=== PATIENT | female | born 1970 | race Caucasian/White ===

== ENCOUNTER 2023-07-18 09:26 | Inpatient (IN) ==
--- OUTSIDE RECORDS SUMMARY | 2023-07-18 09:31 | External Medical Summary | Summary of Care ---
Author Name Unknown Organization [facility] Address [address] [place] [address] Phone [phone] Care Team Providers Care Shape Brick Molder Name Role Phone Gregory Dyer MD Primary Care Provider [phone] Reason for Visit * Reason Onset Date Comments Medication Refill 06/24/2023 Encounter Details Date Type Department Care Team (Late st Contact Info) Description 06/24/2023 Refill [facility], [facility] [address] [facility] [place] [address] Bceka Jones DO [address] [place] [id number] Memory changes; Fibromyalgia Allergies Active Allergy Reactions Criticality Noted Date Comments Acetaminophen-Codeine High 10/19/2013 Itching Other reaction(s): severe itching Cat Dander Allergy test positive 04/23/2017 Nasal congestion, watery eyes Dog Dander Allergy test positive 04/23/2017 itchy watery eyes, nasal congestion Dust Allergy test positive 12/31/2017 Itchy, watery eyes nasal congestion Molds & Smuts Allergy test positive 04/23/2017 Oxycodone Itching High 02/24/2017 Other reaction(s): severe itching documented as of this encounter (statuses as of 06/25/2023) Medications Medication Sig Dispensed Refills Start Date End Date Status Probiotic Product (PROBIOTIC DAILY) Capsule Take by mouth 1 Capsule daily . 0 10/07/2016 Active Cholecalciferol (VITAMIN D) 1000 units Tablet Take 1 Tablet by mouth in the morning. 0 03/24/2017 Active Mometasone Furoate (NASONEX) 50 MCG/ACT nasal sprayIndications:Re flux esophagitis Administer 2 Sprays into each nostril daily. 1 Inhaler 5 06/24/2017 Active Black Cohosh 200 MG Oral Capsule Take by mouth 2 times a day. 0 Active Clobetasol Propionate 0.05 % External Ointment (Temovate)Indicatio ns:Dermatitis Apply to affected area twice daily for up to two weeks at a time 30 g 1 09/09/2021 Active Multi-Day Oral Tablet Take by mouth 1 Tablet in the morning. 0 Active Melatonin 10 MG Oral Tablet Take 1 Tablet by mouth at bedtime. Midnight OTC supplement with melatonin 0 Active SUMAtriptan Succinate 50 MG Oral Tablet (Imitrex)Indication s:Chronic migraine without aura without status migrainosus, not intractable take 1 tablet every 2 hours as needed for migraine. Max 4 tablets per 24 hours. 9 Tablet 5 03/12/2022 Active Metoprolol Succinate ER 25 MG Oral Tablet Extended Release 24 Hour (Toprol XL) Take 1 Tablet by mouth in the morning. 30 Tablet 11 09/10/2022 Active Vitamin B-12 1000 MCG Oral Tablet Take 1 Tablet by mouth in the morning. 0 Active Magnesium 250 MG Oral Tablet Take 1 Tablet by mouth in the morning. 0 Active Entresto 24-26 MG Oral Tablet (sacubitril-valsart an 24-26 mg per tab)Indications:Chr onic combined systolic and diastolic heart failure (HCC) Take 1/2 tablet by mouth twice daily 90 Tablet 3 11/14/2022 Active Empagliflozin 10 MG Oral Tablet (Jardiance)Indicati ons:Chronic combined systolic and diastolic heart failure (HCC) Take 1 Tablet by mouth in the morning. 90 Tablet 3 11/14/2022 Active Pantoprazole Sodium 40 MG Oral Tablet Delayed Release (Protonix) Take 1 tablet by mouth twice daily 180 Tablet 2 12/11/2022 Active tiZANidine HCl 4 MG Oral Tablet (Zanaflex)Indicatio ns:Fibromyalgia Take 1.5 tablets at bedtime as needed for spasm and pain 135 Tablet 1 12/24/2022 Active buPROPion HCl ER (XL) 150 MG Oral Tablet Extended Release 24 Hour (Wellbutrin XL) Take 1 Tablet by mouth in the morning. 90 Tablet 3 01/19/2023 Active Aspirin Low Dose 81 MG Oral Tablet Delayed Release Take 1 Tablet by mouth every other day. 0 02/10/2023 Active Furosemide 20 MG Oral Tablet (Lasix)Indications: LBBB (left bundle branch block),Left ventricular systolic dysfunction,Dyslipi demia, goal LDL below 100,Family history of premature CAD TAKE 1 TABLET BY MOUTH EVERY MORNING 90 Tablet 3 03/25/2023 Active HYDROcodone-Acetami nophen 5-325 MG Oral TabletIndications:D DD (degenerative disc disease), lumbosacral Take 1 Tablet by mouth every 6 hours as needed for Pain, Severe or Pain, Breakthrough. 30 Tablet 0 04/22/2023 Active Trintellix 20 MG Oral Tablet (Vortioxetine HBr) Take 1 Tablet by mouth in the morning. 30 Tablet 5 05/12/2023 Active Spironolactone 25 MG Oral Tablet (Aldactone) TAKE 1/2 TABLET BY MOUTH IN THE MORNING 15 Tablet 5 06/02/2023 Active Pregabalin 100 MG Oral Capsule (Lyrica) TAKE ONE CAPSULE BY MOUTH IN THE MORNING AND before bedtime 60 Capsule 2 06/03/2023 Active Pregabalin 25 MG Oral Capsule (Lyrica)Indications :Chronic pain syndrome,Fibromyalg ia,Fibromyalgia syndrome,Chronic radicular cervical pain,Central sensitization to pain Take 1 Capsule by mouth in the morning and 1 Capsule before bedtime. To be taken at same time as 100mg capsule for total dose of 125mg of lyrica twice daily.. 60 Capsule 2 06/03/2023 Active Memantine HCl 10 MG Oral Tablet (Namenda)Indication s:Memory changes,Fibromyalgi a Take 1 Tablet by mouth 2 times a day with morning and evening meals. 60 Tablet 3 06/25/2023 Active Memantine HCl 10 MG Oral Tablet (Namenda)Indication s:Memory changes,Fibromyalgi a Take 1 Tablet by mouth 2 times a day with morning and evening meals. 60 Tablet 3 02/02/2023 Discontinue d(Refill) documented as of this encounter (statuses as of 06/25/2023) Active Problems Problem Noted Date Diagnosed Date Non-ischemic cardiomyopathy 04/19/2023 Obstructive sleep apnea 04/19/2023 Depression with anxiety 04/19/2023 Chronic combined systolic and diastolic heart fa ilure 09/30/2022 Migraine with aura and witho ut status migrainosus, not intractable 09/30/2022 HTN, goal below 130/80 11/29/2019 Left bundle branch block 01/12/2018 Fibromyalgia 03/24/2017 Persistent insomnia 11/25/2016 DDD (degenerative disc disease), lumbosacral Vitamin D deficiency 06/27/2009 Overview: Vitamin D 16.6 Dyslipidemia 06/07/2009 Overview: Per Lipid Taxonomy. Tobacco abuse Overview: Stopped smoking within one week of +HPT Gastroesophageal reflux disease with esophagitis Asthma, mild persistent documented as of this encounter (statuses as of 06/25/2023) Resolved Problems Problem Noted Date Diagnosed Date Resolved Date Prediabetes 08/29/2021 05/07/2023 Advanced directives, counseling/discussion 10/11/2020 12/04/2020 Urinary retention with incom plete bladder emptying 09/11/2020 09/30/2022 Cystocele, midline 09/11/2020 3 Rectocele 09/11/2020 09/30/2022 Chronic constipation 09/11/2020 023 Chronic allergic rhinitis 06/09/2017 Family history of hypercholesterolemia 11/25/2016 11/28/2019 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 Habitual aborter, antepartum condition or complication 12/02/2011 09/01/2012 ADVANCE DIRECTIVE INFORMATION 12/01/2011 01/05/2012 Overview: No, Advance Directive brochure offered , patient declined. Supervision of other high-risk 12/01/2011 06/02/2012 Overview: Pt desires BTL with repeat c/s ICD-10 update of inactive term AMA (advanced maternal age) multigravida 35+ 2 06/02/2012 History of recurrent miscarr iages, not currently 12/01/2011 11/29/2019 History of delivery 12/01/2011 06/02/2012 with other poor ob stetric history(V23.49) 10/29/2011 04/24/2012 Overview: +AMA-desires FTS MFM 11/30: -For patients who will be over the age of 40 at the time of delivery, we recommend echo with MFM at 22-24 weeks, ultrasound for growth with MFM at approximately 32 weeks, surveillance with twice weekly NST/weekly ASHVIN at 38 weeks, and delivery by 41 weeks. -Offered genetic screening/testing options including amniocentesis. Reviewed risk of loss with amniocentesis of 1:500. Patient desires First trimester screen. -Recommend MFM ultrasound for anatomy screen at 18-20 weeks gestation. MFM 01/05/12: Recommend follow up ultrasound with MFM in 6 weeks for growth, f/u anatomy, and echo secondary to AMA. MFM 02/16/12: Repeat TSH and Free T4 at this visit. Will recommend treatment with Levoxyl for TSH >2.5 in . Recommend re-initiating SSRI for symptomatic major depression to prevent more serious depression. Recommend stress dose steroids at time of delivery secondary to chronic exogenous steroid administration during -pt no longer needs as she stopped steroid injections Recommend follow up ultrasound with MFM in 6 weeks for growth secondary to AMA. MFM 04/01/12: Monitor TSH each trimester and 4-6 weeks after any dose changes. Would recommend checking once more this . We recommend surveillance with twice weekly NST/weekly ASHVIN starting at 38 weeks, and delivery by 41 weeks. Recommend follow up ultrasound with MFM in 3 weeks for growth secondary to lagging AC and marginal cord insertion, AMA. Palpitations 07/18/2010 11/06/2015 Previous delivery, antepartum condition or complication 06/03/2010 01/05/2012 Overview: Pt considering repeat C/s at [facility] or at [facility] where she works. Continue to discuss Asthma with severity to be determined 12/17/2009 06/08/2013 Overview: Per Asthma Taxonomy ICD-10 update of inactive term Dyslipidemia, goal LDL below 130 08/08/2009 08/08/2009 Other specified anemias 10/08/200708/20 Overview: H/H 11.5/34.2 Mixed dyslipidemia 11/10/200506/07/ 9 Overview: Per Lipid Taxonomy. Major depressive disorder, s debo episode, moderate 11/10/2005 11/28/2019 Overview: 10/28: Tapering Effexor; pt daily 37.5mg daily at NOB visit; pt desires to continue taper. Restart Celexa 02/18/12 EXTRINSIC ASTHMA, UNSPEC 11/10/2005 Other allergic rhinitis 11/10/200512/20 Overview: ICD-10 update of inactive term Other acne 02/01/2001 01/05/2012 Generalized anxiety disorder 04/19/2023 Umbilical hernia 11/28/2019 Acquired pyloric stenosis Overview: EGD [place] Psoriasis 11/28/2019 Asthma in remission 10/05/19 14 Migraine variant 09/30/2022 Overview: well-managed with Imitrex but only Vicodin/codeine since Iron deficiency anemia due t o chronic blood loss 11/28/2019 Melanocytic nevus of trunk 0 11/28/2019 Carpal tunnel syndrome 11/05 Overview: bilateral symptoms History of Jay fundoplication 11/29/2019 documented as of this encounter (statuses as of 06/25/2023) Immunizations Name Administration Dates Next Due COVID-19 mRNA, LNP-s, No Pre serve, 2-Dose Series (Third Chicken) 11/27/2020,11/06/2020 PPD 04/15/2016, 6,10/10/2014,08/23,09/09/2010,08/22/2009,08/08/2009 ,07/26/2007 Pneumococcal Polysaccharide PPV23 (Pneumovax) 04/17/2015,06/26/2009(Deferred: Patient Refused) Seasonal Influenza, PF, 6 M & above, IM , (FluLaval or Fluzone) 03/18/2023,02/21/2020,03/24/2017 Seasonal Influenza, Quadriva lent, No Preserve, IM 03/20/2016,03/21/2015 Seasonal Influenza, Split, I IV3, With Preserve, Inj 04/11/2014,04/27/2013,03/22/2012,03/31,04/20/2009 TDAP (age 10 and older)(Boostrix) 12/08/2017 TDAP (age 11 and older)(Adacel) 07/26/2007 documented as of this encounter Social History Tobacco Use Types Packs/Day Years Used Date Smoking Tobacco: Every Day Cigarettes 0.3 28 Last attempted to quit: 09/21/2011 Smokeless Tobacco: Never Comments:6-8 cigarettes a da y Alcohol Use Standard Drinks/Week Comments Yes 0 (1 standard drink = 0.6 oz pure alcohol) once every couple of months a drink PHQ-2 Answer Date Recorded PHQ Adult Total Score 20 10/22/2022 Hunger Vital Sign Answer Date Recorded Worried About Running Out of Food in the Last Ye ar Never true 11/29/2019 Ran Out of Food in the Last Year Never true 11/29/2019 Sex and Gender Information Value Date Recorded Sex Assigned at Not on file Gender Identity Not on file Sexual Orientation Not on file Job Start Date Occupation Industry Not on file Not on file Not on file documented as of this encounter Miscellaneous Notes * Telephone Encounter - Becka Jones DO - 06/25/2023 1:15 PM ESTSigned Prescriptions: Disp Refills Memantine HCl 10 MG Oral Tablet (Namenda) 60 Tab*3 Sig: Take 1 Tablet by mouth 2 times a day with morning and evening meals.Authorizing Provider: BECKA JONES--- documented in this encounter Plan of Treatment Upcoming Encounters Date Type Department Care Team (Late st Contact Info) Description 08/06/2023 3:00 PM EST Imaging Radiology [facility] [address] [place] [id number] 09/23/2023 1:30 PM EDT Office Visit Cardiology, [facility] [address] [place] [address] Sarita Jones CRNP [address] [place] [id number] 05/04/2024 3:30 PM EST Imaging Radiology [address] [place] [address] Scheduled Procedures Name Priority Associated Diagnoses Date/Ti me COLONOSCOPY FLEXIBLE PROXIMA L DIAGNOSTIC Recall Screening for colorectal cancer Gastroesophageal reflux disease, unspecified whether esophagitis present Health Maintenance Due Date Last Done Comments DISCUSS TOBACCO CESSATION (REFER TO SMARTSET #3231) 1971 Hepatitis B (1 of 3 - 3-dose series) 1971 Albumin/Creatinine Ratio 1989 Hepatitis C Screening 1989 HPV/Co-Test 2001 Cologuard 2016 Fecal Occult Blood Test 2016 Sigmoidoscopy 2016 Pneumococcal Vaccine: Pediatrics (0 to 5 Years) and At-Risk Patients (6 to 64 Years) (2 - PCV) 04/17/2016 04/17/2015 *SPIROMETRY ONCE FOR ASTHMA-ADULT 08/10/2016 Zoster Vaccines (1 of 2) 2021 Cervical Cancer Screening 08/23/2022 Pap Smear 08/23/2022 08/24/2019, 05/22, 12/29/2012, Additional history exists Depression, Most Recent Score >= 10 (will fire each visit until score < 10) 10/23/2022 10/22/2022 COVID-19 Vaccine ( season) 2023 11/27/2020, 11/06/2020 GFR 02/04/2024 02/03/2023, 12/20, 12/18/2022, Additional history exists Mammogram 04/24/2024 04/24/2023, 03/23, 04/12/2021, Additional history exists Diabetes Screening 02/03/2026 02/03/2023, 0 12/18/2022, 11/26/2022, Additional history exists Lipid Panel 09/13/2027 09/12/2022, 08/20, 11/29/2019, Additional history exists DTaP,Tdap,and Td Vaccines (3 - Td or Tdap) 12/09/2027 12/08/2017, 07/26/2007 Colonoscopy 10/25/2031 10/24/2021, 10/24/2021 Colorectal Cancer Screening 10/25/2031 Influenza Vaccine (FLU shot) Completed , 02/21/2020, 03/24/2017, Additional history exists GARDASIL-HPV IMMUNIZATION SERIES Aged Out No longer eligible based on patient's age to complete this topic MENINGOCOCCAL (MENACTRA/MENVEO) Aged Out No longer eligible based on patient's age to complete this topic documented as of this encounter Medical Devices Not on filedocumented as of this encounter Visit Diagnoses Diagnosis Memory changes Memory loss Fibromyalgia Mylagia and myositis, unspecified documented in this encounter Advance Directives Latest Code Status on File Code Status Date Activated Date Inactivated Comments Full Code 01/12/2014 8:04 AM 01/12/2014 1:19 PM This order reflects the patients wishes and were consensually agreed upon. Code Status History Code Status Date Activated Date Inactivated Comments Full Code 04/20/2012 2:08 AM 04/27/2012 8:33 PM This order reflects the patients wishes and were consensually agreed upon. Care Teams Shape Brick Molder Relationship Specialty Start Date End Date Gregory Dyer MD [address] [place] [id number] PCP - General Family Medicine 11/29/19 documented as of this encounter
--- OUTSIDE RECORDS SUMMARY | 2023-07-18 09:31 | External Medical Summary | Summary of Care ---
Author Name Unknown Organization [facility] Address [address] [place] [address] Phone [phone] Care Team Providers Care Core Oven Tender Name Role Phone Gregory Dyer MD Primary Care Provider [phone] Reason for Visit * Reason Comments Neck Pain Back Pain Encounter Details Date Type Department Care Team (Late st Contact Info) Description 06/10/2023 11:30 AM EST Office Visit Interventional Pain Center, [facility] [address] [place] [address] Kiera Manley PA-C [address] [facility] [place] [address] Chronic pain syndrome*; Fibromyalgia Allergies Active Allergy Reactions Criticality Noted [...] as of this encounter (statuses as of 06/10/2023) Medications Medication Sig Dispensed Refills Start Date End Date Status Probiotic Product (PROBIOTIC DAILY) Capsule Take by mouth 1 Capsule daily . 0 10/07/2016 Active Cholecalciferol (VITAMIN D) 1000 units Tablet Take 1 Tablet by mouth in the morning. 0 03/24/2017 Active Mometasone Furoate (NASONEX) 50 MCG/ACT nasal sprayIndications:Ref lux esophagitis Administer 2 Sprays into each nostril daily. 1 Inhaler 5 06/24/2017 Active Black Cohosh 200 MG Oral Capsule Take by mouth 2 times a day. 0 Active Clobetasol Propionate 0.05 % External Ointment (Temovate)Indication s:Dermatitis Apply to affected area twice daily for up to two weeks at a time 30 g 1 09/09/2021 Active Multi-Day Oral Tablet Take by mouth 1 Tablet in the morning. 0 Active Melatonin 10 MG Oral Tablet Take 1 Tablet by mouth at bedtime. Midnight OTC supplement with melatonin 0 Active SUMAtriptan Succinate 50 MG Oral Tablet (Imitrex)Indications :Chronic migraine without aura without status migrainosus, not [...] 0 Active Entresto 24-26 MG Oral Tablet (sacubitril-valsarta n 24-26 mg per tab)Indications:[employer] cortez combined systolic and diastolic heart failure (HCC) Take 1/2 tablet by mouth twice daily 90 Tablet 3 11/14/2022 Active Empagliflozin 10 MG Oral Tablet (Jardiance)Indicatio ns:Chronic combined systolic and diastolic heart failure (HCC) Take 1 Tablet by mouth in the morning. 90 Tablet 3 11/14/2022 Active Pantoprazole Sodium 40 MG Oral Tablet Delayed Release (Protonix) Take 1 tablet by mouth twice daily 180 Tablet 2 12/11/2022 Active tiZANidine HCl 4 MG Oral Tablet (Zanaflex)Indication s:Fibromyalgia Take 1.5 tablets at bedtime as needed for spasm and pain 135 Tablet 1 12/24/2022 Active buPROPion HCl ER (XL) 150 MG Oral Tablet Extended Release 24 Hour (Wellbutrin XL) Take 1 Tablet by mouth in the morning. 90 Tablet 3 01/19/2023 Active Memantine HCl 10 MG Oral Tablet (Namenda)Indications :Memory changes,Fibromyalgia Take 1 Tablet by mouth 2 times a day with morning and evening meals. 60 Tablet 3 02/02/2023 Active Aspirin Low Dose 81 MG Oral Tablet Delayed Release Take 1 Tablet by mouth every other day. 0 02/10/2023 Active Furosemide 20 MG Oral Tablet (Lasix)Indications:L BBB (left bundle branch block),Left ventricular systolic dysfunction,Dyslipid emia, goal LDL below 100,Family history of premature CAD TAKE 1 TABLET BY MOUTH EVERY MORNING 90 Tablet 3 03/25/2023 Active HYDROcodone-Acetamin ophen 5-325 MG Oral TabletIndications:DD D (degenerative disc disease), lumbosacral Take 1 Tablet by mouth every 6 hours as needed for Pain, Severe or Pain, Breakthrough. 30 Tablet 0 04/22/2023 Active Zolpidem Tartrate 10 MG Oral Tablet (Ambien)Indications: Persistent insomnia Take 1 Tablet by mouth at bedtime as needed for Sleep. 30 Tablet 0 05/08/2023 Active Trintellix 20 MG Oral Tablet (Vortioxetine [...] 06/03/2023 Active Pregabalin 25 MG Oral Capsule (Lyrica)Indications: Chronic pain syndrome,Fibromyalgi a,Fibromyalgia syndrome,Chronic radicular cervical pain,Central sensitization to pain Take 1 Capsule by mouth in the morning and 1 Capsule before bedtime. To be taken at same time as 100mg capsule for total dose of 125mg of lyrica twice daily.. 60 Capsule 2 06/03/2023 Active documented as of this encounter (statuses as of 06/10/2023) Active Problems Problem Noted Date Diagnosed Date [...] as of this encounter (statuses as of 06/10/2023) Resolved Problems Problem Noted Date Diagnosed Date [...] 01/05/2012 Overview: Pt considering repeat C/s at [facility] or at [facility] where she works. Continue to discuss Asthma [...] hernia 11/28/2019 Acquired pyloric stenosis Overview: EGD [place] Psoriasis 11/28/2019 Asthma in remission 10/05/19 14 Migraine variant 09/30/2022 Overview: well-managed with Imitrex but only Vicodin/codeine since Iron deficiency anemia due t o chronic blood loss 11/28/2019 Melanocytic nevus of trunk 0 11/28/2019 Carpal tunnel syndrome 11/05 Overview: bilateral symptoms History of Jay fundoplication 11/29/2019 documented as of this encounter (statuses as of 06/10/2023) Immunizations Name Administration Dates Next Due COVID-19 mRNA, LNP-s, No Pre serve, 2-Dose Series ([employer]) 11/27/2020,11/06/2020 PPD 04/15/2016, 6,10/10/2014,08/23,09/09/2010,08/22/2009,08/08/2009 ,07/26/2007 Pneumococcal Polysaccharide [...] on file documented as of this encounter Progress Notes * Kiera Manley PA-C - 06/10/2023 11:28 AM EST Name: Mily De La Cruz Date: 06/10/2023 HPI: Mily De La Cruz is a 53 year old female known to the Pain Management clinic presents for follow up due to severe, diffuse spine pain and fibromyalgia. Notes some relief with cymbalta, using 125 mgBID. Denies unwanted side effects. Although continues to feel neck, low back, upper extremity and lower extremities pain is significantly impacting ADL - stating "I'm a mess." Difficulty working due to pain, has backed down to two to three shifts per week. Briefly had a scribe which was helpful, although employer felt it was too expensive and stopped providing the help for her. Pain is impacting mood, denies suicidal or homicidal ideation/intent. Notes emotions can be high and low describing a wilberto méndez. Has 1-2 good days per month, although "good days" still involve diffuse pain. Describes pain as stiff, sore and aching. Tried medical marijuana, didn't like the way it made her feel, avoids using when working. No lasting relief with cervical trigger point injections. She is going to therapy. Discusses pain with her mother, good support system. Has completed MPP in the past. Very fatigued. History: Past Medical History: Diagnosis Date Abnormal finding on Pap smear 1989 cryo surgery done 1989, paps WNL since then Acquired pyloric stenosis 2007 post-op fundoplication, surgically corrected Asthma 2004 has not req'd treatment since 2010 Asthma in remission 2010 Asthma, mild persistent Chronic diastolic heart failure (HCC) 09/30/2022 COVID-19 Depression 1999 well-managed with Effexor but stopped with knowledge of Depression with anxiety 04/19/2023 Fibromyalgia GERD (gastroesophageal reflux disease) 2004 unsuccessfully managed with meds, fundoplication done 05/2007, GERD resolved since then History of Jay fundoplication History of recurrent miscarriages, not currently 12/01/2011 HTN, goal below 130/80 11/29/2019 Iron deficiency anemia due to chronic blood loss Melanocytic nevus of trunk Migraine 2003 well-managed with Imitrex but only Vicodin/codeine since Migraine with aura and without status migrainosus, not intractable 09/30/2022 Non-ischemic cardiomyopathy (HCC) 04/19/2023 Obstructive sleep apnea 04/19/2023 Prediabetes 08/29/2021 Type A blood, Rh positive Vitamin D deficiency 2010 manages with supplementation Past Surgical History: Procedure Laterality Date DELIVERY 1994 no comps. General anesthesia due to inadequate epidural. COLONOSCOPY, DIAGNOSTIC (RECTUM) 10/24/2021 normal, repeat 10 yrs / COLONOSCOPY FLEXIBLE PROXIMAL DIAGNOSTIC performed by Atif Holly MD at ENDOSCOPY [facility] DILATION AND CURETTAGE (D&C) 2009 no comps DILATION AND CURETTAGE (D&C) 04/24/2012 DILATION AND CURETTAGE performed by Mirlande Goldman MD at [facility] EGD, FLEXIBLE, DIAGNOSTIC 10/25/2013 esophagus normal, Jay fundoplication, stomach and duodenum normal EGD, FLEXIBLE, DIAGNOSTIC 01/12/2018 normal/ESOPHAGOGASTRODUODENOSCOPY (EGD), FLEXIBLE, TRANSORAL, DIAGNOSTIC performed by Maty Andrade MD at ENDOSCOPY [facility] EGD, FLEXIBLE, DIAGNOSTIC 2018 chronic gastritis/[facility] EGD, FLEXIBLE, DIAGNOSTIC 10/24/2021 normal / ESOPHAGOGASTRODUODENOSCOPY (EGD), FLEXIBLE, TRANSORAL, DIAGNOSTIC performed by Atif Holly MD at ENDOSCOPY [facility] EGD, FLEXIBLE, W/DILATE STRICTURES 2007 dilated for pyloric stenosis , no comps ESOPHAGOGASTRIC FUNDOPLASTY 2006 post op gastroparesis [place] [facility] HYSTEROSCOPY;ENDOMETRIAL ABLAT 01/12/2014 HYSTEROSCOPY ENDOMETRIAL ABLATION performed by Eze Greer MD at OR [facility] TOOTH ROOT REMOVAL 1990 no comps UMBIL HERNIA REPAIR (REDUCIBLE) AGE 5+YR 2006 no comps Current Outpatient Medications Medication Sig Dispense Refill Probiotic Product (PROBIOTIC DAILY) Capsule Take by mouth 1 Capsule daily . Cholecalciferol (VITAMIN D) 1000 units Tablet Take 1 Tablet by mouth in the morning. Mometasone Furoate (NASONEX) 50 MCG/ACT nasal spray Administer 2 Sprays into each nostril daily. 1 Inhaler 5 Black Cohosh 200 MG Oral Capsule Take by mouth 2 times a day. Clobetasol Propionate 0.05 % External Ointment (Temovate) Apply to affected area twice daily for upto two weeks at a time 30 g 1 Multi-Day Oral Tablet Take by mouth 1 Tablet in the morning. Melatonin 10 MG Oral Tablet Take 1 Tablet by mouth at bedtime. Midnight OTC supplement with melatonin Metoprolol Succinate ER 25 MG Oral Tablet Extended Release 24 Hour (Toprol XL) Take 1 Tablet by mouth in the morning. 30 Tablet 11 Vitamin B-12 1000 MCG Oral Tablet Take 1 Tablet by mouth in the morning. Magnesium 250 MG Oral Tablet Take 1 Tablet by mouth in the morning. Entresto 24-26 MG Oral Tablet (sacubitril-valsartan 24-26 mg per tab) Take 1/2 tablet by mouth twice daily 90 Tablet 3 Empagliflozin 10 MG Oral Tablet (Jardiance) Take 1 Tablet by mouth in the morning. 90 Tablet 3 Pantoprazole Sodium 40 MG Oral Tablet Delayed Release (Protonix) Take 1 tablet by mouth twice [id number] Tablet 2 buPROPion HCl ER (XL) 150 MG Oral Tablet Extended Release 24 Hour (Wellbutrin XL) Take 1 Tablet by mouth in the morning. 90 Tablet 3 Memantine HCl 10 MG Oral Tablet (Namenda) Take 1 Tablet by mouth 2 times a day with morning and evening meals. 60 Tablet 3 Aspirin Low Dose 81 MG Oral Tablet Delayed Release Take 1 Tablet by mouth every other day. Furosemide 20 MG Oral Tablet (Lasix) TAKE 1 TABLET BY MOUTH EVERY MORNING 90 Tablet 3 Trintellix 20 MG Oral Tablet (Vortioxetine HBr) Take 1 Tablet by mouth in the morning. 30 Tablet 5 Spironolactone 25 MG Oral Tablet (Aldactone) TAKE 1/2 TABLET BY MOUTH IN THE MORNING 15 Tablet 5 Pregabalin 100 MG Oral Capsule (Lyrica) TAKE ONE CAPSULE BY MOUTH IN THE MORNING AND before [id number] Capsule 2 Pregabalin 25 MG Oral Capsule (Lyrica) Take 1 Capsule by mouth in the morning and 1 Capsule before bedtime. To be taken at same time as 100mg capsule for total dose of 125mg of lyrica twice daily.. 60 Capsule 2 SUMAtriptan Succinate 50 MG Oral Tablet (Imitrex) take 1 tablet every 2 hours as needed for migraine. Max 4 tablets per 24 hours. 9 Tablet 5 tiZANidine HCl 4 MG Oral Tablet (Zanaflex) Take 1.5 tablets at bedtime as needed for spasm and [id number] Tablet 1 HYDROcodone-Acetaminophen 5-325 MG Oral Tablet Take 1 Tablet by mouth every 6 hours as needed for Pain, Severe or Pain, Breakthrough. 30 Tablet 0 Zolpidem Tartrate 10 MG Oral Tablet (Ambien) Take 1 Tablet by mouth at bedtime as needed for Sleep.30 Tablet 0 No current facility-administered medications for this visit. Facility-Administered Medications Ordered in Other Visits Medication Dose Route Frequency Provider Last Rate Last Admin Nitroglycerin (Nitrostat) sl tab 0.4 mg 0.4 mg Sublingual Q5 Min PRN Zari Chance CRNP Review of patient's allergies indicates: Allergen Reactions Acetaminophen-Codeine Itching Other reaction(s): severe itching Oxycodone Itching Other reaction(s): severe itching Cats [Cat Dander] Allergy test positive Nasal congestion, watery eyes Dogs [Dog Dander] Allergy test positive itchy watery eyes, nasal congestion Dust Allergy test positive Itchy, watery eyes nasal congestion Molds & Smuts Allergy test positive ROS: CONSTITUTIONAL: Denies anorexia, weight loss, fever, night sweats. RESPIRATORY: Denies shortness of breath, wheezing, productive cough. CARDIOVASCULAR: Denies chest pains, irregular heartbeat. HEME: Denies easy bruising and anticoagulation use. ROS EXAM: Remainder of ROS negative as discussed above in the HPI. PHYSICAL EXAM: There were no vitals taken for this visit. GENERAL: WD/WN female who is awake and alert. Does not appear to be in acute distress. Tearful. MENTAL STATUS: Oriented x 3. Pleasant and cooperative with normal affect. GAIT/COORDINATION: Gait is intact. Ambulates without assistance. ASSESSMENT: Chronic pain syndrome Fibromyalgia RECOMMENDATION: Some benefit with lyrica, will continue. Plan to discuss further titration with Dr. Jones. Do not feel interventional pain is an appropriate option due to diffuseness of pain. Will message PCP regarding possible MTDM referral. Actively participating in therapy, has completed MPP in the past. I spent a total of 20-29 minutes (exact time 27 mins) on the date of service in preparation, delivery, and documentation of the care provided to iMly De La Cruz excluding any time spent in the performance of separately billed services. Kiera Manley PA-C 06/10/2023 documented in this encounter Nursing Notes * Zari Yeung LPN - 06/10/2023 11:27 AM EST Patient here for increased body pain, wants to discuss increasing lyrica documented in this encounter Plan of Treatment Upcoming Encounters Date Type Department Care Team (Late st Contact Info) Description 08/06/2023 3:00 PM EST Imaging Radiology [address], [address] [place] [address] 09/23/2023 1:30 PM EDT Office Visit Cardiology, [facility] [address] [place] [address] Sarita Jones CRNP [address] [place] [address] 05/04/2024 3:30 PM EST Imaging Radiology [address] [place] [address] Scheduled Procedures Name Priority Associated Diagnoses Date/Ti me COLONOSCOPY FLEXIBLE PROXIMA L DIAGNOSTIC Recall Screening for colorectal cancer Gastroesophageal reflux disease, unspecified whether esophagitis present Health Maintenance Due Date Last Done Comments DISCUSS TOBACCO CESSATION (REFER TO SMARTSET #7111) 1971 Hepatitis B (1 of 3 - [...] score < 10) 10/23/2022 10/22/2022 COVID-19 Vaccine (2022- season) 2023 11/27/2020, 11/06/2020 GFR 02/04/2024 02/03/2023, [...] as of this encounter Visit Diagnoses Diagnosis Chronic pain syndrome- Primary Fibromyalgia Mylagia and myositis, unspecified documented in [...] and were consensually agreed upon. Care Teams Core Oven Tender Relationship Specialty Start Date End Date Gregory Dyer MD [address] [facility] [place] [address] PCP - General Family Medicine 11/29/19 documented as of this encounter
--- OUTSIDE RECORDS SUMMARY | 2023-07-18 09:31 | External Medical Summary | Summary of Care ---
Author Name Unknown Organization [facility] Address [address] [place] [address] Phone [phone] Care Team Providers Care Retort Forker Name Role Phone Gregory Dyer MD Primary Care Provider [phone] Reason for Visit * Reason Comments eRx-Medication Refill Encounter Details Date Type Department Care Team (Late st Contact Info) Description 05/30/2023 [place] [place] [address] [place] [id number] Randall Alas CRNP [address] [place] [address] Allergies Active Allergy Reactions Criticality Noted Date [...] as of this encounter (statuses as of 06/02/2023) Medications Medication Sig Dispensed Refills Start Date End Date Status Probiotic Product (PROBIOTIC DAILY) Capsule Take by mouth 1 Capsule daily . 0 10/07/2016 Active Cholecalciferol (VITAMIN D) 1000 units Tablet Take 1 Tablet by mouth in the morning. 0 03/24/2017 Active Mometasone Furoate (NASONEX) 50 MCG/ACT nasal sprayIndications:R eflux esophagitis Administer 2 Sprays into each nostril daily. 1 Inhaler 5 06/24/2017 Active Black Cohosh 200 MG Oral Capsule Take by mouth 2 times a day. 0 Active Clobetasol Propionate 0.05 % External Ointment (Temovate)Indicati ons:Dermatitis Apply to affected area twice daily for up to two weeks at a time 30 g 1 09/09/2021 Active Multi-Day Oral Tablet Take by mouth 1 Tablet in the morning. 0 Active Melatonin 10 MG Oral Tablet Take 1 Tablet by mouth at bedtime. Midnight OTC supplement with melatonin 0 Active SUMAtriptan Succinate 50 MG Oral Tablet (Imitrex)Indicatio ns:Chronic migraine without aura without status migrainosus, not [...] 0 Active Entresto 24-26 MG Oral Tablet (sacubitril-valsar genao 24-26 mg per tab)Indications:Ch ronic combined systolic and diastolic heart failure (HCC) Take 1/2 tablet by mouth twice daily 90 Tablet 3 11/14/2022 Active Empagliflozin 10 MG Oral Tablet (Jardiance)Indicat ions:Chronic combined systolic and diastolic heart failure (HCC) Take 1 Tablet by mouth in the morning. 90 Tablet 3 11/14/2022 Active Pantoprazole Sodium 40 MG Oral Tablet Delayed Release (Protonix) Take 1 tablet by mouth twice daily 180 Tablet 2 12/11/2022 Active tiZANidine HCl 4 MG Oral Tablet (Zanaflex)Indicati ons:Fibromyalgia Take 1.5 tablets at bedtime as needed for spasm and pain 135 Tablet 1 12/24/2022 Active buPROPion HCl ER (XL) 150 MG Oral Tablet Extended Release 24 Hour (Wellbutrin XL) Take 1 Tablet by mouth in the morning. 90 Tablet 3 01/19/2023 Active Memantine HCl 10 MG Oral Tablet (Namenda)Indicatio ns:Memory changes,Fibromyalg ia Take 1 Tablet by mouth 2 times a day with morning and evening meals. 60 Tablet 3 02/02/2023 Active Pregabalin 100 MG Oral Capsule (Lyrica) Take 1 Capsule by mouth in the morning and 1 Capsule before bedtime. 60 Capsule 2 2023 Active Aspirin Low Dose 81 MG Oral Tablet Delayed Release Take 1 Tablet by mouth every other day. 0 02/10/2023 Active Pregabalin 25 MG Oral Capsule (Lyrica)Indication s:Chronic pain syndrome,Fibromyal michaela,Fibromyalgia syndrome,Chronic radicular cervical pain,Central sensitization to pain Take 1 Capsule by mouth in the morning and 1 Capsule before bedtime. To be taken at same time as 100mg capsule for total dose of 125mg of lyrica twice daily.. 60 Capsule 2 03/23/2023 Active Furosemide 20 MG Oral Tablet (Lasix)Indications :LBBB (left bundle branch block),Left ventricular systolic dysfunction,Dyslip idemia, goal LDL below 100,Family history of premature CAD TAKE 1 TABLET BY MOUTH EVERY MORNING 90 Tablet 3 03/25/2023 Active HYDROcodone-Acetam inophen 5-325 MG Oral TabletIndications: DDD (degenerative disc disease), lumbosacral Take 1 Tablet by mouth every 6 hours as needed for Pain, Severe or Pain, Breakthrough. 30 Tablet 0 04/22/2023 Active Zolpidem Tartrate 10 MG Oral Tablet (Ambien)Indication s:Persistent insomnia Take 1 Tablet by mouth at bedtime as needed for Sleep. 30 Tablet 0 05/08/2023 Active Trintellix 20 MG Oral Tablet (Vortioxetine HBr) Take 1 Tablet by mouth in the morning. 30 Tablet 5 05/12/2023 Active Spironolactone 25 MG Oral Tablet (Aldactone) TAKE 1/2 TABLET BY MOUTH IN THE MORNING 15 Tablet 5 06/02/2023 Active Spironolactone 25 MG Oral Tablet (Aldactone) Take 0.5 Tablets by mouth in the morning. 15 Tablet 5 12/09/2022 06/02/20 23 Discontinued documented as of this encounter (statuses as of 06/02/2023) Active Problems Problem Noted Date Diagnosed Date [...] as of this encounter (statuses as of 06/02/2023) Resolved Problems Problem Noted Date Diagnosed Date Resolved Date Prediabetes 08/29/2021 05/07/2023 Advanced directives, counseling/discussion 10/11/2020 12/04/2020 Urinary retention with incom plete bladder emptying 09/11/2020 09/30/2022 Cystocele, midline 09/11/2020 Rectocele 09/11/2020 09/30/2022 Chronic constipation 09/11/2020 023 [...] C/s at [facility] or at [facility] where she works. Continue to discuss Asthma [...] hernia 11/28/2019 Acquired pyloric stenosis Overview: EGD [place] Psoriasis 11/28/2019 Asthma in remission 10/05/19 14 Migraine variant 09/30/2022 Overview: well-managed with Imitrex but only Vicodin/codeine since Iron deficiency anemia due t o chronic blood loss 11/28/2019 Melanocytic nevus of trunk 0 11/28/2019 Carpal tunnel syndrome 11/05 Overview: bilateral symptoms History of Jay fundoplication 11/29/2019 documented as of this encounter (statuses as of 06/02/2023) Immunizations Name Administration Dates Next Due COVID-19 mRNA, LNP-s, No Pre serve, 2-Dose Series (Pfizer) 11/27/2020,11/06/2020 PPD 04/15/2016, 6,10/10/2014,08/23,09/09/2010,08/22/2009,08/08/2009 ,07/26/2007 Pneumococcal Polysaccharide PPV23 (Pneumovax) 04/17/2015,06/26/2009(Deferred: Patient Refused) SEASONAL INFLUENZA, PF, 6 M & Above, IM , (FLULAVAL or FLUZONE) 03/18/2023,02/21/2020,03/24/2017 Seasonal Influenza, Quadriva lent, No Preserve, [...] encounter Miscellaneous Notes * Telephone Encounter - Randall Alas CRNP - 06/02/2023 7:03 AM EST Signed Prescriptions: Disp Refills Spironolactone 25 MG Oral Tablet (Aldacton*15 Tab*5 Sig: TAKE 1/2 TABLET BY MOUTH IN THE MORNING Authorizing Provider: RANDALL ALAS * Telephone Encounter - [employer], [facility] Inbound - 06/01/2023 11:47 AM EST Pending Prescriptions: Disp Refills Spironolactone 25 MG Oral Tablet (Aldacton*15 Tab*5 Sig: TAKE 1/2 TABLET BY MOUTH IN THE MORNING * Telephone Encounter - Anabel Amaro LPN - 06/01/2023 8:26 AM ESTPending Prescriptions: Disp Refills Spironolactone 25 MG Oral Tablet (Aldacton*15 Tab*5 Sig: TAKE 1/2 TABLET BY MOUTH IN THE MORNING * Telephone Encounter - Anabel Amaro LPN - 06/01/2023 8:26 AM EST Pending Prescriptions: Disp Refills Spironolactone 25 MG Oral Tablet (Aldacto*15 Tab*5 Sig: TAKE 1/2 TABLET BY MOUTH IN THE MORNING documented in this encounter Plan of Treatment Upcoming Encounters Date Type Department Care Team (Late st Contact Info) Description 06/03/2023 2:00 PM EST Office Visit Interventional Pain Center, [facility] [address] [place] [address] Kiera Manley PA-C [address] [place] [address] 08/06/2023 3:00 PM EST Imaging Radiology [facility] 1st Floor, [place] [address] [place] [address] 09/23/2023 1:30 PM EDT Office Visit Cardiology, [facility] [place] [address] Sarita Jones CRNP [address] [place] [address] 05/04/2024 3:30 PM EST Imaging Radiology [address] [place] [address] Scheduled Procedures Name Priority Associated Diagnoses Date/Ti me COLONOSCOPY FLEXIBLE PROXIMA L DIAGNOSTIC Recall Screening for colorectal cancer Gastroesophageal reflux disease, unspecified whether esophagitis present Health Maintenance Due Date Last Done Comments DISCUSS TOBACCO CESSATION (REFER TO SMARTSET #8913) 1970 Hepatitis B (1 of 3 - [...] score < 10) 10/23/2022 10/22/2022 COVID-19 Vaccine (3 - season) 2023 11/27/2020, 11/06/2020 GFR 02/04/2024 02/03/2023, [...] Not on filedocumented as of this encounter Advance Directives Latest Code Status [...] and were consensually agreed upon. Care Teams Retort Forker Relationship Specialty Start Date End Date Gregory Dyer MD [address] [place] [phone] PCP - General Family Medicine 6/9/20 documented as of this encounter
--- OUTSIDE RECORDS SUMMARY | 2023-07-18 09:31 | External Medical Summary | Summary of Care ---
Author Name Unknown Organization [facility] Address [address] [place] [address] Phone [phone] Care Team Providers Care Cnc Supervisor Name Role Phone Caroline Ba MD Primary Care Provider [phone] Reason for Visit * Reason Onset Date Comments Medication Refill 05/08/2023 Encounter Details Date Type Department Care Team (Late st Contact Info) Description 05/08/2023 Refill Family Practice [facility] [address] [facility] [place] [address] Caroline Ba MD [address] [facility] [place] [address] Persistent insomnia Allergies Active Allergy Reactions Criticality Noted Date [...] as of this encounter (statuses as of 05/08/2023) Medications Medication Sig Dispensed Refills Start Date [...] the morning. 30 Tablet 11 09/10/2022 Active Trintellix 20 MG Oral Tablet (Vortioxetine HBr) Take 1 Tablet by mouth in the morning. 30 Tablet 11/10/2022 Active Vitamin B-12 1000 MCG Oral Tablet [...] the morning. 90 Tablet 3 11/14/2022 Active Spironolactone 25 MG Oral Tablet (Aldactone) Take 0.5 Tablets by mouth in the morning. 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 To be taken at same time as 100mg capsule for total dose of 125mg of lyrica twice daily.. 60 Capsule 2 03/23/2023 Active Furosemide 20 MG Oral Tablet (Lasix)Indications: [...] Active Zolpidem Tartrate 10 MG Oral Tablet (Ambien)Indications :Persistent insomnia Take 1 Tablet by mouth at bedtime as needed for Sleep. 30 Tablet 0 05/08/2023 Active Zolpidem Tartrate 10 MG Oral Tablet (Ambien)Indications :Persistent insomnia Take 1 Tablet by mouth at bedtime as needed for Sleep. 30 Tablet 0 04/06/2023 3 Discontinue d(Refill) documented as of this encounter (statuses as of 05/08/2023) Active Problems Problem Noted Date Diagnosed Date [...] as of this encounter (statuses as of 05/08/2023) Resolved Problems Problem Noted Date Diagnosed Date [...] 01/05/2012 Overview: Pt considering repeat C/s at [facility] or at [facility] where she works. Continue to discuss Asthma with severity to be determined 12/17/2009 06/08/2013 Overview: Per Asthma Taxonomy ICD-10 update of inactive term Dyslipidemia, goal LDL below 130 08/08/2009 08/08/2009 Other specified anemias 10/08/200708/20 Overview: H/H 11.5/34.2 Mixed dyslipidemia 11/10/2005 9 Overview: Per Lipid Taxonomy. Major depressive disorder, s debo episode, moderate 11/10/2005 11/28/2019 Overview: 10/28: Tapering Effexor; pt daily 37.5mg daily at NOB visit; pt desires to continue taper. Restart Celexa 02/18/12 EXTRINSIC ASTHMA, UNSPEC 11/10/2005 Other allergic rhinitis 11/10/200512/20 Overview: ICD-10 update of inactive term Other acne 02/01/2001 01/05/2012 Generalized anxiety disorder 04/19/2023 Umbilical hernia 11/28/2019 Acquired pyloric stenosis Overview: EGD [place] Psoriasis 11/28/2019 Asthma in remission 10/05/19 14 Migraine variant 09/30/2022 Overview: well-managed with Imitrex but only Vicodin/codeine since Iron deficiency anemia due t o chronic blood loss 11/28/2019 Melanocytic nevus of trunk 0 11/28/2019 Carpal tunnel syndrome 11/05 Overview: bilateral symptoms History of Jay fundoplication 11/29/2019 documented as of this encounter (statuses as of 05/08/2023) Immunizations Name Administration Dates Next Due COVID-19 [...] encounter Miscellaneous Notes * Telephone Encounter - Caroline Ba MD - 05/08/2023 1:19 PM ESTSigned Prescriptions: Disp Refills Zolpidem Tartrate 10 MG Oral Tablet (Ambie*30 Tab*0 Sig: Take 1 Tablet by mouth at bedtime as needed for Sleep. Authorizing Provider: CAROLINE BA * Telephone Encounter - Monroe Malik [facility] - 05/08/2023 1:17 PM ESTPending Prescriptions: Disp Refills Zolpidem Tartrate 10 MG Oral Tablet (Ambie*30 Tab*0 Sig: Take 1 Tablet by mouth at bedtime as needed for Sleep. * Telephone Encounter - Monroe Malik [facility] - 05/08/2023 1:14 PM EST I have reviewed the patients controlled substance dispensing history in the Prescription Drug Monitoring Program in compliance with the [facility] regulations before prescribing a controlled substance. PDMP checked on 05/08/2023. Pending Prescriptions: Disp Refills Zolpidem Tartrate 10 MG Oral Tablet (Ambi*30 Tab*0 Sig: Take 1 Tablet by mouth at bedtime as needed for Sleep. Last Visit: 04/22/2023 (in office), Visit date not found (telemedicine) Next Visit: Visit date not found Date medication was last filled: 04/06/23 Date medication is due for refill: 05/05/23 Pharmacy: [id number] [address] [facility] Is this request for a controlled substance? Yes and Urine Drug Screen Not completed Toxicology results: No results found. However, due to the size of the patient record, not all encounters were searched.Please check Results Review for a complete set of results. Please approve if appropriate. Thanks, Monroe Malik Rph, Pharm D. Clinical Pharmacist [facility] (Formerly Telepharmacy)/[facility] [phone] 05/08/2023,1:15 PM documented in this encounter Plan of Treatment Upcoming Encounters Date Type Department Care Team (Late st Contact Info) Description 08/06/2023 3:00 PM EST Imaging Radiology [facility] [facility] [address] [facility] [place] [address] 09/23/2023 1:30 PM EDT [facility] [place] [address] Sarita Jones CRNP [address] [place] [address] 05/04/2024 3:30 PM EST Imaging Radiology [address] [place] [address] Scheduled Procedures Name Priority Associated Diagnoses Date/Ti me COLONOSCOPY FLEXIBLE PROXIMA L DIAGNOSTIC Recall Screening for colorectal cancer Gastroesophageal reflux disease, unspecified whether esophagitis present Health Maintenance Due Date Last Done Comments DISCUSS TOBACCO CESSATION (REFER TO SMARTSET #[id number]) 1970 Hepatitis B (1 of 3 - [...] as of this encounter Visit Diagnoses Diagnosis Persistent insomnia Persistent disorder of initiating or maintaining sleep documented in this encounter Advance Directives Latest [...] and were consensually agreed upon. Care Teams Cnc Supervisor Relationship Specialty Start Date End Date Caroline Ba MD [address] [place] [address] PCP - General Family Medicine 11/29/19 documented as of this encounter
--- OUTSIDE RECORDS SUMMARY | 2023-07-18 09:31 | External Medical Summary | Summary of Care ---
Author Name Unknown Organization [facility] Address [address] [place] [address] Phone [phone] Care Team Providers Care Departmental Buyer Name Role Phone Gregory Dyer MD Primary Care Provider [phone] Reason for Visit * Reason Comments eRx-Medication Refill Encounter Details Date Type Department Care Team (Late st Contact Info) Description 06/02/2023 Refill [facility] [address] [place] [address] Kiera Manley PA-C [address] [facility] [place] [address] Chronic migraine without aura without status migrainosus, not intractable; Chronic pain syndrome; Fibromyalgia; Fibromyalgia syndrome; Chronic radicular cervical pain; 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 0 7 Active Cholecalciferol (VITAMIN D) 1000 units Tablet Take 1 Tablet by mouth in the morning. 0 7 Active Mometasone Furoate (NASONEX) 50 MCG/ACT nasal sprayIndications: Reflux esophagitis Administer 2 Sprays into each nostril daily. 1 Inhaler 5 8 Active Black Cohosh 200 MG Oral Capsule Take by mouth 2 times a day. 0 Active Clobetasol Propionate 0.05 % External Ointment (Temovate)Indicat ions:Dermatitis Apply to affected area twice daily for up to two weeks at a time 30 g 1 2 Active Multi-Day Oral Tablet Take by mouth 1 Tablet in the morning. 0 Active Melatonin 10 MG Oral Tablet Take 1 Tablet by mouth at bedtime. Midnight OTC supplement with melatonin 0 Active SUMAtriptan Succinate 50 MG Oral Tablet (Imitrex)Indicati ons:Chronic migraine without aura without status migrainosus, not intractable take 1 tablet every 2 hours as needed for migraine. Max 4 tablets per 24 hours. 9 Tablet 5 2 Active Metoprolol Succinate ER 25 MG Oral Tablet Extended Release 24 Hour (Toprol XL) Take 1 Tablet by mouth in the morning. 30 Tablet 11 3 Active Vitamin B-12 1000 MCG Oral Tablet Take 1 Tablet by mouth in the morning. 0 Active Magnesium 250 MG Oral Tablet Take 1 Tablet by mouth in the morning. 0 Active Entresto 24-26 MG Oral Tablet (sacubitril-valsa rtan 24-26 mg per tab)Indications:C hronic combined systolic and diastolic heart failure (HCC) Take 1/2 tablet by mouth twice daily 90 Tablet 3 3 Active Empagliflozin 10 MG Oral Tablet (Jardiance)Indica tions:Chronic combined systolic and diastolic heart failure (HCC) Take 1 Tablet by mouth in the morning. 90 Tablet 3 3 Active Pantoprazole Sodium 40 MG Oral Tablet Delayed Release (Protonix) Take 1 tablet by mouth twice daily 180 Tablet 2 3 Active tiZANidine HCl 4 MG Oral Tablet (Zanaflex)Indicat ions:Fibromyalgia Take 1.5 tablets at bedtime as needed for spasm and pain 135 Tablet 1 3 Active buPROPion HCl ER (XL) 150 MG Oral Tablet Extended Release 24 Hour (Wellbutrin XL) Take 1 Tablet by mouth in the morning. 90 Tablet 3 3 Active Memantine HCl 10 MG Oral Tablet (Namenda)Indicati ons:Memory changes,Fibromyal michaela Take 1 Tablet by mouth 2 times a day with morning and evening meals. 60 Tablet 3 3 Active Aspirin Low Dose 81 MG Oral Tablet Delayed Release Take 1 Tablet by mouth every other day. 0 3 Active Furosemide 20 MG Oral Tablet (Lasix)Indication s:LBBB (left bundle branch block),Left ventricular systolic dysfunction,Dysli pidemia, goal LDL below 100,Family history of premature CAD TAKE 1 TABLET BY MOUTH EVERY MORNING 90 Tablet 3 3 Active HYDROcodone-Aceta minophen 5-325 MG Oral TabletIndications :DDD (degenerative disc disease), lumbosacral Take 1 Tablet by mouth every 6 hours as needed for Pain, Severe or Pain, Breakthrough. 30 Tablet 0 3 Active Zolpidem Tartrate 10 MG Oral Tablet (Ambien)Indicatio ns:Persistent insomnia Take 1 Tablet by mouth at bedtime as needed for Sleep. 30 Tablet 0 3 Active Trintellix 20 MG Oral Tablet (Vortioxetine HBr) Take 1 Tablet by mouth in the morning. 30 Tablet 5 3 Active Spironolactone 25 MG Oral Tablet (Aldactone) TAKE 1/2 TABLET BY MOUTH IN THE MORNING 15 Tablet 5 3 Active Pregabalin 100 MG Oral Capsule (Lyrica) TAKE ONE CAPSULE BY MOUTH IN THE MORNING AND before bedtime 60 Capsule 2 3 Active Pregabalin 25 MG Oral Capsule (Lyrica)Indicatio ns:Chronic pain syndrome,Fibromya lgia,Fibromyalgia syndrome,Chronic radicular cervical pain,Central sensitization to pain Take 1 Capsule by mouth in the morning and 1 Capsule before bedtime. To be taken at same time as 100mg capsule for total dose of 125mg of lyrica twice daily.. 60 Capsule 2 3 Active Pregabalin 100 MG Oral Capsule (Lyrica) Take 1 Capsule by mouth in the morning and 1 Capsule before bedtime. 60 Capsule 2 3 06/03/20 23 Discontinued Pregabalin 25 MG Oral Capsule (Lyrica)Indicatio ns:Chronic pain syndrome,Fibromya lgia,Fibromyalgia syndrome,Chronic radicular cervical pain,Central sensitization to pain Take 1 Capsule by mouth in the morning and 1 Capsule before bedtime. To be taken at same time as 100mg capsule for total dose of 125mg of lyrica twice daily.. 60 Capsule 2 3 06/03/20 23 Discontinued(Ref ill) documented as of this encounter (statuses as of 06/03/2023) Active Problems Problem Noted Date Diagnosed Date [...] as of this encounter (statuses as of 06/03/2023) Resolved Problems Problem Noted Date Diagnosed Date [...] 01/05/2012 Overview: Pt considering repeat C/s at [facility] or at [facility] where she works. Continue to discuss Asthma with severity to be determined 12/17/2009 06/08/2013 Overview: Per Asthma Taxonomy ICD-10 update of inactive term Dyslipidemia, goal LDL below 130 08/08/2009 08/08/2009 Other specified anemias 10/08/200708/20 Overview: H/H 11.5/34.2 Mixed dyslipidemia 11/10/200506/07/ 9 Overview: Per Lipid Taxonomy. Major depressive disorder, s debo episode, moderate 11/10/2005 11/28/2019 Overview: 5: Tapering Effexor; pt daily 37.5mg daily at NOB visit; pt desires to continue taper. Restart Celexa 02/18/12 EXTRINSIC ASTHMA, UNSPEC 11/10/2005 Other allergic rhinitis 11/10/200512/20 Overview: ICD-10 update of inactive term Other acne 02/01/2001 01/05/2012 Generalized anxiety disorder 04/19/2023 Umbilical hernia 11/28/2019 Acquired pyloric stenosis Overview: EGD [place] Psoriasis 11/28/2019 Asthma in remission 10/05/19 14 Migraine variant 09/30/2022 Overview: well-managed with Imitrex but only Vicodin/codeine since Iron deficiency anemia due t o chronic blood loss 11/28/2019 Melanocytic nevus of trunk 0 11/28/2019 Carpal tunnel syndrome 11/05 Overview: bilateral symptoms History of Jay fundoplication 11/29/2019 documented as of this encounter (statuses as of 06/03/2023) Immunizations Name Administration Dates Next Due COVID-19 mRNA, LNP-s, No Pre serve, 2-Dose Series ([employer]) 11/27/2020,11/06/2020 PPD 04/15/2016, 6,10/10/2014,08/23,09/09/2010,08/22/2009,08/08/2009 ,07/26/2007 Pneumococcal Polysaccharide [...] Telephone Encounter - Becka Jones DO - 06/03/2023 4:42 PM ESTSigned Prescriptions: Disp Refills Pregabalin 100 MG Oral Capsule (Lyrica) 60 Cap*2 Sig: TAKE ONE CAPSULE BY MOUTH IN THE MORNING AND before bedtimeAuthorizing Provider: BECKA JONES Pregabalin 25 MG Oral Capsule (Lyrica) 60 Cap*2 Sig: Take 1 Capsule by mouth in the morning and 1 Capsule beforebedtime. To be taken at same time as 100mg capsule for total dose of 125mg of lyrica twice daily..Authorizing Provider: BECKA JONES * Telephone Encounter - Kiera Manley PA-C - 06/02/2023 10:53 AM ESTPending Prescriptions: Disp Refills Pregabalin 100 MG Oral Capsule [Pharmacy M*60 Cap*0 Sig: TAKE ONE CAPSULE BY MOUTH IN THE MORNING AND before bedtime * Telephone Encounter - Zari Yeung LPN - 06/02/2023 10:19 AM ESTPending Prescriptions: Disp Refills Pregabalin 100 MG Oral Capsule [Pharmacy M*60 Cap*0 Sig: TAKE ONE CAPSULE BY MOUTH IN THE MORNING AND before bedtime documented in this encounter Plan of Treatment Upcoming Encounters Date Type Department Care Team (Late st Contact Info) Description 06/10/2023 11:30 AM EST Office Visit Interventional [facility], [facility] [address] [place] [address] Kiera Manley PA-C [address] [place] [address] 08/06/2023 3:00 PM EST Imaging Radiology [address] [place] [address] 09/23/2023 1:30 PM EDT Office Visit Cardiology, [facility] [address] [place] [address] Sarita Jones CRNP [address] [place] [address] 05/04/2024 3:30 PM EST Imaging Radiology [address] [place] [address] Scheduled Procedures Name Priority Associated Diagnoses Date/Ti me COLONOSCOPY FLEXIBLE PROXIMA L DIAGNOSTIC Recall Screening for colorectal cancer Gastroesophageal reflux disease, unspecified whether esophagitis present Health Maintenance Due Date Last Done Comments DISCUSS TOBACCO CESSATION (REFER TO SMARTSET #[id number]) 1970 Hepatitis B (1 of 3 - [...] of this encounter Visit Diagnoses Diagnosis Chronic migraine without aura without status migrainosus, not intractable Chronic migraine without aura, without mention of intractable migraine without mention of status migrainosus Chronic pain syndrome Fibromyalgia Mylagia and myositis, unspecified Fibromyalgia syndrome Mylagia and myositis, unspecified Chronic radicular cervical pain 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 Care Teams Departmental Buyer Relationship Specialty Start Date End Date Gregory Dyer MD [address] [facility] [place] [address] PCP - General Family Medicine 11/29/19 documented as of this encounter
--- OUTSIDE RECORDS SUMMARY | 2023-07-18 09:31 | External Medical Summary | Summary of Care ---
Author Name Unknown Organization [facility] Address [address] [place] [address] Phone [phone] Care Team Providers Care Tier Truck Driver Name Role Phone Caroline Ba MD Primary Care Provider [phone] Reason for Visit * Reason Onset Date Comments Medication Refill 04/04/2023 Encounter Details Date Type Department Care Team Description 04/04/2023 Refill Family Practice [facility] [address] [facility] [place] [address] Caroline Ba MD [address] [facility] [place] [id number] Persistent insomnia Allergies Active Allergy Reactions Severity Noted Date Comments Acetaminophen-Codeine High 10/19/2013 Itching [...] as of this encounter (statuses as of 04/06/2023) Medications Medication Sig Dispensed Refills Start Date [...] 1 Tablet in the morning. 0 Active Albuterol Sulfate 108 (90 Base) MCG/ACT Inhalation Aerosol Powder Breath Activated Inhale by mouth as needed . 0 Active Melatonin 10 MG Oral Tablet [...] EVERY MORNING 90 Tablet 3 03/25/2023 Active Zolpidem Tartrate 10 MG Oral Tablet (Ambien)Indications :Persistent insomnia Take 1 Tablet by mouth at bedtime as needed for Sleep. 30 Tablet 0 04/06/2023 Active Zolpidem Tartrate 10 MG Oral Tablet (Ambien)Indications :Persistent insomnia Take 1 Tablet by mouth at bedtime as needed for Sleep. 30 Tablet 0 03/03/2023 3 Discontinue d(Refill) documented as of this encounter (statuses as of 04/06/2023) Active Problems Problem Noted Date Chronic combined systolic and diastolic heart failure 09/30/2022 Migraine with aura and without status mi grainosus, not intractable 09/30/2022 HTN, goal below 130/80 11/29/2019 Left bundle branch block 01/12/2018 Fibromyalgia 03/24/2017 Persistent insomnia 11/25/2016 DDD (degenerative disc disease), lumbosa cral 09/11/2014 Vitamin D deficiency 06/27/2009 Overview: Vitamin D 16.6 Dyslipidemia 06/07/2009 Overview: Per Lipid Taxonomy. Tobacco abuse Overview: Stopped smoking within one week of +HPT Gastroesophageal reflux disease with eso phagitis Generalized anxiety disorder Asthma, mild persistent documented as of this encounter (statuses as of 04/06/2023) Resolved Problems Problem Noted Date Resolved Date Prediabetes 08/29/2021 10/02/2022 Advanced directives, counseling/discussion 10/1112/04/2020 Urinary retention with incomplete bladder emptyi ng 09/11/2020 09/30/2022 Cystocele, midline 09/11/2020 09/30/2022 Rectocele 09/11/2020 09/30/2022 Chronic constipation 09/11/2020 09/30/2022 Chronic allergic rhinitis 06/09/20172020 Family history of hypercholesterolemia 7 11/28/2019 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 Habitual aborter, antepartum condition or compli cation 12/02/2011 09/01/2012 ADVANCE DIRECTIVE INFORMATION 12/01/2011 Overview: No, Advance Directive brochure offered , patient declined. Supervision of other high-risk 012 06/02/2012 Overview: Pt desires BTL with repeat c/s ICD-10 update of inactive term AMA (advanced maternal age) multigravida 35+ 04/201206/02/2012 History of recurrent miscarriages, not currently 12/01/2011 11/29/2019 History of delivery 12/01/201105/2012 with other poor obstetric history(V23. 49) 10/29/2011 04/24/2012 Overview: +AMA-desires FTS MFM 11/30: [...] 01/05/2012 Overview: Pt considering repeat C/s at [facility] or at [facility] where she works. Continue to discuss Asthma with severity to be determined 12/17/2009 06/08/2013 Overview: Per Asthma Taxonomy ICD-10 update of inactive term Dyslipidemia, goal LDL below 130 08/08/2009 08/08/2009 Other specified anemias 10/08/2007 09/02/19 13 Overview: H/H 11.5/34.2 Mixed dyslipidemia 11/10/2005 06/07/2009 Overview: Per Lipid Taxonomy. Major depressive disorder, single episode, moder ate 11/10/2005 11/28/2019 Overview: 10/28: Tapering Effexor; pt daily 37.5mg daily at NOB visit; pt desires to continue taper. Restart Celexa 02/18/12 EXTRINSIC ASTHMA, UNSPEC 11/10/2005 010 Other allergic rhinitis 11/10/2005 01/05/20 12 Overview: ICD-10 update of inactive term Other acne 02/01/2001 01/05/2012 Umbilical hernia 11/28/2019 Acquired pyloric stenosis 2019 Overview: EGD [place] Psoriasis 11/28/2019 Asthma in remission 10/04/2013 Migraine variant 09/30/2022 Overview: well-managed with Imitrex but only Vicodin/codeine since Iron deficiency anemia due to chronic blood loss 11/28/2019 Melanocytic nevus of trunk 11/27 Carpal tunnel syndrome 6 Overview: bilateral symptoms History of Jay fundoplication 11/29/2019 documented as of this encounter (statuses as of 04/06/2023) Immunizations Name Administration Dates Next Due COVID-19 mRNA, LNP-s, No Pre serve, 2-Dose Series ([employer]) 11/27/2020,11/06/2020 PPD 04/15/2016, 6,10/10/2014,08/23,09/09/2010,08/22/2009,08/08/2009 ,07/26/2007 Pneumococcal Polysaccharide [...] once every couple of months a drink Food Insecurity Answer Date Recorded Within the past 12 months, y ou worried that your food would run out before you got money to buy more. Never true 11/29/2019 Within the past 12 months, t he food you bought just didn't last and you didn't have money to get more. Never true 11/29/2019 Sex Assigned at Date Recorded Not on file Job Start Date Occupation Industry Not on file Not on file Not on file documented as of this encounter Miscellaneous Notes * Telephone Encounter - Caroline Ba MD - 04/06/2023 12:06 PM EDTSigned Prescriptions: Disp Refills Zolpidem Tartrate 10 MG Oral Tablet (Ambie*30 Tab*0 Sig: Take 1 Tablet by mouth at bedtime as needed for Sleep. Authorizing Provider: CAROLINE BA * Telephone Encounter - Prem [facility] - 04/06/2023 8:26 AM EDTPending Prescriptions: Disp Refills Zolpidem Tartrate 10 MG Oral Tablet (Ambie*30 Tab*0 Sig: Take 1 Tablet by mouth at bedtime as needed for Sleep. * Telephone Encounter - Prem [facility] - 04/06/2023 8:25 AM EDT I have reviewed the patients controlled substance dispensing history in the Prescription Drug Monitoring Program in compliance with the [facility] regulations before prescribing a controlled substance. PDMP checked on 04/06/2023. Pending Prescriptions: Disp Refills Zolpidem Tartrate 10 MG Oral Tablet (Ambi*30 Tab*0 Sig: Take 1 Tablet by mouth at bedtime as needed for Sleep. Last Visit: 09/04/2021 (in office), Visit date not found (telemedicine) Next Visit: 04/22/2023 Date medication was last filled: 03/03/23 Date medication is due for refill: 04/01/23 Pharmacy: [id number] Is this request for a controlled substance? Yes and Urine Drug Screen Not completed Toxicology results: No results found. However, due to the size of the patient record, not all encounters were searched.Please check Results Review for a complete set of results. Please approve if appropriate. Thank You, Prem [facility] Clinical Pharmacist Centralized Clinical Pharmacy Services (CCPS) (formerly Telepharmacy) 04/06/2023, 8:26 AM documented in this encounter Plan of Treatment Upcoming Encounters Date Type Specialty Care Team Description 04/22/2023 Office Visit Family Medicine Caroline Ba MD [address] [place] [id number] 05/13/2023 Office Visit Pain Medicine Luiz Jones DO [address] [place] [phone] 08/06/2023 Imaging Radiology 09/23/2023 Office Visit Cardiology Sarita Jones CRNP [address] [place] [address] Scheduled Procedures Name Priority Associated Diagnoses Date/Ti me COLONOSCOPY FLEXIBLE PROXIMA L DIAGNOSTIC Recall Screening for colorectal cancer Gastroesophageal reflux disease, unspecified whether esophagitis present Health Maintenance Due Date Last Done Comments DISCUSS TOBACCO CESSATION (REFER TO SMARTSET #1881) 1970 Hepatitis B (1 of 3 - [...] 10) 10/23/2022 10/22/2022 COVID-19 Vaccine (3 - 2022- season) 2023 11/27/2020, 11/06/2020 Mammogram 04/18/2023 04/18/2022, 03/23, 02/07/2020, Additional history exists GFR 02/04/2024 02/03/2023, 12/20, 12/18/2022, Additional history exists Diabetes Screening 02/03/2026 02/03/2023, [...] and were consensually agreed upon. Care Teams Tier Truck Driver Relationship Specialty Start Date End Date Caroline Ba MD [address] [place] [id number] PCP - General Family Medicine 11/29/19 documented as of this encounter
--- OUTSIDE RECORDS SUMMARY | 2023-07-18 09:31 | External Medical Summary | Summary of Care ---
Author Name Unknown Organization [facility] Address [address] [place] [address] Phone [phone] Care Team Providers Care Restaurant Bartender Name Role Phone Caroline Ba MD Primary Care Provider [phone] Reason for Visit * Reason Onset Date Comments Medication Refill 05/11/2023 Encounter Details Date Type Department Care Team (Late st Contact Info) Description 05/11/2023 Refill Family Practice [facility] [address] [place] [facility] [place] [address] Caroline Ba MD [address] [facility] [place] [id number] Allergies Active Allergy Reactions Criticality Noted Date [...] as of this encounter (statuses as of 05/12/2023) Medications Medication Sig Dispensed Refills Start Date [...] the morning. 30 Tablet 5 05/12/2023 Active Trintellix 20 MG Oral Tablet (Vortioxetine HBr) Take 1 Tablet by mouth in the morning. 30 Tablet 5 11/10/2022 3 Discontinue d(Refill) documented as of this encounter (statuses as of 05/12/2023) Active Problems Problem Noted Date Diagnosed Date [...] as of this encounter (statuses as of 05/12/2023) Resolved Problems Problem Noted Date Diagnosed Date [...] 01/05/2012 Overview: Pt considering repeat C/s at [facility] or at [facility] where she works. Continue to discuss Asthma [...] hernia 11/28/2019 Acquired pyloric stenosis Overview: EGD [place] Psoriasis 11/28/2019 Asthma in remission 10/05/19 14 Migraine variant 09/30/2022 Overview: well-managed with Imitrex but only Vicodin/codeine since Iron deficiency anemia due t o chronic blood loss 11/28/2019 Melanocytic nevus of trunk 0 11/28/2019 Carpal tunnel syndrome 11/05 Overview: bilateral symptoms History of Jay fundoplication 11/29/2019 documented as of this encounter (statuses as of 05/12/2023) Immunizations Name Administration Dates Next Due COVID-19 [...] encounter Miscellaneous Notes * Telephone Encounter - Joanna Matta, [facility] - 05/12/2023 11:11 AM EST Signed Prescriptions: Disp Refills Trintellix 20 MG Oral Tablet (Vortioxetine*30 Tab*5 Sig: Take 1 Tablet by mouth in the morning.Authorizing Provider: CAROLINE BA User: JOANNA MATTA documented in this encounter Plan of Treatment Upcoming Encounters Date Type Department Care Team (Late st Contact Info) Description 08/06/2023 3:00 PM EST Imaging Radiology [facility] [address] [place] [address] 09/23/2023 1:30 PM EDT Office Visit Cardiology, [facility] [address] [place] [address] Sarita Jones CRNP [address] [place] [address] 05/04/2024 3:30 PM EST Imaging Radiology [address] [place] [address] Scheduled Procedures Name Priority Associated Diagnoses Date/Ti me COLONOSCOPY FLEXIBLE PROXIMA L DIAGNOSTIC Recall Screening for colorectal cancer Gastroesophageal reflux disease, unspecified whether esophagitis present Health Maintenance Due Date Last Done Comments DISCUSS TOBACCO CESSATION (REFER TO SMARTSET #3117) 1970 Hepatitis B (1 of 3 - [...] and were consensually agreed upon. Care Teams Restaurant Bartender Relationship Specialty Start Date End Date Caroline Ba MD [address] [facility] [place] [address] PCP - General Family Medicine 11/29/19 documented as of this encounter
--- OUTSIDE RECORDS SUMMARY | 2023-07-18 09:31 | External Medical Summary | Summary of Care ---
Author Name Unknown Organization [facility] Address [address] [place] [address] Phone [phone] Care Team Providers Care Attendance Secretary Name Role Phone Gregory Dyer MD Primary Care Provider [phone] Reason for Visit * Reason Onset Date Comments Medication Refill 03/25/2023 Encounter Details Date Type Department Care Team Description 03/20/2023 Refill [facility], [facility] [address] [place] [address] Becka Jones DO [address] [place] [phone] Chronic pain syndrome; Fibromyalgia; Fibromyalgia syndrome; Chronic radicular cervical pain; 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 30 Tablet 11 3 Active Trintellix 20 MG Oral Tablet (Vortioxetine HBr) Take 1 Tablet by mouth in the morning. 30 Tablet 5 3 Active Vitamin B-12 1000 MCG Oral [...] the morning. 90 Tablet 3 3 Active Spironolactone 25 MG Oral Tablet (Aldactone) Take 0.5 Tablets by mouth in the morning. 15 Tablet 5 3 Active Pantoprazole Sodium 40 MG Oral [...] evening meals. 60 Tablet 3 3 Active Zolpidem Tartrate 10 MG Oral Tablet (Ambien)Indicatio ns:Persistent insomnia Take 1 Tablet by mouth at bedtime as needed for Sleep. 30 Tablet 0 3 Active Pregabalin 100 MG Oral Capsule (Lyrica) Take 1 Capsule by mouth in the morning and 1 Capsule before bedtime. 60 Capsule 2 3 Active Aspirin Low Dose 81 MG Oral Tablet Delayed Release Take 1 Tablet by mouth every other day. 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 To be taken at same time as 100mg capsule for total dose of 125mg of lyrica twice daily.. 60 Capsule 2 3 Active Furosemide 20 MG Oral Tablet (Lasix)Indication s:LBBB (left bundle branch block),Left ventricular systolic dysfunction,Dysli pidemia, goal LDL below 100,Family history of premature CAD Take 1 Tablet by mouth in the morning. 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 To be taken at same time as 100mg capsule for total dose of 125mg of lyrica twice daily.. 60 Capsule 2 3 03/20/20 23 Discontinued(Ref ill) documented as of this encounter (statuses as of 03/25/2023) Active Problems Problem Noted Date Chronic combined [...] as of this encounter (statuses as of 03/25/2023) Resolved Problems Problem Noted Date Resolved Date [...] 1:500. Patient desires First trimester screen. -Recommend MF ultrasound for anatomy screen at 18-20 weeks gestation. [facility] 01/05/12: Recommend follow up ultrasound with MFM in 6 weeks for growth, f/u anatomy, and echo secondary to AMA. [facility] 02/16/12: Repeat TSH and Free T4 at [...] 6 weeks for growth secondary to AMA. [facility] 04/01/12: Monitor TSH each trimester and 4-6 [...] Pt considering repeat C/s at [facility] or at [facility] where she works. Continue to discuss Asthma with severity to be determined 12/17/2009 06/08/2013 Overview: Per Asthma Taxonomy ICD-10 update of inactive term Dyslipidemia, goal LDL below 130 08/08/2009 08/08/2009 Other specified anemias 10/08/2007 09/02/19 13 Overview: H/H 11.5/34.2 Mixed dyslipidemia 11/10/2005 06/07/2009 Overview: Per Lipid Taxonomy. Major depressive disorder, single episode, moder ate 11/10/2005 11/28/2019 Overview: 5/9: Tapering Effexor; pt daily 37.5mg daily at NOB visit; pt desires to continue taper. Restart Celexa 02/18/12 EXTRINSIC ASTHMA, UNSPEC 11/10/2005 010 Other allergic rhinitis 11/10/2005 01/05/20 12 Overview: ICD-10 update of inactive term Other acne 02/01/2001 01/05/2012 Umbilical hernia 11/28/2019 Acquired pyloric stenosis 2019 Overview: EGD [place] Psoriasis 11/28/2019 Asthma in remission 10/04/2013 Migraine variant 09/30/2022 Overview: well-managed with Imitrex but only Vicodin/codeine since Iron deficiency anemia due to chronic blood loss 11/28/2019 Melanocytic nevus of trunk 11/27 Carpal tunnel syndrome 6 Overview: bilateral symptoms History of Jay fundoplication 11/29/2019 documented as of this encounter (statuses as of 03/25/2023) Immunizations Name Administration Dates Next Due COVID-19 [...] Telephone Encounter - Becka Jones DO - 03/23/2023 1:33 PM EDTSigned Prescriptions: Disp Refills Pregabalin 25 MG Oral Capsule (Lyrica) 60 Cap*2 Sig: Take 1 Capsule by mouth in the morning and 1 Capsule before bedtime. To be taken at same time as 100mg capsule for total dose of 125mg of lyrica twice daily..Authorizing Provider: BECKA JONES documented in this encounter Plan of Treatment Upcoming Encounters Date Type Specialty Care Team Description 04/22/2023 Office Visit Family Medicine Gregory Dyer MD [address] [place] [address] 05/13/2023 Office Visit Pain Medicine Becka Jones DO [address] [place] [phone] 08/06/2023 Imaging Radiology 09/23/2023 Office Visit Cardiology Sarita Jones CRNP [address] [place] [address] Scheduled Procedures Name Priority Associated Diagnoses Date/Ti me COLONOSCOPY FLEXIBLE PROXIMA L DIAGNOSTIC Recall Screening for colorectal cancer Gastroesophageal reflux disease, unspecified whether esophagitis present Health Maintenance Due Date Last Done Comments DISCUSS TOBACCO CESSATION (REFER TO SMARTSET #6103) 1970 Hepatitis B (1 of 3 - [...] COVID-19 Vaccine ( season) 2023 11/27/2020, 11/06/2020 Mammogram 04/18/2023 04/18/2022, [...] this encounter Visit Diagnoses Diagnosis Chronic pain syndrome Fibromyalgia Mylagia and myositis, [...] and were consensually agreed upon. Care Teams Attendance Secretary Relationship Specialty Start Date End Date Gregory Dyer MD [address] [place] [address] PCP - General Family Medicine 11/29/19 documented as of this encounter
--- OUTSIDE RECORDS SUMMARY | 2023-07-18 09:31 | External Medical Summary | Summary of Care ---
Author Name Unknown Organization [facility] Address [address] [place] [address] Phone [phone] Care Team Providers Care Stock Wetter Name Role Phone Gregory Dyer MD Primary Care Provider [phone] Reason for Visit * Reason Onset Date Comments Referral 07/01/2023 Encounter Details Date Type Department Care Team (Late st Contact Info) Description 07/01/2023 Telephone Pharmacy Call Center [phone] [place] [address] [facility] [address] [facility] [place] [id number] Referral Allergies Active Allergy Reactions Criticality Noted Date [...] as of this encounter (statuses as of 07/01/2023) Medications Medication Sig Dispensed Refills Start Date [...] Oral Tablet (sacubitril-valsarta n 24-26 mg per tab)Indications:Senior Property Accountant cortez combined systolic and diastolic heart failure [...] before bedtime 60 Capsule 2 06/03/2023 Active Zolpidem Tartrate 10 MG Oral Tablet (Ambien)Indications: Persistent insomnia Take 1 Tablet by mouth at bedtime as needed for Sleep. 30 Tablet 0 06/25/2023 Active Memantine HCl 10 MG Oral Tablet (Namenda)Indications :Memory changes,Fibromyalgia Take 1 Tablet by mouth 2 times a day with morning and evening meals. 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 To be taken at same time as 100mg capsule for total dose of 150 mg of lyrica twice daily. 120 Capsule 2 06/29/2023 Active documented as of this encounter (statuses as of 07/01/2023) Active Problems Problem Noted Date Diagnosed Date [...] as of this encounter (statuses as of 07/01/2023) Resolved Problems Problem Noted Date Diagnosed Date [...] C/s at [facility] or at [facility] where she works. Continue to discuss [...] hernia 11/28/2019 Acquired pyloric stenosis Overview: EGD [place] Psoriasis 11/28/2019 Asthma in remission 10/05/19 14 Migraine variant 09/30/2022 Overview: well-managed with Imitrex but only Vicodin/codeine since Iron deficiency anemia due t o chronic blood loss 11/28/2019 Melanocytic nevus of trunk 0 11/28/2019 Carpal tunnel syndrome 11/05 Overview: bilateral symptoms History of Jay fundoplication 11/29/2019 documented as of this encounter (statuses as of 07/01/2023) Immunizations Name Administration Dates Next Due COVID-19 [...] encounter Miscellaneous Notes * Telephone Encounter - Edna Anderson, [facility] - 07/01/2023 3:56 PM EST Referral reviewed and is appropriate. Please schedule. Initial appt length: 60 minutes Patient referred to [facility] clinic for Pain Management Regimen optimization on behalf of Dr. Dyer. Referral reviewed and relevant pre-visit information listed below: Pain Follow-up as scheduled. Edna nAderson RPh 07/01/2023, 3:56 PM * Telephone Encounter - Julieta Cedillo PHARM Tech - 07/01/2023 3:47 PM EST Comments Pharmacist Medication Therapy Management: Minimum frequency patient should be seen in person for medication management: as appropriate per clinical condition and patient status By my signature, I understand that my patient Mily De La Cruz will have her medication therapy managed by the [facility] Medication Therapy Disease Management Clinic ([facility]) per established policies, procedures, and protocols. I also certify that this referral may serve as an initiation of service for the management of drug therapy in the above noted patient. [facility] providers will be responsible for scheduling patient visits, obtaining appropriate laboratory studies, and adjusting medication management therapy per patient's need, in addition to those roles spelled out in the clinic policy, procedures, and drug management protocols. I understand that the service provided by the [facility] is voluntary and have informed patient that they can refuse the service at their discretion. I am aware that the [facility] will provide me with a copy of the patient encounter via my [facility] [employer]. I authorize the [facility] Clinic to carry out these activities on my behalf. I consider this program to be a necessary part of the patient's medical care. Gregory Dyer MD Order Specific Questions Referral Priority Within 30 days (routine) Where should this appointment be scheduled? [facility] Referring Provider Role: Primary Care Reason for Referral: Pain Pain Diagnosis: Chronic Pain Syndrome Further Details of Diagnosis: fibromyalgia Pain Treatment Options: Non-opioids only Pain Treatment Goal: Med Optimization documented in this encounter Plan of Treatment Upcoming Encounters Date Type Department Care Team (Late st Contact Info) Description 08/06/2023 3:00 PM EST Imaging Radiology [address], [address] [place] [address] 09/23/2023 1:30 PM EDT Office Visit Cardiology, [facility] [address] [place] [address] Sarita Jones CRNP [address] [place] [address] 05/04/2024 3:30 PM EST Imaging Radiology [address] [place] [address] Scheduled Procedures Name Priority Associated Diagnoses Date/Ti me COLONOSCOPY FLEXIBLE PROXIMA L DIAGNOSTIC Recall Screening for colorectal cancer Gastroesophageal reflux disease, unspecified whether esophagitis present Health Maintenance Due Date Last Done Comments DISCUSS TOBACCO CESSATION (REFER TO SMARTSET #2383) 1970 Hepatitis B (1 of 3 - [...] and were consensually agreed upon. Care Teams Stock Wetter Relationship Specialty Start Date End Date Gregory Dyer MD [address] [place] [id number] PCP - General Family Medicine 11/29/19 documented as of this encounter
--- OUTSIDE RECORDS SUMMARY | 2023-07-18 09:31 | External Medical Summary | Summary of Care ---
Author Name Unknown Organization [facility] Address [address] [place] [address] Phone [phone] Care Team Providers Care Sander Operator Name Role Phone Caroline Ba MD Primary Care Provider [phone] Reason for Visit * Reason Onset Date Comments Medication Refill 06/23/2023 Encounter Details Date Type Department Care Team (Late st Contact Info) Description 06/23/2023 Refill Family Practice [facility] [address] [place] [address] Caroline Ba MD [address] [address] Persistent insomnia Allergies Active Allergy Reactions [...] twice daily.. 60 Capsule 2 06/03/2023 Active Zolpidem Tartrate 10 MG Oral Tablet (Ambien)Indications :Persistent insomnia Take 1 Tablet by mouth at bedtime as needed for Sleep. 30 Tablet 0 06/25/2023 Active Zolpidem Tartrate 10 MG Oral Tablet (Ambien)Indications :Persistent insomnia Take 1 Tablet by mouth at bedtime as needed for Sleep. 30 Tablet 0 05/08/2023 Discontinue d(Refill) documented as of this encounter [...] 01/05/2012 Overview: Pt considering repeat C/s at [facility] or at [facility] where she works. Continue to discuss [...] hernia 11/28/2019 Acquired pyloric stenosis Overview: EGD [place] Psoriasis 11/28/2019 Asthma in remission 10/05/19 14 [...] Telephone Encounter - Caroline Ba MD - 06/25/2023 9:50 AM ESTSigned Prescriptions: Disp Refills Zolpidem Tartrate 10 MG Oral Tablet (Ambie*30 Tab*0 Sig: Take 1 Tablet by mouth at bedtime as needed for Sleep. Authorizing Provider: CAROLINE BA * Telephone Encounter - Prem Stanford, [facility] - 06/25/2023 7:48 AM ESTPending Prescriptions: Disp Refills Zolpidem Tartrate 10 MG Oral Tablet (Ambie*30 Tab*0 Sig: Take 1 Tablet by mouth at bedtime as needed for Sleep. * Telephone Encounter - Prem Stanford, [facility] - 06/25/2023 7:47 AM EST I have reviewed the patients controlled substance dispensing history in the Prescription Drug Monitoring Program in compliance with the [facility] regulations before prescribing a controlled substance. PDMP checked on 06/25/2023. Pending Prescriptions: Disp Refills Zolpidem Tartrate 10 MG Oral Tablet (Ambi*30 Tab*0 Sig: Take 1 Tablet by mouth at bedtime as needed for Sleep. Last Visit: 04/22/2023 (in office), Visit date not found (telemedicine) Next Visit: Visit date not found Date medication was last filled: 05/08/23 Date medication is due for refill: 06/06/23 Pharmacy: [facility] [id number] Is this request for a controlled substance? Yes and Urine Drug Screen Not completed Toxicology results: No results found. However, due to the size of the patient record, not all encounters were searched.Please check Results Review for a complete set of results. Please approve if appropriate. Thank You, Prem Sprague [facility] Clinical Pharmacist [facility] ([facility]) (formerly Telepharmacy) 06/25/2023, 7:47 AM documented in this encounter Plan of Treatment Upcoming Encounters Date Type Department Care Team (Late st Contact Info) Description 08/06/2023 3:00 PM EST Imaging Radiology [facility] [address] [facility] [place] [address] 09/23/2023 1:30 PM EDT Office Visit Cardiology, [facility] [address] [place] [address] Sarita Jones CRNP [address] [place] [address] 05/04/2024 3:30 PM EST Imaging Radiology [address] [place] [address] Scheduled Procedures Name Priority Associated Diagnoses Date/Ti me COLONOSCOPY FLEXIBLE PROXIMA L DIAGNOSTIC Recall Screening for colorectal cancer Gastroesophageal reflux disease, unspecified whether esophagitis present Health Maintenance Due Date Last Done Comments DISCUSS TOBACCO CESSATION (REFER TO SMARTSET #1155) 1970 Hepatitis B (1 of 3 - [...] < 10) 10/23/2022 10/22/2022 COVID-19 Vaccine (3 season) 2023 11/27/2020, 11/06/2020 GFR 02/04/2024 02/03/2023, [...] and were consensually agreed upon. Care Teams Sander Operator Relationship Specialty Start Date End Date Caroline Ba MD [address] [facility] [place] [address] PCP - General Family Medicine 11/29/19 documented as of this encounter
--- OUTSIDE RECORDS SUMMARY | 2023-07-18 09:32 | External Medical Summary | Summary of Care ---
Author Name Unknown Organization [facility] Address [address] [place] [address] Phone [phone] Care Team Providers Care Laboratory Tech Name Role Phone Gregory Dyer MD Primary Care Provider [phone] Reason for Visit * Reason Onset Date Comments Follow Up 4 month follow u p. Echo completed 02/12/23. About a month ago feel forward into bath tub getting off toilet but did not pass out. Medications makes her feel "woozy". Edema in LE controlled and were TEDs during the week. Still fights through being tired. Denies chest pain, palpitations, dizziness and SOB. Medication Administration 03/18/2023 Flu an d/or Pneumo Inj Encounter Details Date Type Department Care Team Description 03/18/2023 Office Visit [facility] [address] [facility] [address] Sarita Jones CRNP [address] [facility] [place] [address] NICM (nonischemic cardiomyopathy) (HCC)*; HTN, goal below 130/80; Dyslipidemia, goal LDL below 100; Need for prophylactic vaccination and inoculation against influenza Allergies Active Allergy Reactions Severity Noted Date [...] as of this encounter (statuses as of 03/18/2023) Medications Medication Sig Dispensed Refills Start Date [...] the morning. 30 Tablet 11 09/10/2022 Active Furosemide 20 MG Oral Tablet (Lasix)Indications :LBBB (left bundle branch block),Left ventricular systolic dysfunction,Dyslip idemia, goal LDL below 100,Family history of premature CAD Take 1 Tablet by mouth in the morning. 30 Tablet 5 10/08/2022 Active Trintellix 20 MG Oral Tablet (Vortioxetine HBr) Take 1 Tablet by mouth in the morning. 30 Tablet 5 11/10/2022 Active Vitamin B-12 1000 MCG Oral [...] and pain 135 Tablet 1 12/24/2022 Active Pregabalin 25 MG Oral Capsule (Lyrica)Indication s:Chronic radicular cervical pain,Central sensitization to pain,Chronic pain syndrome,Fibromyal michaela syndrome,Fibromyal michaela Take 1 Capsule by mouth in the morning and 1 Capsule before bedtime. To be taken at same time as 100mg capsule for total dose of 125mg of lyrica twice daily.. 60 Capsule 2 12/24/2022 Active buPROPion HCl ER (XL) 150 MG Oral Tablet Extended Release 24 Hour (Wellbutrin XL) Take 1 Tablet by mouth in the morning. 90 Tablet 3 01/19/2023 Active Memantine HCl 10 MG Oral Tablet (Namenda)Indicatio ns:Memory changes,Fibromyalg ia Take 1 Tablet by mouth 2 times a day with morning and evening meals. 60 Tablet 3 02/02/2023 Active Zolpidem Tartrate 10 MG Oral Tablet (Ambien)Indication s:Persistent insomnia Take 1 Tablet by mouth at bedtime as needed for Sleep. 30 Tablet 0 03/03/2023 Active Pregabalin 100 MG Oral Capsule (Lyrica) Take 1 Capsule by mouth in the morning and 1 Capsule before bedtime. 60 Capsule 2 2023 Active Aspirin Low Dose 81 MG Oral Tablet Delayed Release Take 1 Tablet by mouth every other day. 0 02/10/2023 Active Metoprolol Tartrate 50 MG Oral Tablet (Lopressor) take 3 tablets in the evening prior to cardiac ct and 3 tablets [address] appointment 6 Tablet 0 12/07/2022 3 Discontinue d(End of Procedure) documented as of this encounter (statuses as of 03/18/2023) Active Problems Problem Noted Date Chronic combined [...] as of this encounter (statuses as of 03/18/2023) Resolved Problems Problem Noted Date Resolved Date [...] [facility] or at [facility] where she works. Continue to discuss [...] 11/28/2019 Acquired pyloric stenosis 2019 Overview: EGD [place] Psoriasis 11/28/2019 Asthma in remission 10/04/2013 Migraine variant 09/30/2022 Overview: well-managed with Imitrex but only Vicodin/codeine since Iron deficiency anemia due to chronic blood loss 11/28/2019 Melanocytic nevus of trunk 11/27 Carpal tunnel syndrome 6 Overview: bilateral symptoms History of Jay fundoplication 11/29/2019 documented as of this encounter (statuses as of 03/18/2023) Immunizations Name Administration Dates Next Due COVID-19 mRNA, LNP-s, No Pre serve, 2-Dose Series (Pfizer) 11/27/2020,11/06/2020 PPD 04/15/2016, 6,10/10/2014,08/23,09/09/2010,08/22/2009,08/08/2009 ,07/26/2007 Pneumococcal Polysaccharide PPV23 (Pneumovax) 04/17/2015,06/26/2009(Deferred: Patient Refused) Seasonal Influenza, PF, 6 mo ns & Above, IM , (Flulaval) 03/18/2023,02/21/2020,03/24/2017 Seasonal Influenza, Quadriva lent, No Preserve, IM 03/20/2016,03/21/2015 Seasonal Influenza, Split, I IV3, With Preserve, Inj 04/11/2014,04/27/2013,03/22/2012,03/31,04/20/2009 TDAP (age 10 and older)(Boostrix) 12/08/2017 TDAP (age 11 and older)(Adacel) 07/26/2007 documented as of this encounter Social History Tobacco Use Types Packs/Day Years Used Date Smoking Tobacco: Every Day Cigarettes 0.3 28 Last attempted to quit: 09/21/2011 Smokeless Tobacco: Never Tobacco Cessation:Ready to Q uit: Not Asked; Counseling Given: Not Answered Comments:6-8 cigarettes a day Alcohol Use Standard Drinks/Week Comments Yes 0 [...] on file documented as of this encounter Last Filed Vital Signs Vital Sign Reading Time Taken Comments Blood Pressure 118/74 03/18/2023 1:55 PM EDT Pulse 68 03/18/2023 1:55 PM EDT Temperature - - Respiratory Rate 15 03/18/2023 1:55 PM EDT Oxygen Saturation - - Inhaled Oxygen Concentration - - Weight 86 kg (189 lb 8 oz) 03/18/2023 1:55 PM ED T Height - - Body Mass Index 33.57 01/29/2022 3:05 PM EDT documented in this encounter Patient Instructions * Patient Instructions* Nilesh Joyner LPN - 03/18/2023 2:02 PM EDT ~~PATIENT INSTRUCTIONS FOR FLU SHOT~~ Possible side effects of influenza vaccine, (flu shot), are usually mild and include: 1. Soreness or redness at injection site 2. Low grade fever 3. Body aches You may use Tylenol/Acetaminophen as needed for these symptoms. LET YOUR DOCTOR KNOW IMMEDIATELY IF YOU HAVE DIFFICULTY BREATHING OR SWALLOWING, EXPERIENCE ITCHINGOF FEET OR HANDS, HAVE SWELLING OF EYES, FACE OR INSIDE OF NOSE. documented in this encounter Progress Notes * Nilesh Joyner LPN - 03/18/2023 2:02 PM EDT PRE - ADMINISTRATION DOCUMENTATION Are you experiencing any cold symptoms or fever? No Have you had Guillain-Hawkins Syndrome (an illness that causes paralysis) within the last 6 weeks? No Have you had the flu shot in the past? YES Have you ever had a reaction to the flu shot? No Nilesh Joyner LPN, 03/18/2023 2:02 PM Immunization Administration Documentation Time Out Procedure Performed: Yes Patient Identified (Ask Name/Date of ): Yes Does the patient have a fever greater than 101 degrees today? No Patient allergic to latex? No VFC Stock: No Immunization(s) verified: Yes, Immunization Name: Flu, VIS Sheet(s) given: Yes Verified Side and Site: Yes Verified Shot(s) with Parent(s)/Patient: Yes * Sarita ZAID Lao - 03/18/2023 2:00 PM EDT 03/18/2023 Cardiology Follow Up Primary Breast Splitter: Dr. Murillo Cardiac Problems: Left bundle branch block, diagnosed 2017 Nuclear stress test performed at [facility] revealed a fixed septal perfusion defect with partially reversible apical perfusion defect. Cardiac CT dated 12/30/2017 in [place] during admission showed a calcium score of 0 and normal coronary arteries LV systolic dysfunction- EF 45% per echo 08/2022, NYHA class 2 Mild RADHA, on CPAP History of varicose veins status post ablation Strong family history of CAD a described below HPI: Mily De La Cruz is a 53 year old female presents for routine cardiology follow up. She was last seen in the office on 11/21/22 for a follow up by ZAID Vincent for atypical intermittent chest pain. Progression of her testing was as follows: An echocardiogram was obtained showing abnormal septal motion consistent with left bundle branch block and mild left ventricular systolic dysfunction with an EF of 45% and possible grade 2 diastolic dysfunction. Zio monitor showed primarily sinus rhythm with a heart rate of 83 beats per minute. One run of SVT noted. Multiple triggered events correlated with sinus rhythm and PVCs/PACs, no significant burden. Metoprolol succinate was started on 09/10/2022. She ultimately underwent a coronary CT scan on 11/12 showing a Agatston calcium score of 0. She continues to follow with [facility] for medication management working towards goal directed medical therapy management. Entresto and jardiance were started. Patient presents today feeling ok. She continues with persistent "wooziness". She denies any feelings of pre-syncope or syncope. She is currently taking 1/2 tab of entresto 24/26mg as she was trying to determine if that was the culprit of her "woozy spells"; however, it made no difference in symptoms. BP are stable. She presents with her home record today. Systolic readings 90-130's. Denies any change or decrease in her functional capacity. Recent echo was obtained (see below) showing improvement in her LVEF to 55-59%. Reports compliance on all medication therapies. REVIEW OF SYSTEMS: See HPI for pertinent positives. All others negative other than those noted in the HPI. CONSTITUTIONAL: No change in weight, No weakness, No fatigue and No fevers, No sweats or chills. PULMONARY: No cough, sputum, or hemoptysis, No wheezing, No shortness or breath and No recent change in breathing. CARDIOVASCULAR: No chest pain, No dyspnea on exertion, No edema, No palpitations and No syncope. GASTROINTESTINAL: No abdominal pain, No change in bowel habits, No significant heartburn, No nausea, No vomiting, No diarrhea, No constipation, No blood in stools or black tarry stools. No dysphagia. HEMATOLOGIC: No abnormal bleeding and No bruising. NEUROLOGICAL: Normal balance, No headaches and No weakness. Review of patient's allergies indicates: Allergen Reactions Acetaminophen-Codeine Itching Other reaction(s): severe itching Oxycodone Itching Other reaction(s): severe itching Cats [Cat Dander] Allergy test positive Nasal congestion, watery eyes Dogs [Dog Dander] Allergy test positive itchy watery eyes, nasal congestion Dust Allergy test positive Itchy, watery eyes nasal congestion Molds & Smuts Allergy test positive Current Outpatient Medications Medication Sig Dispense Refill Probiotic Product (PROBIOTIC DAILY) Capsule Take by mouth 1 Capsule daily . Cholecalciferol (VITAMIN D) 1000 units Tablet Take 1 Tablet by mouth in the morning. Mometasone Furoate (NASONEX) 50 MCG/ACT nasal spray Administer 2 Sprays into each nostril daily. 1 Inhaler 5 Black Cohosh 200 MG Oral Capsule Take by mouth 2 times a day. Multi-Day Oral Tablet Take by mouth 1 Tablet in the morning. Melatonin 10 MG Oral Tablet Take 1 Tablet by mouth at bedtime. Midnight OTC supplement with melatonin SUMAtriptan Succinate 50 MG Oral Tablet (Imitrex) take 1 tablet every 2 hours as needed for migraine. Max 4 tablets per 24 hours. 9 Tablet 5 Metoprolol Succinate ER 25 MG Oral Tablet Extended Release 24 Hour (Toprol XL) Take 1 Tablet by mouth in the morning. 30 Tablet 11 Furosemide 20 MG Oral Tablet (Lasix) Take 1 Tablet by mouth in the morning. 30 Tablet 5 Trintellix 20 MG Oral Tablet (Vortioxetine HBr) Take 1 Tablet by mouth in the morning. 30 Tablet 5 Magnesium 250 MG Oral Tablet Take 1 Tablet by mouth in the morning. Entresto 24-26 MG Oral Tablet (sacubitril-valsartan 24-26 mg per tab) Take 1/2 tablet by mouth twice daily 90 Tablet 3 Empagliflozin 10 MG Oral Tablet (Jardiance) Take 1 Tablet by mouth in the morning. 90 Tablet 3 Spironolactone 25 MG Oral Tablet (Aldactone) Take 0.5 Tablets by mouth in the morning. 15 Tablet 5 Pantoprazole Sodium 40 MG Oral Tablet Delayed Release (Protonix) Take 1 tablet by mouth twice [id number] Tablet 2 tiZANidine HCl 4 MG Oral Tablet (Zanaflex) Take 1.5 tablets at bedtime as needed for spasm and [id number] Tablet 1 Pregabalin 25 MG Oral Capsule (Lyrica) Take 1 Capsule by mouth in the morning and 1 Capsule before bedtime. To be taken at same time as 100mg capsule for total dose of 125mg of lyrica twice daily.. 60 Capsule 2 buPROPion HCl ER (XL) 150 MG Oral Tablet Extended Release 24 Hour (Wellbutrin XL) Take 1 Tablet by mouth in the morning. 90 Tablet 3 Memantine HCl 10 MG Oral Tablet (Namenda) Take 1 Tablet by mouth 2 times a day with morning and evening meals. 60 Tablet 3 Zolpidem Tartrate 10 MG Oral Tablet (Ambien) Take 1 Tablet by mouth at bedtime as needed for Sleep.30 Tablet 0 Pregabalin 100 MG Oral Capsule (Lyrica) Take 1 Capsule by mouth in the morning and 1 Capsule beforebedtime. 60 Capsule 2 Aspirin Low Dose 81 MG Oral Tablet Delayed Release Take 1 Tablet by mouth every other day. Clobetasol Propionate 0.05 % External Ointment (Temovate) Apply to affected area twice daily for upto two weeks at a time 30 g 1 Albuterol Sulfate 108 (90 Base) MCG/ACT Inhalation Aerosol Powder Breath Activated Inhale by mouth as needed . Vitamin B-12 1000 MCG Oral Tablet Take 1 Tablet by mouth in the morning. No current facility-administered medications for this visit. Facility-Administered Medications Ordered in Other Visits Medication Dose Route Frequency Provider Last Rate Last Admin Nitroglycerin (Nitrostat) sl tab 0.4 mg 0.4 mg Sublingual Q5 Min PRN ZAID Jurado Past Medical History: Diagnosis Date Abnormal finding on Pap smear 1989 cryo surgery done 1989, paps WNL since then Acquired pyloric stenosis 2007 post-op fundoplication, surgically corrected Asthma 2004 has not req'd treatment since 2010 Asthma in remission 2011 Asthma, mild persistent Chronic diastolic heart failure (HCC) 09/30/2022 COVID-19 Depression 1999 well-managed with Effexor but stopped with knowledge of Fibromyalgia GERD (gastroesophageal reflux disease) 2003 unsuccessfully managed with meds, fundoplication done 05/2007, GERD resolved since then History of Jay fundoplication History of recurrent miscarriages, not currently 12/01/2011 HTN, goal below 130/80 11/29/2019 Iron deficiency anemia due to chronic blood loss Melanocytic nevus of trunk Migraine 2002 well-managed with Imitrex but only Vicodin/codeine since Migraine with aura and without status migrainosus, not intractable 09/30/2022 Prediabetes 08/29/2021 Type A blood, Rh positive Vitamin D deficiency 2009 manages with supplementation Family History Problem Relation Age of Onset Hypertension Mother Asthma Mother Heart Disorder Father Hypertension Father Diabetes Father No Known Problems Sister Diabetes Grandmother (Maternal) Hypertension Grandfather (Maternal) Heart Disorder Grandmother (Paternal) Heart Disorder Grandfather (Paternal) Thyroid Disorder Grandfather (Paternal) No Known Problems Son ADD / ADHD Son Leukemia Son Breast Cancer Cousin (Paternal) Breast Cancer Cousin (Paternal) No Known Problems Brother (Half) No Known Problems Sister (Half) Social History Socioeconomic History Marital status: Spouse name: Tello De La Cruz Number of children: 3 Years of education: 18 Occupational History 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[facility] [employer] Tobacco Use Smoking status: Every Day Packs/day: 0.25 Years: 28.00 Pack years: 7.00 Types: Cigarettes Last attempt to quit: 09/21/2011 Years since quittin.4 Smokeless tobacco: Never Tobacco comments: 6-8 cigarettes a day Vaping Use Vaping Use: Never used Substance and Sexual Activity Alcohol use: Yes Comment: once every couple of months a drink Drug use: No Comment: denies Sexual activity: Yes Partners: Male control/protection: Surgical Comment: vasectomy Other Topics Concern Exercise Yes Comment: occasional walking Self-Exams Yes Comment: breast Social History 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 A+Ox3. HEENT: Normocephalic. Atraumatic. PERRL. EOMI. Conjunctiva and sclera clear. NECK: No carotid bruits. No JVD. Carotid upstrokes are brisk. Heart: RRR. S1 and S2 noted. No murmur. No rubs or gallops. PMI non displaced. Lungs: Clear to auscultation. No wheezes.No rhonchi. No rales. Abdomen: Normal bowel sounds. Soft. Nontender. No masses or organomegaly. No abdominal bruits. Extremities: No edema. No clubbing or cyanosis. Pulses: radial=2/4, posterior tibial=2/4, dorsalis pedis = 2/4. NEURO: No focal deficits. PSYCH: Appropriate affect and insight. DATA Labs & Imaging Reviewed Below: Echocardiogram 02/12/23 There was sinus bradycardia during the examination. The left ventricular cavity size is normal. The LV wall thickness is normal. The septal motion is abnormal consistent with left bundle branch block. The regional left ventricular wall motion is otherwise normal. The qualitative LV ejection fraction is 55-59% (normal). The left ventricular diastolic function is normal. There is no significant valvular disease Echo 08/2022 The examination is adequate to evaluate the referral indication. The left ventricular cavity size is normal. The LV wall thickness is normal. The septal motion is abnormal consistent with left bundle branch block. The regional left ventricular wall motion is otherwise normal. The left ventricular systolic function is mildly reduced. Calculated LV ejection Fraction = 45% (bi-plane method of discs). The left ventricular diastolic function is moderately abnormal (grade II). The left atrium is normal sized. There is no significant valvular pathology Zio 08/2022 Patient had a min HR of 57 bpm, max HR of 135 bpm, and avg HR of 83 bpm. Predominant underlying rhythm was Sinus Rhythm. Bundle Branch Block/IVCD was present. QRS morphology changes were present throughout recording. 1 run of Supraventricular Tachycardia occurred lasting 5 beats with a max rate of 128 bpm (avg 104 bpm). Isolated SVEs were rare (<1.0%), SVE Couplets were rare (<1.0%), and SVE Triplets were rare (<1.0%). Isolated VEs were rare (<1.0%), and no VE Couplets or VE Triplets were present. Agree with above. No arrhythmias. Multiple triggered events correlated with sinus rhythm and sinus rhythm with ectopy ASSESSMENT/PLAN: 53 year old year old female 1. NICM (nonischemic cardiomyopathy) (HCC) -marked improvement in her repeat echo since starting GDMT including Entrensto and Jardiance. Continue Toprol xl 25mg QD, and spironolactone 25mg QD 2. HTN, goal below 130/80 -At target. Continue Toprol xl, Spironolactone, Entresto 3. Dyslipidemia, goal LDL below 100 -labs stable. Continue with heart healthy diet and increase cardiovascular activity 4. Need for prophylactic vaccination and inoculation against influenza - INFLUENZA VACC, QUAD, PF, 6 MONTHS & UP, 0.5 ML, IM DISPOSITION: Follow up 6 months or if symptoms worsen/fail to improve. All questions were answered to the patients satisfaction. Patient advised to report to ED with any and all emergencies. The patient agrees to the above plan and will call with additional questions or concerns. [facility], [address] [address] I spent a total of 34 minutes on the date of service in preparation, delivery, and documentation ofthe care provided to Mily De La Cruz excluding any time spent in the performance of separately billedservices. This chart was completed in part utilizing [employer] Speech Voice Recognition Software. Grammatical errors, random word insertions, pronoun errors, and incomplete sentences are an occasional consequence of this system due to software limitations, ambient noise, and hardware issues. Any formal questions or concerns about the content, text, or information contained within the body of this dictation should be directly addressed to the provider for clarification. documented in this encounter Nursing Notes * Nilesh Joyner LPN - 03/18/2023 2:00 PM EDT Patient identified by full name and date of Chief Complaint Patient presents with Follow Up 4 month follow up. Echo completed 02/12/23. About a month ago feel forward into bath tub getting offtoilet but did not pass out. Medications makes her feel "woozy". Edema in LE controlled and were TEDs during the week. Still fights through being tired. Denies chest pain, palpitations, dizziness andSOB. Examination Room: 4 Name: Mily De La Cruz Date of : (1970). Reason for Visit: 4 month follow up Interim Hospitalization(s): Denies Problems/Concerns: See chief complaint Chest Pain/SOB: Denies [facility] Discussed: Not applicable [facility] is a way you can talk to your provider online through e-mail. Would you like to sign up? I can activate it for you? ALREADY ACTIVE Patient was instructed to not get up on the exam table until directed and assisted by their provider; patient is to remain seated in the chair/ wheelchair/ exam table for fall prevention and safety reasons. Patient is aware to have assistance to step down off exam table with personnel. Patient voiced full comprehension of instructions. documented in this encounter Plan of Treatment Upcoming Encounters Date Type Specialty Care Team Description 05/13/2023 Office Visit Pain Medicine Luiz Jones DO [address] [place] [phone] 08/06/2023 Imaging Radiology 09/23/2023 Office Visit Cardiology Sarita Jones CRNP [address] [place] [id number] Scheduled Procedures Name Priority Associated Diagnoses Date/Ti me COLONOSCOPY FLEXIBLE PROXIMA L DIAGNOSTIC Recall Screening for colorectal cancer Gastroesophageal reflux disease, unspecified whether esophagitis present Health Maintenance Due Date Last Done Comments DISCUSS TOBACCO CESSATION (REFER TO SMARTSET #8341) 1970 Hepatitis B (1 of 3 - 3-dose series) 1971 Albumin/Creatinine Ratio 1989 Hepatitis C Screening 1989 HPV/Co-Test 2001 Cologuard 2016 Fecal Occult Blood Test 2016 Sigmoidoscopy 2016 Pneumococcal Vaccine: Pediatrics (0 to 5 Years) and At-Risk Patients (6 to 64 Years) (2 - PCV) 04/17/2016 04/17/2015 *SPIROMETRY ONCE FOR ASTHMA-ADULT 08/10/2016 COVID-19 Vaccine (3 - Pfizer series) 01/22/2021 11/27/2020, 11/06/2020 Zoster Vaccines (1 of 2) 2021 Cervical Cancer Screening 08/23/2022 Pap Smear 08/23/2022 08/24/2019, 05/22, 12/29/2012, Additional history exists Depression, Most Recent Score >= 10 (will fire each visit until score < 10) 10/23/2022 10/22/2022 Mammogram 04/18/2023 04/18/2022, 03/23, 02/07/2020, Additional history [...] as of this encounter Visit Diagnoses Diagnosis NICM (nonischemic cardiomyopathy) (HCC)- Primary Other primary cardiomyopathies HTN, goal below 130/80 Unspecified essential hypertension Dyslipidemia, goal LDL below 100 Other and unspecified hyperlipidemia Need for prophylactic vaccination and inoculation against influenza documented in this encounter Advance Directives Latest [...] and were consensually agreed upon. Care Teams Laboratory Tech Relationship Specialty Start Date End Date Gregory Dyer MD [address] [place] [address] PCP - General Family Medicine 11/29/19 documented as of this encounter
--- OUTSIDE RECORDS SUMMARY | 2023-07-18 09:32 | External Medical Summary ---
Author Name Unknown Address Unknown Organization [id number]:[facility] - [facility] [place] [address] Laboratory Report Ordering Provider Test Date Status FARHANA VENEGASER 02/03/2023 12:42:40 Final Observation Date Value Abnormality Reference (Units ) Status SSA Ab 02/03/2023 12:42:40 Negative Negative Final Sjogrens syndrome-A extractable nuclear Ab [Units/volume] in Serum by Immunoassay 02/03/2023 12:42:40 <0.4 <7 (U/mL) Final SSB Ab 02/03/2023 12:42:40 Negative Negative Final Sjogrens syndrome-B extractable nuclear Ab [Units/volume] in Serum by Immunoassay 02/03/2023 12:42:40 <0.4 <7 (U/mL) Final Performing Location [facility] - [facility] [place] [address]
--- OUTSIDE RECORDS SUMMARY | 2023-07-18 09:32 | External Medical Summary | Summary of Care ---
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 9 Tablet 03/12/2022 Active Metoprolol Succinate ER 25 MG Oral Tablet Extended Release 24 Hour (Toprol XL) Take 1 Tablet by mouth in the morning. 30 Tablet 09/10/2022 Active Furosemide 20 MG Oral Tablet (Lasix)Indications:L BBB (left bundle branch block),Left ventricular systolic dysfunction,Dyslipid emia, goal LDL below 100,Family history of premature CAD Take 1 Tablet by mouth in the morning. 30 Tablet 10/08/2022 Active Trintellix 20 MG Oral Tablet (Vortioxetine HBr) Take 1 Tablet by mouth in the morning. 30 Tablet 11/10/2022 Active Vitamin B-12 1000 MCG Oral Tablet Take 1 Tablet by mouth in the morning. 0 Active Magnesium 250 MG Oral Tablet Take 1 Tablet by mouth in the morning. 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 90 Tablet 11/14/2022 Active Pregabalin 100 MG Oral Capsule (Lyrica) Take 1 Capsule by mouth in the morning and 1 Capsule before bedtime. 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 30 Tablet 0 02/04/2023 Active documented as of this encounter (statuses as of 02/11/2023) Active Problems Problem Noted Date Chronic combined [...] as of this encounter (statuses as of 02/11/2023) Resolved Problems Problem Noted Date Resolved Date [...] 01/05/2012 Overview: Pt considering repeat C/s at [facility] or at [facility] where she works. Continue to discuss Asthma [...] as of this encounter (statuses as of 02/11/2023) Immunizations Name Administration Dates Next Due COVID-19 mRNA, LNP-s, No Pre serve, 2-Dose Series (TripChamp) 11/27/2020,11/06/2020 PPD 04/15/2016, 6,10/10/2014,08/23,09/09/2010,08/22/2009,08/08/2009 ,07/26/2007 Pneumococcal Polysaccharide PPV23 (Pneumovax) 04/17/2015,06/26/2009(Deferred: Patient Refused) Seasonal Influenza, PF, 6 mo ns & Above, IM , (Flulaval) 02/21/2020,03/24/2017 Seasonal Influenza, Quadriva lent, No Preserve, IM 03/20/2016,03/21/2015 Seasonal Influenza, Split, I IV3, With Preserve, Inj 04/11/2014,04/27/2013,03/22/2012,03/31,04/20/2009 TDAP (age 10 and older)(Boostrix) 12/08/2017 TDAP (age 11 and older)(Adacel) 07/26/2007 documented as of this encounter Social History Tobacco Use Types Packs/Day Years Used Date Smoking Tobacco: Light Smoker Cigarettes 0.1 28 Last attempted t o quit: 09/21/2011 Smokeless Tobacco: Never Alcohol Use Standard Drinks/Week Comments Yes 0 (1 standard drink = 0.6 oz pure alcohol) occasional use during - 1/2 a beer or small amount of wine Food Insecurity Answer Date Recorded Within the [...] as of this encounter Progress Notes * Luiz Jones, DO - 02/11/2023 3:40 PM EDT Interventional Pain Follow-up Appointment After connecting to the patient via telephone, the patient was identified by name and date of . Patient was then informed that this was a telephone call only visit. The patient agreed to participate. Visit Disposition: Routine follow-up Total call duration was 22 minutes. Subjective: History of Present Illness: Mily De La Cruz is a 52 year old year-old female with a past medical history significant for Reports seeing [facility] neurology and getting a second opinion with [facility] neurology. Provided ubrelvy on an as-needed basis for migraines. Will follow-up with a serial brain MRI in Jul 2023. Has recommended neuropsychiatric testing to her. Still having arms and hands numbness and tingling. Relates a lot of stress related to autistic son who underwent drug/alcohol rehabilitation. Has been working with a functional medicine physician whohas been improving some of the numbness and tingling by working on some of the muscles in her neck and shoulder region. Briefly discussed thoracic outlet syndrome. States the lyrica 150mg po BID has helped her and states that the tizanidine has been helpful as well. Pain is relatively improved but unchanged in nature. She continues to c/o all-over body pain, worst in her neck, arm, and shoulder pain. The pain is located in the neck and shoulders, and it does radiate to the hands. She also experiences an achy sensation in her legs as well which is a/w weakness. She describes it as a achy throbbing numb tingling sensation. Aggravating factors include: typing, doing work. Alleviating factors include: nothing, heat. The pain is present 100 % of time. Pain ranges from 4-7/10 in severity. Review of Systems: A focused 12-pt ROS were of reviewed with the patient including difficulty with sleep, snoring, aspiration history, dysphagia, stomach pain, nausea and vomiting, severe headaches, confusion, open skin lesions or wounds, chest pain, shortness of breath, excessive thirst, somnolence, dysuria, incomplete bladder emptying, easy bruising, recent clotting problems or bleeding, depression or rushed thoughts unless noted previously. Allergies, Medications, Past Medical History, Past Surgical History reviewed and documented in [facility]. See detailed report if needed. Pertinent Labs/Test Results: No components found for: PLTS, INR No results found for: CREATININE Hemoglobin A1C (%) Date Value 11/06/2022 6.1 (H) No results found for: AMPHETAMINE, BARBITURATES, BENZODIAZEPINES, BUPRENORPHINE, METHADONE, OPIATES, OXYCODONE, PHENCYCLIDINE, CANNABINOIDS, TOX SCREEN, TOX SCREEN-SERUM Imaging: MRI BRAIN W WO CONTRAST Narrative: EXAM MRI BRAIN W WO CONTRAST01/29/2023 1:43 pm HISTORY paresthesias all fours, cognitive issues. COMPARISON None TECHNIQUE Routine protocol MRI of the brain was performed with and without the administration of IV gadolinium. FINDINGS There are no foci of restricted diffusion. The ventricles and sulci are within normal limits in size for patient age. There is a enhancing extra-axial mass seen along the right frontal convexity thatmeasures 1.5 x 0.9 cm, most consistent with a meningioma. There are scattered nonspecific subcortical and periventricular white matter foci of T2/FLAIR hyperintensity. The basal cisterns are patent. There is no significant mass effect or midline shift. The normally expected, central arterial flow voids of the [place] are grossly maintained. The T1 weighted signal intensity within the calvarium is maintained. There is a rightward septal spur. There is minimal T2 hyperintense partial opacification of the right mastoid air cells. There is minimal mucosal thickening of the ethmoid air cells. The orbits are grossly unremarkable. Impression: IMPRESSION 1. No acute intracranial abnormality is identified. 2. Right frontal convexity meningioma that measures up to 1.5 cm. 3. Scattered nonspecific cerebral white matter foci of T2/FLAIR hyperintensity, most commonly associated with chronic small vessel disease. Similar nonspecific findings may be seen with prior inflammation, prior infection, prior trauma, chronic migraines, or demyelinating disease. Objective Physical Exam: Vital Signs: There were no vitals taken for this visit. There is no height or weight on file to calculate BMI. General: No apparent distress. 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 Will continue to follow neurology care. Agree with trial of prn CGRP-i No medication changes recommended today. Will continue lyrica 150mg po BID, memantine 10mg po BID and tizanidine from a pain medicine standpoint. Medical Decision Making I spent 25 minutes reviewing the patient's prior visit office notes, procedure notes, images, conducting the history and physical examination, formulating a care plan, considering interventional options, drafting orders and medication prescriptions as well as recording the medical documentation. Luiz Jones DO Interventional Pain Center, [facility] [address] [place] [address] documented in this encounter Plan of Treatment Upcoming Encounters Date Type Specialty Care Team Description 02/12/2023 Cardiac Studies Cardiac Studies 03/04/2023 Office Visit Cardiology Obed Murillo DO [address] [place] [address] 05/21/2023 Office Visit [facility] [address] [facility] [address] 08/06/2023 Imaging Radiology Scheduled Procedures Name Priority Associated Diagnoses Date/Ti me COLONOSCOPY FLEXIBLE PROXIMA L DIAGNOSTIC Recall Screening for colorectal cancer Gastroesophageal reflux disease, unspecified whether esophagitis present Health Maintenance Due Date Last Done Comments DISCUSS TOBACCO CESSATION (REFER TO SMARTSET #0908) 1970 Hepatitis B (1 of 3 - [...] visit until score < 10) 10/23/2022 10/22/2022 Influenza Vaccine (FLU shot) (#1) 2023 02/21/2020, 03/24/2017, 03/24/2017, Additional history exists Mammogram 04/18/2023 04/18/2022, 03/23, 02/07/2020, Additional history exists GFR 02/04/2024 02/03/2023, 12/20, 12/18/2022, Additional history exists Diabetes Screening 02/03/2026 02/03/2023, 0 12/18/2022, 11/26/2022, Additional history exists Lipid Panel 09/13/2027 09/12/2022, 08/20, 11/29/2019, Additional history exists DTaP,Tdap,and Td Vaccines (3 - Td or Tdap) 12/09/2027 12/08/2017, 07/26/2007 Colonoscopy 10/25/2031 10/24/2021, 10/24/2021 Colorectal Cancer Screening 10/25/2031 GARDASIL-HPV IMMUNIZATION SERIES Aged Out No longer eligible based on patient's age to complete this topic MENINGOCOCCAL (MENACTRA/MENVEO) Aged Out No longer eligible based on patient's age to complete this topic documented as of this encounter Medical Devices Not on filedocumented as of this encounter Visit Diagnoses Diagnosis Fibromyalgia- Primary Mylagia and myositis, unspecified 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 Care Teams Home Economist Relationship Specialty Start Date End Date Gregory Dyer MD [address] [place] [address] PCP - General Family Medicine 11/29/19 documented as of this encounter
--- OUTSIDE RECORDS SUMMARY | 2023-07-18 09:32 | External Medical Summary | Summary of Care ---
Author Name Unknown Organization [facility] Address [address] [place] [address] Phone [phone] Care Team Providers Care Etched Circuit Processor Name Role Phone Caroline Ba MD Primary Care Provider [phone] Reason for Visit * Reason Onset Date Comments Medication Refill 2023 Encounter Details Date Type Department Care Team Description 2023 Refill Family Practice [facility] [address] [facility] [place] [address] Caroline Ba MD [address] [facility] [place] [address] Dyslipidemia*; Persistent insomnia Allergies Active Allergy Reactions Severity [...] as of this encounter (statuses as of 03/03/2023) Medications Medication Sig Dispensed Refills Start Date [...] the morning. 90 Tablet 3 11/14/2022 Active Metoprolol Tartrate 50 MG Oral Tablet [...] before bedtime. 60 Capsule 2 2023 Active Zolpidem Tartrate 10 MG Oral Tablet (Ambien)Indication s:Persistent insomnia Take 1 Tablet by mouth at bedtime as needed for Sleep. 30 Tablet 0 02/04/2023 3 Discontinue d(Refill) documented as of this encounter (statuses as of 03/03/2023) Active Problems Problem Noted Date Chronic combined [...] as of this encounter (statuses as of 03/03/2023) Resolved Problems Problem Noted Date Resolved Date [...] 01/05/2012 Overview: Pt considering repeat C/s at [facility] or at [employer] where she works. Continue to discuss Asthma [...] 11/28/2019 Acquired pyloric stenosis 2019 Overview: EGD [place] Psoriasis 11/28/2019 Asthma in remission 10/04/2013 Migraine variant 09/30/2022 Overview: well-managed with Imitrex but only Vicodin/codeine since Iron deficiency anemia due to chronic blood loss 11/28/2019 Melanocytic nevus of trunk 11/27 Carpal tunnel syndrome 6 Overview: bilateral symptoms History of Jay fundoplication 11/29/2019 documented as of this encounter (statuses as of 03/03/2023) Immunizations Name Administration Dates Next Due COVID-19 mRNA, LNP-s, No Pre serve, 2-Dose Series ([place]) 11/27/2020,11/06/2020 PPD 04/15/2016, 6,10/10/2014,08/23,09/09/2010,08/22/2009,08/08/2009 ,07/26/2007 Pneumococcal Polysaccharide [...] Telephone Encounter - Caroline Ba MD - 03/03/2023 12:02 PM EDTSigned Prescriptions: Disp Refills Zolpidem Tartrate 10 MG Oral Tablet (Ambie*30 Tab*0 Sig: Take 1 Tablet by mouth at bedtime as needed for Sleep. Authorizing Provider: CAROLINE BA * Telephone Encounter - [facility] - 03/03/2023 10:10 AM EDTPending Prescriptions: Disp Refills Zolpidem Tartrate 10 MG Oral Tablet (Ambie*30 Tab*0 Sig: Take 1 Tablet by mouth at bedtime as needed for Sleep. * Telephone Encounter - [facility] - 03/03/2023 10:08 AM EDT I have reviewed the patients controlled substance dispensing history in the Prescription Drug Monitoring Program in compliance with the [facility] regulations before prescribing a controlled substance. PDMP checked on 03/03/2023. Pending Prescriptions: Disp Refills Zolpidem Tartrate 10 MG Oral Tablet (Ambi*30 Tab*0 Sig: Take 1 Tablet by mouth at bedtime as needed for Sleep. Last Visit: 09/04/2021 (in office), Visit date not found (telemedicine) Next Visit: Visit date not found Date medication was last filled: 02/04 Date medication is due for refill: 03/06 Pharmacy: [id number] Is this request for a controlled substance? Yes and Urine Drug Screen Not completed Toxicology results: No results found. However, due to the size of the patient record, not all encounters were searched.Please check Results Review for a complete set of results. Please approve if appropriate. Thanks, Mario Martin, PharmD Clinical Pharmacist [facility] ([facility] [phone] 03/03/2023 10:09 AM documented in this encounter Plan of Treatment Upcoming Encounters Date Type Specialty Care Team Description 03/18/2023 Office Visit Cardiology Sarita Jones CRNP [address] [place] [address] 08/06/2023 Imaging Radiology Scheduled Orders Name Type Priority Associated Diagnoses Orde r Schedule ALBUMIN / CREATININE RATIO, URINE Lab Routine Dyslipidemia Expected: 03/03/2023, Expires: 03/03/2024 Scheduled Procedures Name Priority Associated Diagnoses Date/Ti me COLONOSCOPY FLEXIBLE PROXIMA L DIAGNOSTIC Recall Screening for colorectal cancer Gastroesophageal reflux disease, unspecified whether esophagitis present Health Maintenance Due Date Last Done Comments DISCUSS TOBACCO CESSATION (REFER TO SMARTSET #0300) 1970 Hepatitis B (1 of 3 - [...] as of this encounter Visit Diagnoses Diagnosis Dyslipidemia- Primary Other and unspecified hyperlipidemia Persistent insomnia Persistent disorder of initiating or [...] and were consensually agreed upon. Care Teams Etched Circuit Processor Relationship Specialty Start Date End Date Caroline Ba MD [address] [place] [address] PCP - General Family Medicine 11/29/19 documented as of this encounter
--- OUTSIDE RECORDS SUMMARY | 2023-07-18 09:32 | External Medical Summary | Summary of Care ---
Author Name Unknown Organization [facility] Address [address] [place] [address] Phone [phone] Care Team Providers Care Leather Flesher Name Role Phone Gregory Dyer MD Primary Care Provider [phone] Reason for Visit * Reason Comments Outpatient Testing Encounter Details Date Type Department Care Team Description 02/03/2023 Laboratory Laboratory [facility] [address] [place] [address] [facility] Scen[facility] [address] [place] [address] HTN, goal below 130/80 Allergies Active Allergy Reactions Severity Noted Date [...] as of this encounter (statuses as of 02/03/2023) Medications Medication Sig Dispensed Refills Start Date [...] Oral Tablet (sacubitril-valsarta n 24-26 mg per tab)Indications:Clinical Research Scientist cortez combined systolic and diastolic heart failure (HCC) Take 1/2 tablet by mouth twice daily 90 Tablet 3 11/14/2022 Active Empagliflozin 10 MG Oral Tablet (Jardiance)Indicatio ns:Chronic combined systolic and diastolic heart failure (HCC) Take 1 Tablet by mouth in the morning. 90 Tablet 3 11/14/2022 Active Pregabalin 100 MG Oral Capsule [...] twice daily.. 60 Capsule 2 12/24/2022 Active Zolpidem Tartrate 10 MG Oral Tablet (Ambien)Indications: Persistent insomnia Take 1 Tablet by mouth at bedtime as needed for Sleep. 30 Tablet 0 01/05/2023 Active buPROPion HCl ER (XL) 150 MG Oral Tablet Extended Release 24 Hour (Wellbutrin XL) Take 1 Tablet by mouth in the morning. 90 Tablet 3 01/19/2023 Active Memantine HCl 10 MG Oral Tablet (Namenda)Indications :Memory changes,Fibromyalgia Take 1 Tablet by mouth 2 times a day with morning and evening meals. 60 Tablet 3 02/02/2023 Active documented as of this encounter (statuses as of 02/03/2023) Active Problems Problem Noted Date Chronic combined [...] as of this encounter (statuses as of 02/03/2023) Resolved Problems Problem Noted Date Resolved Date [...] at [facility] or at [facility] where she works. Continue to discuss [...] as of this encounter (statuses as of 02/03/2023) Immunizations Name Administration Dates Next Due COVID-19 mRNA, LNP-s, No Pre serve, 2-Dose Series ([place]) 11/27/2020,11/06/2020 PPD 04/15/2016, 6,10/10/2014,08/23,09/09/2010,08/22/2009,08/08/2009 ,07/26/2007 Pneumococcal Polysaccharide PPV23 (Pneumovax) 04/17/2015,06/26/2009(Deferred: Patient Refused) Seasonal Influenza, Quadriva lent, No Preserve, 6 Mons & Above, IM 02/21/2020,03/24/2017 Seasonal Influenza, Quadriva lent, No Preserve, [...] on file documented as of this encounter Plan of Treatment Upcoming Encounters Date Type Specialty Care Team Description 02/12/2023 Cardiac Studies Cardiac Studies 03/04/2023 Office Visit Cardiology Obed Murillo, [address] [place] [address] 03/11/2023 Office Visit Pain Medicine Luiz Jones DO [address] [place] [phone] 05/21/2023 Office Visit Neurology Sarahi Cordoba MD [address] [place], [place] [address] [address] 08/06/2023 Imaging Radiology Pending Results Name Type Priority Associated Diagnoses Date /Time BASIC METABOLIC PANEL Lab Routine HTN, goal below 130/80 02/03/2023 12:42 PM EDT Scheduled Procedures Name Priority Associated Diagnoses Date/Ti me COLONOSCOPY FLEXIBLE PROXIMA L DIAGNOSTIC Recall Screening for colorectal cancer Gastroesophageal reflux disease, unspecified whether esophagitis present Health Maintenance Due Date Last Done Comments DISCUSS TOBACCO CESSATION (REFER TO SMARTSET #0893) 1970 Hepatitis B (1 of 3 - [...] 04/18/2022, 03/23, 02/07/2020, Additional history exists GFR 01/02/2024 01/01/2023, 11/21, 11/26/2022, Additional history exists Diabetes Screening 12/18/2025 12/18/2022, 0 11/26/2022, 11/06/2022, Additional history exists Lipid Panel 09/13/2027 09/12/2022, [...] as of this encounter Visit Diagnoses Diagnosis HTN, goal below 130/80 Unspecified essential hypertension documented in this encounter Advance Directives Latest [...] and were consensually agreed upon. Care Teams Leather Flesher Relationship Specialty Start Date End Date Gregory Dyer MD [address] [place] [address] PCP - General Family Medicine 11/29/19 documented as of this encounter
--- OUTSIDE RECORDS SUMMARY | 2023-07-18 09:32 | External Medical Summary | Summary of Care ---
Author Name Unknown Organization [facility] Address [address] [place] [address] Phone [phone] Care Team Providers Care Gear Lapper Name Role Phone Gregory Dyer MD Primary Care Provider [phone] Reason for Visit * Reason Onset Date Comments Medication Refill 2023 Encounter Details Date Type Department Care Team Description 2023 Refill [facility], [facility] [address] [place] [address] Luiz Jones DO [address] [place] [address] Allergies Active Allergy Reactions Severity Noted Date [...] as of this encounter (statuses as of 2023) Medications Medication Sig Dispensed Refills Start Date [...] for Sleep. 30 Tablet 0 02/04/2023 Active Pregabalin 100 MG Oral Capsule (Lyrica) Take 1 Capsule by mouth in the morning and 1 Capsule before bedtime. 60 Capsule 2 2023 Active Pregabalin 100 MG Oral Capsule (Lyrica) Take 1 Capsule by mouth in the morning and 1 Capsule before bedtime. 60 Capsule 2 11/20/2022 3 Discontinue d(Refill) documented as of this encounter (statuses as of 2023) Active Problems Problem Noted Date Chronic combined [...] as of this encounter (statuses as of 2023) Resolved Problems Problem Noted Date Resolved Date [...] 01/05/2012 Overview: Pt considering repeat C/s at [facility] or at [facility] where she works. Continue to discuss Asthma with severity to be determined 12/17/2009 06/08/2013 Overview: Per Asthma Taxonomy ICD-10 update of inactive term Dyslipidemia, goal LDL below 130 08/08/2009 08/08/2009 Other specified anemias 10/08/2007 09/02/19 13 Overview: H/H 11.5/34.2 Mixed dyslipidemia 11/10/2005 06/07/2009 Overview: Per Lipid Taxonomy. Major depressive disorder, single episode, moder ate 11/10/2005 11/28/2019 Overview: 5: Tapering Effexor; pt daily 37.5mg daily at NOB visit; pt desires to continue taper. Restart Celexa 02/18/12 EXTRINSIC ASTHMA, UNSPEC 11/10/2005 010 Other allergic rhinitis 11/10/2005 01/05/20 12 Overview: ICD-10 update of inactive term Other acne 02/01/2001 01/05/2012 Umbilical hernia 11/28/2019 Acquired pyloric stenosis 2019 Overview: EGD [place] Psoriasis 11/28/2019 Asthma in remission 10/04/2013 Migraine variant 09/30/2022 Overview: well-managed with Imitrex but only Vicodin/codeine since Iron deficiency anemia due to chronic blood loss 11/28/2019 Melanocytic nevus of trunk 11/27 Carpal tunnel syndrome 6 Overview: bilateral symptoms History of Jay fundoplication 11/29/2019 documented as of this encounter (statuses as of 2023) Immunizations Name Administration Dates Next Due COVID-19 mRNA, LNP-s, No Pre serve, 2-Dose Series ([employer]) 11/27/2020,11/06/2020 PPD 04/15/2016, 6,10/10/2014,08/23,09/09/2010,08/22/2009,08/08/2009 ,07/26/2007 Pneumococcal Polysaccharide [...] encounter Miscellaneous Notes * Telephone Encounter - Kiera Hay PA-C - 2023 8:20 AM EDTSigned Prescriptions: Disp Refills Pregabalin 100 MG Oral Capsule (Lyrica) 60 Cap*2 Sig: Take 1 Capsule by mouth in the morning and 1 Capsule before bedtime. Authorizing Provider: KIERA HAY * Telephone Encounter - Zari Yeung LPN - 2023 8:05 AM EDTPending Prescriptions: Disp Refills Pregabalin 100 MG Oral Capsule (Lyrica) 60 Cap*2 Sig: Take 1 Capsule by mouth in the morning and 1 Capsule before bedtime. documented in this encounter Plan of Treatment Upcoming Encounters Date Type Specialty Care Team Description 03/18/2023 Office Visit Cardiology Sarita Jones CRNP [address] [place] [address] 08/06/2023 Imaging Radiology Scheduled Procedures Name Priority Associated Diagnoses Date/Ti me COLONOSCOPY FLEXIBLE PROXIMA L DIAGNOSTIC Recall Screening for colorectal cancer Gastroesophageal reflux disease, unspecified whether esophagitis present Health Maintenance Due Date Last Done Comments DISCUSS TOBACCO CESSATION (REFER TO SMARTSET #2921) 1970 Hepatitis B (1 of 3 - [...] and were consensually agreed upon. Care Teams Gear Lapper Relationship Specialty Start Date End Date Gregory Dyer MD [address] [facility] [place] [address] PCP - General Family Medicine 11/29/19 documented as of this encounter
--- OUTSIDE RECORDS SUMMARY | 2023-07-18 09:32 | External Medical Summary | Summary of Care ---
Author Name Unknown Organization [facility] Address [address] [place] [address] Phone [phone] Care Team Providers Care Technical Assoc Name Role Phone Gregory Dyer MD Primary Care Provider [phone] Reason for Visit * Reason Comments eRx-Medication Refill Encounter Details Date Type Department Care Team Description 03/25/2023 Refill Cardiology, [facility] [address] [place] [address] Zari Chance CRNP [address] [place] [facility] [place] [address] LBBB (left bundle branch block); Left ventricular systolic dysfunction; Dyslipidemia, goal LDL below 100; Family history of premature CAD Allergies Active Allergy Reactions Severity Noted Date [...] EVERY MORNING 90 Tablet 3 03/25/2023 Active Furosemide 20 MG Oral Tablet (Lasix)Indications :LBBB (left bundle branch block),Left ventricular systolic dysfunction,Dyslip idemia, goal LDL below 100,Family history of premature CAD Take 1 Tablet by mouth in the morning. 30 Tablet 5 10/08/2022 03/25/20 23 Discontinued documented as of this encounter [...] Overview: Pt considering repeat C/s at [facility] or at [facility] where she works. Continue to [...] 11/28/2019 Acquired pyloric stenosis 2019 Overview: EGD [place] Psoriasis 11/28/2019 Asthma in remission 10/04/2013 Migraine [...] mRNA, LNP-s, No Pre serve, 2-Dose Series ([employer]) 11/27/2020,11/06/2020 PPD 04/15/2016, 6,10/10/2014,08/23,09/09/2010,08/22/2009,08/08/2009 ,07/26/2007 Pneumococcal Polysaccharide [...] encounter Miscellaneous Notes * Telephone Encounter - Vinh Sandoval PA-C - 03/25/2023 1:31 PM EDT Signed Prescriptions: Disp Refills Furosemide 20 MG Oral Tablet (Lasix) 90 Tab*3 Sig: TAKE 1 TABLET BY MOUTH EVERY MORNING Authorizing Provider: VINH SANDOVAL * Telephone Encounter - Rola Tinsley CMA - 03/25/2023 1:31 PM EDTPending Prescriptions: Disp Refills Furosemide 20 MG Oral Tablet (Lasix) 90 Tab*3 Sig: TAKE 1 TABLET BY MOUTH EVERY MORNING * Telephone Encounter - Rola Tinsley CMA - 03/25/2023 1:31 PM EDT Did you pend patient's preferred pharmacy and medication before forwarding?yes Pharmacy: [id number] [address] [facility] Pending Prescriptions: Disp Refills Furosemide 20 MG Oral Tablet (Lasix) [Pha*90 Tab*3 Sig: TAKE 1 TABLET BY MOUTH EVERY MORNING Last Visit: 03/18/2023 (in office), 11/14/2022 (telemedicine) Next Visit: 09/23/2023 If no future appointments scheduled, and last appointment is greater than a year ago, please schedule patient for a follow-up appointment Last date the medication was ordered: Is this request for a controlled substance?No Urine Drug Screen:No results found. However, due to the size of the patient record, not all encounters were searched. Please check Results Review for a complete set of results. Patient Phone Numbers Labs: Lab Results Component Value Date/Time CREAT 1.0 02/03/2023 12:42 PM CREAT 0.9 11/29/2019 05:00 PM POTASSIUM 4.4 02/03/2023 12:42 PM POTASSIUM 4.5 11/29/2019 05:00 PM TSH 1.52 01/01/2023 02:48 PM TSH 3.51 03/24/2017 12:07 PM LDLCALC 153 (H) 09/12/2022 07:40 AM LDLCALC 140 (H) 11/29/2019 05:00 PM LDLDIRECT NOT APPLICABLE 11/29/2019 05:00 PM LDLDIRECT 122 11/25/2004 09:18 AM ALT 24 09/12/2022 07:40 AM ALT 22 11/29/2019 05:00 PM HGBA1C 6.1 (H) 11/06/2022 09:14 AM documented in this encounter Plan of Treatment Upcoming Encounters Date Type Specialty Care Team Description 04/22/2023 Office Visit Family Medicine Gregory Dyer MD [address] [place] [address] 05/13/2023 Office Visit Pain Medicine Luiz Jones DO [address] [place] [phone] 08/06/2023 Imaging Radiology 09/23/2023 Office Visit Cardiology Sarita Jones CRNP [address] [place] [address] Scheduled Procedures Name Priority Associated Diagnoses Date/Ti me COLONOSCOPY FLEXIBLE PROXIMA L DIAGNOSTIC Recall Screening for colorectal cancer Gastroesophageal reflux disease, unspecified whether esophagitis present Health Maintenance Due Date Last Done Comments DISCUSS TOBACCO CESSATION (REFER TO SMARTSET #0276) 1970 Hepatitis B (1 of 3 - [...] as of this encounter Visit Diagnoses Diagnosis LBBB (left bundle branch block) Other left bundle branch block Left ventricular systolic dysfunction Heart disease, unspecified Dyslipidemia, goal LDL below 100 Other and unspecified hyperlipidemia Family history of premature CAD Family history of ischemic heart disease documented in this encounter Advance Directives Latest [...] and were consensually agreed upon. Care Teams Technical Assoc Relationship Specialty Start Date End Date Gregory Dyer MD [address] [place] [address] PCP - General Family Medicine 11/29/19 documented as of this encounter
--- OUTSIDE RECORDS SUMMARY | 2023-07-18 09:32 | External Medical Summary | Summary of Care ---
Author Name Unknown Organization [facility] Address [address] [place] [address] Phone [phone] Care Team Providers Care Riprap Worker Name Role Phone Caroline Ba MD Primary Care Provider [phone] Reason for Visit * Reason Onset Date Comments Medication Refill 02/03/2023 Encounter Details Date Type Department Care Team Description 02/03/2023 Refill Family Practice [facility] [address] [facility] [place] [address] Caroline Ba MD [address] [facility] [place] [phone] Persistent insomnia Allergies Active Allergy Reactions Severity [...] as of this encounter (statuses as of 02/04/2023) Medications Medication Sig Dispensed Refills Start Date [...] for Sleep. 30 Tablet 0 02/04/2023 Active Zolpidem Tartrate 10 MG Oral Tablet (Ambien)Indication s:Persistent insomnia Take 1 Tablet by mouth at bedtime as needed for Sleep. 30 Tablet 0 01/05/2023 3 Discontinue d(Refill) documented as of this encounter (statuses as of 02/04/2023) Active Problems Problem Noted Date Chronic combined [...] as of this encounter (statuses as of 02/04/2023) Resolved Problems Problem Noted Date Resolved Date [...] Pt considering repeat C/s at [facility] or at [facility] where she works. Continue to discuss [...] 11/28/2019 Acquired pyloric stenosis 2019 Overview: EGD [place] Psoriasis 11/28/2019 Asthma in remission 10/04/2013 Migraine variant 09/30/2022 Overview: well-managed with Imitrex but only Vicodin/codeine since Iron deficiency anemia due to chronic blood loss 11/28/2019 Melanocytic nevus of trunk 11/27 Carpal tunnel syndrome 6 Overview: bilateral symptoms History of Jay fundoplication 11/29/2019 documented as of this encounter (statuses as of 02/04/2023) Immunizations Name Administration Dates Next Due COVID-19 mRNA, LNP-s, No Pre serve, 2-Dose Series ([employer]) 11/27/2020,11/06/2020 PPD 04/15/2016, 6,10/10/2014,08/23,09/09/2010,08/22/2009,08/08/2009 ,07/26/2007 Pneumococcal Polysaccharide [...] Telephone Encounter - Caroline Ba MD - 02/04/2023 3:50 PM EDTSigned Prescriptions: Disp Refills Zolpidem Tartrate 10 MG Oral Tablet (Ambie*30 Tab*0 Sig: Take 1 Tablet by mouth at bedtime as needed for Sleep. Authorizing Provider: CAROLINE BA * Telephone Encounter - Monroe Malik RPh - 02/04/2023 2:21 PM EDTPending Prescriptions: Disp Refills Zolpidem Tartrate 10 MG Oral Tablet (Ambie*30 Tab*0 Sig: Take 1 Tablet by mouth at bedtime as needed for Sleep. * Telephone Encounter - Monroe Malik RPh - 02/04/2023 2:20 PM EDT I have reviewed the patients controlled substance dispensing history in the Prescription Drug Monitoring Program in compliance with the [facility] regulations before prescribing a controlled substance. PDMP checked on 02/04/2023. Pending Prescriptions: Disp Refills Zolpidem Tartrate 10 MG Oral Tablet (Ambi*30 Tab*0 Sig: Take 1 Tablet by mouth at bedtime as needed for Sleep. Last Visit: 09/04/2021 (in office), Visit date not found (telemedicine) Next Visit: Visit date not found Date medication was last filled: 01/05/23 Date medication is due for refill: 02/03/23 Pharmacy: [id number] [address] [facility] Is this request for a controlled substance? Yes and Urine Drug Screen Not completed Toxicology results: No results found. However, due to the size of the patient record, not all encounters were searched.Please check Results Review for a complete set of results. Please approve if appropriate. Thanks, Monroe Malik Rph, Pharm D. Clinical Pharmacist [facility]Former[facility]pharm[facility])/[facility] [phone] 02/04/2023,2:20 PM documented in this encounter Plan of Treatment Upcoming Encounters Date Type Specialty Care Team Description 02/12/2023 Cardiac Studies Cardiac Studies 03/04/2023 Office Visit Cardiology Obed Murillo, DO [address] [place] [address] 03/11/2023 Office Visit Pain Medicine Luiz Jones, [address] [place] [phone] 05/21/2023 Office Visit Neurology Sarahi Cordoba MD [address] [place] [address], [place] [address] 08/06/2023 Imaging Radiology Scheduled Procedures Name Priority Associated Diagnoses Date/Ti me COLONOSCOPY FLEXIBLE PROXIMA L DIAGNOSTIC Recall Screening for colorectal cancer Gastroesophageal reflux disease, unspecified whether esophagitis present Health Maintenance Due Date Last Done Comments DISCUSS TOBACCO CESSATION (REFER TO SMARTSET #0986) 1970 Hepatitis B (1 of 3 - [...] and were consensually agreed upon. Care Teams Riprap Worker Relationship Specialty Start Date End Date Caroline Ba MD [address] [place] [address] PCP - General Family Medicine 11/29/19 documented as of this encounter
--- OUTSIDE RECORDS SUMMARY | 2023-07-18 09:32 | External Medical Summary | Summary of Care ---
Author Name Unknown Organization [facility] Address [address] [place] [address] Phone [phone] Care Team Providers Care Veterinary Surgeon Name Role Phone Gregory Dyer MD Primary Care Provider [phone] Reason for Referral * Evaluate & Treat - Unlimited Visits (Within 30 days (routine)) - Pending Review Specialty Diagnoses / Procedures Referred By Aram lemus Referred To Contact Psychiatry / Psychology Diagnoses Memory loss Sarahi Cordoba MD [address] [place] [address] Referral ID Status Reason Start Date Expiration Date Visits Requested Visits Authorized [id number] Pending Review Specialty Services Required 02/03/[phone] Question Answer Referral Priority Within 30 days (routine) Is this referral for medication management? No What condition is this patient being seen for? Mild Cognitive Impairment/Mild Neurocognitive Disorder Does the patient have SEVERE cognitive impairment on bedside screeners? (MoCA/MMSE <= 10) No Comments Neuropsychological evaluations are INTERACTIVE and use materials that require a patient to SEE, HEAR, and often WRITE. If a patient is unable to engage in this way, neurocognitive assessment may be abbreviated or deemed inappropriate. Please use caution in establishing expectations with your patient, and note any limitations in the comments section of the referral order. Subjective memory loss * Precert (Within 10 days (routine)) - Pending Review Specialty Diagnoses / Procedures Referred By Aram lemus Referred To Contact Radiology Diagnoses Cerebral meningioma (HCC) Procedures MRI BRAIN W WO CONTRAST Sarahi Cordoba MD [address] [place] [address] Referral ID Status Reason Start Date Expiration Date V isits Requested Visits Authorized [id number] Pending Review 08/06/2023 999 999 Reason for Visit * Reason Comments EMG Encounter Details Date Type Department Care Team Description 02/03/2023 NeuroDiagnostic Study Neurophysiology [facility] [address] [facility] [place] [address] Sarahi Cordoba MD [address] [facility] [place] [address] Allergies Active Allergy Reactions Severity Noted Date [...] Oral Tablet (sacubitril-valsarta n 24-26 mg per tab)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 Continue to discuss [...] as of this encounter Progress Notes * Sarahi Cordoba MD - 02/03/2023 1:35 PM EDT Images from the original note were not included. Neurophysiology Department [address] [place] [address]. [id number] Test Date: 02/03/2023 Patient: Mily De La Cruz : 1970 Physician: Sarahi Cordoba MD Sex: Female Height: ' " Ref Phys: Sarahi Cordoba MD ID#: [id number] Weight: lbs. Executive Coach: Patient Complaints: Numbness tingling bl ue with diffuse ue pain Patient History / Exam: Impression:This is a normal nerve conduction EMG of the bilateral upper extremities failing to reveal evidence of a sensory or motor polyneuropathy focal neuropathy, right or left cervical radiculopathy or myopathic process. Repetitive stimulation right ulnar nerve shows no evidence of disorder of effective neuromuscular transmission. NCV & EMG Findings: Medications: Sarahi Cordoba MD documented in this encounter Plan of Treatment Upcoming Encounters Date Type Specialty Care Team Description 02/12/2023 Cardiac Studies Cardiac Studies 03/04/2023 Office Visit Cardiology Obed Murillo, DO [address] [place] [address] 03/11/2023 Office Visit Pain Medicine Robert Luiz Lal, DO [address] [place] [phone] 05/21/2023 Office Visit Neurology Sarahi Cordoba MD [address] [place] [address], [place] [address] 08/06/2023 Imaging Radiology Pending Results Name Type Priority Associated Diagnoses Date /Time VITAMIN B12 Lab Routine Cerebral meningioma (HCC) [employer] demyelination (HCC) 02/03/2023 12:42 PM EDT LYME DISEASE ANTIBODY SCREEN WITH REFLEX TO CONFIRMATION Lab Routine Cerebral meningioma (HCC) [employer] demyelination (HCC) 02/03/2023 12:42 PM EDT CARDIOLIPIN ANTIBODY PROFILE (IGG, IGM) Lab Routine Cerebral meningioma (HCC) [employer] demyelination (HCC) 02/03/2023 12:42 PM EDT RPR Lab Routine Cerebral meningioma (HCC) [employer] demyelination (HCC) 02/03/2023 12:42 PM EDT ANGIOTENSIN CONVERTING ENZYME Lab Routine Cerebral meningioma (HCC) [employer] demyelination (HCC) 02/03/2023 12:42 PM EDT SSA/RO AND SSB/LA ANTIBODIES Lab Routine Cerebral meningioma (HCC) [employer] demyelination (HCC) 02/03/2023 12:42 PM EDT LYME DISEASE ANTIBODY SCREEN Lab Routine Cerebral meningioma (HCC) [employer] demyelination (HCC) 02/03/2023 12:42 PM EDT Scheduled Orders Name Type Priority Associated Diagnoses Orde r Schedule MRI BRAIN W WO CONTRAST Medical Imaging Routine Cerebral meningioma (HCC) Expected: 08/06/2023, Expires: 03/06/2024 Scheduled Procedures Name Priority Associated Diagnoses Date/Ti me COLONOSCOPY FLEXIBLE PROXIMA L DIAGNOSTIC Recall Screening for colorectal cancer Gastroesophageal reflux disease, unspecified whether esophagitis present Scheduled Referrals Name Type Priority Associated Diagnoses Order Schedule ADULT/PEDS NEUROPSYCHOLOGY REFERRAL OP Referral Within 30 days (routine) Memory loss Ordered: 02/03/2023 Health Maintenance Due Date Last Done Comments DISCUSS TOBACCO CESSATION (REFER TO SMARTSET #6871) 1970 Hepatitis B (1 of 3 - [...] as of this encounter Visit Diagnoses Diagnosis Cerebral meningioma (HCC)- Primary Benign neoplasm of cerebral meninges [employer] demyelination (HCC) Demyelinating disease of central nervous system, unspecified Memory loss Paresthesia Disturbance of skin sensation Pain in both upper extremities documented in this encounter Advance Directives Latest [...] and were consensually agreed upon. Care Teams Veterinary Surgeon Relationship Specialty Start Date End Date Gregory Dyer MD [address] [place] [address] PCP - General Family Medicine 11/29/19 documented as of this encounter
--- OUTSIDE RECORDS SUMMARY | 2023-07-18 09:32 | External Medical Summary | Summary of Care ---
Author Name Unknown Organization [facility] Address [address] [place] [address] Phone [phone] Care Team Providers Care Law Firm Partner Name Role Phone Gregory Dyer MD Primary Care Provider [phone] Reason for Visit * Reason Onset Date Comments Films 02/05/2023 Encounter Details Date Type Department Care Team Description 02/05/2023 Telephone Radiology Film File [address] [place], [place] [id number] Sarahi Cordoba MD [address] [place] [address] Films Allergies Active Allergy Reactions Severity Noted Date [...] as of this encounter (statuses as of 02/05/2023) Medications Medication Sig Dispensed Refills Start Date [...] Oral Tablet (sacubitril-valsarta n 24-26 mg per tab)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 Continue to discuss Asthma [...] as of this encounter (statuses as of 02/05/2023) Immunizations Name Administration Dates Next Due COVID-19 mRNA, LNP-s, No Pre serve, 2-Dose Series ([employer]) 11/27/2020,11/06/2020 PPD 04/15/2016, 6,10/10/2014,08/23,09/09/2010,08/22/2009,08/08/2009 ,07/26/2007 Pneumococcal Polysaccharide [...] encounter Miscellaneous Notes * Telephone Encounter - RADHA Sandy - 02/05/2023 10:39 AM EDT Patient requesting 12/25/22 Cspine MR and 01/29/23 Brain MR Imaging be sent to [facility]. [place] Authorization to Release on file. Images pushed to [facility] PACS. documented in this encounter Plan of Treatment Upcoming Encounters Date Type Specialty Care Team Description 02/12/2023 Cardiac Studies Cardiac Studies 03/04/2023 Office Visit Cardiology Obed Murillo, [address] [place] [address] 03/11/2023 Office Visit Pain Medicine Luiz Jones, [address] [place] [address] 05/21/2023 Office Visit Neurology [facility] Cord[facility] [address] [facility] [address] 08/06/2023 Imaging Radiology Scheduled Procedures Name Priority Associated Diagnoses Date/Ti me COLONOSCOPY FLEXIBLE PROXIMA L DIAGNOSTIC Recall Screening for colorectal cancer Gastroesophageal reflux disease, unspecified whether esophagitis present Health Maintenance Due Date Last Done Comments DISCUSS TOBACCO CESSATION (REFER TO SMARTSET #1384) 1970 Hepatitis B (1 of 3 - [...] and were consensually agreed upon. Care Teams Law Firm Partner Relationship Specialty Start Date End Date Gregory Dyer MD [address] [place] [address] PCP - General Family Medicine 11/29/19 documented as of this encounter
--- OUTSIDE RECORDS SUMMARY | 2023-07-18 09:32 | External Medical Summary ---
Author Name Unknown Address Unknown Organization K01:[facility] [place] [address] [facility] [address] Laboratory Report Ordering Provider Test Date Status ANKITA VENEGAS 02/03/2023 12:42:40 Final Observation Date Value Abnormality Reference (Units ) Status Reagin Ab [Presence] in Serum by RPR 02/03/2023 12:42:40 Nonreactive Nonreactive Final Performing Location [facility] [place] [facility] [address] [facility] [address]
--- OUTSIDE RECORDS SUMMARY | 2023-07-18 09:32 | External Medical Summary | Summary of Care ---
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 Continue to discuss Asthma [...] mRNA, LNP-s, No Pre serve, 2-Dose Series ([employer]) 11/27/2020,11/06/2020 PPD 04/15/2016, 6,10/10/2014,08/23,09/09/2010,08/22/2009,08/08/2009 ,07/26/2007 Pneumococcal Polysaccharide [...] past medical history significant for Reports seeing [facility] neurology and getting a second opinion with [facility] neurology. Provided ubrelvy on an as-needed basis [...] Past Surgical History reviewed and documented in [facility]. See detailed report if needed. Pertinent [...] expected, central arterial flow voids of the [place] are grossly maintained. The T1 [...] documentation. Luiz Jones DO Inter[facility], [facility] [address] [place] [address] documented in this encounter Plan of Treatment Upcoming Encounters Date Type Specialty Care Team Description 02/12/2023 Cardiac Studies Cardiac Studies 03/04/2023 Office Visit Cardiology Obed Murillo DO [address] [place] [address] 05/21/2023 Office Visit Neurology Sarahi Cordoba MD [address] [facility] [address] 08/06/2023 Imaging Radiology Scheduled Procedures Name Priority Associated Diagnoses Date/Ti me COLONOSCOPY FLEXIBLE PROXIMA L DIAGNOSTIC Recall Screening for colorectal cancer Gastroesophageal reflux disease, unspecified whether esophagitis present Health Maintenance Due Date Last Done Comments DISCUSS TOBACCO CESSATION (REFER TO SMARTSET #9101) 1970 Hepatitis B (1 of 3 - [...] and were consensually agreed upon. Care Teams Tobacco Educator Relationship Specialty Start Date End Date Gregory Dyer MD [address] [place] [address] PCP - General Family Medicine 11/29/19 documented as of this encounter
--- OUTSIDE RECORDS SUMMARY | 2023-07-18 09:32 | External Medical Summary | Summary of Care ---
Author Name Unknown Organization [facility] Address [address] [place] [address] Phone [phone] Care Team Providers Care Disability Benefits Specialist Name Role Phone Gregory Dyer MD Primary Care Provider [phone] Reason for Visit * Reason Onset Date Comments Test Results 02/13/2023 Encounter Details Date Type Department Care Team Description 02/13/2023 Telephone [facility], [facility] [address] 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 [...] as of this encounter (statuses as of 02/13/2023) Active Problems Problem Noted Date Chronic combined [...] as of this encounter (statuses as of 02/13/2023) Resolved Problems Problem Noted Date Resolved Date [...] C/s at [facility] or at [facility] [...] as of this encounter (statuses as of 02/13/2023) Immunizations Name Administration Dates Next Due COVID-19 mRNA, LNP-s, No Pre serve, 2-Dose Series ([employer]OLI) 11/27/2020,11/06/2020 PPD 04/15/2016, 6,10/10/2014,08/23,09/09/2010,08/22/2009,08/08/2009 ,07/26/2007 Pneumococcal Polysaccharide [...] encounter Miscellaneous Notes * Telephone Encounter - Rola Tinsley CMA - 02/13/2023 8:55 AM EDT Portal message sent to pt. * Telephone Encounter - Rola Tinsley CMA - 02/13/2023 8:54 AM EDT ----- Message from ZAID Jurado sent at 02/12/2023 4:13 PM EDT ----- Echo showing a preserved LVEF (improved). Wall motion consistent with LBBB. Normal relaxation pattern. No valvular heart disease. Good! Keep follow up as scheduled to discuss in detail documented in this encounter Plan of Treatment Upcoming Encounters Date Type Specialty Care Team Description 03/04/2023 Office Visit Cardiology Obed Murillo, DO [address] [place] [address] 05/21/2023 Office Visit Neurology [facility] [address] [facility] [address] 08/06/2023 Imaging Radiology Scheduled Procedures Name Priority Associated Diagnoses Date/Ti me COLONOSCOPY FLEXIBLE PROXIMA L DIAGNOSTIC Recall Screening for colorectal cancer Gastroesophageal reflux disease, unspecified whether esophagitis present Health Maintenance Due Date Last Done Comments DISCUSS TOBACCO CESSATION (REFER TO SMARTSET #3475) 1970 Hepatitis B (1 of 3 - [...] and were consensually agreed upon. Care Teams Disability Benefits Specialist Relationship Specialty Start Date End Date Gregory Dyer MD [address] [place] [address] PCP - General Family Medicine 11/29/19 documented as of this encounter
--- OUTSIDE RECORDS SUMMARY | 2023-07-18 09:32 | External Medical Summary ---
Author Name Unknown Address Unknown Organization K01:[facility] [place] [address] [facility] [address] Laboratory Report Ordering Provider Test Date Status RUBI,LUCIANO 02/03/2023 12:42:40 Final Anticardiolipin / beta-2 gly coprotein antibodies must be detected on 2 or more occasions at least 12 weeks apart to fulfill the laboratory diagnostic criteria for Antiphospholipid Syndrome. Observation Date Value Abnormality Reference (Units ) Status Cardiolipin IgG Ab [Presence] in Serum by Immunoassay 02/03/2023 12:42:40 Negative Negative Final Cardiolipin IgG Ab [Units/volume] in Serum by Immunoassay 02/03/2023 12:42:40 1.5 <10 (GPL U/mL) Final Cardiolipin IgM Ab [Presence] in Serum by Immunoassay 02/03/2023 12:42:40 Negative Negative Final Cardiolipin IgM Ab [Units/volume] in Serum by Immunoassay 02/03/2023 12:42:40 4.1 <10 (MPL U/mL) Final Performing Location [facility] - [facility] [place] [address]
--- OUTSIDE RECORDS SUMMARY | 2023-07-18 09:33 | External Medical Summary | Summary of Care ---
Author Name Unknown Organization [facility] Address [address] [place] [address] Phone [phone] Care Team Providers Care Surface Miner Name Role Phone Gregory Dyer MD Primary Care Provider [phone] Reason for Visit * Reason Onset Date Comments Medication Refill 01/30/2023 Encounter Details Date Type Department Care Team Description 01/30/2023 Refill [facility], [facility] [address] [place] [address] Becka Jones DO [address] [place] [phone] Memory changes; Fibromyalgia Allergies Active Allergy Reactions Severity Noted Date [...] as of this encounter (statuses as of 02/02/2023) Medications Medication Sig Dispensed Refills Start Date [...] evening meals. 60 Tablet 3 02/02/2023 Active Memantine HCl 10 MG Oral Tablet (Namenda)Indicatio ns:Memory changes,Fibromyalg ia Take 1 Tablet by mouth 2 times a day with morning and evening meals. 60 Tablet 3 10/15/2022 3 Discontinue d(Refill) documented as of this encounter (statuses as of 02/02/2023) Active Problems Problem Noted Date Chronic combined [...] as of this encounter (statuses as of 02/02/2023) Resolved Problems Problem Noted Date Resolved Date [...] 01/05/2012 Overview: Pt considering repeat C/s at [facility] or at [facility] where she works. Continue to discuss [...] 11/28/2019 Acquired pyloric stenosis 2019 Overview: EGD [place] Psoriasis 11/28/2019 Asthma in remission 10/04/2013 Migraine variant 09/30/2022 Overview: well-managed with Imitrex but only Vicodin/codeine since Iron deficiency anemia due to chronic blood loss 11/28/2019 Melanocytic nevus of trunk 11/27 Carpal tunnel syndrome 6 Overview: bilateral symptoms History of Jay fundoplication 11/29/2019 documented as of this encounter (statuses as of 02/02/2023) Immunizations Name Administration Dates Next Due COVID-19 mRNA, LNP-s, No Pre serve, 2-Dose Series ([employer]) 11/27/2020,11/06/2020 PPD 04/15/2016, 6,10/10/2014,08/23,09/09/2010,08/22/2009,08/08/2009 ,07/26/2007 Pneumococcal Polysaccharide [...] Telephone Encounter - Becka Jones DO - 02/02/2023 3:37 PM EDTSigned Prescriptions: Disp Refills Memantine HCl 10 MG Oral Tablet (Namenda) 60 Tab*3 Sig: Take 1 Tablet by mouth 2 times a day with morning and evening meals.Authorizing Provider: BECKA JONES--- documented in this encounter Plan of Treatment Upcoming Encounters Date Type Specialty Care Team Description 02/03/2023 NeuroDiagnostic Study Neurophysiology Sarahi Cordoba MD [address] [place] [address] 02/12/2023 Cardiac Studies Cardiac Studies 03/04/2023 Office Visit Cardiology Obed Murillo, [address] [place] [address] 03/11/2023 Office Visit Pain Medicine Becka Jones DO [address] [place] [phone] 05/21/2023 Office Visit Neurology Sarahi Cordoba MD [address] [place] [address] Scheduled Procedures Name Priority Associated Diagnoses Date/Ti me COLONOSCOPY FLEXIBLE PROXIMA L DIAGNOSTIC Recall Screening for colorectal cancer Gastroesophageal reflux disease, unspecified whether esophagitis present Health Maintenance Due Date Last Done Comments DISCUSS TOBACCO CESSATION (REFER TO SMARTSET #0962) 1970 Hepatitis B (1 of 3 - [...] and were consensually agreed upon. Care Teams Surface Miner Relationship Specialty Start Date End Date Gregory Dyer MD [address] [place] [address] PCP - General Family Medicine 11/29/19 documented as of this encounter
--- OUTSIDE RECORDS SUMMARY | 2023-07-18 09:33 | External Medical Summary ---
Author Name Unknown Address Unknown Organization K01:[facility] [address] [facility] [address] Laboratory Report Ordering Provider Test Date Status ANKITA VENEGAS 02/03/2023 12:42:40 Final Observation Date Value Abnormality Reference (Units ) Status Borrelia burgdorferi IgG and IgM [Interpretation] in Serum by Immunoassay 02/03/2023 12:42:40 Negative Negative Final Performing Location [facility] [address] [facility] [address]
--- OUTSIDE RECORDS SUMMARY | 2023-07-18 09:33 | External Medical Summary ---
Author Name Unknown Address Unknown Organization K01:LAB[facility]ATORY [facility] - [address] [place] [address] Laboratory Report Ordering Provider Test Date Status ANKITA VENEGAS 02/03/2023 12:42:40 Final Observation Date Value Abnormality Reference (Units ) Status Vitamin B12 02/03/2023 12:42:40 [phone] (pg/mL) Final Performing Location LABORATORY [facility] - [address] [place] [address]
--- OUTSIDE RECORDS SUMMARY | 2023-07-18 09:33 | External Medical Summary ---
Author Name Unknown Address Unknown Organization : Laboratory Report Ordering Provider Test Date Status ANKITA VENEGAS 02/03/2023 12:42:40 Final Observation Date Value Abnormality Reference (Units ) Status Enzyme 02/03/2023 12:42:40 16.6 9-67 (U/L) Final
Test Performed at:
[facility]
[address]
[place] [address]
Jasvir Nino M.D., Ph.D.,Director of Laboratories Performing Location
--- OUTSIDE RECORDS SUMMARY | 2023-07-18 09:33 | External Medical Summary ---
Author Name Unknown Address Unknown Organization K09:[facility] [place] [address] Laboratory Report Ordering Provider Test Date Status IWONA GANDHI 02/03/2023 12:42:40 Final Observation Date Value Abnormality Reference (Units ) Status BUN 02/03/2023 12:42:40 17 6-20 (mg/dL) Final Creatinine 02/03/2023 12:42:40 1.0 0.5-1.0 (mg/dL) Final Glomerular filtration rate/1.73 sq M.predicted [Volume Rate/Area] in Serum, Plasma or Blood by Creatinine-based formula (CKD-EPI) 02/03/2023 12:42:40 68 >=60 (mL/min) Final eGFR is calculated based on the CKD-EPI 2020 equation SODIUM 02/03/2023 12:42:40 142 135-146 (m mol/L) Final Potassium 02/03/2023 12:42:40 4.4 3.5-5.1 (m mol/L) Final Cl 02/03/2023 12:42:40 102 98-107 (mm ol/L) Final CO2 02/03/2023 12:42:40 26 22-32 (mmo l/L) Final Anion gap 02/03/2023 12:42:40 14 7-15 (mmol /L) Final Glucose 02/03/2023 12:42:40 97 70-120 (mg /dL) Final Calcium 02/03/2023 12:42:40 9.4 8.4-10.2 ( mg/dL) Final Performing Location [place] [address]
[2023-07-18] MEDS: HYDROmorphone INJ 0.5 MG/0.5 ML SYR IV STA ×3 (10:15→16:35)
[2023-07-18 10:17] LABS: Basophils # (auto) 0.02 K/uL (0.00-0.20); Basophils % (auto) 0.2 %; Eosinophils # (auto) 0.14 K/uL (0.00-0.50); Eosinophils % (auto) 1.7 %; Hematocrit (blood only) 39.5 % (37.0-47.0); Hemoglobin 13.5 g/dl (12.0-16.0); Immature Granulocytes # (auto) 0.02 K/uL (0.01-0.20); Immature Granulocytes % (auto) 0.2 %; Lymphocytes # (auto) 1.49 K/uL (1.20-3.40); Mean Corpuscular Hemoglobin 30.3 pg (25.0-34.0); Mean Corpuscular Hgb Conc 34.2 g/dL (32.0-36.0); Mean Corpuscular Volume 88.8 fL (80.0-100.0); Mean Platelet Volume 10.6 fL (9.4-12.4); Monocytes # (auto) 0.55 K/uL (0.11-0.59); Monocytes % (auto) 6.6 %; Neutrophils # (auto) 6.07 K/uL (1.40-6.50); Neutrophils % (auto) 73.3 %; Platelet Count 269 K/uL (130-400); RDW Coefficient of Variation 13.7 % (11.5-14.5); RDW Standard Deviation 44.7 fL (36.4-46.3); Red Blood Count 4.45 M/uL (4.20-5.40); White Blood Count 8.29 K/ul (4.8-10.8)
[2023-07-18] MEDS: ONDANSETRON INJ 2 MG/ML 2 ML VIAL IV PRN (10:18)
--- NOTE | 2023-07-18 10:20 | Emergency Department Note ---
History of Present Illness General Chief complaint: Illness Stated complaint: LEFT - ABDOMINAL AND GROIN PAIN,LEG SWELLING,PAIN Time Seen by Provider: 07/18/23 09:46 History of Present Illness Maximum Pain Intensity: 8 This is a 53-year-old female that presents to the emergency department via private vehicle accompanied by with complaints of " left-sided abdominal/groin pain, leg pain and swelling". The patient states that she has been experiencing low back pain for the past 1.5 weeks. She has been seeing the chiropractor and has had adjustments. She notes that her back is starting to feel better but now over the past 1 to 2 days has been experiencing left lower quadrant abdominal pain/left groin pain that now radiates into her left leg. Upon awakening today she notes left leg edema. The patient denies any history of similar. No known trauma or injury. The patient denies any trouble breathing. No dyspnea or chest pain. No fevers or chills. Home Medications Medication Instructions Recorded Confirmed Type cholecalciferol (vitamin D3) 25 1,000 unit PO DAILY 02/26/18 07/18/23 History mcg (1,000 unit) capsule (Vitamin D3) aspirin 81 mg tablet,delayed 81 mg PO .every other day #90 tabs 02/10/23 07/18/23 Rx release (Enteric Coated Aspirin) bupropion HCl 150 mg 24 hr tablet, 150 mg PO QAM 02/10/23 07/18/23 History extended release (Wellbutrin XL) furosemide 20 mg tablet (Lasix) 20 mg PO DAILY 02/10/23 07/18/23 History memantine 10 mg tablet 10 mg PO BID 02/10/23 07/18/23 History metoprolol succinate 25 mg 25 mg PO DAILY 02/10/23 07/18/23 History tablet,extended release 24 hr pantoprazole 20 mg tablet,delayed 40 mg PO BID 02/10/23 07/18/23 History release (Protonix) spironolactone 25 mg tablet 12.5 mg PO DAILY 02/10/23 07/18/23 History tizanidine 4 mg capsule (Zanaflex) 6 mg PO HS Pain 02/10/23 07/18/23 History vortioxetine 20 mg tablet 20 mg PO DAILY 02/10/23 07/18/23 History (Trintellix) black cohosh 200 mg capsule 200 mg PO BID 07/18/23 07/18/23 History empagliflozin 10 mg tablet 10 mg PO DAILY 07/18/23 07/18/23 History (Jardiance) hydrocodone 5 mg-acetaminophen 325 5 - 325 tab PO Q6H PRN Pain (Scale 07/18/23 07/18/23 History mg tablet Score 4-6) lactobacillus combination no.4 3 3,000 mmu cells PO DAILY 07/18/23 07/18/23 History billion cell capsule (Probiotic) multivitamin 1 tab PO DAILY 07/18/23 07/18/23 History pregabalin 100 mg capsule 100 mg PO AMHS 07/18/23 07/18/23 History pregabalin 25 mg capsule 50 mg PO AMHS 07/18/23 07/18/23 History sacubitril 24 mg-valsartan 26 mg 0.5 tab PO BID 07/18/23 07/18/23 History tablet (Entresto) sumatriptan succinate 50 mg tablet 50 mg PO DAILY PRN Headache 07/18/23 07/18/23 History zolpidem 10 mg tablet 10 mg PO HS 07/18/23 07/18/23 History Allergies Allergy/AdvReac Type Severity Reaction Status Date / Time dog dander Allergy Mild SHORTNESS Verified 03/02/18 08:33 OF BREATH cat dander Allergy Unknown SHORTNESS Verified 03/02/18 08:33 OF BREATH codeine Allergy SEVERE Verified 03/02/18 08:33 ITCHING oxycodone Allergy SEVERE Verified 03/02/18 08:33 ITCHING Dust Allergy Unknown SHORTNESS Uncoded 03/02/18 08:33 OF BREATH Past Med/Surg History Medical History HLD (hyperlipidemia) HTN (hypertension) Hx of cardiomyopathy Chronic combined systolic and diastolic CHF (congestive heart failure) Irritable bowel syndrome (IBS) GERD (gastroesophageal reflux disease) Migraine Asthma Incomplete left bundle branch block PT HAS HAD CARDIAC WORK UP. [facility]. Surgical History [place] teeth extracted History of dilation and curettage History of herniorrhaphy UMBILICAL History of section History of esophagogastroduodenoscopy (EGD) History of Jay fundoplication Family History (Updated 07/18/23 @ 13:51 by Kylee Atkinson PA-C) Denies family history of Blood clotting disorder Social History Smoking Status: Current every day smoker Tobacco Type: Cigarettes Age Started Using Tobacco: 11; Cigarettes Per Day: 6-8 CIGARETTES PER DAY; Second Hand Exposure: No; Do You Dip or Chew Tobacco: Yes; Hx Alcohol Use: No Hx Substance Use: No Preferred Language: Peruvian Communication Ability: Effective Proof Passer Required: No Beliefs That Will Affect Care: None Current Living Situation: Spouse current occupational status: employed 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 [employer] Other Information That Helps Us Care for You: No Feels Safe at Home: Yes Safety Concerns: Feels Safe At This Time Assistive Devices: Glasses Review of Systems A total of 10 systems reviewed and were otherwise negative Physical Exam Vital Signs Vital Signs - 24 hr 07/18/23 09:31 07/18/23 12:00 Temperature 36.0 C L Temperature Source Temporal Artery Scan Pulse Rate 86 Pulse Rate [Left Finger] 81 Respiratory Rate 20 20 Respiratory Effort / Characteristics Non-Labored Respiratory Depth Normal Respiratory Pattern Regular Blood Pressure 127/71 Blood Pressure [Left Arm] 116/57 L Blood Pressure Mean 89 Blood Pressure Mean [Left Arm] 76 Blood Pressure Position [Left Arm] Sitting Pulse Oximetry 100 99 Oxygen Delivery Method Room Air Room Air Sepsis Recent Fever Within 48 Hours No Sepsis New/Unexplained Change in Mental Status N/A Sepsis Action Taken by Nursing No Action Required VITAL SIGNS - Vital signs and nursing notes were reviewed. Stable and afebrile. GENERAL -53-year-old female appearing her stated age who is in no acute distress. Communicates well with provider and answers questions appropriately. SKIN - Without rashes. No meningeal or petechial rash. There is mild circumferential edema to the left lower extremity compared to the right lower extremity. HEAD - NC/AT. EYES - Sclera anicteric. EARS - No deformities of external structures noted on gross examination bilaterally. NOSE - Midline and without cyanosis. No epistaxis or purulent drainage noted. MOUTH/OROPHARYNX - Without perioral cyanosis. NECK - No nuchal rigidity. LUNGS - CTA CARDIAC - RRR ABDOMEN - Abdominal contour normal without pulsations or visible masses. BS normoactive all four quadrants. There is left lower quadrant/left inguinal region tenderness. No palpable masses, hepatosplenomegaly, or ascites noted. EXTREMITIES - No clubbing or peripheral cyanosis. No evidence of cerulea dolens or compartment syndrome. +5/5 strength noted in UE/LE bilaterally. Left leg appropriately warm and well-perfused. Left dorsalis pedis pulse within normal limits. NEUROLOGIC - Cranial nerves grossly intact. PSYCH - A&O, and cooperates fully with examiner. Pt is very pleasant and interacts well with examiner. Course Administered Medications Heparin Sodium/Dextrose (Heparin Sodium/Dextrose) 25,000 units in 500 mls @ 23 mls/hr IV .[id number] [facility]; Protocol Stop: 08/17/23 12:29 Last Admin: 07/18/23 13:19 Dose: 1,150 units/hr, 23 mls/hr Documented By: MACIE Co-signed By: RANDELL Discontinued Medications Hydrocodone Bitart/Acetaminophen (Hydrocodone/Acetamophen 5/325mg Tab) 1 tab PO NOW STA Stop: 07/18/23 16:10 Last Admin: 07/18/23 16:33 Dose: 1 tab Documented By: MACIE Heparin Sodium (Porcine) (Heparin Sod (Porcine) 1000 Unit/Ml) 1 units IV NOW ONE Stop: 07/18/23 12:24 Last Admin: 07/18/23 13:19 Dose: 5,000 units Documented By: MACIE Co-signed By: RANDELL Heparin Sodium/Dextrose (Heparin Iv Adult Wt-Based Standard W/ Initial Bolus Protocol) 1 each IV NOW STA; Protocol Stop: 07/18/23 12:08 Last Admin: 07/18/23 16:10 Dose: Not Given Documented By: MACIE Hydromorphone HCl (Hydromorphone Inj 0.5 Mg/0.5 Ml Syr) 0.5 mg IV NOW STA Stop: 07/18/23 10:10 Last Admin: 07/18/23 10:15 Dose: 0.5 mg Documented By: MACIE Hydromorphone HCl (Hydromorphone Inj 0.5 Mg/0.5 Ml Syr) 0.5 mg IV NOW STA Stop: 07/18/23 11:37 Last Admin: 07/18/23 12:10 Dose: 0.5 mg Documented By: MACIE Hydromorphone HCl (Hydromorphone Inj 0.5 Mg/0.5 Ml Syr) 0.25 mg IV NOW STA Stop: 07/18/23 16:02 Last Admin: 07/18/23 16:35 Dose: Not Given Documented By: MACIE Ioversol (Optiray 320 500ml) 94 ml IV ONCE ONE Stop: 07/18/23 11:02 Last Admin: 07/18/23 11:01 Dose: 94 ml Documented By: YULISSA Ketorolac Tromethamine (Ketorolac Tromethamine 15 Mg/Ml Vial) 15 mg IV NOW STA Stop: 07/18/23 16:20 Last Admin: 07/18/23 16:33 Dose: 15 mg Documented By: MACIE Morphine Sulfate (Morphine Sulfate 4 Mg/Ml 1 Ml Carp\\Vial) 4 mg IV NOW STA Stop: 07/18/23 13:17 Last Admin: 07/18/23 13:26 Dose: 4 mg Documented By: AMCIE Ondansetron HCl (Ondansetron Inj 2 Mg/Ml 2 Ml Vial) 4 mg IV Q6H PRN PRN Reason: Nausea And Vomiting Stop: 08/17/23 10:08 Last Admin: 07/18/23 10:18 Dose: 4 mg Documented By: MACIE Medical Decision Making Laboratory Data 07/18/23 09:47 07/18/23 09:47 Lab Results 07/18/23 07/18/23 Range/Units 09:47 11:24 WBC 8.29 (4.8-10.8) K/ul RBC 4.45 (4.20-5.40) M/uL Hgb 13.5 (12.0-16.0) g/dl Hct 39.5 (37.0-47.0) % MCV 88.8 (80.0-100.0) fL MCH 30.3 (25.0-34.0) pg MCHC 34.2 (32.0-36.0) g/dL RDW Std Deviation 44.7 (36.4-46.3) fL RDW Coeff of [place] 13.7 (11.5-14.5) % Plt Count 269 (130-400) K/uL MPV 10.6 (9.4-12.4) fL Immature Gran % (Auto) 0.2 % Neut % (Auto) 73.3 % Lymph % (Auto) 18.0 % [place] % (Auto) 6.6 % Eos % (Auto) 1.7 % Baso % (Auto) 0.2 % Neut # (Auto) 6.07 (1.40-6.50) K/uL Lymph # (Auto) 1.49 (1.20-3.40) K/uL [place] # (Auto) 0.55 (0.11-0.59) K/uL Eos # (Auto) 0.14 (0.00-0.50) K/uL Baso # (Auto) 0.02 (0.00-0.20) K/uL Immature Gran # (Auto) 0.02 (0.01-0.20) K/uL PT 10.7 (9.0-12.0) Seconds INR 1.0 (0.9-1.1) APTT 28 (21-31) Seconds PTT Ratio 1.0 Heparin Anti-Xa, Unfract < 0.10 L (0.3-0.7) IU/ml Sodium 137 (136-145) mmol/L Potassium 3.8 (3.5-5.1) mmol/L Chloride 102 (98-107) mmol/L Carbon Dioxide 24 (21-32) mmol/L Anion Gap 11 (3-11) BUN 10 (6-23) mg/dl Creatinine 0.63 (0.6-1.2) mg/dl Est Cr Clr Drug Dosing 106.7 ml/min Est GFR ( Amer) 119.5 ml/min Est GFR (Non-Af Amer) 103.1 ml/min BUN/Creatinine Ratio 15.9 (10-20) Glucose 83 (70-99(Fasting)) mg/dl Calcium 9.0 (8.6-10.3) mg/dl Total Bilirubin 0.8 (0.2-1.0) mg/dl AST 27 (13-39) U/L ALT 31 (7-52) U/L Alkaline Phosphatase 81 (34-104) U/L Total Protein 6.9 (6.0-8.3) gm/dl Albumin 3.9 (3.4-5.0) gm/dl Globulin 3.0 (2.5-4.0) gm/dl Albumin/Globulin Ratio 1.3 (0.9-2) Lipase 12 (11-82) U/L HCG, Qual Negative (Negative) Urine Color Yellow Urine Appearance Clear (Clear) Urine pH 5.5 (4.5-7.5) Ur Specific [place] <= 1.005 (1.000-1.030) Urine Protein Negative (Negative) Urine Glucose (UA) 2+ H (Negative) Urine Ketones 4+ H (Negative) Urine Blood Trace-intact H (Negative) Urine Nitrite Negative (Negative) Urine Bilirubin Negative (Negative) Urine Urobilinogen Positive H (Negative) Ur Leukocyte Esterase Negative (Negative) Urine RBC 0-4 (0-4) /hpf Urine WBC 0-5 (0-5) /hpf Ur Epithelial Cells 20-30 H (0-5) /lpf Urine Bacteria 2+ H (Negative) Imaging Data Radiologist's Impression: Abdomen/Pelvis CT 07/18/23 10:09 CT abd pelvis IV con only CLINICAL HISTORY: LLQ, L groin pain, L leg edema TECHNIQUE: Helical axial images of the abdomen and pelvis were obtained and displayed. Automated dose lowering techniques and/or adjustment according to patient size were utilized for this exam. This exam was performed with intravenous contrast. CT DOSE: 1227.57 mGy.cm COMPARISON: None available at the time of this dictation. FINDINGS: Lower chest: No acute abnormality. Liver: Unremarkable. No focal lesions are seen. Gallbladder and biliary tree: No calcified gallstones. Normal caliber wall. No intra- or extrahepatic biliary ductal dilation. Pancreas: Unremarkable, no focal lesions. Spleen: Unremarkable. Adrenals: Unremarkable. Kidneys and ureters: Unremarkable. Bladder: Unremarkable. Reproductive organs: Unremarkable. Bowel: The appendix is normal. Lymph nodes Retroperitoneal: Unremarkable. Pelvic: Unremarkable. Mesenteric: Unremarkable. Peritoneum: Normal. Vessels: Thrombus is seen in the right common iliac vein and its distal branches. Fat stranding surrounds this vein and there is partially visualized edema in the left lower quadrant. Abdominal wall: Unremarkable. Bones: Minimal degenerative changes are seen. 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 Associated soft tissue swelling is seen. ACT 112: Negative or not required by law. Electronically signed by: Marcos Duran M.D. 07/18/2023 11:27 AM Venous Doppler Study 07/18/23 10:09 US venous doppler LE LT CLINICAL HISTORY: LLQ, L groin pain, L leg edema TECHNIQUE: Left lower extremity real-time compression venous ultrasound with Color Doppler imaging. Utilizing real-time ultrasonic imaging multiple real time high-resolution ultrasonic images with compression and noncompression maneuvers of the deep venous system in addition to color doppler imaging were performed from the common femoral vein through the proximal calf veins. COMPARISON: None available at the time of this dictation. FINDINGS/IMPRESSION: There is a deep venous thrombus involving the common femoral vein, great saphenous vein, and proximal superficial femoral vein. There is also a thrombus in one of 2 paired posterior tibial veins. ACT 112: Negative or not required by law. Electronically signed by: Marcos Duran M.D. 07/18/2023 12:01 PM MDM Narrative Patient was seen and evaluated as above in room B08. Review was performed of nursing notes and vital signs. I did review pertinent previous visits and patient history. After obtaining a thorough history and physical examination the above work up was performed. Patient presents to us today for evaluation of left lower quadrant pain, left inguinal region pain, left leg pain and now left leg swelling. No evidence of cerulea dolens, compartment syndrome, or neurovascular compromise. No chest pain or shortness of breath. Options of care were discussed with the patient. IV access was established. Labs were drawn. Labs reveal no leukocytosis or concerning anemia. Coags normal. No emergent metabolic disturbance. hCG negative. Urinalysis reveals what is likely a contaminated sample however there is 2+ bacteria noted. CT scan was obtained of the abdomen/pelvis. This reveals thrombus of the left common iliac vein and its distal branches compatible with MayThurner syndrome. Associated soft tissue swelling is seen. Doppler study of the left lower extremity does reveal a DVT involving the common femoral vein, great saphenous vein, and proximal superficial femoral vein. There is also thrombus in 1 of 2 paired posterior tibial veins. This does correlate with the patient's symptoms, physical examination and presentation here today. I then had a thorough discussion with the patient regarding benefit versus risks of anticoagulation to treat the thrombus here today. The patient denies any history of GI bleed. She denies any rectal bleeding. No black tarry stools. Patient denies any headache. No recent trauma or injury. No recent surgeries. Patient denies any underlying bleeding disorder or coagulopathy. No contraindications to anticoagulation identified at this time. It is felt that the benefit of anticoagulation outweigh risk. Patient in agreement with plan and we elected to proceed with anticoagulation here via heparin. I spoke with the [facility] hospitalist at 12:20 PM on 07/18/2023. In our discussion, we agreed to proceed by discussing presentation with the on-call vascular surgeon to review benefit versus risk of considering thrombolytic therapy/additional therapy and treatment modalities. I then spoke with the on- call vascular surgeon, Dr. Marquez at 12:30 PM on 07/18/2023. We discussed management and at this time we will proceed with heparin, and patient will likely go under further intervention by the vascular team early this coming week. I reviewed these recommendations with the patient. Patient did receive IV analgesics during her time here in the department. Patient was reassessed and continued to do well. No reaction or issue from the heparin. Please refer to further documentation regarding her stay. GCS: 15 In the evaluation and treatment of this patient the following differential diagnoses were entertained: Diverticulitis, UTI, pyelonephritis, bowel obstruction, DVT, among others. Impression & Plan May-Thurner syndrome, Deep venous thrombosis of left iliac vein, Acute deep vein thrombosis (DVT) of left lower extremity, Abdominal pain, left lower quadrant, Edema of left lower extremity Discharge Plan Visit Data Chief Complaint: Illness Stated Complaint: LEFT - ABDOMINAL AND GROIN PAIN,LEG SWELLING,PAIN ED Provider: Tuan Lopez ED Midlevel Provider: Narinder Burks Discharge Problem: May-Thurner syndrome, Deep venous thrombosis of left iliac vein, Acute deep vein thrombosis (DVT) of left lower extremity, Abdominal pain, left lower quadrant, Edema of left lower extremity Patient Disposition: Admitted As Inpatient Condition: Good Discharge Instructions Interventions: ED Discharge Assessment Last Done: 07/18/23 16:51
[2023-07-18 10:30] LABS: Pregnancy Test, Serum Negative (Negative)
[2023-07-18 10:33] LABS: Albumin Globulin Ratio 1.3 (0.9-2); Albumin Level 3.9 gm/dl (3.4-5.0); BUN Creatinine Ratio 15.9 (10-20); Bilirubin,Total 0.8 mg/dl (0.2-1.0); Creatinine Clr Calc Pharmacy 106.7 ml/min; Est GFR (African American) 119.5 ml/min; Est GFR (Non-African American) 103.1 ml/min; Potassium 3.8 mmol/L (3.5-5.1); Total Protein 6.9 gm/dl (6.0-8.3)
[2023-07-18 10:39] LABS: Partial Thromboplastin Time 28 Seconds (21-31); Prothrombin Time 10.7 Seconds (9.0-12.0)
[2023-07-18] MEDS: OPTIRAY 320 500ml IV ONE (11:01)
--- NOTE | 2023-07-18 11:30 | CT Scan Report ---
CT abd pelvis IV con only CLINICAL HISTORY: LLQ, L groin pain, L leg edema TECHNIQUE: Helical axial images of the abdomen and pelvis were obtained and displayed. Automated dose lowering techniques and/or adjustment according to patient size were utilized for this exam. This e xam was performed with intravenous contrast. CT DOSE: 1227.57 mGy.cm COMPARISON: None available at the time of this dictation. FINDINGS: Lower chest: No acute abnormality. Liver: Unremarkable. No focal lesions are seen. Gallbladder and biliary tree: No calcified gallstones. Normal caliber wall. No intra- or extrahepatic biliary ductal dilation. Pancreas: Unremarkable, no focal lesions. Spleen: Unremarkable. Adrenals: Unremarkable. Kidneys and ureters: Unremarkable. Bladder: Unremarkable. Reproductive organs: Unremarkable. Bowel: The appendix is normal. Lymph nodes Retroperitoneal: Unremarkable. Pelvic: Unremarkable. Mesenteric: Unremarkable. Peritoneum: Normal. Vessels: Thrombus is seen in the right common iliac vein and its distal branches. Fat stranding surro unds this vein and there is partially visualized edema in the left lower quadrant. Abdominal wall: Unremarkable. Bones: Minimal degenerative changes are seen. 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 Associated soft tissue swelling is seen. ACT 112: Negative or not required by law. Electronically signed by: Marcos Duran M.D. 07/18/2023 11:27 AM
[2023-07-18 11:55] LABS: Appearance Urine Clear (Clear); Bilirubin Urine Negative (Negative); Blood Urine Trace-intact (Negative); Color Urine Yellow; Glucose Urine UA 2+ (Negative); Ketones Urine 4+ (Negative); Leukocyte Esterase Urine Negative (Negative); Nitrite Urine Negative (Negative); Protein Urine Negative (Negative); Specific Gravity Urine <= 1.005 (1.000-1.030); Urobilinogen Urine Positive (Negative); pH Urine 5.5 (4.5-7.5)
--- NOTE | 2023-07-18 12:03 | Ultrasound Report ---
US venous doppler LE LT CLINICAL HISTORY: LLQ, L groin pain, L leg edema TECHNIQUE: Left lower extremity real-time compression venous ultrasound with Color Doppler imaging. U tilizing real-time ultrasonic imaging multiple real time high-resolution ultrasonic images with compr ession and noncompression maneuvers of the deep venous system in addition to color doppler imaging we re performed from the common femoral vein through the proximal calf veins. COMPARISON: None available at the time of this dictation. FINDINGS/IMPRESSION: There is a deep venous thrombus involving the common femoral vein, great saphenous vein, and proximal superficial femoral vein. There is also a thrombus in one of 2 paired posterior tibial veins. ACT 112: Negative or not required by law. Electronically signed by: Marcos Duran M.D. 07/18/2023 12:01 PM
[2023-07-18 12:07] LABS: Epithelial Cell Urine 20-30 /lpf (0-5); RBC Urine 0-4 /hpf (0-4)
[2023-07-18 12:08] LABS: Bacteria Urine 2+ (Negative); WBC Urine 0-5 /hpf (0-5)
[2023-07-18 12:55] LABS: ANTI-Xa, UFH(UnfractionatedHep < 0.10 IU/ml (0.3-0.7)
[2023-07-18] MEDS: HEPARIN SOD (PORCINE) 1000 UNIT/ML IV ONE (13:19)
[2023-07-18] MEDS: HEPARIN SODIUM/DEXTROSE 25,000 UNITS/500 ML BAG IV SCH (13:19)
[2023-07-18] MEDS: MoRPHine SULFATE 4 MG/ML 1 ML CARP\\VIAL IV STA (13:26)
--- NOTE | 2023-07-18 14:10 | History & Physical Report ---
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 --Venous Duplex: There is a deep venous thrombus involving the common femoral vein, great saphenous vein, and proximal superficial femoral vein. There is also a thrombus in one of 2 paired posterior tibial veins. --CT a/p: IMPRESSION:Thrombus of the left common iliac vein and its distal branches compatible with May-Thurner syndrome. Associated soft tissue swelling is seen. May Thurner Syndrome Extensive DVT L common iliac vein, L common femoral vein, L greater saphenous vein, proximal superficial femoral vein and thrombus in 1 of 2 paired posterior tibial veins admit to PCU IV heparin was initiated in ED with bolus after ED provider discussed risks vs benefits, pt w/o prior hx of major bleeding continue IV heparin, follow anti-Xa levels ED provider discussed with Dr. Marquez who states can be treated with IV heparin, emergent thrombolytic not advised, Vascular to see patient on Thursday with possible plan for intervention on follow labs History of nonischemic cardiomyopathy Combined systolic and diastolic CHF Chronic LBBB HTN HLD Chronic, stable Follows [facility] Last echocardiogram 02/12/2023 which revealed improvement in LVEF to 55 to 59% and normalization of left ventricular diastolic, abnormal septal wall motion consistent with LBBB still present pt weights have been stable, fluctuates 1-2lbs On GDMT including metoprolol, Aldactone, Entresto, Jardiance, lasix will update Echo while hospitalized r/o R heart strain in setting of extensive clot burden Abnormal MRI brain Known R frontal Meningoma Chronic ischemic microvascular changes on MRI noted she was placed on ASA QOD because of this, will hold for now while on IV heparin RADHA Cpap at HS Fibromyalgia continue lyrica, namenda uses medical marijuana prn chronic, stable Insomnia ambien 10mg HS, prn melatonin is her home regimen chronic, stable Depression with anxiety continue Vortioxetine, bupropion DVT ppx: IV heparin Dispo: PCU PCP: Gomez FULL CODE Pt was seen and examined in collaboration with Dr. Somers, please see addendum A total of 76 minutes was spent coordinating, documenting, and providing care for this patient excluding time spent in the performance of separately billed services. This included personally viewing all current laboratories and imaging studies, medication reconciliation, outpatient chart review, and discussion with specialists. History of Present Illness Chief Complaint: Left sided low back pain x 1.5 weeks which has now progressed to LLQ pain and LLE pain with swelling. 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 Her is at bedside who also helps elicit history. Her symptoms initially started 1.5 weeks ago with what she thought was left lower back pain. She was seen and evaluated by health care facility administrator and underwent adjustments due to pelvic misalignment. Her symptoms progressively got worse to the point she had to do her computer work in bed. She developed severe left lower quadrant and left leg pain. Last night she was unable to sleep due to severity of pain and rated a 9 out of 10. This was despite taking a previously prescribed prescription hydrocodone along with 2 separate administrations of medical marijuana. This morning whenever she got in the shower she noticed increased left lower extremity swelling and due to pain opted to present to ED. She denies any recent illness. She has chronic shortness with exertion due to her heart failure diagnosis. She also has chronic pain in setting of fibromyalgia. She has significant insomnia for which she has to take 10 mg of Ambien as well as as needed melatonin at bedtime. Her current medical comorbidities have been limiting her ability to work. She denies any fever, chills, sweats, chest pain, hemoptysis, hematemesis, nausea, vomiting, dysuria, increased urgency or frequency with urination, melena or hematochezia. She does tend to run on the constipated side. She also complains of chronic lightheadedness and dizziness. Her outpatient medical record was reviewed and her PCP is Dr. Dyer. She denies family history of clotting disorder or previous history of blood clots. She denies possibility of as she has not had a period in 1 year and and describes herself as menopausal. In ED patient made hemodynamically stable. She underwent a left lower extremity venous duplex which revealed a DVT involving the common femoral vein, great saphenous vein, proximal superficial femoral vein and also a thrombus in one of the 2 [address] tibial veins. CT abdomen pelvis revealed a thrombus of the left common iliac vein and its distal branches compatible with May Thurner syndrome. ED provider spoke with vascular who recommended IV heparin, admission with likely intervention on Thursday. Allergies Allergy/AdvReac Type Severity Reaction Status Date / Time dog dander Allergy Mild SHORTNESS Verified 03/02/18 08:33 OF BREATH cat dander Allergy Unknown SHORTNESS Verified 03/02/18 08:33 OF BREATH codeine Allergy SEVERE Verified 03/02/18 08:33 ITCHING oxycodone Allergy SEVERE Verified 03/02/18 08:33 ITCHING Dust Allergy Unknown SHORTNESS Uncoded 03/02/18 08:33 OF BREATH Home Medications Medication Instructions Recorded Confirmed Type cholecalciferol (vitamin D3) 25 1,000 unit PO DAILY 02/26/18 07/18/23 History mcg (1,000 unit) capsule (Vitamin D3) aspirin 81 mg tablet,delayed 81 mg PO .every other day #90 tabs 02/10/23 07/18/23 Rx release (Enteric Coated Aspirin) bupropion HCl 150 mg 24 hr tablet, 150 mg PO QAM 02/10/23 07/18/23 History extended release (Wellbutrin XL) furosemide 20 mg tablet (Lasix) 20 mg PO DAILY 02/10/23 07/18/23 History memantine 10 mg tablet 10 mg PO BID 02/10/23 07/18/23 History metoprolol succinate 25 mg 25 mg PO DAILY 02/10/23 07/18/23 History tablet,extended release 24 hr pantoprazole 20 mg tablet,delayed 40 mg PO BID 02/10/23 07/18/23 History release (Protonix) spironolactone 25 mg tablet 12.5 mg PO DAILY 02/10/23 07/18/23 History tizanidine 4 mg capsule (Zanaflex) 6 mg PO HS Pain 02/10/23 07/18/23 History vortioxetine 20 mg tablet 20 mg PO DAILY 02/10/23 07/18/23 History (Trintellix) black cohosh 200 mg capsule 200 mg PO BID 07/18/23 07/18/23 History empagliflozin 10 mg tablet 10 mg PO DAILY 07/18/23 07/18/23 History (Jardiance) hydrocodone 5 mg-acetaminophen 325 5 - 325 tab PO Q6H PRN Pain (Scale 07/18/23 07/18/23 History mg tablet Score 4-6) lactobacillus combination no.4 3 3,000 mmu cells PO DAILY 07/18/23 07/18/23 History billion cell capsule (Probiotic) multivitamin 1 tab PO DAILY 07/18/23 07/18/23 History pregabalin 100 mg capsule 100 mg PO AMHS 07/18/23 07/18/23 History pregabalin 25 mg capsule 50 mg PO AMHS 07/18/23 07/18/23 History sacubitril 24 mg-valsartan 26 mg 0.5 tab PO BID 07/18/23 07/18/23 History tablet (Entresto) sumatriptan succinate 50 mg tablet 50 mg PO DAILY PRN Headache 07/18/23 07/18/23 History zolpidem 10 mg tablet 10 mg PO HS 07/18/23 07/18/23 History Past Med/Surg History Medical History HLD (hyperlipidemia) HTN (hypertension) Hx of cardiomyopathy Chronic combined systolic and diastolic CHF (congestive heart failure) Irritable bowel syndrome (IBS) GERD (gastroesophageal reflux disease) Migraine Asthma Incomplete left bundle branch block PT HAS HAD CARDIAC WORK UP. [facility]. Surgical History Huddy teeth extracted History of dilation and curettage History of herniorrhaphy UMBILICAL History of section History of esophagogastroduodenoscopy (EGD) History of Jay fundoplication Family History (Updated 07/18/23 @ 13:51 by Kylee Atkinson PA-C) Denies family history of Blood clotting disorder Social History Smoking Status: Current every day smoker Tobacco Type: Cigarettes Age Started Using Tobacco: 11; Cigarettes Per Day: 6-8 CIGARETTES PER DAY; Second Hand Exposure: No; Do You Dip or Chew Tobacco: Yes; Hx Alcohol Use: No Hx Substance Use: No Preferred Language: Nepali Communication Ability: Effective Audio Specialist Required: No Beliefs That Will Affect Care: None Current Living Situation: Spouse current occupational status: employed 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 [employer] Other Information That Helps Us Care for You: No Feels Safe at Home: Yes Safety Concerns: Feels Safe At This Time Assistive Devices: Glasses Review of Systems Review of Systems: All systems reviewed & are unremarkable except as noted in HPI & below Physical Exam Physical Exam: Constitutional: WD/WN, obese, 53-year-old female vitals as above, NAD, sitting up in bed, pleasant, conversing easily Head: Normocephalic, Atraumatic Eyes: conjunctivae normal, anicteric sclerae ENMT: external ear and nose normal, oropharynx normal Neck: trachea midline, no thyromegaly normal visual inspection Respiratory: normal respiratory effort, lungs clear to auscultation, no wheeze, rales, rhonchi. Normal insp/exp effort, no accessory muscle use Cardiovascular: RRR, no murmur, left greater than right lower extremity edema, obese lower extremities, bilateral +2 DP and PT pulses , b/l varicosities, Vessels: no JVD or carotid bruit Chest: normal inspection of chest Abdomen: normal bowel sounds, soft, nontender, no hepatosplenomegaly Musculoskeletal: no cyanosis or clubbing, active range of motion x 4 Skin: no rashes, warm and dry normal turgor Neurologic: no face palsy, no dysarthria CN's II-XI intact bilaterally and moves all extremities Psychiatric: A+Ox3, euthymic affect : deferred Results & Data Results & Data Vital Signs (Past 12 Hours) Vital Signs Temp Pulse Pulse Resp BP BP Pulse Ox 07/18/23 12:00 81 20 116/57 L 99 07/18/23 09:31 36.0 C L 86 20 127/71 100 O2 Del Method 07/18/23 12:00 Room Air 07/18/23 09:31 Room Air Laboratory Results I have independently reviewed and interpreted patient's admitting labs including CBC, CMP, PTT, PT/INR, Anti-Xa, lipase. Diagnostic Findings Abdomen/Pelvis CT 07/18/23 10:09 CT abd pelvis IV con only CLINICAL HISTORY: LLQ, L groin pain, L leg edema TECHNIQUE: Helical axial images of the abdomen and pelvis were obtained and di splayed. Automated dose lowering techniques and/or adjustment according to patient size were utilized for this exam. This exam was performed with intravenous contrast. CT DOSE: 1227.57 mGy.cm COMPARISON: None available at the time of this dictation. FINDINGS: Lower chest: No acute abnormality. Liver: Unremarkable. No focal lesions are seen. Gallbladder and biliary tree: No calcified gallstones. Normal caliber wall. No intra- or extrahepatic biliary ductal dilation. Pancreas: Unremarkable, no focal lesions. Spleen: Unremarkable. Adrenals: Unremarkable. Kidneys and ureters: Unremarkable. Bladder: Unremarkable. Reproductive organs: Unremarkable. Bowel: The appendix is normal. Lymph nodes Retroperitoneal: Unremarkable. Pelvic: Unremarkable. Mesenteric: Unremarkable. Peritoneum: Normal. Vessels: Thrombus is seen in the right common iliac vein and its distal branches. Fat stranding surrounds this vein and there is partially visualized edema in the left lower quadrant. Abdominal wall: Unremarkable. Bones: Minimal degenerative changes are seen. 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 Associated soft tissue swelling is seen. ACT 112: Negative or not required by law. Electronically signed by: Marcos Duran M.D. 07/18/2023 11:27 AM Venous Doppler Study 07/18/23 10:09 US venous doppler LE LT CLINICAL HISTORY: LLQ, L groin pain, L leg edema TECHNIQUE: Left lower extremity real-time compression venous ultrasound with Color Doppler imaging. Utilizing real-time ultrasonic imaging multiple real time high-resolution ultrasonic images with compression and noncompression maneuvers of the deep venous system in addition to color doppler imaging were performed from the common femoral vein through the proximal calf veins. COMPARISON: None available at the time of this dictation. FINDINGS/IMPRESSION: There is a deep venous thrombus involving the common femoral vein, great saphenous vein, and proximal superficial femoral vein. There is also a thrombus in one of 2 paired posterior tibial veins. ACT 112: Negative or not required by law. Electronically signed by: Marcos Duran M.D. 07/18/2023 12:01 PM Medications Administered Medication List Heparin Sodium/Dextrose (Heparin Sodium/Dextrose) 25,000 units in 500 mls @ 23 mls/hr IV .[id number] [facility]; Protocol Stop: 08/17/23 12:29 Last Admin: 07/18/23 13:19 Dose: 1,150 units/hr, 23 mls/hr Documented By: MACIE Co-signed By: RANDELL Ondansetron HCl (Ondansetron Inj 2 Mg/Ml 2 Ml Vial) 4 mg IV Q6H PRN PRN Reason: Nausea And Vomiting Stop: 08/17/23 10:08 Last Admin: 07/18/23 10:18 Dose: 4 mg Documented By: MACIE Discontinued Medications Heparin Sodium (Porcine) (Heparin Sod (Porcine) 1000 Unit/Ml) 1 units IV NOW ONE Stop: 07/18/23 12:24 Last Admin: 07/18/23 13:19 Dose: 5,000 units Documented By: MACIE Co-signed By: RANDELL Hydromorphone HCl (Hydromorphone Inj 0.5 Mg/0.5 Ml Syr) 0.5 mg IV NOW STA Stop: 07/18/23 10:10 Last Admin: 07/18/23 10:15 Dose: 0.5 mg Documented By: MACIE Hydromorphone HCl (Hydromorphone Inj 0.5 Mg/0.5 Ml Syr) 0.5 mg IV NOW STA Stop: 07/18/23 11:37 Last Admin: 07/18/23 12:10 Dose: 0.5 mg Documented By: MACIE Ioversol (Optiray 320 500ml) 94 ml IV ONCE ONE Stop: 07/18/23 11:02 Last Admin: 07/18/23 11:01 Dose: 94 ml Documented By: YULISSA Morphine Sulfate (Morphine Sulfate 4 Mg/Ml 1 Ml Carp\Vial) 4 mg IV NOW STA Stop: 07/18/23 13:17 Last Admin: 07/18/23 13:26 Dose: 4 mg Documented By: MACIE COVID-19 Results Results COVID-19 Adm Lab Results: RBC 4.45 M/uL (4.20-5.40) 07/18/23 WBC 8.29 K/ul (4.8-10.8) 07/18/23 Hgb 13.5 g/dl (12.0-16.0) 07/18/23 Hct 39.5 % (37.0-47.0) 07/18/23 Plt Count 269 K/uL (130-400) 07/18/23 Neutrophils (%) (Auto) 73.3 % 07/18/23 Lymphocytes (%) (Auto) 18.0 % 07/18/23 Monocytes # (Auto) 0.55 K/uL (0.11-0.59) 07/18/23 Eosinophils # (Auto) 0.14 K/uL (0.00-0.50) 07/18/23 Immature Granulocyte % (Auto) 0.2 % 07/18/23 Neutrophils # (Auto) 6.07 K/uL (1.40-6.50) 07/18/23 Lymphocytes # (Auto) 1.49 K/uL (1.20-3.40) 07/18/23 Monocytes # (Auto) 0.55 K/uL (0.11-0.59) 07/18/23 Eosinophils # (Auto) 0.14 K/uL (0.00-0.50) 07/18/23 Basophils # (Auto) 0.02 K/uL (0.00-0.20) 07/18/23 Immature Granulocyte # (Auto) 0.02 K/uL (0.01-0.20) 4 Na 137 mmol/L (136-145) 07/18/23 K 3.8 mmol/L (3.5-5.1) 07/18/23 Cl 102 mmol/L (98-107) 07/18/23 CO2 24 mmol/L (21-32) 07/18/23 Anion Gap 11 (3-11) 07/18/23 BUN 10 mg/dl (6-23) 07/18/23 Creatinine 0.63 mg/dl (0.6-1.2) 07/18/23 BUN/Creatinine Ratio 15.9 (10-20) 07/18/23 Glucose Level 83 mg/dl (70-99(Fasting)) 07/18/23 Ca 9.0 mg/dl (8.6-10.3) 07/18/23 Total Bilirubin 0.8 mg/dl (0.2-1.0) 07/18/23 AST/SGOT 27 U/L (13-39) 07/18/23 ALT/SGPT 31 U/L (7-52) 07/18/23 Alkaline Phosphatase 81 U/L (34-104) 07/18/23 Total Protein 6.9 gm/dl (6.0-8.3) 07/18/23 Albumin 3.9 gm/dl (3.4-5.0) 07/18/23 Globulin 3.0 gm/dl (2.5-4.0) 07/18/23 Albumin/Globulin Ratio 1.3 (0.9-2) 07/18/23 PTT 28 Seconds (21-31) 07/18/23 INR 1.0 (0.9-1.1) 07/18/23 Code Status & VTE Plan Code Status FULL CODE VTE Prophylaxis Plan VTE Prophylaxis will be ordered: Yes Supervising Physician Co-Signing Physician Notes I have seen and examined the patient and have discussed the case with the provider above. I have reviewed the advanced practitioner's documentation, and I agree with, and take responsibility for that plan of care. 53 yo F presents with worsening back pain and leg swelling 2/2 May Thurner syndrome. She has been started on heparin but her pain is overwhelming for h er. She reports taking Vicodin at home and per PDMP there was a 30 day script filled once for her in May 14 that she had been using more of this week. She is asking how much Vicodin she will receive and states that two tabs will allow her to get sleep. This is for back pain that was present prior to current symptoms. She also has an enhanced pain sensitivity given her history of fibromyalgia. She is regularly taking pregabalin. She also takes zolpidem for help with sleep. She reports the IV dilaudid that was given in the ER today was able to take the edge off her pain but this has worn off. We discussed options for more optimal pain control, with some limitation as her SBP dropped to 91 after 4mg IV morphine. Will try limited toradol along with the Vicodin and try to limit IV narcotics. She mentioned hypotension at home earlier this week, notably taking Toprol XL, spironolactone, Entresto, Jardiance, and Lasix 20mg PO daily for NICM. She reports trying to cut back on her Toprol by 50% and was feeling less lightheaded. She was encouraged to hold Lasix if her BP is low and if it is consistently low to discuss her med regimen with her PCP or brokerage office manager. is at bedside and assists with history. On exam VSS. She is tearful from the pain in her left inguinal region. There is a slightly larger circumference to her left thigh over her right. Abdomen is soft, NTND. LLE is warm and well perfused with 2+ pedal pulses. Continue aggressive pain management efforts with caution for hypotension. Heparin will add an anti-inflammatory effect to the thrombotic syndrome causing pain. Appreciate vascular consultation on Thursday. DO Yonis
[2023-07-18] MEDS: Heparin IV Adult Wt-Based Standard w/ INITIAL Bolus Protocol IV STA (16:10)
[2023-07-18] MEDS: HYDROCODONE/ACETAMOPHEN 5/325MG TAB PO STA (16:33)
[2023-07-18] MEDS: KETOROLAC TROMETHAMINE 15 MG/ML VIAL IV STA (16:33)
[2023-07-18] MEDS ORDERED: MELATONIN 3 MG TAB PO PRN (16:50)
[2023-07-18] MEDS ORDERED: ACETAMINOPHEN 325 MG TAB PO PRN (16:50)
[2023-07-18] MEDS ORDERED: HYDROCODONE/ACETAMOPHEN 5/325MG TAB PO PRN (16:50)
[2023-07-18] MEDS ORDERED: MAGNESIUM HYDROXIDE SUSP 30 ML UDC PO PRN (16:50)
[2023-07-18] MEDS: buPROPion XL 150 MG TABCR PO SCH (18:42)
[2023-07-18] MEDS: EMPAGLIFLOZIN 10 MG TAB PO SCH (18:43)
[2023-07-18] MEDS: DOCUSATE SODIUM/SENNA 50/8.6MG TAB PO SCH (18:43)
[2023-07-18] MEDS: SPIRONOLACTONE 12.5 MG TAB PO SCH (18:44)
[2023-07-18] MEDS: METOPROLOL SUCC 25MG EXT REL TAB PO SCH (18:54)
[2023-07-18 20:25] LABS: ANTI-Xa, UFH(UnfractionatedHep 0.38 IU/ml (0.3-0.7)
[2023-07-18] MEDS: MEMANTINE HCL 10 MG TAB PO SCH (20:44)
[2023-07-18] MEDS: PREGABALIN 100 MG CAP PO SCH (20:44)
[2023-07-18] MEDS: PREGABALIN 50 MG CAP PO SCH (20:44)
[2023-07-18] MEDS: VALSARTAN/SACUBITRIL 26/24MG TAB PO SCH (20:45)
[2023-07-18] MEDS: tiZANidine HCL 4 MG TABLET PO SCH (20:45)
[2023-07-18] MEDS: PANTOprazole 40 MG TAB PO SCH (20:45)
[2023-07-18] MEDS: ZOLPIDEM TARTRATE 10 MG TAB PO SCH (22:29)
[2023-07-18] MEDS: HYDROCODONE/ACETAMOPHEN 5/325MG TAB PO PRN (22:53)
[2023-07-19 06:27] LABS: Basophils # (auto) 0.01 K/uL (0.00-0.20); Basophils % (auto) 0.2 %; Eosinophils # (auto) 0.24 K/uL (0.00-0.50); Eosinophils % (auto) 3.7 %; Hematocrit (blood only) 35.4 % (37.0-47.0); Hemoglobin 11.8 g/dl (12.0-16.0); Immature Granulocytes # (auto) 0.04 K/uL (0.01-0.20); Immature Granulocytes % (auto) 0.6 %; Lymphocytes # (auto) 1.77 K/uL (1.20-3.40); Mean Corpuscular Hgb Conc 33.3 g/dL (32.0-36.0); Mean Corpuscular Volume 90.1 fL (80.0-100.0); Mean Platelet Volume 10.4 fL (9.4-12.4); Monocytes # (auto) 0.62 K/uL (0.11-0.59); Monocytes % (auto) 9.5 %; Neutrophils # (auto) 3.88 K/uL (1.40-6.50); Platelet Count 206 K/uL (130-400); RDW Coefficient of Variation 13.5 % (11.5-14.5); RDW Standard Deviation 44.7 fL (36.4-46.3); Red Blood Count 3.93 M/uL (4.20-5.40); White Blood Count 6.56 K/ul (4.8-10.8)
[2023-07-19 06:50] LABS: ANTI-Xa, UFH(UnfractionatedHep 0.26 IU/ml (0.3-0.7)
[2023-07-19 06:51] LABS: Albumin Globulin Ratio 1.3 (0.9-2); Albumin Level 3.2 gm/dl (3.4-5.0); Bilirubin,Total 0.5 mg/dl (0.2-1.0); Calcium 8.4 mg/dl (8.6-10.3); Creatinine Clr Calc Pharmacy 115.9 ml/min; Est GFR (African American) 122.8 ml/min; Globulin 2.5 gm/dl (2.5-4.0); Magnesium 1.8 mg/dl (1.7-2.4); Potassium 3.4 mmol/L (3.5-5.1); Total Protein 5.7 gm/dl (6.0-8.3)
[2023-07-19] MEDS: CHOLECALCIFEROL 25 MCG (1000 UNITS) TAB PO SCH (09:17)
[2023-07-19] MEDS: MULTIVITAMIN TAB PO SCH (09:17)
[2023-07-19] MEDS: ADVANCED PROBIOTIC 1250 MG CAPSULE PO SCH (09:18)
[2023-07-19] MEDS: FUROSEMIDE 20 MG TAB PO SCH (09:18)
[2023-07-19] MEDS: MoRPHine SULFATE 2 MG/ML CARP IV PRN (09:19)
[2023-07-19 14:48] LABS: ANTI-Xa, UFH(UnfractionatedHep 0.26 IU/ml (0.3-0.7)
--- NOTE | 2023-07-19 15:32 | Hospitalist Progress Note ---
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: (2) Deep venous thrombosis of left iliac vein: (3) Chronic combined systolic and diastolic CHF (congestive heart failure): (4) HTN (hypertension): (5) HLD (hyperlipidemia): Plan Per admitting service notes with addendum: This is a 53-year-old female who has significant past medical history of nonischemic cardiomyopathy, combined systolic and diastolic CHF, LBBB, HTN, HLD, history of varicose veins status post ablation, RADHA, asthma, fibromyalgia, DDD, history of migraines, tobacco abuse, medical marijuana card for fibromyalgia, depression with anxiety and insomnia who presents to ED secondary to severe left lower extremity pain. --Venous Duplex: There is a deep venous thrombus involving the common femoral vein, great saphenous vein, and proximal superficial femoral vein. There is also a thrombus in one of 2 paired posterior tibial veins. --CT a/p: IMPRESSION:Thrombus of the left common iliac vein and its distal branches compatible with May-Thurner syndrome. Associated soft tissue swelling is seen. May Thurner Syndrome Extensive DVT L common iliac vein, L common femoral vein, L greater saphenous vein, proximal superficial femoral vein and thrombus in 1 of 2 paired posterior tibial veins admit to PCU IV heparin was initiated in ED with bolus after ED provider discussed risks vs benefits, pt w/o prior hx of major bleeding continue IV heparin, follow anti-Xa levels ED provider discussed with Dr. Marquez who states can be treated with IV heparin, emergent thrombolytic not advised, Vascular to see patient on Thursday with possible plan for intervention on follow labs 07/19 Hemodynamically stable No shortness of breath or chest pain No signs of bleeding Continue IV heparin Continue pain management with as needed morphine, increased to 4 mg IV every 4 hours as needed for severe pain Will order chest CT to rule out PE, but will have to wait till tomorrow as patient just received contrast for MRI and CT Awaiting vascular surgery recommendation Will order hematology/oncology consult Echocardiogram: Left ventricular wall motion is normal LV ejection fraction 66 5% Right ventricle is normal in size and function Doppler findings do not suggest pulm hypertension No significant valvular pathology History of nonischemic cardiomyopathy Combined systolic and diastolic CHF Currently euvolemic Chronic LBBB HTN HLD Chronic, stable [facility] On GDMT including metoprolol, Aldactone, Entresto, Jardiance, lasix Abnormal MRI brain Known R frontal Meningoma Chronic ischemic microvascular changes on MRI noted she was placed on ASA QOD because of this, will hold for now while on IV heparin RADHA Cpap at HS Fibromyalgia continue lyrica, mckay uses medical marijuana prn chronic, stable Insomnia ambien 10mg HS, prn melatonin is her home regimen chronic, stable Depression with anxiety continue Vortioxetine, bupropion DVT ppx: IV heparin Dispo: PCU PCP: Gomez FULL CODE plan of care discussed with patient in detail and at length all questions answered She is understanding, agreeable, comfortable with the plan of care Admission and Anticipated Discharge Date Admission Date: July 18, 2023 Subjective ff up for L LE DVT, etc seen resting in bed, not in distress LLE pain improved compared to yesterday still has significant low back pain has chronic pain secondary to FM as per patient no chest perez, shortness of breath no dizziness, palpitations Review of Systems Review of Systems: all noted and negative except for above Physical Exam Physical Exam: General- oriented x 3, not in distress, speaks in sentences with no effort or accessory muscle use Eyes- anicteric Neck- no JVD Lungs- clear BS BL no rales/wheezing Heart- normal rate, regular rhythm; no murmurs Abdomen- normal bowel sounds, nondistended, soft, nontender Extremities- Mild left lower extremity edema, no erythema/warmth/tenderness Neuro- alert, oriented x 3; no gross focal neurologic deficits Skin- warm & dry Results & Data Results & Data Vital Signs (Past 12 Hours) Vital Signs Temp Pulse Resp BP Pulse Ox O2 Del Method 07/19/23 11:51 36.9 C 68 18 104/66 95 Room Air 07/19/23 07:55 36.6 C 67 18 98/49 L 95 Room Air all noted and reviewed including below
[2023-07-19] MEDS: MoRPHine SULFATE 4 MG/ML 1 ML CARP\\VIAL IV PRN (19:42)
[2023-07-19 21:30] LABS: ANTI-Xa, UFH(UnfractionatedHep 0.28 IU/ml (0.3-0.7)
[2023-07-20 03:27] LABS: Basophils # (auto) 0.03 K/uL (0.00-0.20); Basophils % (auto) 0.4 %; Eosinophils # (auto) 0.23 K/uL (0.00-0.50); Hematocrit (blood only) 34.2 % (37.0-47.0); Hemoglobin 11.4 g/dl (12.0-16.0); Immature Granulocytes # (auto) 0.03 K/uL (0.01-0.20); Immature Granulocytes % (auto) 0.4 %; Lymphocytes # (auto) 2.37 K/uL (1.20-3.40); Lymphocytes % (auto) 30.5 %; Mean Corpuscular Hemoglobin 29.9 pg (25.0-34.0); Mean Corpuscular Hgb Conc 33.3 g/dL (32.0-36.0); Mean Corpuscular Volume 89.8 fL (80.0-100.0); Mean Platelet Volume 10.5 fL (9.4-12.4); Monocytes # (auto) 0.67 K/uL (0.11-0.59); Monocytes % (auto) 8.6 %; Neutrophils # (auto) 4.43 K/uL (1.40-6.50); Neutrophils % (auto) 57.1 %; Platelet Count 247 K/uL (130-400); RDW Coefficient of Variation 13.6 % (11.5-14.5); RDW Standard Deviation 44.6 fL (36.4-46.3); Red Blood Count 3.81 M/uL (4.20-5.40); White Blood Count 7.76 K/ul (4.8-10.8)
[2023-07-20 03:40] LABS: Albumin Globulin Ratio 1.2 (0.9-2); Albumin Level 3.2 gm/dl (3.4-5.0); BUN Creatinine Ratio 18.2 (10-20); Bilirubin,Total 0.4 mg/dl (0.2-1.0); Calcium 8.5 mg/dl (8.6-10.3); Creatinine Clr Calc Pharmacy 101.8 ml/min; Est GFR (African American) 117.7 ml/min; Est GFR (Non-African American) 101.6 ml/min; Globulin 2.6 gm/dl (2.5-4.0); Magnesium 1.8 mg/dl (1.7-2.4); Potassium 3.2 mmol/L (3.5-5.1); Total Protein 5.8 gm/dl (6.0-8.3)
[2023-07-20 03:48] LABS: ANTI-Xa, UFH(UnfractionatedHep 0.31 IU/ml (0.3-0.7)
[2023-07-20] MEDS: VORTIOXETINE HYDROBROMIDE PO SCH (08:40)
--- NOTE | 2023-07-20 10:50 | Consultation ---
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 Pt also seen by Dr Marquez today and reviewed her imaging studies. Recommends pt undergo LLE venogram with likely tPA infusion overnight tomorrow and secondary venogram with stenting of L iliac vein on THURSDAY. She will require prophylactic IVC filter insertion prior to her venogram. Procedures, benefits, risks, alternatives discussed at length with the patient by Dr Marquez. Pt expresses understanding and agreement to proceed. Patient was seen, examined, and chart reviewed. Agree with exam and treatment plan of the Vascular PA. History of Present Illness Reason for Consultation: LLE DVT/ may thurner Attending Physician: Rafy Cervantes MD History of Present Illness 53 yo f with hx of DMII, HTN, GERD, CAD, admitted with extensive LLE DVT, seen in consultation today for same. Pt states no prior hx of DVT in past. States only mild edema of BLE chronically, not particularly worse on left. States she began to have LLE groin/pelvic/low back/thigh pain about 10 days ago, that worsened over time. States she noted edema of LLE 2 days ago and came to [facility]. States the edema of her LLE is slightly improved since being in hospital. Pain remains significant, but more controlled on current medications. Denies RYDER, fever, chest pain, SOB, abd pain, N/V, rest pain, claudication, recent travel or surgery, other complaints. 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 No family hx of DVT or thrombotic diseases. CT abd/pelvis demonstrates DVT of L iliac vein extending through common fem and femoral veins. Compression of her L iliac vein noted. Allergies Allergy/AdvReac Type Severity Reaction Status Date / Time dog dander Allergy Mild SHORTNESS Verified 03/02/18 08:33 OF BREATH cat dander Allergy Unknown SHORTNESS Verified 03/02/18 08:33 OF BREATH house dust Allergy Unknown shortness Verified 07/18/23 22:38 of breath codeine Allergy SEVERE Verified 03/02/18 08:33 ITCHING oxycodone Allergy SEVERE Verified 03/02/18 08:33 ITCHING Home Medications Medication Instructions Recorded Confirmed Type cholecalciferol (vitamin D3) 25 1,000 unit PO DAILY 02/26/18 07/18/23 History mcg (1,000 unit) capsule (Vitamin D3) aspirin 81 mg tablet,delayed 81 mg PO .every other day #90 tabs 02/10/23 07/18/23 Rx release (Enteric Coated Aspirin) bupropion HCl 150 mg 24 hr tablet, 150 mg PO QAM 02/10/23 07/18/23 History extended release (Wellbutrin XL) furosemide 20 mg tablet (Lasix) 20 mg PO DAILY 02/10/23 07/18/23 History memantine 10 mg tablet 10 mg PO BID 02/10/23 07/18/23 History metoprolol succinate 25 mg 25 mg PO DAILY 02/10/23 07/18/23 History tablet,extended release 24 hr pantoprazole 20 mg tablet,delayed 40 mg PO BID 02/10/23 07/18/23 History release (Protonix) spironolactone 25 mg tablet 12.5 mg PO DAILY 02/10/23 07/18/23 History tizanidine 4 mg capsule (Zanaflex) 6 mg PO HS Pain 02/10/23 07/18/23 History vortioxetine 20 mg tablet 20 mg PO DAILY 02/10/23 07/18/23 History (Trintellix) black cohosh 200 mg capsule 200 mg PO BID 07/18/23 07/18/23 History empagliflozin 10 mg tablet 10 mg PO DAILY 07/18/23 07/18/23 History (Jardiance) hydrocodone 5 mg-acetaminophen 325 5 - 325 tab PO Q6H PRN Pain (Scale 07/18/23 07/18/23 History mg tablet Score 4-6) lactobacillus combination no.4 3 3,000 mmu cells PO DAILY 07/18/23 07/18/23 History billion cell capsule (Probiotic) multivitamin 1 tab PO DAILY 07/18/23 07/18/23 History pregabalin 100 mg capsule 100 mg PO AMHS 07/18/23 07/18/23 History pregabalin 25 mg capsule 50 mg PO AMHS 07/18/23 07/18/23 History sacubitril 24 mg-valsartan 26 mg 0.5 tab PO BID 07/18/23 07/18/23 History tablet (Entresto) sumatriptan succinate 50 mg tablet 50 mg PO DAILY PRN Headache 07/18/23 07/18/23 History zolpidem 10 mg tablet 10 mg PO HS 07/18/23 07/18/23 History Patient History Medical History HLD (hyperlipidemia) HTN (hypertension) Hx of cardiomyopathy Chronic combined systolic and diastolic CHF (congestive heart failure) Irritable bowel syndrome (IBS) GERD (gastroesophageal reflux disease) Migraine Asthma Incomplete left bundle branch block PT HAS HAD CARDIAC WORK UP. [facility]. Surgical History [place] teeth extracted History of dilation and curettage History of herniorrhaphy UMBILICAL History of section History of esophagogastroduodenoscopy (EGD) History of Jay fundoplication Family History Denies family history of Blood clotting disorder Social History Smoking Status: Current every day smoker Tobacco Type: Cigarettes Age Started Using Tobacco: 11; Cigarettes Per Day: 6-8 CIGARETTES PER DAY; Second Hand Exposure: No; Do You Dip or Chew Tobacco: No; Hx Alcohol Use: No Hx Substance Use: No Preferred Language: Pashto Communication Ability: Effective Accelerator Technician Required: No Beliefs That Will Affect Care: None Current Living Situation: Spouse current occupational status: employed 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 Other Information That Helps Us Care for You: No Feels Safe at Home: Yes Safety Concerns: Feels Safe At This Time Assistive Devices: Glasses Review of Systems Review of Systems: All systems reviewed & are unremarkable except as noted in HPI & below Physical Exam Constitutional: WD/WN, vitals as above cooperative and comfortable; not in distress ENMT: Ears: no hearing impairment Neck: trachea midline Respiratory: normal respiratory effort, lungs clear to auscultation Auscultation: + diminished lung sounds Cardiovascular: Rate/Rhythm: regular rate and regular rhythm Vessels: posterior tibial pulses present, dorsalis pedis pulses present, brachial pulses present and radial pulses present; + abnormal peripheral pulses Extremities: normal capillary refill and + edema (LLE +3) Gastrointestinal (Abdomen): Inspection/Auscultation: abdomen normal to inspection and normal bowel sounds Percussion/Palpation: + abdomen tender (LLQ/pelvis/groin) and abdomen soft Musculoskeletal: no cyanosis or clubbing, extremities motor strength 5/5 Skin: no rashes, warm and dry Neurologic: moves all extremities and awake; no focal motor deficits and not confused Psychiatric: A+Ox3, euthymic affect Results & Data Vital Signs (Past 12 Hours) Vital Signs Temp Pulse Pulse Resp BP Pulse Ox O2 Del Method 07/20/23 08:08 37.1 C 73 18 101/65 94 CPAP 07/20/23 03:32 63 14 92 07/20/23 02:52 36.8 C 65 16 90/51 L 95 Room Air, CPAP 07/19/23 23:00 81 17 96
[2023-07-20] MEDS: POLYETHYLENE (MIRALAX) 17 GM PACK PO PRN (10:59)
--- NOTE | 2023-07-20 11:34 | Oncology Consultation ---
Date of Consultation July 20, 2023 Assessment & Plan (1) Acute deep vein thrombosis (DVT) of left lower extremity: (2) May-Thurner syndrome: Plan - Patient with extensive left lower extremity DVT likely due to May Thurner in the setting of recent fall and injury involving left leg. Agree with plan by vascular surgery for left lower extremity venogram with possible tPA infusion as well as venogram with stenting of left iliac vein. If clinically stable with no evidence of abnormal bleeding post stenting and tPA, can be discharged home on SC Lovenox or DOAC -I will plan to see her back in hematology clinic in about 3 months for reassessment as well as to discuss possiblly obtaining hypercoagulable workup at that time since some of the results may be falsely abnormal in the setting of acute thrombosis Thank you for this consult. Hematology will sign off at this time to follow-up with patient on discharge. Please feel free to call if you have any further questions History of Present Illness Reason for Consultation: Left lower extremity DVT Attending Physician: Rafy Cervantes MD History of Present Illness 53-year-old female with medical history of fibromyalgia, asthma, hypertension, hyperlipidemia, heart failure who presented to the ER on 07/18/2023 with left- sided lower back pain and left lower extremity pain with swelling. CT abdomen and pelvis on 07/18/2023 revealed thrombus of the left common iliac vein and its distal branches compatible with May Thurner syndrome. Ultrasound venous Doppler left lower extremity on 07/18/2023 revealed DVT involving the common femoral vein, great saphenous vein and proximal superficial femoral vein with thrombosis in 1 of 2 paired posterior tibial veins. She was evaluated by vascular surgery today who have recommended left lower extremity venogram with possible tPA infusion as well as venogram with stenting of left iliac vein. She is currently on unfractionated heparin which she indicates she has been tolerating. Complains of left lower extremity pain which is better with morphine. States that she fell about 1 to 2 weeks prior to DVT diagnosis and hurt her left leg. She is up-to-date with mammograms and colonoscopy. Denies long distance travel, recent surgery, hospitalization or previous history of VTE. No significant gregory ght loss recently, chest pain, shortness of breath or any other issues Allergies Allergy/AdvReac Type Severity Reaction Status Date / Time dog dander Allergy Mild SHORTNESS Verified 03/02/18 08:33 OF BREATH cat dander Allergy Unknown SHORTNESS Verified 03/02/18 08:33 OF BREATH house dust Allergy Unknown shortness Verified 07/18/23 22:38 of breath codeine Allergy SEVERE Verified 03/02/18 08:33 ITCHING oxycodone Allergy SEVERE Verified 03/02/18 08:33 ITCHING Home Medications Medication Instructions Recorded Confirmed Type cholecalciferol (vitamin D3) 25 1,000 unit PO DAILY 02/26/18 07/18/23 History mcg (1,000 unit) capsule (Vitamin D3) aspirin 81 mg tablet,delayed 81 mg PO .every other day #90 tabs 02/10/23 07/18/23 Rx release (Enteric Coated Aspirin) bupropion HCl 150 mg 24 hr tablet, 150 mg PO QAM 02/10/23 07/18/23 History extended release (Wellbutrin XL) furosemide 20 mg tablet (Lasix) 20 mg PO DAILY 02/10/23 07/18/23 History memantine 10 mg tablet 10 mg PO BID 02/10/23 07/18/23 History metoprolol succinate 25 mg 25 mg PO DAILY 02/10/23 07/18/23 History tablet,extended release 24 hr pantoprazole 20 mg tablet,delayed 40 mg PO BID 02/10/23 07/18/23 History release (Protonix) spironolactone 25 mg tablet 12.5 mg PO DAILY 02/10/23 07/18/23 History tizanidine 4 mg capsule (Zanaflex) 6 mg PO HS Pain 02/10/23 07/18/23 History vortioxetine 20 mg tablet 20 mg PO DAILY 02/10/23 07/18/23 History (Trintellix) black cohosh 200 mg capsule 200 mg PO BID 07/18/23 07/18/23 History empagliflozin 10 mg tablet 10 mg PO DAILY 07/18/23 07/18/23 History (Jardiance) hydrocodone 5 mg-acetaminophen 325 5 - 325 tab PO Q6H PRN Pain (Scale 07/18/23 07/18/23 History mg tablet Score 4-6) lactobacillus combination no.4 3 3,000 mmu cells PO DAILY 07/18/23 07/18/23 History billion cell capsule (Probiotic) multivitamin 1 tab PO DAILY 07/18/23 07/18/23 History pregabalin 100 mg capsule 100 mg PO AMHS 07/18/23 07/18/23 History pregabalin 25 mg capsule 50 mg PO AMHS 07/18/23 07/18/23 History sacubitril 24 mg-valsartan 26 mg 0.5 tab PO BID 07/18/23 07/18/23 History tablet (Entresto) sumatriptan succinate 50 mg tablet 50 mg PO DAILY PRN Headache 07/18/23 07/18/23 History zolpidem 10 mg tablet 10 mg PO HS 07/18/23 07/18/23 History Patient History Medical History HLD (hyperlipidemia) HTN (hypertension) Hx of cardiomyopathy Chronic combined systolic and diastolic CHF (congestive heart failure) Irritable bowel syndrome (IBS) GERD (gastroesophageal reflux disease) Migraine Asthma Incomplete left bundle branch block PT HAS HAD CARDIAC WORK UP. [facility]. Surgical History [place] teeth extracted History of dilation and curettage History of herniorrhaphy UMBILICAL History of section History of esophagogastroduodenoscopy (EGD) History of Jay fundoplication Family History Denies family history of Blood clotting disorder Social History Smoking Status: Current every day smoker Tobacco Type: Cigarettes Age Started Using Tobacco: 11; Cigarettes Per Day: 6-8 CIGARETTES PER DAY; Second Hand Exposure: No; Do You Dip or Chew Tobacco: No; Hx Alcohol Use: No Hx Substance Use: No Preferred Language: Tunisian Communication Ability: Effective Bat Boy/Girl Required: No Beliefs That Will Affect Care: None Current Living Situation: Spouse current occupational status: employed 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
--- NOTE | 2023-07-20 16:03 | Hospitalist Progress Note ---
Date of Service July 20, 2023 Assessment & Plan (1) May-Thurner syndrome: (2) Deep venous thrombosis of left iliac vein: (3) Chronic combined systolic and diastolic CHF (congestive heart failure): (4) HTN (hypertension): (5) HLD (hyperlipidemia): Plan Per admitting service notes with addendum: This is a 53-year-old female who has significant past medical history of nonischemic cardiomyopathy, combined systolic and diastolic CHF, LBBB, HTN, HLD, history of varicose veins status post ablation, RADHA, asthma, fibromyalgia, DDD, history of migraines, tobacco abuse, medical marijuana card for fibromyalgia, depression with anxiety and insomnia who presents to ED secondary to severe left lower extremity pain. --Venous Duplex: There is a deep venous thrombus involving the common femoral vein, great saphenous vein, and proximal superficial femoral vein. There is also a thrombus in one of 2 paired posterior tibial veins. --CT a/p: IMPRESSION:Thrombus of the left common iliac vein and its distal branches compatible with May-Thurner syndrome. Associated soft tissue swelling is seen. May Thurner Syndrome Extensive DVT L common iliac vein, L common femoral vein, L greater saphenous vein, proximal superficial femoral vein and thrombus in 1 of 2 paired posterior tibial veins admit to PCU IV heparin was initiated in ED with bolus after ED provider discussed risks vs benefits, pt w/o prior hx of major bleeding continue IV heparin, follow anti-Xa levels ED provider discussed with Dr. Marquez who states can be treated with IV heparin, emergent thrombolytic not advised, Vascular to see patient on Thursday with possible plan for intervention on follow labs 07/19 Hemodynamically stable No shortness of breath or chest pain No signs of bleeding Continue IV heparin Continue pain management with as needed morphine, increased to 4 mg IV every 4 hours as needed for severe pain Will order chest CT to rule out PE, but will have to wait till tomorrow as patient just received contrast for MRI and CT Awaiting vascular surgery recommendation Will order hematology/oncology consult Echocardiogram: Left ventricular wall motion is normal LV ejection fraction 66 5% Right ventricle is normal in size and function Doppler findings do not suggest pulm hypertension No significant valvular pathology 07/20 for Vascular procedure tomorrow continue IV heparin Patrol Sergeant consulted History of nonischemic cardiomyopathy Combined systolic and diastolic CHF Currently euvolemic echo per above Chronic LBBB HTN HLD Chronic, stable Follows [facility] On GDMT including metoprolol, Aldactone, Entresto, Jardiance, lasix Abnormal MRI brain Known R frontal Meningoma Chronic ischemic microvascular changes on MRI noted she was placed on ASA QOD because of this, will hold for now while on IV heparin RADHA Cpap at HS Fibromyalgia continue lyrica, namenda uses medical marijuana prn chronic, stable Insomnia ambien 10mg HS, prn melatonin is her home regimen chronic, stable Depression with anxiety continue Vortioxetine, bupropion DVT ppx: IV heparin Dispo: PCU PCP: Gomez FULL CODE plan of care discussed with patient in detail and at length all questions answered She is understanding, agreeable, comfortable with the plan of care Admission and Anticipated Discharge Date Admission Date: July 18, 2023 Subjective ff up for LLE DVT, etc seen resting in bed, not in distress LLE pain about the same, swelling seems to be improving PRN meds helping no chest pain, dyspnea, palpitations, dizziness no other new symptoms Review of Systems Review of Systems: all noted and negative except for above Physical Exam Physical Exam: General- oriented x 3, not in distress, speaks in sentences with no effort or accessory muscle use Eyes- anicteric Neck- no JVD Lungs- clear breath sounds bilaterally, no rales/wheezes Heart- normal rate, regular rhythm; no murmurs Abdomen- normal bowel sounds, nondistended, soft, nontender Extremities- moderate edema LLE no erythema/warmth/tenderness Neuro- alert, oriented x 3; no gross focal neurologic deficits Skin- warm & dry Results & Data Results & Data Vital Signs (Past 12 Hours) Vital Signs Temp Pulse Resp BP Pulse Ox O2 Del Method 07/20/23 15:51 37.2 C 71 18 89/46 L 98 Room Air 07/20/23 12:02 37.1 C 67 18 94/62 L 90 Room Air 07/20/23 08:08 37.1 C 73 18 101/65 94 CPAP all noted and reviewed including below
[2023-07-20] MEDS: POTASSIUM CHLORIDE CRTAB 20 MEQ TABCR PO STA (17:15)
[2023-07-21] MEDS: SODIUM CHLORIDE 0.9% 1,000 ML IV SCH (08:19)
--- NOTE | 2023-07-21 08:35 | History & Physical Bridge Note ---
Date of Service July 21, 2023 History & Physical Bridge Note Patient for insertion of vena cava filter and venogram with possible tpa. I have discussed the risks options and benefits of the procedure with the patient. The patient understands the risks options and benefits and agrees to the procedure. I have examined the patient, reviewed the History & Physical and in the interval since the performance of the History & Physical I have noted the following changes of clinical significance: no changes noted
[2023-07-21] MEDS: ceFAZolin 2000MG 2,000 MG/15 ML SYR IV ONE (09:09)
--- NOTE | 2023-07-21 09:16 | Pre Anesthesia Assessment ---
Date of Service July 21, 2023 Pre Sedation Assessment Vital Signs Temp Pulse Pulse Pulse Resp BP Pulse Ox 07/21/23 08:10 37.1 C 65 18 123/69 96 07/21/23 07:56 70 07/21/23 03:25 36.8 C 65 20 105/61 98 07/21/23 01:53 81 07/20/23 23:18 76 H 96 07/20/23 22:00 37.1 C 77 20 105/69 97 07/20/23 19:45 37.1 C 81 20 104/63 96 07/20/23 15:51 37.2 C 71 18 89/46 L 98 07/20/23 12:02 37.1 C 67 18 94/62 L 90 O2 Del Method 07/21/23 08:10 Room Air 07/21/23 07:56 07/21/23 03:25 CPAP 07/21/23 01:53 07/20/23 23:18 07/20/23 22:00 Room Air 07/20/23 19:45 Room Air 07/20/23 15:51 Room Air 07/20/23 12:02 Room Air Cardiovascular RRR, no murmur, no edema Respiratory normal respiratory effort, lungs clear to auscultation Pre-Sedation Airway Assessment Smoking Status: Current every day smoker Hx Sleep Apnea: Yes (Wears Cpap at night) Short, Thick Neck: Yes Thyromental Distance: > or= 3.5 Finger Breadths Oral Cavity: + WNL Mallampati Class: II ASA: ASA3 NPO Status Date of Last Intake of Fluids: 07/20/23 Time of Last Intake of Fluids: 22:30 Date of Last Intake of Solid Food: 07/20/23 Time of Last Intake of Solid Foods: 17:30 Procedure Planning Contraindications for Sedation: none Current Medications Reviewed: Yes Notes The planned sedation has been discussed with the patient. Informed Consent was obtained. I have identified the patient, determined the appropriateness of sedation and have assessed the patient immediately prior to the procedure. All medicine(s) and interventions are by my order.
[2023-07-21] MEDS: ONDANSETRON INJ 2 MG/ML 2 ML VIAL IV PRN (09:25)
[2023-07-21] MEDS: fentaNYL citrate PF 100 MCG/2 ML VIAL ONE ×2 (09:37→10:07)
[2023-07-21] MEDS: MIDAZOLAM HCL 1 MG/ML 2ML VIAL ONE ×2 (09:37→10:07)
[2023-07-21 10:03] LABS: Basophils # (auto) 0.03 K/uL (0.00-0.20); Basophils % (auto) 0.5 %; Eosinophils # (auto) 0.19 K/uL (0.00-0.50); Eosinophils % (auto) 2.9 %; Hematocrit (blood only) 35.1 % (37.0-47.0); Hemoglobin 11.1 g/dl (12.0-16.0); Immature Granulocytes # (auto) 0.03 K/uL (0.01-0.20); Immature Granulocytes % (auto) 0.5 %; Lymphocytes % (auto) 31.7 %; Mean Corpuscular Hemoglobin 29.5 pg (25.0-34.0); Mean Corpuscular Hgb Conc 31.6 g/dL (32.0-36.0); Mean Corpuscular Volume 93.4 fL (80.0-100.0); Mean Platelet Volume 10.8 fL (9.4-12.4); Monocytes # (auto) 0.57 K/uL (0.11-0.59); Monocytes % (auto) 8.6 %; Neutrophils # (auto) 3.71 K/uL (1.40-6.50); Neutrophils % (auto) 55.8 %; Platelet Count 274 K/uL (130-400); RDW Coefficient of Variation 13.8 % (11.5-14.5); RDW Standard Deviation 47.6 fL (36.4-46.3); Red Blood Count 3.76 M/uL (4.20-5.40); White Blood Count 6.63 K/ul (4.8-10.8)
[2023-07-21 10:33] LABS: BUN Creatinine Ratio 19.7 (10-20); Calcium 8.8 mg/dl (8.6-10.3); Creatinine Clr Calc Pharmacy 101.8 ml/min; Est GFR (African American) 117.7 ml/min; Est GFR (Non-African American) 101.6 ml/min; Potassium 3.9 mmol/L (3.5-5.1)
--- NOTE | 2023-07-21 10:58 | Procedure Note ---
Angiogram Post Procedure Fluoroscopy Time (minutes): 6.5 Conscious Sedation Time (minutes): 58 Radiation (mGy): 418 Contrast: 50 Post Operative Report Pre & Post Diagnosis Operation Date: 07/22/23 08:00 Pre op DX; DVT, May thurner syndrome Post op DX: DVT, may thurner syndrome I identified the patient and participated in the time-out.: Yes Procedure Operation Date: 07/22/23 08:00 p Insertion of Vena Cava Filter, Right Jugular Approach, Ultrasound Localization of Right Jugular Vein, Fluoroscopy for Positioning, s Left Lower Extremity Venogram, Ultrasound Localization of Left Popliteal Vein, Insertion of Infusion Catheter for Thrombolysis, Initiation of Thrombolytic Therapy Moderate Sedation [id number] Surgeon Daniel Marquez MD Vocational Auto Body Instructor none Estimated Blood Loss 0 Findings Consistent with Post-Op Diagnosis Specimens none Anesthesia Type RN Sedation Complications none Disposition Accompanied Patient To Recovery: No Disposition: Surgical ICU Indications This is a 53-year-old female who has no prior history of deep venous thrombosis of the lower extremities. She presented with left leg swelling. She was found to have extensive thrombosis of her common iliac vein external iliac vein common femoral vein to the left side. On CAT scan that she had of this was consistent with a May Thurner syndrome. She was placed on heparin. She still has significant swelling of the left leg. She also has significant discomfort in her groin and lower pelvis. We recommended attempt of tPA after thrombolysis. I have discussed the risks options and benefits of the procedure with the patient. The patient understands the risks options and benefits and agrees to the procedure. We also recommended we place a prophylactic filter during the thrombolytic therapy. I have discussed the risks options and benefits of the procedure with the patient. The patient understands the risks options and benefits and agrees to the procedure. Description of Procedure The patient was brought to the angio suite and placed in the supine position. The patient was identified and a timeout performed. The right side of the neck was prepped and draped in the usual fashion. The right internal jugular vein was located with ultrasound. It was patent, compressed easily, and had no filling defects. The vein was then punctured under ultrasound visualization. A guidewire was then passed centrally into the inferior vena cava under fluoroscopic guidance. The puncture site was then dilated and the filter sheath inserted. It was passed to the infra renal vena cava. A venacavagram was done which showed no cava clot and an acceptable size. The renal veins were identified. The filter was then passed through the sheath and deployed in the infra renal vena cava in an upright position. Satisfied with the positioning of the filter, the sheath was removed. Pressure was applied to the puncture site. Adequate hemostasis was obtained and a sterile dressing was applied. Patient was then placed in the prone position. The left popliteal fossa was prepped and draped in a sterile manner. A timeout was performed and the patient was identified. Using ultrasound the popliteal vein was imaged and was patent with no clot present. It compressed easily. Under ultrasound guidance and using micropuncture technique the popliteal vein was punctured and a micro sheath was inserted. We then exchanged the micropuncture sheath to a 6 Uzbek sheath. A venogram was performed which showed occlusion of the common femoral external iliac and common iliac veins. Using 035 wire and quick cross catheter we were able to cross the thrombosed veins. We then injected the quick cross and found it to be true lumen into the inferior vena cava. We then inserted an 035 stiff and Glidewire. Over the wire we replaced the quick cross with the infusion catheter. This was a fountain 30 cm in length infusion catheter. Sterile dressings were then applied to the puncture site and infusion of tPA was started through the catheter. The patient left the operation room in satisfactory condition and tolerated the procedure well. All needle and sponge counts were correct at the end of the procedure. I attest to the content of the Intraoperative Record and any orders documented therein. Any exceptions are noted below.
--- NOTE | 2023-07-21 11:08 | Post Anesthesia Assessment ---
Date of Service July 21, 2023 Post Sedation Assessment Vital Signs Temp Pulse Pulse Pulse Resp BP Pulse Ox 07/21/23 10:39 81 18 109/77 99 07/21/23 10:34 73 18 118/74 99 07/21/23 10:32 75 18 117/75 99 07/21/23 10:27 75 18 108/78 99 07/21/23 10:22 74 18 114/68 99 07/21/23 10:17 73 18 110/63 99 07/21/23 10:12 69 18 118/52 L 99 07/21/23 10:07 76 18 130/78 99 07/21/23 10:02 75 18 123/78 99 07/21/23 09:57 79 18 148/87 H 99 07/21/23 09:52 71 18 122/65 99 07/21/23 09:47 68 18 118/60 99 07/21/23 09:42 67 18 103/63 99 07/21/23 09:37 70 18 124/70 99 07/21/23 09:30 71 18 130/72 99 07/21/23 08:10 37.1 C 65 18 123/69 96 07/21/23 07:56 70 07/21/23 03:25 36.8 C 65 20 105/61 98 07/21/23 01:53 81 07/20/23 23:18 76 H 96 07/20/23 22:00 37.1 C 77 20 105/69 97 07/20/23 19:45 37.1 C 81 20 104/63 96 07/20/23 15:51 37.2 C 71 18 89/46 L 98 07/20/23 12:02 37.1 C 67 18 94/62 L 90 O2 Del Method O2 Flow Rate 07/21/23 10:39 Room Air 07/21/23 10:34 Oxymask 4 07/21/23 10:32 Oxymask 4 07/21/23 10:27 Oxymask 4 07/21/23 10:22 Oxymask 4 07/21/23 10:17 Oxymask 4 07/21/23 10:12 Oxymask 4 07/21/23 10:07 Oxymask 4 07/21/23 10:02 Oxymask 4 07/21/23 09:57 Oxymask 4 07/21/23 09:52 Oxymask 4 07/21/23 09:47 Oxymask 4 07/21/23 09:42 Oxymask 4 07/21/23 09:37 Oxymask 4 07/21/23 09:30 Oxymask 4 07/21/23 08:10 Room Air 07/21/23 07:56 07/21/23 03:25 CPAP 07/21/23 01:53 07/20/23 23:18 07/20/23 22:00 Room Air 07/20/23 19:45 Room Air 07/20/23 15:51 Room Air 07/20/23 12:02 Room Air Recovery Score Activity: Moves 4 extremities Respiration: Deep Breath/Cough Circulation: +/-20% PreAnes Value Consciousness: Fully Awake Oxygen Saturation: > 92% On Room Air Post Anesthesia Score: 10 Discharge Sedation Level of Care: Fast Track Phase II Post Sedation Plan On clinical assessment, the patient appears to have tolerated the sedation without complications. Patient is recovering as anticipated. Patient will continue to be monitored by nursing and may be discharged when sedation discharge criteria are met per below protocol. Upon Completions of procedure up to 15 minutes continue every 5 minute vital signs and the P.A.R. score; then discharge to a Phase I or Fast Track to Phase II per the following guidelines: * Discharge Patient to appropriate Phase II area if PAR is 8 or greater or return to pre- procedure baseline. The post - procedure orders will be as directed. * If PAR score is less than 8 or not return to pre-procedure baseline then patient will follow Phase I monitoring till PAR is reached for Phase II. The Phase I may be done in procedure room or may call to secure a Phase I area. * If naloxone or flumazenil are used for reversal, hold in Phase I for continued monitoring from when last reversal dose was given for a minimum of 60 minutes or longer pending the nurse and/or physician discretion of patient condition before discharge to Phase II. Please call the Sedation Physician to re-evaluate and complete post-note for discharge to Phase II area. Do NOT discharge from procedure sedation or Phase 1 until post- sedation evaluation note is complete by procedure /sedation MD Sedation Discharge Instructions to be given to the patient at discharge to home.
[2023-07-21] MEDS: HEPARIN SODIUM/DEXTROSE 25,000 UNIT/500 ML BAG IV SCH (11:11)
[2023-07-21] MEDS: SODIUM CHLORIDE 0.9% 500 ML IV SCH (11:12)
[2023-07-21] MEDS: LIDOCAINE 1% LOCAL 20 ML VIAL ONE ×2 (11:15→12:49)
[2023-07-21] MEDS: VISIPAQUE IV PRN (11:17)
[2023-07-21] MEDS: HEPARIN SOD (PORCINE) 1000 UNIT/ML ONE (11:18)
[2023-07-21] MEDS: ALTEPLASE, RECOMBINANT 24 MG in SODIUM CHLORIDE 0.9% 250 ML IV SCH (11:56)
--- NOTE | 2023-07-21 12:12 | Critical Care Consultation ---
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 Patient currently requiring tPA drip through the LEFT lower extremity. Patient to be monitored closely in the setting of anticoagulation therapies. NEURO - * CAM ICU: NEGATIVE * Pain: * Pain management has been difficult with patient. She currently uses Vicodin in the outpatient setting. She has received morphine and Vicodin in the hospital setting. Did change her medications to include Dilaudid and remove the morphine. Unfortunately, given her history of fibromyalgia and chronic pain, I do feel that staying on top of her symptoms is going to be difficult. Would defer further escalation of her pain control to her primary surgeon team. CARDIAC/VASCULAR - * May Thurner syndrome, LEFT Lower extremity: * Acute finding of extensive DVT of the LEFT lower extremity. Patient underwent vascular invention today and had IVC filter placed. She is currently on a heparin drip and is receiving intravascular tPA localized to the affected extremity. Will defer ongoing management to the patient's primary service. * Monitor for signs/symptoms of bleeding in the setting of vascular invention with ongoing anticoagulation. * Monitor peripheral pulses closely per unit protocol. * Hypertension/hyperlipidemia/Nonischemic cardiomyopathy/LBBB: * Continue with patient's ASCVD Rx per typical. * Monitor on telemetry. RESPIRATORY - * History of tobacco abuse: * Encourage smoking cessation. GI/NUTRITION - * Diet per surgery as she may go back to the OR tomorrow. RENAL/LYTES - * No significant electrolyte derangement. - * Quiles in place - Strict I&Os. ENDO - * No h/o DM or thyroid Dz * BSGs per unit protocol. ISS --> gtt per unit policy. HEME - * Monitor for s/s bleeding in the setting of Heparin gtt and localized TPA therapy. ID - * No concern for infectious contribution at this time. LINES/IV ACCESS - * PIVs x2 * Quiles * LLE Sheath in place DVT PROPHYLAXIS - * Currently on Heparin gtt. * SCDs I have personally spent 32 minutes of critical care time in the direct management of this patient. This is a life/limb threatening event. This includes time spent evaluating patient, direct bedside care, chart review, placing orders, interpretation of diagnostic studies, discussion with consultants, patient, and family members, as well as other required patient management activities. This time is exclusive of all separately billable procedures, and teaching time and separate from and in addition to any other critical care service time. Thank you for allowing us to participate in the care of this patient. Please refer to my attending physician's documentation for any further recommendations. Supervising Physician Co-Signing Physician Notes Patient seen and examined. EMR reviewed. Discussed with critical care BART. Agree with assessment plan as noted. Analgesia per primary service and vascular surgery. Currently receiving tPA. Serial fibrinogen. Plan for repeat venogram in the a.m.. Discussed with patient at bedside History of Present Illness Reason for Consultation: tpa infusion Requesting Physician: Dr. Marquez Attending Physician: Rafy Cervantes MD History of Present Illness Patient is a 53-year-old female with a significant past medical history of chronic systolic and diastolic heart failure, nonischemic cardiomyopathy, left bundle branch block, hypertension, asthma, hyperlipidemia, fibromyalgia, degenerative disc disease, migraines, tobacco abuse, medical marijuana use, depression, anxiety, and insomnia who presented to the emergency department on 07/18 with complaints of back pain and severe LEFT lower quadrant and leg pain. The patient underwent evaluation including CT of the abdomen pelvis which showed significant clot burden to the LEFT lower extremity. Her findings were consistent with diagnosis of May Thurner syndrome. Patient was evaluated by vascular surgeon and underwent insertion of vena cava filter and LEFT lower extremity venogram with catheter directed thrombolysis of the affected extremity. Patient tolerated the procedure well with minimal blood loss. She was brought to the ICU post intervention for ongoing heparin and tPA infusions. Allergies Allergy/AdvReac Type Severity Reaction Status Date / Time dog dander Allergy Mild SHORTNESS Verified 03/02/18 08:33 OF BREATH cat dander Allergy Unknown SHORTNESS Verified 03/02/18 08:33 OF BREATH house dust Allergy Unknown shortness Verified 07/18/23 22:38 of breath codeine Allergy SEVERE Verified 03/02/18 08:33 ITCHING oxycodone Allergy SEVERE Verified 03/02/18 08:33 ITCHING Home Medications Medication Instructions Recorded Confirmed Type cholecalciferol (vitamin D3) 25 1,000 unit PO DAILY 02/26/18 07/18/23 History mcg (1,000 unit) capsule (Vitamin D3) aspirin 81 mg tablet,delayed 81 mg PO .every other day #90 tabs 02/10/23 07/18/23 Rx release (Enteric Coated Aspirin) bupropion HCl 150 mg 24 hr tablet, 150 mg PO QAM 02/10/23 07/18/23 History extended release (Wellbutrin XL) furosemide 20 mg tablet (Lasix) 20 mg PO DAILY 02/10/23 07/18/23 History memantine 10 mg tablet 10 mg PO BID 02/10/23 07/18/23 History metoprolol succinate 25 mg 25 mg PO DAILY 02/10/23 07/18/23 History tablet,extended release 24 hr pantoprazole 20 mg tablet,delayed 40 mg PO BID 02/10/23 07/18/23 History release (Protonix) spironolactone 25 mg tablet 12.5 mg PO DAILY 02/10/23 07/18/23 History tizanidine 4 mg capsule (Zanaflex) 6 mg PO HS Pain 02/10/23 07/18/23 History vortioxetine 20 mg tablet 20 mg PO DAILY 02/10/23 07/18/23 History (Trintellix) black cohosh 200 mg capsule 200 mg PO BID 07/18/23 07/18/23 History empagliflozin 10 mg tablet 10 mg PO DAILY 07/18/23 07/18/23 History (Jardiance) hydrocodone 5 mg-acetaminophen 325 5 - 325 tab PO Q6H PRN Pain (Scale 07/18/23 07/18/23 History mg tablet Score 4-6) lactobacillus combination no.4 3 3,000 mmu cells PO DAILY 07/18/23 07/18/23 History billion cell capsule (Probiotic) multivitamin 1 tab PO DAILY 07/18/23 07/18/23 History pregabalin 100 mg capsule 100 mg PO AMHS 07/18/23 07/18/23 History pregabalin 25 mg capsule 50 mg PO AMHS 07/18/23 07/18/23 History sacubitril 24 mg-valsartan 26 mg 0.5 tab PO BID 07/18/23 07/18/23 History tablet (Entresto) sumatriptan succinate 50 mg tablet 50 mg PO DAILY PRN Headache 07/18/23 07/18/23 History zolpidem 10 mg tablet 10 mg PO HS 07/18/23 07/18/23 History Patient History Medical History HLD (hyperlipidemia) HTN (hypertension) Hx of cardiomyopathy Chronic combined systolic and diastolic CHF (congestive heart failure) Irritable bowel syndrome (IBS) GERD (gastroesophageal reflux disease) Migraine Asthma Incomplete left bundle branch block PT HAS HAD CARDIAC WORK UP. [facility]. Surgical History [place] teeth extracted History of dilation and curettage History of herniorrhaphy UMBILICAL History of section History of esophagogastroduodenoscopy (EGD) History of Jay fundoplication Family History Denies family history of Blood clotting disorder Social History Smoking Status: Current every day smoker Tobacco Type: Cigarettes Age Started Using Tobacco: 11; Cigarettes Per Day: 6-8 CIGARETTES PER DAY; Second Hand Exposure: No; Do You Dip or Chew Tobacco: No; Hx Alcohol Use: No Hx Substance Use: No Preferred Language: Yi Communication Ability: Effective Comb Tender Required: No Beliefs That Will Affect Care: None Current Living Situation: Spouse current occupational status: employed 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 All else were negative. Physical Exam Physical Exam: VITAL SIGNS - Vital signs and nursing notes were reviewed. GENERAL - 53-year-old female appearing her stated age who is in no acute distress. Communicates well with provider and answers questions appropriately. SKIN - Without rashes. Dressings to the LEFT lower extremity clean, dry, and intact. MOUTH/OROPHARYNX - Without perioral cyanosis. LUNGS - Chest wall symmetric without accessory muscle use, intercostals retractions, or central cyanosis. Normal vesicular breath sounds CTA B/L. No wheezes, rales, or rhonchi appreciated. CARDIAC - RRR with S1/S2. No murmur, rubs, or gallops appreciated. ABDOMEN - Abdominal contour obese without pulsations or visible masses. BS normoactive all four quadrants. No tenderness, palpable masses, he patosplenomegaly, or ascites noted. EXTREMITIES - No clubbing or peripheral cyanosis. No pretibial edema present. Dopplerable pulses throughout all extremities. NEUROLOGIC - Cranial nerves II through XII grossly intact. PSYCH - A&Ox3 and cooperates fully with examiner. Results & Data Results & Data Vital Signs (Past 12 Hours) Vital Signs Temp Pulse Pulse Pulse Resp BP Pulse Ox 07/21/23 10:39 81 18 109/77 99 07/21/23 10:34 73 18 118/74 99 07/21/23 10:32 75 18 117/75 99 07/21/23 10:27 75 18 108/78 99 07/21/23 10:22 74 18 114/68 99 07/21/23 10:17 73 18 110/63 99 07/21/23 10:12 69 18 118/52 L 99 07/21/23 10:07 76 18 130/78 99 07/21/23 10:02 75 18 123/78 99 07/21/23 09:57 79 18 148/87 H 99 07/21/23 09:52 71 18 122/65 99 07/21/23 09:47 68 18 118/60 99 07/21/23 09:42 67 18 103/63 99 07/21/23 09:37 70 18 124/70 99 07/21/23 09:30 71 18 130/72 99 07/21/23 08:10 37.1 C 65 18 123/69 96 07/21/23 07:56 70 07/21/23 03:25 36.8 C 65 20 105/61 98 07/21/23 01:53 81 O2 Del Method O2 Flow Rate 07/21/23 10:39 Room Air 07/21/23 10:34 Oxymask 4 07/21/23 10:32 Oxymask 4 07/21/23 10:27 Oxymask 4 07/21/23 10:22 Oxymask 4 07/21/23 10:17 Oxymask 4 07/21/23 10:12 Oxymask 4 07/21/23 10:07 Oxymask 4 07/21/23 10:02 Oxymask 4 07/21/23 09:57 Oxymask 4 07/21/23 09:52 Oxymask 4 07/21/23 09:47 Oxymask 4 07/21/23 09:42 Oxymask 4 07/21/23 09:37 Oxymask 4 07/21/23 09:30 Oxymask 4 07/21/23 08:10 Room Air 07/21/23 07:56 07/21/23 03:25 CPAP 07/21/23 01:53 Coding Level of Care Code 51248 CRITICAL CARE 1ST 30-74M Diagnoses Deep venous thrombosis of left iliac vein I82.422 May-Thurner syndrome I87.1 Chronic pain G89.29 Edema of left lower extremity R60.0 Fibromyalgia M79.7 HTN (hypertension) I10 HLD (hyperlipidemia) E78.5 Chronic combined systolic and diastolic CHF (congestive heart failure) I50.42 Anxiety and depression F41.9; F32.A
[2023-07-21 12:44] LABS: Fibrinogen 829 mg/dl (184-400); Partial Thromboplastin Ratio 1.3; Partial Thromboplastin Time 36 Seconds (21-31)
[2023-07-21] MEDS: HYDROmorphone INJ 0.5 MG/0.5 ML SYR IV PRN ×2 (14:40→17:32)
--- NOTE | 2023-07-21 14:48 | Hospitalist Progress Note ---
Date of Service July 21, 2023 Assessment & Plan (1) May-Thurner syndrome: (2) Deep venous thrombosis of left iliac vein: (3) Chronic combined systolic and diastolic CHF (congestive heart failure): (4) HTN (hypertension): (5) HLD (hyperlipidemia): Plan Per admitting service notes with addendum: This is a 53-year-old female who has significant past medical history of nonischemic cardiomyopathy, combined systolic and diastolic CHF, LBBB, HTN, HLD, history of varicose veins status post ablation, RADHA, asthma, fibromyalgia, DDD, history of migraines, tobacco abuse, medical marijuana card for fibromyalgia, depression with anxiety and insomnia who presents to ED secondary to severe left lower extremity pain. --Venous Duplex: There is a deep venous thrombus involving the common femoral vein, great saphenous vein, and proximal superficial femoral vein. There is also a thrombus in one of 2 paired posterior tibial veins. --CT a/p: IMPRESSION:Thrombus of the left common iliac vein and its distal branches compatible with May-Thurner syndrome. Associated soft tissue swelling is seen. May Thurner Syndrome Extensive DVT L common iliac vein, L common femoral vein, L greater saphenous vein, proximal superficial femoral vein and thrombus in 1 of 2 paired posterior tibial veins given IV heparin Hemodynamically stable No shortness of breath or chest pain No signs of bleeding Echocardiogram: Left ventricular wall motion is normal LV ejection fraction 66 5% Right ventricle is normal in size and function Doppler findings do not suggest pulm hypertension No significant valvular pathology 07/21 Insertion of Vena Cava Filter, Right Jugular Approach, Ultrasound Localization of Right Jugular Vein, Fluoroscopy for Positionin Left Lower Extremity Venogram, Ultrasound Localization of Left Popliteal Vein, Insertion of Infusion Catheter for Thrombolysis, Initiation of Thrombolytic Therapy plan for Left Lower Extremity Re-Check of TPA with Possible Iliac Vein Stenting tomorrow continue Heparin drip TPA infusion for thrombolysis Cement Loader consulted- will need longterm anticoagulation, ff up Hematology for hypercoagulable work up History of nonischemic cardiomyopathy Combined systolic and diastolic CHF Currently euvolemic echo per above Chronic LBBB HTN HLD Chronic, stable Follows [facility] On GDMT including metoprolol, Aldactone, Entresto, Jardiance, lasix Abnormal MRI brain Known R frontal Meningoma Chronic ischemic microvascular changes on MRI noted she was placed on ASA QOD because of this, will hold for now while on IV heparin RADHA Cpap at HS Fibromyalgia continue lyrica, namenda uses medical marijuana prn at home chronic, stable Insomnia ambien 10mg HS, prn melatonin is her home regimen chronic, stable Depression with anxiety continue Vortioxetine, bupropion DVT ppx: IV heparin Dispo: anticipate d/c home when medically stable PCP: Gomez plan of care discussed with patient in detail and at length all questions answered She is understanding, agreeable, comfortable with the plan of care Admission and Anticipated Discharge Date Admission Date: July 18, 2023 Subjective ff up for acute DVT Left Lower Extremity, May Thurner Syndrome, etc seen resting in bed, not in distress s/p IVC filter placement, insertion of infusion catheter for Thrombolysis reports worsening chronic back pain also has LLE pain otherwise, no chest pain, dyspnea, palpitations, dizziness no other new symptoms Review of Systems Review of Systems: all noted and negative except for above Physical Exam Physical Exam: General- oriented x 3, not in distress, speaks in sentences with no effort or accessory muscle use Eyes- anicteric Neck- no JVD Lungs- clear breath sounds bilaterally, no rales/wheezes Heart- normal rate, regular rhythm; no murmurs Abdomen- normal bowel sounds, nondistended, soft, nontender Extremities- LLE: mild edema, no calf tenderness Neuro- alert, oriented x 3; no gross focal neurologic deficits Skin- warm & dry Results & Data Results & Data Vital Signs (Past 12 Hours) Vital Signs Temp Pulse Pulse Pulse Resp BP BP 07/21/23 13:00 65 16 121/63 07/21/23 12:30 65 21 126/64 07/21/23 12:00 67 19 128/67 07/21/23 11:31 67 21 128/61 07/21/23 11:06 70 23 131/57 L 07/21/23 11:06 37.0 C 07/21/23 10:39 81 18 109/77 07/21/23 10:34 73 18 118/74 07/21/23 10:32 75 18 117/75 07/21/23 10:27 75 18 108/78 07/21/23 10:22 74 18 114/68 07/21/23 10:17 73 18 110/63 07/21/23 10:12 69 18 118/52 L 01/30/24 10:07 76 18 130/78 01/30/24 10:02 75 18 123/78 07/21/23 09:57 79 18 148/87 H 07/21/23 09:52 71 18 122/65 07/21/23 09:47 68 18 118/60 07/21/23 09:42 67 18 103/63 07/21/23 09:37 70 18 124/70 07/21/23 09:30 71 18 130/72 07/21/23 08:10 37.1 C 65 18 123/69 07/21/23 07:56 70 07/21/23 03:25 36.8 C 65 20 105/61 Pulse Ox O2 Del Method O2 Flow Rate 07/21/23 13:00 97 Room Air 07/21/23 12:30 100 Room Air 07/21/23 12:00 98 Room Air 07/21/23 11:31 100 Room Air 07/21/23 11:06 99 Room Air 07/21/23 11:06 07/21/23 10:39 99 Room Air 07/21/23 10:34 99 Oxymask 4 07/21/23 10:32 99 Oxymask 4 07/21/23 10:27 99 Oxymask 4 07/21/23 10:22 99 Oxymask 4 07/21/23 10:17 99 Oxymask 4 07/21/23 10:12 99 Oxymask 4 07/21/23 10:07 99 Oxymask 4 07/21/23 10:02 99 Oxymask 4 07/21/23 09:57 99 Oxymask 4 07/21/23 09:52 99 Oxymask 4 07/21/23 09:47 99 Oxymask 4 07/21/23 09:42 99 Oxymask 4 07/21/23 09:37 99 Oxymask 4 07/21/23 09:30 99 Oxymask 4 07/21/23 08:10 96 Room Air 07/21/23 07:56 07/21/23 03:25 98 CPAP all noted and reviewed including below
[2023-07-21 16:42] LABS: Basophils # (auto) 0.02 K/uL (0.00-0.20); Basophils % (auto) 0.3 %; Eosinophils # (auto) 0.16 K/uL (0.00-0.50); Hematocrit (blood only) 36.8 % (37.0-47.0); Hemoglobin 12.5 g/dl (12.0-16.0); Immature Granulocytes # (auto) 0.03 K/uL (0.01-0.20); Immature Granulocytes % (auto) 0.4 %; Lymphocytes # (auto) 1.59 K/uL (1.20-3.40); Lymphocytes % (auto) 20.4 %; Mean Corpuscular Hemoglobin 30.4 pg (25.0-34.0); Mean Corpuscular Volume 89.5 fL (80.0-100.0); Mean Platelet Volume 10.1 fL (9.4-12.4); Monocytes # (auto) 0.48 K/uL (0.11-0.59); Monocytes % (auto) 6.1 %; Neutrophils # (auto) 5.53 K/uL (1.40-6.50); Neutrophils % (auto) 70.8 %; Platelet Count 245 K/uL (130-400); RDW Coefficient of Variation 13.6 % (11.5-14.5); RDW Standard Deviation 44.5 fL (36.4-46.3); Red Blood Count 4.11 M/uL (4.20-5.40); White Blood Count 7.81 K/ul (4.8-10.8)
[2023-07-21 17:10] LABS: Partial Thromboplastin Ratio 1.1; Partial Thromboplastin Time 32 Seconds (21-31)
[2023-07-21 17:18] LABS: Fibrinogen 488 mg/dl (184-400)
[2023-07-21 22:52] LABS: Basophils # (auto) 0.02 K/uL (0.00-0.20); Basophils % (auto) 0.2 %; Eosinophils # (auto) 0.15 K/uL (0.00-0.50); Eosinophils % (auto) 1.8 %; Hematocrit (blood only) 38.1 % (37.0-47.0); Hemoglobin 12.5 g/dl (12.0-16.0); Immature Granulocytes # (auto) 0.04 K/uL (0.01-0.20); Immature Granulocytes % (auto) 0.5 %; Lymphocytes # (auto) 1.47 K/uL (1.20-3.40); Mean Corpuscular Hemoglobin 29.8 pg (25.0-34.0); Mean Corpuscular Hgb Conc 32.8 g/dL (32.0-36.0); Mean Corpuscular Volume 90.9 fL (80.0-100.0); Mean Platelet Volume 10.3 fL (9.4-12.4); Monocytes # (auto) 0.69 K/uL (0.11-0.59); Monocytes % (auto) 8.5 %; Neutrophils # (auto) 5.78 K/uL (1.40-6.50); Platelet Count 258 K/uL (130-400); RDW Coefficient of Variation 13.6 % (11.5-14.5); RDW Standard Deviation 45.7 fL (36.4-46.3); Red Blood Count 4.19 M/uL (4.20-5.40); White Blood Count 8.15 K/ul (4.8-10.8)
[2023-07-21] MEDS: ALTEPLASE, RECOMBINANT 12 MG in SODIUM CHLORIDE 0.9% 250 ML IV SCH (22:59)
[2023-07-22] MEDS: HEPARIN SODIUM/DEXTROSE 25,000 UNIT/500 ML BAG IV SCH (00:13)
[2023-07-22 00:38] LABS: Partial Thromboplastin Ratio 1.5; Partial Thromboplastin Time 42 Seconds (21-31)
[2023-07-22 00:49] LABS: Fibrinogen 170 mg/dl (184-400)
[2023-07-22 05:33] LABS: Basophils # (auto) 0.02 K/uL (0.00-0.20); Basophils % (auto) 0.3 %; Eosinophils # (auto) 0.11 K/uL (0.00-0.50); Eosinophils % (auto) 1.5 %; Hematocrit (blood only) 36.3 % (37.0-47.0); Hemoglobin 11.9 g/dl (12.0-16.0); Immature Granulocytes # (auto) 0.02 K/uL (0.01-0.20); Immature Granulocytes % (auto) 0.3 %; Lymphocytes # (auto) 1.41 K/uL (1.20-3.40); Lymphocytes % (auto) 18.8 %; Mean Corpuscular Hemoglobin 29.9 pg (25.0-34.0); Mean Corpuscular Hgb Conc 32.8 g/dL (32.0-36.0); Mean Corpuscular Volume 91.2 fL (80.0-100.0); Mean Platelet Volume 10.1 fL (9.4-12.4); Monocytes # (auto) 0.64 K/uL (0.11-0.59); Monocytes % (auto) 8.5 %; Neutrophils # (auto) 5.29 K/uL (1.40-6.50); Neutrophils % (auto) 70.6 %; Platelet Count 231 K/uL (130-400); RDW Coefficient of Variation 13.7 % (11.5-14.5); RDW Standard Deviation 46.8 fL (36.4-46.3); Red Blood Count 3.98 M/uL (4.20-5.40); White Blood Count 7.49 K/ul (4.8-10.8)
[2023-07-22 06:11] LABS: Partial Thromboplastin Ratio 1.5
[2023-07-22 06:30] LABS: Partial Thromboplastin Time 41 Seconds (21-31)
[2023-07-22 06:44] LABS: Fibrinogen 120 mg/dl (184-400)
--- NOTE | 2023-07-22 07:17 | Hospitalist Progress Note ---
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 De La Cruz is a 53-year-old female who has significant past medical history of nonischemic cardiomyopathy, combined systolic and diastolic CHF, LBBB, HTN, HLD, history of varicose veins status post ablation, RADHA, asthma, fibromyalgia, DDD, history of migraines, tobacco abuse, medical marijuana card for fibromyalgia, depression with anxiety and insomnia who presented to ED on 07/18 secondary to severe left lower extremity pain.Patient underwent venogram and started on tPA infusion after a prophylactic IVC filter placed on 07/21. Patient transfered to ICU for close monitoring during ongoing anticoagulation with tPA drip via LLE --Venous Duplex: There is a deep venous thrombus involving the common femoral vein, great saphenous vein, and proximal superficial femoral vein. There is also a thrombus in one of 2 paired posterior tibial veins. --CT a/p: IMPRESSION:Thrombus of the left common iliac vein and its distal branches compatible with May-Thurner syndrome. Associated soft tissue swelling is seen. #Extensive DVT L common iliac vein, L common femoral vein, L greater saphenous vein, proximal superficial femoral vein and thrombus in 1 of 2 paired posterior tibial veins #May Thurner Syndrome Initially started on heparin drip, remains hemodynamically stable 07/21: Now s/p insertion of Vena Cava Filter via right Jugular Approach -Left Lower Extremity Venogram, Ultrasound Localization of Left Popliteal Vein, Insertion of Infusion Catheter for Thrombolysis, Initiation of Thrombolytic Therapy Continue heparin drip tPA infusion per Vascular recommendations -plan for Left Lower Extremity Re-Check of TPA with Possible Iliac Vein Stenting Claim Trainee consulted- will need intermission coordinator anticoagulation, OP follow up Hematology for hypercoagulable work up in approximately 3 months -DOAC or lovenox Follow up post stent recommendations, PT/OT when able #Nonischemic cardiomyopathy #Combined systolic and diastolic CHF #Chronic LBBB Currently euvolemic Echocardiogram: Left ventricular wall motion is normal LV ejection fraction 60-65% Right ventricle is normal in size and function Doppler findings do not suggest pulm hypertension No significant valvular pathology Continue GDMT -Metoprolol xL 25mg daily -Furosemide 20mg daily -Entresto 0.5 tab BID -Aldactone 12.5mg dauly -Jardiance 10mg daily #HTN #HLD Chronic, stable Follows [facility] On GDMT including metoprolol, Aldactone, Entresto, Jardiance, lasix #Abnormal MRI brain #Known R frontal Meningoma #Memory impairment Followed Dr. Tobias in 01/2023 Chronic ischemic microvascular changes on MRI noted Consider resumption of ASA 81mg daily upon discharge Continue nymenda 10mg BID #RADHA Cpap at HS #Fibromyalgia continue lyrica, namenda uses medical marijuana prn at home chronic, stable #Insomnia ambien 10mg HS, prn melatonin is her home regimen chronic, stable #Depression with anxiety continue Vortioxetine, bupropion #GERD Contnue PPI BID Quiles in place, void trial when ambulatory DVT ppx: IV heparin Dispo: anticipate d/c home when medically stable PCP: Gomez Admission and Anticipated Discharge Date Admission Date: July 18, 2023 Subjective Evaluated at bedside ICU Reports pain which is controlled with PO hydrocodone/acetaminaphen but otherwise denies any chest pain, palpitations, SOB Anesthesiology assessing tpa catheter at bedside, ready for procedure anticipated this morning with vascular Physical Exam Constitutional: appears uncomfortable , AO3 Neck: right jugular cut down with saturated gauze Respiratory: normal respiratory effort, lungs clear to auscultation Cardiovascular: RRR, no murmur, no edema Musculoskeletal: no edema, cyanosis noted, minimal edema Results & Data Results & Data Vital Signs (Past 12 Hours) Vital Signs Pulse Resp BP Pulse Ox O2 Flow Rate 07/22/23 05:00 77 21 97 07/22/23 05:00 107/53 L 07/22/23 04:30 75 16 98 07/22/23 04:00 72 16 96 07/22/23 04:00 99/52 L 07/22/23 03:46 78 15 97 3 07/22/23 03:30 74 16 97 07/22/23 03:00 73 14 97 07/22/23 03:00 87/45 L 07/22/23 02:30 85 29 H 99 07/22/23 02:00 102/45 L 07/22/23 02:00 70 16 98 07/22/23 01:00 90/48 L 07/22/23 01:00 73 19 98 07/22/23 00:00 87/49 L 07/22/23 00:00 74 17 96 07/21/23 23:54 75 14 97 3 07/21/23 23:30 74 17 95 07/21/23 23:01 77 17 97 07/21/23 23:01 86/43 L 07/21/23 23:00 79/45 L 07/21/23 23:00 80 12 97 07/21/23 22:30 91 H 18 96 07/21/23 22:30 97/55 L 07/21/23 22:00 82 20 99 07/21/23 22:00 99/60 L 07/21/23 21:30 84 19 100 07/21/23 21:30 121/67 07/21/23 21:00 116/56 L 07/21/23 21:00 78 14 97 07/21/23 20:30 77 19 100 07/21/23 20:30 110/53 L 07/21/23 20:00 76 15 99 07/21/23 20:00 111/47 L 07/21/23 19:30 80 20 98 07/21/23 19:30 126/61 Laboratory Results Short CBC 07/21/23 07/21/23 07/21/23 Range/Units 04:44 16:28 22:29 WBC 6.63 7.81 8.15 (4.8-10.8) K/ul Hgb 11.1 L 12.5 12.5 (12.0-16.0) g/dl Hct 35.1 L 36.8 L 38.1 (37.0-47.0) % Plt Count 274 245 258 (130-400) K/uL 07/22/23 Range/Units 04:54 WBC 7.49 (4.8-10.8) K/ul Hgb 11.9 L (12.0-16.0) g/dl Hct 36.3 L (37.0-47.0) % Plt Count 231 (130-400) K/uL BMP 07/21/23 04:44 Sodium 138 Potassium 3.9 D Chloride 104 Carbon Dioxide 28 BUN 13 Creatinine 0.66 Glucose 93 Calcium 8.8 Medications Administered Home Medications Medication Instructions Recorded Confirmed Last Taken cholecalciferol (vitamin D3) 25 1,000 unit PO DAILY 02/26/18 07/18/23 03/01/18 19:30 mcg (1,000 unit) capsule (Vitamin D3) aspirin 81 mg tablet,delayed 81 mg PO .every other day #90 tabs 02/10/23 07/18/23 Unknown release (Enteric Coated Aspirin) bupropion HCl 150 mg 24 hr tablet, 150 mg PO QAM 02/10/23 07/18/23 Unknown extended release (Wellbutrin XL) furosemide 20 mg tablet (Lasix) 20 mg PO DAILY 02/10/23 07/18/23 Unknown memantine 10 mg tablet 10 mg PO BID 02/10/23 07/18/23 Unknown metoprolol succinate 25 mg 25 mg PO DAILY 02/10/23 07/18/23 Unknown tablet,extended release 24 hr pantoprazole 20 mg tablet,delayed 40 mg PO BID 02/10/23 07/18/23 Unknown release (Protonix) spironolactone 25 mg tablet 12.5 mg PO DAILY 02/10/23 07/18/23 Unknown tizanidine 4 mg capsule (Zanaflex) 6 mg PO HS Pain 02/10/23 07/18/23 Unknown vortioxetine 20 mg tablet 20 mg PO DAILY 02/10/23 07/18/23 Unknown (Trintellix) black cohosh 200 mg capsule 200 mg PO BID 07/18/23 07/18/23 Unknown empagliflozin 10 mg tablet 10 mg PO DAILY 07/18/23 07/18/23 Unknown (Jardiance) hydrocodone 5 mg-acetaminophen 325 5 - 325 tab PO Q6H PRN Pain (Scale 07/18/23 07/18/23 Unknown mg tablet Score 4-6) lactobacillus combination no.4 3 3,000 mmu cells PO DAILY 07/18/23 07/18/23 Unknown billion cell capsule (Probiotic) multivitamin 1 tab PO DAILY 07/18/23 07/18/23 Unknown pregabalin 100 mg capsule 100 mg PO AMHS 07/18/23 07/18/23 Unknown pregabalin 25 mg capsule 50 mg PO AMHS 07/18/23 07/18/23 Unknown sacubitril 24 mg-valsartan 26 mg 0.5 tab PO BID 07/18/23 07/18/23 Unknown tablet (Entresto) sumatriptan succinate 50 mg tablet 50 mg PO DAILY PRN Headache 07/18/23 07/18/23 Unknown zolpidem 10 mg tablet 10 mg PO HS 07/18/23 07/18/23 Unknown Active Medications Generic Name Dose Route Start Last Admin Trade Name Megan PRN Reason Stop Dose Admin Hydrocodone Bitart/Acetaminophen 1 tab 07/18/23 22:28 07/22/23 04:16 Hydrocodone/Acetamophen 5/325mg Tab PO 08/01/23 22:27 1 tab QID PRN Administration Pain Bupropion HCl 150 mg 07/18/23 16:50 07/21/23 12:45 Bupropion Xl 150 Mg Tabcr PO 08/17/23 16:49 150 mg QAM GONSALO Administration Empagliflozin 10 mg 07/18/23 16:50 07/21/23 12:45 Empagliflozin 10 Mg Tab PO 08/17/23 16:49 10 mg DAILY GONSALO Administration Furosemide 20 mg 07/19/23 09:00 07/21/23 12:45 Furosemide 20 Mg Tab PO 08/18/23 08:59 20 mg DAILY GONSALO Administration Hydromorphone HCl 0.5 mg 07/21/23 16:45 07/22/23 05:07 Hydromorphone Inj 0.5 Mg/0.5 Ml Syr IV 08/04/23 12:31 0.5 mg Q2H PRN Administration Pain Sodium Chloride 1,000 mls @ 15 mls/hr 07/21/23 08:00 07/21/23 11:06 Nss IV 08/20/23 07:59 Infused .Q24H GONSALO Infusion Alteplase, Recombinant 12 mg/ 262 mls @ 21.833 mls/hr 07/21/23 23:00 07/22/23 06:55 Sodium Chloride IV 07/22/23 11:01 1 mg/hr TODAY@2300 GONSALO 21.8 mls/hr Infusion 1 MG/HR Heparin Sodium/Dextrose 25,000 unit in 500 mls @ 12 mls/hr 07/21/23 11:00 07/22/23 06:55 Heparin Sodium/Dextrose IV 08/20/23 10:59 12 mls/hr .Q24H GONSALO Infusion Heparin Sodium/Dextrose 25,000 unit in 500 mls @ 12 mls/hr 07/21/23 23:00 07/22/23 00:13 Heparin Sodium/Dextrose IV 08/20/23 22:59 12 mls/hr .Q24H GONSALO Administration Sodium Chloride 500 mls @ 30 mls/hr 07/21/23 11:15 07/22/23 05:07 Nss IV 08/20/23 11:14 30 mls/hr .[id number] GONSALO Administration Iodixanol 50 ml 07/21/23 11:16 07/21/23 11:17 Visipaque IV 07/25/23 11:15 50 ml UD PRN Administration Interaction Checking Lactobacillus Acidophilus 2 cap 07/19/23 09:00 07/21/23 12:46 Advanced Probiotic 1250 Mg Capsule PO 08/18/23 08:59 2 cap DAILY GONSALO Administration Memantine 10 mg 07/18/23 21:00 07/21/23 21:20 Memantine Hcl 10 Mg Tab PO 08/17/23 20:59 10 mg BID GONSALO Administration Metoprolol Succinate 25 mg 07/18/23 16:50 07/21/23 12:46 Metoprolol Succ 25mg Ext Rel Tab PO 08/17/23 16:49 25 mg DAILY GONSALO Administration Multivitamins 1 tab 07/19/23 09:00 07/21/23 12:47 Multivitamin Tab PO 08/18/23 08:59 1 tab DAILY GONSALO Administration Ondansetron HCl 4 mg 07/18/23 16:50 07/21/23 09:25 Ondansetron Inj 2 Mg/Ml 2 Ml Vial IV 08/17/23 16:49 4 mg Q6H PRN Administration Nausea Pantoprazole Sodium 40 mg 07/18/23 21:00 07/21/23 21:20 Pantoprazole 40 Mg Tab PO 08/17/23 20:59 40 mg BID GONSALO Administration Polyethylene Glycol 17 gm 07/18/23 16:50 07/20/23 10:59 Polyethylene (Miralax) 17 Gm Pack PO 08/17/23 16:49 17 gm DAILY PRN Administration Constipation Pregabalin 50 mg 07/18/23 21:00 07/21/23 21:20 Pregabalin 50 Mg Cap PO 08/17/23 20:59 50 mg AMHS GONSALO Administration Pregabalin 100 mg 07/18/23 21:00 07/21/23 21:20 Pregabalin 100 Mg Cap PO 08/17/23 20:59 100 mg AMHS GONSALO Administration Sacubitril/Valsartan 0.5 tab 07/18/23 21:00 07/21/23 21:20 Valsartan/Sacubitril 26/24mg Tab PO 08/17/23 20:59 0.5 tab BID GONSALO Administration Senna/Docusate Sodium 1 tab 07/18/23 16:50 07/21/23 12:45 Docusate Sodium/Senna 50/8.6mg Tab PO 08/17/23 16:49 1 tab QAM GONSALO Administration Spironolactone 12.5 mg 07/18/23 16:50 07/21/23 12:48 Spironolactone 12.5 Mg Tab PO 08/17/23 16:49 12.5 mg DAILY GONSALO Administration Tizanidine HCl 6 mg 07/18/23 21:00 07/21/23 21:20 Tizanidine Hcl 4 Mg Tablet PO 08/17/23 20:59 6 mg HS GONSALO Administration Vitamin D 1,000 units 07/19/23 09:00 07/21/23 12:45 Cholecalciferol 1,000 Units 25 Mcg Tab PO 08/18/23 08:59 1,000 units DAILY GONSALO Administration Vortioxetine 1 each 07/20/23 09:00 07/21/23 12:49 Vortioxetine Hydrobromide PO 08/19/23 08:59 1 each DAILY GONSALO Administration Zolpidem Tartrate 10 mg 07/18/23 21:00 07/21/23 21:20 Zolpidem Tartrate 10 Mg Tab PO 08/17/23 20:59 10 mg HS GONSALO Administration
--- NOTE | 2023-07-22 07:18 | Anesthesiology Consultation ---
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 entry analyst initiated History Surgery Operation Date: 07/21/23 08:40 Proposed Procedures p Insertion of Filter and - Daniel Marquez MD s Left Lower Extremity Venogram with TPA - Daniel Marquez MD Operation Date: 07/22/23 10:30 Proposed Procedures p Left Lower Extremity Re-Check of TPA with Possible Iliac Vein Stenting - Daniel Marquez MD Height/Weight Height: 5 ft 2 in Weight: 86.6 kg Allergies Allergy/AdvReac Type Severity Reaction Status Date / Time dog dander Allergy Mild SHORTNESS Verified 03/02/18 08:33 OF BREATH cat dander Allergy Unknown SHORTNESS Verified 03/02/18 08:33 OF BREATH house dust Allergy Unknown shortness Verified 07/18/23 22:38 of breath codeine Allergy SEVERE Verified 03/02/18 08:33 ITCHING oxycodone Allergy SEVERE Verified 03/02/18 08:33 ITCHING Medications Home Medications Medication Instructions Recorded Confirmed Last Taken cholecalciferol (vitamin D3) 25 1,000 unit PO DAILY 02/26/18 07/18/23 03/01/18 19:30 mcg (1,000 unit) capsule (Vitamin D3) aspirin 81 mg tablet,delayed 81 mg PO .every other day #90 tabs 02/10/23 07/18/23 Unknown release (Enteric Coated Aspirin) bupropion HCl 150 mg 24 hr tablet, 150 mg PO QAM 02/10/23 07/18/23 Unknown extended release (Wellbutrin XL) furosemide 20 mg tablet (Lasix) 20 mg PO DAILY 02/10/23 07/18/23 Unknown memantine 10 mg tablet 10 mg PO BID 02/10/23 07/18/23 Unknown metoprolol succinate 25 mg 25 mg PO DAILY 02/10/23 07/18/23 Unknown tablet,extended release 24 hr pantoprazole 20 mg tablet,delayed 40 mg PO BID 02/10/23 07/18/23 Unknown release (Protonix) spironolactone 25 mg tablet 12.5 mg PO DAILY 02/10/23 07/18/23 Unknown tizanidine 4 mg capsule (Zanaflex) 6 mg PO HS Pain 02/10/23 07/18/23 Unknown vortioxetine 20 mg tablet 20 mg PO DAILY 02/10/23 07/18/23 Unknown (Trintellix) black cohosh 200 mg capsule 200 mg PO BID 07/18/23 07/18/23 Unknown empagliflozin 10 mg tablet 10 mg PO DAILY 07/18/23 07/18/23 Unknown (Jardiance) hydrocodone 5 mg-acetaminophen 325 5 - 325 tab PO Q6H PRN Pain (Scale 07/18/23 07/18/23 Unknown mg tablet Score 4-6) lactobacillus combination no.4 3 3,000 mmu cells PO DAILY 07/18/23 07/18/23 Unknown billion cell capsule (Probiotic) multivitamin 1 tab PO DAILY 07/18/23 07/18/23 Unknown pregabalin 100 mg capsule 100 mg PO AMHS 07/18/23 07/18/23 Unknown pregabalin 25 mg capsule 50 mg PO AMHS 07/18/23 07/18/23 Unknown sacubitril 24 mg-valsartan 26 mg 0.5 tab PO BID 07/18/23 07/18/23 Unknown tablet (Entresto) sumatriptan succinate 50 mg tablet 50 mg PO DAILY PRN Headache 07/18/23 07/18/23 Unknown zolpidem 10 mg tablet 10 mg PO HS 07/18/23 07/18/23 Unknown Active Medications Generic Name Dose Route Start Last Admin Trade Name Freq PRN Reason Stop Dose Admin Hydrocodone Bitart/Acetaminophen 1 tab 07/18/23 22:28 07/22/23 04:16 Hydrocodone/Acetamophen 5/325mg Tab PO 08/01/23 22:27 1 tab QID PRN Administration Pain Bupropion HCl 150 mg 07/18/23 16:50 07/21/23 12:45 Bupropion Xl 150 Mg Tabcr PO 08/17/23 16:49 150 mg QAM GONSALO Administration Empagliflozin 10 mg 07/18/23 16:50 07/21/23 12:45 Empagliflozin 10 Mg Tab PO 08/17/23 16:49 10 mg DAILY GONSALO Administration Furosemide 20 mg 07/19/23 09:00 07/21/23 12:45 Furosemide 20 Mg Tab PO 08/18/23 08:59 20 mg DAILY GONSALO Administration Hydromorphone HCl 0.5 mg 07/21/23 16:45 07/22/23 05:07 Hydromorphone Inj 0.5 Mg/0.5 Ml Syr IV 08/04/23 12:31 0.5 mg Q2H PRN Administration Pain Sodium Chloride 1,000 mls @ 15 mls/hr 07/21/23 08:00 07/21/23 11:06 Nss IV 08/20/23 07:59 Infused .Q24H GONSALO Infusion Alteplase, Recombinant 12 mg/ 262 mls @ 21.833 mls/hr 07/21/23 23:00 07/22/23 06:55 Sodium Chloride IV 07/22/23 11:01 1 mg/hr TODAY@2300 GONSALO 21.8 mls/hr Infusion 1 MG/HR Heparin Sodium/Dextrose 25,000 unit in 500 mls @ 12 mls/hr 07/21/23 11:00 07/22/23 06:55 Heparin Sodium/Dextrose IV 08/20/23 10:59 12 mls/hr .Q24H GONSALO Infusion Heparin Sodium/Dextrose 25,000 unit in 500 mls @ 12 mls/hr 07/21/23 23:00 07/22/23 00:13 Heparin Sodium/Dextrose IV 08/20/23 22:59 12 mls/hr .Q24H GONSALO Administration Sodium Chloride 500 mls @ 30 mls/hr 07/21/23 11:15 07/22/23 05:07 Nss IV 08/20/23 11:14 30 mls/hr .[id number] GONSALO Administration Iodixanol 50 ml 07/21/23 11:16 07/21/23 11:17 Visipaque IV 07/25/23 11:15 50 ml UD PRN Administration Interaction Checking Lactobacillus Acidophilus 2 cap 07/19/23 09:00 07/21/23 12:46 Advanced Probiotic 1250 Mg Capsule PO 08/18/23 08:59 2 cap DAILY GONSALO Administration Memantine 10 mg 07/18/23 21:00 07/21/23 21:20 Memantine Hcl 10 Mg Tab PO 08/17/23 20:59 10 mg BID GONSALO Administration Metoprolol Succinate 25 mg 07/18/23 16:50 07/21/23 12:46 Metoprolol Succ 25mg Ext Rel Tab PO 08/17/23 16:49 25 mg DAILY GONSALO Administration Multivitamins 1 tab 07/19/23 09:00 07/21/23 12:47 Multivitamin Tab PO 08/18/23 08:59 1 tab DAILY GONSALO Administration Ondansetron HCl 4 mg 07/18/23 16:50 07/21/23 09:25 Ondansetron Inj 2 Mg/Ml 2 Ml Vial IV 08/17/23 16:49 4 mg Q6H PRN Administration Nausea Pantoprazole Sodium 40 mg 07/18/23 21:00 07/21/23 21:20 Pantoprazole 40 Mg Tab PO 08/17/23 20:59 40 mg BID GONSALO Administration Polyethylene Glycol 17 gm 07/18/23 16:50 07/20/23 10:59 Polyethylene (Miralax) 17 Gm Pack PO 08/17/23 16:49 17 gm DAILY PRN Administration Constipation Pregabalin 50 mg 07/18/23 21:00 07/21/23 21:20 Pregabalin 50 Mg Cap PO 08/17/23 20:59 50 mg AMHS GONSALO Administration Pregabalin 100 mg 07/18/23 21:00 07/21/23 21:20 Pregabalin 100 Mg Cap PO 08/17/23 20:59 100 mg AMHS GONSALO Administration Sacubitril/Valsartan 0.5 tab 07/18/23 21:00 07/21/23 21:20 Valsartan/Sacubitril /24mg Tab PO 08/17/23 20:59 0.5 tab BID GONSALO Administration Senna/Docusate Sodium 1 tab 07/18/23 16:50 07/21/23 12:45 Docusate Sodium/Senna 50/8.6mg Tab PO 08/17/23 16:49 1 tab QAM GONSALO Administration Spironolactone 12.5 mg 07/18/23 16:50 07/21/23 12:48 Spironolactone 12.5 Mg Tab PO 08/17/23 16:49 12.5 mg DAILY GONSALO Administration Tizanidine HCl 6 mg 07/18/23 21:00 07/21/23 21:20 Tizanidine Hcl 4 Mg Tablet PO 08/17/23 20:59 6 mg HS GONSALO Administration Vitamin D 1,000 units 07/19/23 09:00 07/21/23 12:45 Cholecalciferol 1,000 Units 25 Mcg Tab PO 08/18/23 08:59 1,000 units DAILY GONSALO Administration Vortioxetine 1 each 07/20/23 09:00 07/21/23 12:49 Vortioxetine Hydrobromide PO 08/19/23 08:59 1 each DAILY GONSALO Administration Zolpidem Tartrate 10 mg 07/18/23 21:00 07/21/23 21:20 Zolpidem Tartrate 10 Mg Tab PO 08/17/23 20:59 10 mg HS GONSALO Administration NPO Date Last Intake of Fluids: 07/20/23 Time Last Intake of Fluids: 23:00 Date Last Intake of Solids: 07/20/23 Time Last Intake of Solids: 17:30 Past Medical History Medical History HLD (hyperlipidemia) HTN (hypertension) Hx of cardiomyopathy Chronic combined systolic and diastolic CHF (congestive heart failure) Irritable bowel syndrome (IBS) GERD (gastroesophageal reflux disease) Migraine Asthma Incomplete left bundle branch block PT HAS HAD CARDIAC WORK UP. [facility]. Past Family History Family History Denies family history of Blood clotting disorder Past Surgical History Surgical History [place] teeth extracted History of dilation and curettage History of herniorrhaphy UMBILICAL History of section History of esophagogastroduodenoscopy (EGD) History of Jay fundoplication Social History Smoking Status: Current every day smoker tobacco type: cigarettes Smoking cigarettes per day: 6-8 CIGARETTES PER DAY Do You Dip or Chew Tobacco: No Hx Alcohol Use: No Hx Substance Use: No substance use type: does not use Physical Exam Vital Signs Last Vital Signs Temp 98.6 F 07/21/23 16:00 Pulse 77 07/22/23 05:00 Resp 21 07/22/23 05:00 BP 107/53 L 07/22/23 05:00 Pulse Ox 97 07/22/23 05:00 O2 Del Method Nasal Cannula 07/21/23 18:00 O2 Flow Rate 3 07/22/23 03:46 Testing Laboratory Results 07/22/23 04:54 07/21/23 04:44 PT 10.7 Seconds (9.0-12.0) 07/18/23 09:47 INR 1.0 (0.9-1.1) 07/18/23 09:47 APTT 41 Seconds (21-31) H 07/22/23 04:54 Urine Color Yellow 07/18/23 11:24 Urine Appearance Clear (Clear) 07/18/23 11:24 Urine pH 5.5 (4.5-7.5) 07/18/23 11:24 Ur Specific [place] <= 1.005 (1.000-1.030) 07/18/23 11:24 Urine Protein Negative (Negative) 07/18/23 11:24 Urine Glucose (UA) 2+ (Negative) H 07/18/23 11:24 Urine Ketones 4+ (Negative) H 07/18/23 11:24 Urine Nitrite Negative (Negative) 07/18/23 11:24 Ur Leukocyte Esterase Negative (Negative) 07/18/23 11:24 Urine RBC 0-4 /hpf (0-4) 07/18/23 11:24 Urine WBC 0-5 /hpf (0-5) 07/18/23 11:24 Ur Epithelial Cells 20-30 /lpf (0-5) H 07/18/23 11:24 07/18/23 11:24 Urine Culture - Final Urine,Clean Catch Three types of organisms present, all low counts probable skin andrew. No further identifications or sensitivities to follow. Echocardiogram Date: 07/19/23 Mild concentric LVH LV wall motion is normal EF 60-65% RV is normal in size and function Doppler findings do not suggest pulmonary HTN There is no significant valvular pathology
--- NOTE | 2023-07-22 08:24 | Critical Care Progress Note ---
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 Patient currently requiring tPA drip through the LEFT lower extremity. Patient to be monitored closely in the setting of anticoagulation therapies. NEURO - * CAM ICU: NEGATIVE * Pain: * Continues with complaint of chronic low back pain and mild association of pain to the LEFT lower extremity. * Defer further pain management to the patient's primary surgical team. CARDIAC/VASCULAR - * May Thurner syndrome, LEFT Lower extremity: * Acute finding of extensive DVT of the LEFT lower extremity. Patient underwent vascular invention today and had IVC filter placed. She is currently on a heparin drip and is receiving intravascular tPA localized to the affected extremity. Will defer ongoing management to the patient's primary service. * Monitor for signs/symptoms of bleeding in the setting of vascular invention with ongoing anticoagulation. * Monitor peripheral pulses closely per unit protocol. * Planned follow-up venogram today. * Hypertension/hyperlipidemia/Nonischemic cardiomyopathy/LBBB: * Continue with patient's ASCVD Rx per typical. * Monitor on telemetry. RESPIRATORY - * History of tobacco abuse: * Encourage smoking cessation. * RADHA: * Continue home CPAP settings. GI/NUTRITION - * Diet per surgery as she may go back to the OR tomorrow. RENAL/LYTES - * No significant electrolyte derangement. - * Quiles in place - Strict I&Os. ENDO - * No h/o DM or thyroid Dz * BSGs per unit protocol. ISS --> gtt per unit policy. HEME - * Monitor for s/s bleeding in the setting of Heparin gtt and localized TPA therapy. ID - * No concern for infectious contribution at this time. LINES/IV ACCESS - * PIVs x2 * Quiles * LLE Sheath in place DVT PROPHYLAXIS - * Currently on Heparin gtt. * SCDs I have personally spent 32 minutes of critical care time in the direct management of this patient. This is a life/limb threatening event. This includes time spent evaluating patient, direct bedside care, chart review, placing orders, interpretation of diagnostic studies, discussion with consultants, patient, and family members, as well as other required patient management activities. This time is exclusive of all separately billable procedures, and teaching time and separate from and in addition to any other critical care service time. Thank you for allowing us to participate in the care of this patient. Please refer to my attending physician's documentation for any further recommendations. Admission and Anticipated Discharge Date Admission Date: July 18, 2023 Supervising Physician Co-Signing Physician Notes Patient seen and examined. EMR reviewed. Discussed with critical care BART and agree with assessment and plan as noted. Discussed with vascular surgery. Patient is now status post mechanical thrombectomy with angioplasty and stenting of the left iliac vein. She is no longer receiving tPA. Disposition is per vascular surgery. Critical care issues have resolved. Critical care services will sign off. Feel free to contact us with questions or concerns Subjective Patient seen and evaluated at bedside. Complains of some mild discomfort to the associated LEFT leg. Primary complaint is ongoing back pain and pain control issues. No events overnight. Review of Systems Review of Systems: A complete 10 point review of systems was reviewed with the patient with pertinent positives and negatives as per history of present illness. All else were negative. Physical Exam Physical Exam: VITAL SIGNS - Vital signs and nursing notes were reviewed. GENERAL - 53-year-old female appearing her stated age who is in no acute distress. Communicates well with provider and answers questions appropriately. SKIN - Without rashes. Dressings to the LEFT lower extremity clean, dry, and intact. LUNGS - Chest wall symmetric without accessory muscle use, intercostals retractions, or central cyanosis. Normal vesicular breath sounds CTA B/L. No wheezes, rales, or rhonchi appreciated. CARDIAC - RRR with S1/S2. No murmur, rubs, or gallops appreciated. ABDOMEN - Abdominal contour obese without pulsations or visible masses. BS normoactive all four quadrants. No tenderness, palpable masses, hepatosplenomegaly, or ascites noted. EXTREMITIES - No clubbing or peripheral cyanosis. No pretibial edema present. Dopplerable pulses throughout all extremities. NEUROLOGIC - Cranial nerves II through XII grossly intact. PSYCH - A&Ox3 and cooperates fully with examiner. Results & Data Results & Data Vital Signs (Past 12 Hours) Vital Signs Pulse Resp BP Pulse Ox O2 Flow Rate 07/22/23 05:00 77 21 97 07/22/23 05:00 107/53 L 07/22/23 04:30 75 16 98 07/22/23 04:00 72 16 96 07/22/23 04:00 99/52 L 07/22/23 03:46 78 15 97 3 07/22/23 03:30 74 16 97 07/22/23 03:00 73 14 97 07/22/23 03:00 87/45 L 07/22/23 02:30 85 29 H 99 07/22/23 02:00 102/45 L 07/22/23 02:00 70 16 98 07/22/23 01:00 90/48 L 07/22/23 01:00 73 19 98 07/22/23 00:00 87/49 L 07/22/23 00:00 74 17 96 07/21/23 23:54 75 14 97 3 07/21/23 23:30 74 17 95 07/21/23 23:01 77 17 97 07/21/23 23:01 86/43 L 07/21/23 23:00 79/45 L 07/21/23 23:00 80 12 97 07/21/23 22:30 91 H 18 96 07/21/23 22:30 97/55 L 07/21/23 22:00 82 20 99 07/21/23 22:00 99/60 L 07/21/23 21:30 84 19 100 07/21/23 21:30 121/67 07/21/23 21:00 116/56 L 07/21/23 21:00 78 14 97 07/21/23 20:30 77 19 100 07/21/23 20:30 110/53 L Coding Level of Care Code 52728 SUB INP/OBS CARE 2/35MIN Diagnoses Deep venous thrombosis of left iliac vein I82.422 May-Thurner syndrome I87.1 Chronic pain G89.29 Edema of left lower extremity R60.0 Fibromyalgia M79.7 HTN (hypertension) I10 HLD (hyperlipidemia) E78.5 Chronic combined systolic and diastolic CHF (congestive heart failure) I50.42 Anxiety and depression F41.9; F32.A
[2023-07-22] MEDS ORDERED: PROPOFOL IV EMULSION 10 MG/ML 20 ML VIAL IV ONE ×3 (09:33→12:02)
[2023-07-22] MEDS ORDERED: MIDAZOLAM HCL 1 MG/ML 2ML VIAL ONE (09:33)
[2023-07-22] MEDS ORDERED: LIDOCAINE 2% 2 ML VIAL/AMP(20MG/ML) INFIL ONE (09:33)
[2023-07-22] MEDS ORDERED: fentaNYL citrate PF 100 MCG/2 ML VIAL ONE (09:34)
--- NOTE | 2023-07-22 09:46 | History & Physical Bridge Note ---
Date of Service July 22, 2023 History & Physical Bridge Note Patient for recheck for tpa and possible intervention today. I have discussed the risks options and benefits of the procedure with the patient. The patient understands the risks options and benefits and agrees to the procedure. I have examined the patient, reviewed the History & Physical and in the interval since the performance of the History & Physical I have noted the following changes of clinical significance: no changes noted
[2023-07-22 10:09] LABS: Basophils # (auto) 0.02 K/uL (0.00-0.20); Basophils % (auto) 0.3 %; Eosinophils # (auto) 0.16 K/uL (0.00-0.50); Hematocrit (blood only) 34.9 % (37.0-47.0); Hemoglobin 11.6 g/dl (12.0-16.0); Immature Granulocytes # (auto) 0.03 K/uL (0.01-0.20); Immature Granulocytes % (auto) 0.4 %; Lymphocytes # (auto) 1.69 K/uL (1.20-3.40); Lymphocytes % (auto) 21.6 %; Mean Corpuscular Hemoglobin 29.8 pg (25.0-34.0); Mean Corpuscular Hgb Conc 33.2 g/dL (32.0-36.0); Mean Corpuscular Volume 89.7 fL (80.0-100.0); Mean Platelet Volume 10.3 fL (9.4-12.4); Monocytes % (auto) 8.9 %; Neutrophils # (auto) 5.24 K/uL (1.40-6.50); Neutrophils % (auto) 66.8 %; Platelet Count 207 K/uL (130-400); RDW Coefficient of Variation 13.9 % (11.5-14.5); RDW Standard Deviation 45.4 fL (36.4-46.3); Red Blood Count 3.89 M/uL (4.20-5.40); White Blood Count 7.84 K/ul (4.8-10.8)
[2023-07-22] MEDS: HYDROcodone/ACETAMINOPHEN 10/325 TAB PO STA (10:15)
[2023-07-22 10:39] LABS: Partial Thromboplastin Ratio 1.6; Partial Thromboplastin Time 44 Seconds (21-31)
[2023-07-22] MEDS ORDERED: HYDROmorphone INJ 0.5 MG/0.5 ML SYR IV PRN (10:43)
[2023-07-22] MEDS: ceFAZolin 2000MG 2,000 MG/15 ML SYR IV ONE (10:50)
[2023-07-22] MEDS ORDERED: HEPARIN SOD (PORCINE) 1000 UNIT/ML ONE (11:37)
[2023-07-22] MEDS: LIDOCAINE 1% LOCAL 20 ML VIAL ONE (12:22)
[2023-07-22] MEDS ORDERED: VISIPAQUE IV PRN (12:22)
--- NOTE | 2023-07-22 12:32 | Post Operative Brief Note ---
Immediate Post Op Note v1 Date of Surgery July 22, 2023 Pre & Post Diagnosis Operation Date: 07/22/23 10:30 Pre-Op Diagnosis: LLE DVT/ october thurner Post-Op Diagnosis: LLE DVT/ october thurner I identified the patient and participated in the time-out.: Yes Procedure Operation Date: 07/22/23 10:30 Actual Procedures p TPA Re-Check and Completion, Mechanical Thrombectomy, Pecutaneous Translunial Angioplasty and Stenting of L Iliac Vein(Left) - Daniel Marquez MD Surgeon Daniel Marquez MD Data Operations Director none Estimated Blood Loss 10 Findings Consistent with Post-Op Diagnosis Drains Quiles Catheter Anesthesia Type MAC Complications none Disposition Accompanied Patient To Recovery: No Disposition: Recovery Room
[2023-07-22] MEDS ORDERED: Heparin IV Adult Wt-Based Standard *NO* INITIAL Bolus Protocol IV STA (12:41)
[2023-07-22] MEDS ORDERED: Heparin IV Adult Wt-Based Standard *NO* INITIAL Bolus Protocol IV SCH (12:45)
[2023-07-22] MEDS: HYDROCODONE/ACETAMOPHEN 5/325MG TAB PO PRN (12:55)
[2023-07-22] MEDS: SODIUM CHLORIDE 0.9% 1,000 ML IV SCH (13:07)
[2023-07-22] MEDS: HYDROmorphone INJ 0.5 MG/0.5 ML SYR IV STA (13:36)
[2023-07-22] MEDS: HEPARIN SODIUM/DEXTROSE 25,000 UNITS/500 ML BAG IV SCH (13:44)
[2023-07-22] MEDS ORDERED: Nursing to Pharmacy Communication SCH (13:45)
[2023-07-22] MEDS: HEPARIN SOD (PORCINE) 1000 UNIT/ML ONE (13:46)
--- NOTE | 2023-07-22 15:10 | Anesthesiology Progress Note ---
Date of Service July 22, 2023 Anesthesia Post Procedure Vital Signs Vital Signs: Temp Pulse Pulse Pulse Resp BP BP 07/22/23 14:32 96/42 L 07/22/23 14:32 73 07/22/23 14:30 88/46 L 07/22/23 14:30 66 07/22/23 14:00 96/54 L 07/22/23 14:00 63 07/22/23 13:50 73 14 07/22/23 13:50 108/51 L 07/22/23 13:40 114/50 L 07/22/23 13:40 65 16 07/22/23 13:30 64 10 L 07/22/23 13:30 122/55 L 07/22/23 13:20 120/63 07/22/23 13:20 67 10 L 07/22/23 13:11 71 22 07/22/23 13:11 115/79 07/22/23 13:10 73 14 07/22/23 13:00 87 23 07/22/23 13:00 128/69 07/22/23 13:00 80 20 07/22/23 12:51 136/69 07/22/23 12:51 07/22/23 12:50 80 22 136/69 07/22/23 10:00 102/52 L 07/22/23 10:00 81 18 07/22/23 09:30 78 14 07/22/23 09:00 36.6 C 07/22/23 09:00 37 C 78 18 111/53 L 07/22/23 09:00 111/53 L 07/22/23 09:00 69 17 07/22/23 08:37 80 07/22/23 08:37 07/22/23 08:30 71 17 07/22/23 08:08 99/52 L 07/22/23 08:08 74 13 07/22/23 08:00 95/42 L 07/22/23 08:00 74 18 07/22/23 07:30 73 13 07/22/23 07:00 71 13 07/22/23 07:00 98/51 L 07/22/23 05:00 77 21 07/22/23 05:00 107/53 L 07/22/23 04:30 75 16 07/22/23 04:00 72 16 07/22/23 04:00 99/52 L 07/22/23 03:46 78 15 07/22/23 03:30 74 16 07/22/23 03:00 73 14 07/22/23 03:00 87/45 L 07/22/23 02:30 85 29 H 07/22/23 02:00 102/45 L 07/22/23 02:00 70 16 07/22/23 01:00 90/48 L 07/22/23 01:00 73 19 07/22/23 00:00 87/49 L 07/22/23 00:00 74 17 07/21/23 23:54 75 14 07/21/23 23:30 74 17 07/21/23 23:01 77 17 07/21/23 23:01 86/43 L 07/21/23 23:00 79/45 L 07/21/23 23:00 80 12 07/21/23 22:30 91 H 18 07/21/23 22:30 97/55 L 07/21/23 22:00 82 20 07/21/23 22:00 99/60 L 07/21/23 21:30 84 19 07/21/23 21:30 121/67 07/21/23 21:00 116/56 L 07/21/23 21:00 78 14 07/21/23 20:30 77 19 07/21/23 20:30 110/53 L 07/21/23 20:00 76 15 07/21/23 20:00 111/47 L 07/21/23 19:30 80 20 07/21/23 19:30 126/61 07/21/23 19:00 78 17 07/21/23 19:00 100/56 L 07/21/23 18:00 74 15 104/51 L 07/21/23 17:01 68 19 113/63 07/21/23 16:30 89 24 136/64 07/21/23 16:00 69 14 121/64 07/21/23 16:00 37.0 C 07/21/23 15:30 65 15 113/60 Pulse Ox O2 Del Method O2 Flow Rate 07/22/23 14:32 07/22/23 14:32 99 07/22/23 14:30 07/22/23 14:30 98 07/22/23 14:00 07/22/23 14:00 98 07/22/23 13:50 93 07/22/23 13:50 07/22/23 13:40 07/22/23 13:40 94 07/22/23 13:30 91 07/22/23 13:30 07/22/23 13:20 07/22/23 13:20 99 07/22/23 13:11 93 07/22/23 13:11 07/22/23 13:10 87 L 07/22/23 13:00 100 07/22/23 13:00 07/22/23 13:00 07/22/23 12:51 07/22/23 12:51 100 07/22/23 12:50 98 Room Air 07/22/23 10:00 07/22/23 10:00 97 07/22/23 09:30 100 07/22/23 09:00 07/22/23 09:00 100 Nasal Cannula 2 07/22/23 09:00 07/22/23 09:00 100 07/22/23 08:37 07/22/23 08:37 Room Air 07/22/23 08:30 99 07/22/23 08:08 07/22/23 08:08 90 07/22/23 08:00 07/22/23 08:00 92 07/22/23 07:30 96 07/22/23 07:00 98 07/22/23 07:00 07/22/23 05:00 97 07/22/23 05:00 07/22/23 04:30 98 07/22/23 04:00 96 07/22/23 04:00 07/22/23 03:46 97 3 07/22/23 03:30 97 07/22/23 03:00 97 07/22/23 03:00 07/22/23 02:30 99 07/22/23 02:00 07/22/23 02:00 98 07/22/23 01:00 07/22/23 01:00 98 07/22/23 00:00 07/22/23 00:00 96 07/21/23 23:54 97 3 07/21/23 23:30 95 07/21/23 23:01 97 07/21/23 23:01 07/21/23 23:00 07/21/23 23:00 97 07/21/23 22:30 96 07/21/23 22:30 07/21/23 22:00 99 07/21/23 22:00 07/21/23 21:30 100 07/21/23 21:30 07/21/23 21:00 07/21/23 21:00 97 07/21/23 20:30 100 07/21/23 20:30 07/21/23 20:00 99 07/21/23 20:00 07/21/23 19:30 98 07/21/23 19:30 07/21/23 19:00 98 07/21/23 19:00 07/21/23 18:00 97 Nasal Cannula 2 07/21/23 17:01 100 Room Air 07/21/23 16:30 95 Room Air 07/21/23 16:00 93 Room Air 07/21/23 16:00 07/21/23 15:30 93 Room Air Pain Intensity Left Leg: Pain Intensity: 7 Back: Pain Intensity: 9 Transfer of Care Handoff Completed per policy Notes Mental Status: alert / awake / arousable and participated in evaluation Patient Amnestic to Procedure: Yes Nausea / Vomiting: adequately controlled Pain: adequately controlled Airway Patency, RR, SpO2: stable & adequate BP & HR: stable & adequate Hydration State: stable & adequate Anesthetic Complications: no major complications apparent and Pt Satisfied with anesthetic care
[2023-07-22 20:29] LABS: ANTI-Xa, UFH(UnfractionatedHep < 0.10 IU/ml (0.3-0.7)
[2023-07-22] MEDS ORDERED: ERYTHROMYCIN OP OINT 5 MG/GM 3.5 GM TUBE OP SCH (21:00)
[2023-07-22] MEDS: HEPARIN SOD (PORCINE) 1000 UNIT/ML IV ONE (21:27)
[2023-07-22] MEDS: BACITRACIN/POLYMYX B OPH OINT 3.5 GM TUBE OP SCH (21:38)
[2023-07-23] MEDS: SODIUM CHLORIDE 0.9% 500 ML IV SCH (00:51)
[2023-07-23 04:19] LABS: Hematocrit (blood only) 29.5 % (37.0-47.0); Hemoglobin 9.8 g/dl (12.0-16.0)
[2023-07-23 04:34] LABS: Calcium 7.6 mg/dl (8.6-10.3); Creatinine Clr Calc Pharmacy 115.9 ml/min; Est GFR (African American) 122.8 ml/min; Magnesium 1.7 mg/dl (1.7-2.4); Phosphorus 2.7 mg/dl (2.5-4.9); Potassium 3.6 mmol/L (3.5-5.1)
[2023-07-23 04:37] LABS: ANTI-Xa, UFH(UnfractionatedHep 0.18 IU/ml (0.3-0.7)
[2023-07-23] MEDS: HEPARIN SOD (PORCINE) 1000 UNIT/ML IV ONE (04:53)
[2023-07-23 11:24] LABS: ANTI-Xa, UFH(UnfractionatedHep 0.22 IU/ml (0.3-0.7)
--- NOTE | 2023-07-23 11:55 | Electrocardiogram Report ---
Test Reason : Blood Pressure : / mmHG Vent. Rate : 075 BPM Atrial Rate : 075 BPM P-R Int : 130 ms QRS Dur : 108 ms QT Int : 410 ms P-R-T Axes : 058 051 020 degrees QTc Int : 457 ms Normal sinus rhythm Incomplete left bundle block Borderline ECG When compared with ECG of 05-JUN-2007 19:44, Incomplete left bundle block is now Present Confirmed by Shantanu Choe ([id number]) on 07/23/2023 11:54:50 AM Referred By: REFERRED SELF Confirmed By:Shantanu Choe
--- NOTE | 2023-07-23 14:09 | Hospitalist Progress Note ---
Date of Service July 23, 2023 Assessment & Plan (1) May-Thurner syndrome: (2) Deep venous thrombosis of left iliac vein: (3) Chronic combined systolic and diastolic CHF (congestive heart failure): (4) HTN (hypertension): (5) HLD (hyperlipidemia): Plan Ms. De La Cruz is a 53-year-old female who has significant past medical history of nonischemic cardiomyopathy, combined systolic and diastolic CHF, LBBB, HTN, HLD, history of varicose veins status post ablation, RADHA, asthma, fibromyalgia, DDD, history of migraines, tobacco abuse, medical marijuana card for fibromyalgia, depression with anxiety and insomnia who presented to ED on 07/18 secondary to severe left lower extremity pain.Patient underwent venogram and started on tPA infusion after a prophylactic IVC filter placed on 07/21. Patient transferred to ICU for close monitoring during ongoing anticoagulation with tPA drip via LLE --Venous Duplex: There is a deep venous thrombus involving the common femoral vein, great saphenous vein, and proximal superficial femoral vein. There is also a thrombus in one of 2 paired posterior tibial veins. --CT a/p: IMPRESSION:Thrombus of the left common iliac vein and its distal branches compatible with May-Thurner syndrome. Associated soft tissue swelling is seen. Patient now s/p mechanical thrombectomy and angioplasty of L iliac vein as of 07/22. Patient with hypotension overnight, requiring multiple GDMT agents to be held. #Extensive DVT L common iliac vein, L common femoral vein, L greater saphenous vein, proximal superficial femoral vein and thrombus in 1 of 2 paired posterior tibial veins #May Thurner Syndrome Initially started on heparin drip, remains hemodynamically stable 07/21: Now s/p insertion of Vena Cava Filter via right Jugular Approach -Left Lower Extremity Venogram, Ultrasound Localization of Left Popliteal Vein, Insertion of Infusion Catheter for Thrombolysis, Initiation of Thrombolytic Therapy Continue heparin drip tPA infusion per Vascular recommendations -plan for Left Lower Extremity Re-Check of TPA with Possible 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- will need intermediate anticoagulation, OP follow up Hematology for hypercoagulable work up in approximately 3 months -DOAC or lovenox: sending Eliquis to pharmacy to assess cost Follow up post stent recommendations, PT/OT when able #Nonischemic cardiomyopathy #Combined systolic and diastolic CHF #Chronic LBBB Currently euvolemic Echocardiogram: Left ventricular wall motion is normal LV ejection fraction 60-65% Right ventricle is normal in size and function Doppler findings do not suggest pulm hypertension No significant valvular pathology Continue GDMT -Metoprolol xL 25mg daily -Furosemide 20mg daily: held 2/2 hypotension -Entresto 0.5 tab BID: held 2/2 hypotension -Aldactone 12.5mg daily: held 2/2 hypotension -Jardiance 10mg daily Cardiology consulted to discuss optimization of GDMT iso concerns of ongoing hypotension reported prior to admission #HTN #HLD Chronic, stable Follows [facility] On GDMT including metoprolol, Aldactone, Entresto, Jardiance, lasix holding furosemide, entresto, aldactone 2/2 hypotension #Abnormal MRI brain #Known R frontal Meningoma #Memory impairment Followed Dr. Tobias in 01/2023 Chronic ischemic microvascular changes on MRI noted Consider resumption of ASA 81mg daily upon discharge Continue nymenda 10mg BID #RADHA Cpap at HS #Fibromyalgia continue lyrica, namenda uses medical marijuana prn at home chronic, stable #Insomnia ambien 10mg HS, prn melatonin is her home regimen chronic, stable #Depression with anxiety continue Vortioxetine, bupropion #GERD Contnue PPI BID Quiles in place, void trial when ambulatory DVT ppx: IV heparin Dispo: anticipate d/c home when medically stable PCP: Gomez Admission and Anticipated Discharge Date Admission Date: July 18, 2023 Subjective Tearful this morning. Notes stress regarding ongoing hypotension, but being told that it is acceptable and worries about missing heartfailure medications Discussed NPO status over couple of days as well as pressures in 70s is a reason to hold and to discuss medication adjustments--reasonably so requesting to talk with Cardiology as pressures even at home are often in 80s per patient's report Worries about job functionality and financial constraints Physical Exam Constitutional: WD/WN, vitals as above Neck: right jugular cut down site with clean gauze and dressing in place Respiratory: normal respiratory effort, lungs clear to auscultation Cardiovascular: RRR, no murmur, no edema Gastrointestinal (Abdomen): soft, slight distention Results & Data Results & Data Vital Signs (Past 12 Hours) Vital Signs Temp Pulse Pulse Pulse Resp BP Pulse Ox 07/23/23 11:22 36.7 C 78 18 101/54 L 96 07/23/23 09:22 70 91/57 L 07/23/23 07:48 70 94/58 L 98 07/23/23 07:36 36.5 C 70 18 88/46 L 97 07/23/23 03:47 70 12 94 07/23/23 02:57 71 103/57 L O2 Del Method 07/23/23 11:22 Room Air 07/23/23 09:22 07/23/23 07:48 Room Air 07/23/23 07:36 Room Air 07/23/23 03:47 07/23/23 02:57 Laboratory Results Short CBC 07/23/23 Range/Units 03:36 Hgb 9.8 L (12.0-16.0) g/dl Hct 29.5 L (37.0-47.0) % BMP 07/23/23 03:36 Sodium 138 Potassium 3.6 Chloride 105 Carbon Dioxide 26 BUN 11 Creatinine 0.58 L Glucose 94 Calcium 7.6 L Medications Administered Home Medications Medication Instructions Recorded Confirmed Last Taken cholecalciferol (vitamin D3) 25 1,000 unit PO DAILY 02/26/18 07/18/23 03/01/18 19:30 mcg (1,000 unit) capsule (Vitamin D3) aspirin 81 mg tablet,delayed 81 mg PO .every other day #90 tabs 02/10/23 07/18/23 Unknown release (Enteric Coated Aspirin) bupropion HCl 150 mg 24 hr tablet, 150 mg PO QAM 02/10/23 07/18/23 Unknown extended release (Wellbutrin XL) furosemide 20 mg tablet (Lasix) 20 mg PO DAILY 02/10/23 07/18/23 Unknown memantine 10 mg tablet 10 mg PO BID 02/10/23 07/18/23 Unknown metoprolol succinate 25 mg 25 mg PO DAILY 02/10/23 07/18/23 Unknown tablet,extended release 24 hr pantoprazole 20 mg tablet,delayed 40 mg PO BID 02/10/23 07/18/23 Unknown release (Protonix) spironolactone 25 mg tablet 12.5 mg PO DAILY 02/10/23 07/18/23 Unknown tizanidine 4 mg capsule (Zanaflex) 6 mg PO HS Pain 02/10/23 07/18/23 Unknown vortioxetine 20 mg tablet 20 mg PO DAILY 02/10/23 07/18/23 Unknown (Trintellix) black cohosh 200 mg capsule 200 mg PO BID 07/18/23 07/18/23 Unknown empagliflozin 10 mg tablet 10 mg PO DAILY 07/18/23 07/18/23 Unknown (Jardiance) hydrocodone 5 mg-acetaminophen 325 5 - 325 tab PO Q6H PRN Pain (Scale 07/18/23 07/18/23 Unknown mg tablet Score 4-6) lactobacillus combination no.4 3 3,000 mmu cells PO DAILY 07/18/23 07/18/23 Unknown billion cell capsule (Probiotic) multivitamin 1 tab PO DAILY 07/18/23 07/18/23 Unknown pregabalin 100 mg capsule 100 mg PO AMHS 07/18/23 07/18/23 Unknown pregabalin 25 mg capsule 50 mg PO AMHS 07/18/23 07/18/23 Unknown sacubitril 24 mg-valsartan 26 mg 0.5 tab PO BID 07/18/23 07/18/23 Unknown tablet (Entresto) sumatriptan succinate 50 mg tablet 50 mg PO DAILY PRN Headache 07/18/23 07/18/23 Unknown zolpidem 10 mg tablet 10 mg PO HS 07/18/23 07/18/23 Unknown Active Medications Generic Name Dose Route Start Last Admin Trade Name Freq PRN Reason Stop Dose Admin Hydrocodone Bitart/Acetaminophen 2 tab 07/22/23 10:43 07/23/23 09:23 Hydrocodone/Acetamophen 5/325mg Tab PO 08/01/23 22:27 2 tab Q6H PRN Administration Moderate Pain (Scale 4, 5, 6) Bacitracin/Polymyxin B Sulfate 1 appln 07/22/23 21:00 07/23/23 09:14 Bacitracin/Polymyx B Oph Oint 3.5 Gm Tube OP 08/01/23 20:59 1 appln QID GONSALO Administration Bupropion HCl 150 mg 07/18/23 16:50 07/23/23 09:14 Bupropion Xl 150 Mg Tabcr PO 08/17/23 16:49 150 mg QAM GONSALO Administration Empagliflozin 10 mg 07/18/23 16:50 07/23/23 09:16 Empagliflozin 10 Mg Tab PO 08/17/23 16:49 10 mg DAILY GONSALO Administration Furosemide 20 mg 07/19/23 09:00 07/22/23 13:04 Furosemide 20 Mg Tab PO 08/18/23 08:59 20 mg DAILY GONSALO Administration Heparin Sodium/Dextrose 25,000 units in 500 mls @ 20 mls/hr 07/22/23 12:45 07/23/23 11:27 Heparin Sodium/Dextrose IV 08/21/23 12:44 1,000 unit/hr .Q24H GONSALO 20 mls/hr Titration Protocol 1,000 UNIT/HR Lactobacillus Acidophilus 2 cap 07/19/23 09:00 07/23/23 09:17 Advanced Probiotic 1250 Mg Capsule PO 08/18/23 08:59 2 cap DAILY GONSALO Administration Memantine 10 mg 07/18/23 21:00 07/23/23 09:16 Memantine Hcl 10 Mg Tab PO 08/17/23 20:59 10 mg BID GONSALO Administration Metoprolol Succinate 25 mg 07/18/23 16:50 07/23/23 09:22 Metoprolol Succ 25mg Ext Rel Tab PO 08/17/23 16:49 Not Given DAILY GONSALO Multivitamins 1 tab 07/19/23 09:00 07/23/23 09:15 Multivitamin Tab PO 08/18/23 08:59 1 tab DAILY GONSALO Administration Ondansetron HCl 4 mg 07/18/23 16:50 07/21/23 09:25 Ondansetron Inj 2 Mg/Ml 2 Ml Vial IV 08/17/23 16:49 4 mg Q6H PRN Administration Nausea Pantoprazole Sodium 40 mg 07/18/23 21:00 07/23/23 09:15 Pantoprazole 40 Mg Tab PO 08/17/23 20:59 40 mg BID GONSALO Administration Polyethylene Glycol 17 gm 07/18/23 16:50 07/20/23 10:59 Polyethylene (Miralax) 17 Gm Pack PO 08/17/23 16:49 17 gm DAILY PRN Administration Constipation Pregabalin 50 mg 07/18/23 21:00 07/23/23 09:23 Pregabalin 50 Mg Cap PO 08/17/23 20:59 50 mg AMHS GONSALO Administration Pregabalin 100 mg 07/18/23 21:00 07/23/23 09:23 Pregabalin 100 Mg Cap PO 08/17/23 20:59 100 mg AMHS GONSALO Administration Sacubitril/Valsartan 0.5 tab 07/18/23 21:00 07/22/23 21:37 Valsartan/Sacubitril 26/24mg Tab PO 08/17/23 20:59 0.5 tab BID GONSALO Administration Senna/Docusate Sodium 1 tab 07/18/23 16:50 07/23/23 09:23 Docusate Sodium/Senna 50/8.6mg Tab PO 08/17/23 16:49 1 tab QAM GONSALO Administration Spironolactone 12.5 mg 07/18/23 16:50 07/22/23 13:05 Spironolactone 12.5 Mg Tab PO 08/17/23 16:49 12.5 mg DAILY GONSALO Administration Tizanidine HCl 6 mg 07/18/23 21:00 07/22/23 21:36 Tizanidine Hcl 4 Mg Tablet PO 08/17/23 20:59 6 mg HS GONSALO Administration Vortioxetine 1 each 07/20/23 09:00 07/23/23 09:16 Vortioxetine Hydrobromide PO 08/19/23 08:59 1 each DAILY GONSALO Administration Zolpidem Tartrate 10 mg 07/18/23 21:00 07/22/23 21:36 Zolpidem Tartrate 10 Mg Tab PO 08/17/23 20:59 10 mg HS GONSALO Administration
--- NOTE | 2023-07-23 14:22 | Surgery Progress Note ---
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 She is doing well post procedure. She will need to go on oral anticoagulation. If she elects to go on coumadin, she will have to stay on heparin until she is therapeutic with an INR around 2.5. We will see her in the office in two weeks post d/c (2) Acute blood loss anemia: Plan: Her drop in hgb is most likely from blood loss during the tpa infusion and dilutional effect from the fluids. Serial hgb to be followed. Admission and Anticipated Discharge Date Admission Date: July 18, 2023 Subjective Patient with discomfort in left groin and lower pelvis and behind left knee, but improving. Physical Exam Constitutional: WD/WN, vitals as above Respiratory: normal respiratory effort, lungs clear to auscultation Cardiovascular: Rate/Rhythm: regular rate and regular rhythm Musculoskeletal: left leg soft, still slightly swollen when compared to right. Psychiatric: Orientation: alert and oriented x 3 Results & Data Vital Signs (Past 12 Hours) Vital Signs Temp Pulse Pulse Pulse Resp BP Pulse Ox 07/23/23 11:22 36.7 C 78 18 101/54 L 96 07/23/23 09:22 70 91/57 L 07/23/23 07:48 70 94/58 L 98 07/23/23 07:36 36.5 C 70 18 88/46 L 97 07/23/23 03:47 70 12 94 07/23/23 02:57 71 103/57 L O2 Del Method 07/23/23 11:22 Room Air 07/23/23 09:22 07/23/23 07:48 Room Air 07/23/23 07:36 Room Air 07/23/23 03:47 07/23/23 02:57
--- NOTE | 2023-07-23 17:33 | Cardiology Consultation ---
Date of Consultation July 23, 2023 Assessment & Plan (1) Nonischemic cardiomyopathy: As noted, patient has a history of a nonischemic cardiomyopathy in the setting of an incomplete left bundle branch block, LVEF in August, was 45%, and normalized in January,. Echocardiogram performed this hospital stay revealed LVEF in the range of 60 to 65%. Patient receiving therapy for significant left lower extremity DVT as noted. Continue anticoagulation. Mild anemia noted with having had several endovascular procedures. Continue anticoagulation. Patient had already been experiencing low blood pressure at home as of recently. For now I think it is reasonable to hold her furosemide, Entresto, spironolactone. Continue metoprolol succinate 25 mg daily. At discharge, would hold her spironolactone, and may have even her furosemide. Will reassess the candidacy for resuming Entresto as necessary. History of Present Illness Attending Physician: Catherine Abreu MD History of Present Illness Mily De La Cruz is a 53-year-old female seen in cardiology consultation per the request of Dr Abreu for the evaluation of hypertension. The patient is well-known to the undersigned with a history of a nonischemic cardiomyopathy and left bundle branch block, LVEF 45% on echocardiogram performed August,. A cardiac CT was subsequently performed in Oct, 2022 for further evaluation with a calcium score of 0, and no significant coronary atherosclerosis noted. She had been placed on medication therapy and her ejection fraction as of January, was within normal limits with LVEF in the range of 55 to 59% on repeat echocardiogram. Patient presented on 07/18/2023 with left lower extremity edema was found to have a large deep venous thrombosis involving the common femoral vein, greater saphenous vein, and proximal superficial femoral vein, as well as a thrombus in 1 of 2 paired posterior tibial veins. 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 Cardiology was consulted due to concerns of hypotension, with a blood pressure at 12:22 AM of 76/42, and several readings with systolic blood pressures in the 80s to 90s. Her most recent blood pressures improved, 102/51. Patient states that she has been having dizziness at home. She showed me her home blood pressure log which is on her mobile phone and she has had multiple recent systolic blood pressures in the 80s. Allergies Allergy/AdvReac Type Severity Reaction Status Date / Time dog dander Allergy Mild SHORTNESS Verified 03/02/18 08:33 OF BREATH cat dander Allergy Unknown SHORTNESS Verified 03/02/18 08:33 OF BREATH house dust Allergy Unknown shortness Verified 07/18/23 22:38 of breath codeine Allergy SEVERE Verified 03/02/18 08:33 ITCHING oxycodone Allergy SEVERE Verified 03/02/18 08:33 ITCHING Home Medications Medication Instructions Recorded Confirmed Type cholecalciferol (vitamin D3) 25 1,000 unit PO DAILY 02/26/18 07/18/23 History mcg (1,000 unit) capsule (Vitamin D3) aspirin 81 mg tablet,delayed 81 mg PO .every other day #90 tabs 02/10/23 07/18/23 Rx release (Enteric Coated Aspirin) bupropion HCl 150 mg 24 hr tablet, 150 mg PO QAM 02/10/23 07/18/23 History extended release (Wellbutrin XL) furosemide 20 mg tablet (Lasix) 20 mg PO DAILY 02/10/23 07/18/23 History memantine 10 mg tablet 10 mg PO BID 02/10/23 07/18/23 History metoprolol succinate 25 mg 25 mg PO DAILY 02/10/23 07/18/23 History tablet,extended release 24 hr pantoprazole 20 mg tablet,delayed 40 mg PO BID 02/10/23 07/18/23 History release (Protonix) spironolactone 25 mg tablet 12.5 mg PO DAILY 02/10/23 07/18/23 History tizanidine 4 mg capsule (Zanaflex) 6 mg PO HS Pain 02/10/23 07/18/23 History vortioxetine 20 mg tablet 20 mg PO DAILY 02/10/23 07/18/23 History (Trintellix) black cohosh 200 mg capsule 200 mg PO BID 07/18/23 07/18/23 History empagliflozin 10 mg tablet 10 mg PO DAILY 07/18/23 07/18/23 History (Jardiance) hydrocodone 5 mg-acetaminophen 325 5 - 325 tab PO Q6H PRN Pain (Scale 07/18/23 07/18/23 History mg tablet Score 4-6) lactobacillus combination no.4 3 3,000 mmu cells PO DAILY 07/18/23 07/18/23 History billion cell capsule (Probiotic) multivitamin 1 tab PO DAILY 07/18/23 07/18/23 History pregabalin 100 mg capsule 100 mg PO AMHS 07/18/23 07/18/23 History pregabalin 25 mg capsule 50 mg PO AMHS 07/18/23 07/18/23 History sacubitril 24 mg-valsartan 26 mg 0.5 tab PO BID 07/18/23 07/18/23 History tablet (Entresto) sumatriptan succinate 50 mg tablet 50 mg PO DAILY PRN Headache 07/18/23 07/18/23 History zolpidem 10 mg tablet 10 mg PO HS 07/18/23 07/18/23 History apixaban 5 mg tablet (Eliquis) 5 mg PO BID #74 tabs 07/23/23 Rx Patient History Medical History HLD (hyperlipidemia) HTN (hypertension) Hx of cardiomyopathy Chronic combined systolic and diastolic CHF (congestive heart failure) Irritable bowel syndrome (IBS) GERD (gastroesophageal reflux disease) Migraine Asthma Incomplete left bundle branch block PT HAS HAD CARDIAC WORK UP. [facility]. Surgical History [place] teeth extracted History of dilation and curettage History of herniorrhaphy UMBILICAL History of section History of esophagogastroduodenoscopy (EGD) History of Jay fundoplication Family History Denies family history of Blood clotting disorder Social History Smoking Status: Current every day smoker Tobacco Type: Cigarettes Age Started Using Tobacco: 11; Cigarettes Per Day: 6-8 CIGARETTES PER DAY; Second Hand Exposure: No; Do You Dip or Chew Tobacco: No; Hx Alcohol Use: No Hx Substance Use: No Preferred Language: Polish Communication Ability: Effective Rail Car Repairman Required: No Beliefs That Will Affect Care: None Current Living Situation: Spouse current occupational status: employed 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 [employer] Other Information That Helps Us Care for You: No Feels Safe at Home: Yes Safety Concerns: Feels Safe At This Time Assistive Devices: None Review of Systems Review of Systems: All systems reviewed & are unremarkable except as noted in HPI & below Physical Exam Constitutional: WD/WN, vitals as above Respiratory: normal respiratory effort, lungs clear to auscultation Cardiovascular: Rate/Rhythm: regular rate and regular rhythm Heart Sounds: no murmur Extremities: + edema (2+ left lower extremity edema to the thigh) Gastrointestinal (Abdomen): normal bowel sounds, soft, nontender, no hepatosplenomegaly Neurologic: PERRL, EOMI, accommodation nl, no face palsy, no dysarthria Results & Data Vital Signs (Past 12 Hours) Vital Signs Temp Pulse Pulse Resp BP Pulse Ox O2 Del Method 07/23/23 16:04 36.5 C 72 16 102/51 L 99 Room Air 07/23/23 11:22 36.7 C 78 18 101/54 L 96 Room Air 07/23/23 09:22 70 91/57 L 07/23/23 07:48 70 94/58 L 98 Room Air 07/23/23 07:36 36.5 C 70 18 88/46 L 97 Room Air Laboratory Results CBC 07/23/23 Range/Units 03:36 Hgb 9.8 L (12.0-16.0) g/dl Hct 29.5 L (37.0-47.0) % Comprehensive Metabolic Panel 07/23/23 Range/Units 03:36 Sodium 138 (136-145) mmol/L Potassium 3.6 (3.5-5.1) mmol/L Chloride 105 (98-107) mmol/L Carbon Dioxide 26 (21-32) mmol/L BUN 11 (6-23) mg/dl Creatinine 0.58 L (0.6-1.2) mg/dl Glucose 94 (70-99(Fasting)) mg/dl Calcium 7.6 L (8.6-10.3) mg/dl Intake and Output 07/23/23 07/23/23 07/23/23 06:59 14:59 22:59 Intake Total 619.200 / 1642.720 124.767 / 324.767 200 / 324.767 Balance 619.200 / 842.720 124.767 / 324.767 200 / 324.767 Intake: IV 619.200 / 1642.720 124.767 / 124.767 Heparin Sodium/Dextrose 25,000 119.200 / 211.600 124.767 / 124.767 units In 500 ml @ 1,000 UNIT/HR 20 mls/hr IV .Q24H GONSALO Rx#: [id number] Sodium Chloride 0.9% 500 ml @ 500 / 500 500 mls/hr IV .Q1H GONSALO Rx#: [id number] Oral 200 / 200 Other: # Unmeasured Voids 1 Diagnostic Findings EKG performed today 07/23/2023 revealed sinus rhythm at 75 bpm with incomplete left bundle branch block and resultant repolarization abnormalities.
[2023-07-23 17:56] LABS: ANTI-Xa, UFH(UnfractionatedHep 0.24 IU/ml (0.3-0.7)
[2023-07-23] MEDS: APIXABAN 5 MG TABLET PO SCH (21:16)
[2023-07-24 07:40] LABS: Hematocrit (blood only) 28.7 % (37.0-47.0); Hemoglobin 9.3 g/dl (12.0-16.0); Mean Corpuscular Hemoglobin 29.4 pg (25.0-34.0); Mean Corpuscular Hgb Conc 32.4 g/dL (32.0-36.0); Mean Corpuscular Volume 90.8 fL (80.0-100.0); Mean Platelet Volume 10.4 fL (9.4-12.4); Platelet Count 215 K/uL (130-400); RDW Coefficient of Variation 13.4 % (11.5-14.5); RDW Standard Deviation 44.7 fL (36.4-46.3); Red Blood Count 3.16 M/uL (4.20-5.40); White Blood Count 4.74 K/ul (4.8-10.8)
[2023-07-24 07:59] LABS: BUN Creatinine Ratio 15.3 (10-20); Calcium 8.2 mg/dl (8.6-10.3); Creatinine Clr Calc Pharmacy 113.9 ml/min; Est GFR (African American) 122.1 ml/min; Est GFR (Non-African American) 105.4 ml/min; Magnesium 1.9 mg/dl (1.7-2.4); Potassium 3.5 mmol/L (3.5-5.1)
[2023-07-24] MEDS: CHOLECALCIFEROL 25 MCG (1000 UNITS) TAB PO SCH (09:13)
--- NOTE | 2023-07-24 17:58 | Discharge Summary ---
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 Her is at bedside who also helps elicit history. Her symptoms initially started 1.5 weeks ago with what she thought was left lower back pain. She was seen and evaluated by medicare nurse and underwent adjustments due to pelvic misalignment. Her symptoms progressively got worse to the point she had to do her computer work in bed. She developed severe left lower quadrant and left leg pain. Last night she was unable to sleep due to severity of pain and rated a 9 out of 10. This was despite taking a previously prescribed prescription hydrocodone along with 2 separate administrations of medical marijuana. This morning whenever she got in the shower she noticed increased left lower extremity swelling and due to pain opted to present to ED. She denies any recent illness. She has chronic shortness with exertion due to her heart failure diagnosis. She also has chronic pain in setting of fibromyalgia. She has significant insomnia for which she has to take 10 mg of Ambien as well as as needed melatonin at bedtime. Her current medical comorbidities have been limiting her ability to work. She denies any fever, chills, sweats, chest pain, hemoptysis, hematemesis, nausea, vomiting, dysuria, increased urgency or frequency with urination, melena or hematochezia. She does tend to run on the constipated side. She also complains of chronic lightheadedness and dizziness. Her outpatient medical record was reviewed and her PCP is Dr. Dyer. She denies family history of clotting disorder or previous history of blood clots. She denies possibility of as she has not had a period in 1 year and and describes herself as menopausal. In ED patient made hemodynamically stable. She underwent a left lower extremity venous duplex which revealed a DVT involving the common femoral vein, great saphenous vein, proximal superficial femoral vein and also a thrombus in one of the [address] veins. CT abdomen pelvis revealed a thrombus of the left common iliac vein and its distal branches compatible with May Thurner syndrome. ED provider spoke with vascular who recommended IV heparin, admission with likely intervention on Thursday. Admission Exam Per Admitting Provider Constitutional: WD/WN, obese, 53-year-old female vitals as above, NAD, sitting up in bed, pleasant, conversing easily Head: Normocephalic, Atraumatic Eyes: conjunctivae normal, anicteric sclerae ENMT: external ear and nose normal, oropharynx normal Neck: trachea midline, no thyromegaly normal visual inspection Respiratory: normal respiratory effort, lungs clear to auscultation, no wheeze, rales, rhonchi. Normal insp/exp effort, no accessory muscle use Cardiovascular: RRR, no murmur, left greater than right lower extremity edema, obese lower extremities, bilateral +2 DP and PT pulses , b/l varicosities, Vessels: no JVD or carotid bruit Chest: normal inspection of chest Abdomen: normal bowel sounds, soft, nontender, no hepatosplenomegaly Musculoskeletal: no cyanosis or clubbing, active range of motion x 4 Skin: no rashes, warm and dry normal turgor Neurologic: no face palsy, no dysarthria CN's II-XI intact bilaterally and moves all extremities Psychiatric: A+Ox3, euthymic affect : deferred Principal Dx & Hospital Course #1 = Principal Diagnosis (1) May-Thurner syndrome: (2) Deep venous thrombosis of left iliac vein: (3) Chronic combined systolic and diastolic CHF (congestive heart failure): (4) HTN (hypertension): (5) HLD (hyperlipidemia): Plan Ms. De La Cruz is a 53-year-old female who has significant past medical history of nonischemic cardiomyopathy, combined systolic and diastolic CHF, LBBB, HTN, HLD, history of varicose veins status post ablation, RADHA, asthma, fibromyalgia, DDD, history of migraines, tobacco abuse, medical marijuana card for fibromyalgia, depression with anxiety and insomnia who presented to ED on 07/18 secondary to severe left lower extremity pain.Patient underwent venogram and started on tPA infusion after a prophylactic IVC filter placed on 07/21. Patient transferred to ICU for close monitoring during ongoing anticoagulation with tPA drip via LLE --Venous Duplex: There is a deep venous thrombus involving the common femoral vein, great saphenous vein, and proximal superficial femoral vein. There is also a thrombus in one of 2 paired posterior tibial veins. --CT a/p: IMPRESSION:Thrombus of the left common iliac vein and its distal branches compatible with May-Thurner syndrome. Associated soft tissue swelling is seen. Patient now s/p mechanical thrombectomy and angioplasty of L iliac vein as of 07/22. Patient with hypotension requiring multiple GDMT agents to be held. Patient had longstanding hypotension prior to admission, therefore given recovered EF, multiple agents held upon dischagre. Patient tolerated procedure well and stated pain controlled with PO pain regimen. Hemoglobin stable. On day of discharge, patient reported improved leg pain, no chest pain, good appetite, and generally feeling better with the cessation of multiple meds. Pressures from 80-90s now 100-110s. #Extensive DVT L common iliac vein, L common femoral vein, L greater saphenous vein, proximal superficial femoral vein and thrombus in 1 of 2 paired posterior tibial veins #May Thurner Syndrome Initially started on heparin drip, remains hemodynamically stable 07/21: Now s/p insertion of Vena Cava Filter via right Jugular Approach -Left Lower Extremity Venogram, Ultrasound Localization of Left Popliteal Vein, Insertion of Infusion Catheter for Thrombolysis, Initiation of Thrombolytic Therapy Continue heparin drip tPA infusion per Vascular recommendations -plan for Left Lower Extremity Re-Check of TPA with Possible Iliac Vein Stenting Corrugator Machine Operator consulted- will need meterman anticoagulation, OP follow up Hematology for hypercoagulable work up in approximately 3 months -DOAC: eliquis 10mg BID x 7days then 5mg BID Follow up post stent recommendation -Wear compression garment all waking hours, follow up Dr Marquez in 2 weeks #Nonischemic cardiomyopathy #Combined systolic and diastolic CHF, Heart failure with rec EF #Chronic LBBB Currently euvolemic Echocardiogram: Left ventricular wall motion is normal LV ejection fraction 60-65% Right ventricle is normal in size and function Doppler findings do not suggest pulm hypertension No significant valvular pathology Continue GDMT -Metoprolol xL 25mg daily -Furosemide 20mg daily: held 2/2 hypotension -Entresto 26/24 0.5 tab BID: held 2/2 hypotension -Aldactone 12.5mg daily: held 2/2 hypotension -Jardiance 10mg daily Cardiology consulted to discuss optimization of GDMT iso concerns of ongoing hypotension reported prior to admission -Discontinue lasix, entresto,aldactone -Follow up OP cards #HTN #HLD Chronic, stable Follows [facility] On GDMT including metoprolol, Aldactone, Entresto, Jardiance, lasix holding furosemide, entresto, aldactone 2/2 hypotension #Abnormal MRI brain #Known R frontal Meningoma #Memory impairment Followed Dr. Tobias in 01/2023 Chronic ischemic microvascular changes on MRI noted Consider resumption of ASA 81mg daily upon discharge Continue nymenda 10mg BID #RADHA Cpap at HS #Fibromyalgia continue lyrica, namenda uses medical marijuana prn at home chronic, stable #Insomnia ambien 10mg HS, prn melatonin is her home regimen chronic, stable #Depression with anxiety continue Vortioxetine, bupropion #GERD Contnue PPI BID Discharge Exam Constitutional WD/WN, vitals as above Neck neck dressing without strike through, stable Respiratory normal respiratory effort, lungs clear to auscultation Cardiovascular RRR, no murmur, no edema (left compression garment in place ) Updated Medication List Medication Instructions Recorded Confirmed Type cholecalciferol (vitamin D3) 25 1,000 unit PO DAILY 02/26/18 07/18/23 History mcg (1,000 unit) capsule (Vitamin D3) aspirin 81 mg tablet,delayed 81 mg PO .every other day #90 tabs 02/10/23 07/18/23 Rx release (Enteric Coated Aspirin) bupropion HCl 150 mg 24 hr tablet, 150 mg PO QAM 02/10/23 07/18/23 History extended release (Wellbutrin XL) furosemide 20 mg tablet (Lasix) 20 mg PO DAILY 02/10/23 07/18/23 History memantine 10 mg tablet 10 mg PO BID 02/10/23 07/18/23 History metoprolol succinate 25 mg 25 mg PO DAILY 02/10/23 07/18/23 History tablet,extended release 24 hr pantoprazole 20 mg tablet,delayed 40 mg PO BID 02/10/23 07/18/23 History release (Protonix) spironolactone 25 mg tablet 12.5 mg PO DAILY 02/10/23 07/18/23 History tizanidine 4 mg capsule (Zanaflex) 6 mg PO HS Pain 02/10/23 07/18/23 History vortioxetine 20 mg tablet 20 mg PO DAILY 02/10/23 07/18/23 History (Trintellix) black cohosh 200 mg capsule 200 mg PO BID 07/18/23 07/18/23 History empagliflozin 10 mg tablet 10 mg PO DAILY 07/18/23 07/18/23 History (Jardiance) lactobacillus combination no.4 3 3,000 mmu cells PO DAILY 07/18/23 07/18/23 History billion cell capsule (Probiotic) multivitamin 1 tab PO DAILY 07/18/23 07/18/23 History pregabalin 100 mg capsule 100 mg PO AMHS 07/18/23 07/18/23 History pregabalin 25 mg capsule 50 mg PO AMHS 07/18/23 07/18/23 History sacubitril 24 mg-valsartan 26 mg 0.5 tab PO BID 07/18/23 07/18/23 History tablet (Entresto) sumatriptan succinate 50 mg tablet 50 mg PO DAILY PRN Headache 07/18/23 07/18/23 History zolpidem 10 mg tablet 10 mg PO HS 07/18/23 07/18/23 History apixaban 5 mg tablet (Eliquis) 5 mg PO BID #74 tabs 07/23/23 Rx hydrocodone 5 mg-acetaminophen 325 2 tab PO Q6H PRN pain #16 tabs 07/24/23 Rx mg tablet miconazole nitrate 2 % topical 1 applic topical BID #71 grams 07/24/23 Rx ointment Hospital Stay Data Consultations 07/18/23 12:35 ED Decision to Admit Stat 07/18/23 16:50 Consult Vascular Surgery Routine 07/20/23 10:31 Consult Hematology Routine 07/21/23 10:47 Consult Edi Coordinator Routine 07/23/23 09:37 Consult Cardiology Routine Procedures Performed Operation Date: 07/22/23 10:30 Actual Procedures p TPA Re-Check and Completion, Mechanical Thrombectomy, Pecutaneous Translunial Angioplasty and Stenting of L Iliac Vein(Left) - Daniel Marquez MD Diagnostic Imagining Performed 07/18/23 10:09 CT abd pelvis IV con only Stat US venous doppler LE LT Stat 07/21/23 07:09 EV IVC filter placement Routine EV venogram LE UNI Urgent US EV guide vascular access Urgent 07/22/23 07:28 EV venogram LE UNI Urgent Pending Results Patient Have Any Pending Studies at Discharge: No Discharge Instructions Given to Patient (Per Discharging Provider) You were admitted for left leg pain and found to have an anatomical variant of your left iliac artery overlying your left iliac vein, causing compression and clot formation. You underwent a filter placement to prevent emboli of clot from going to lungs and heart, and on 07/22 you underwent mechanical removal of clot and stenting of that vein. You will continue Apixaban (Eliquis) at this time to prevent further clots from forming. Please take 10mg (2 tablets) twice a day until 07/31/2023, . On 08/01, please transition to 5mg (1 tablet) two times a day. Your blood pressures were noted to be quite low. Your lasix, entresto, and spironolactone were held. Please follow up with your Data Typist to determine if these need to be reintroduced at a later time. Total Time Total Time Spent Total Time Spent (In Minutes): 45
--- NOTE | 2023-08-07 09:22 | Operative Report ---
Post Operative Report Pre & Post Diagnosis Operation Date: 07/22/23 10:30 Pre-Op Diagnosis: LLE DVT/ may thurner Post-Op Diagnosis: LLE DVT/ may thurner I identified the patient and participated in the time-out.: Yes Procedure Operation Date: 07/22/23 10:30 Actual Procedures p TPA Re-Check and Completion, Mechanical Thrombectomy, Pecutaneous Translunial Angioplasty and Stenting of L Iliac Vein(Left) - Daniel Marquez MD Surgeon Daniel Marquez MD Rn Hemo Dialysis none Estimated Blood Loss 10 Findings Consistent with Post-Op Diagnosis Specimens none Anesthesia Type MAC Complications none Disposition Accompanied Patient To Recovery: No Disposition: Surgical ICU Indications This is a 53-year-old female who has DVT of the left iliac system and a May Thurner syndrome. She has been going undergoing tPA infusion since yesterday and is brought back at this time for recheck and intervention. I have discussed the risks options and benefits of the procedure with the patient. The patient understands the risks options and benefits and agrees to the procedure. Description of Procedure The patient was taken the angiogram suite and placed in the prone position.The dressing was removed and the area behind the knee was prepped and draped in a sterile manner.Timeout was performed and the patient was identified.The catheter wire was removed and hand-injection showed some mild to moderate residual clot seen in the iliac system on the left side. We then reinserted an 035 wire and remove the infusion catheter.We then used the proxy AngioJet catheter and performed mechanical thrombectomy of the left iliac system from the common iliac vein confluence down to the common femoral vein.We did multiple passes with this AngioJet catheter until most of the clot was removed.Injection done at that time showed the narrowing at the distal left common iliac vein consistent with May- Thurner syndrome.We ballooned the left iliac system with an 8 x 4 balloon followed by a 10 x 4 balloon.It was decided at that time being that there was still a residual stenosis that we would insert stents across the narrowing in the common iliac vein and the irregular portion of the left iliac veins.We then inserted a 18 x 80 venous stent from the junction of the iliac vein and vena cava down into the external iliac vein. We then extended this with a 16 x 60 further into the external iliac eliminating the significant irregularity seen in the vein. These were then dilated using an 12 balloon.Good results were noted. No residual stenosis was appreciated.The sheath was then pulled from the popliteal vein and pressure was applied.Adequate hemostasis was noted. Sterile dressings were then applied to the puncture site.The patient left the operation room in satisfactory condition and tolerated the procedure well. All needle and sponge counts were correct at the end of the procedure. I attest to the content of the Intraoperative Record and any orders documented therein. Any exceptions are noted below.
== END 2023-07-24 13:10 | disposition home or self-care (01) | DRG 271 ==
LOC: ED 09:26 → SUATTDRO 13:16 → EDINP 13:16 → 4W 16:51 → 1E 07-21 11:02 → 3N 07-22 17:57

== ENCOUNTER 2024-03-07 04:24 | Observation (INO) ==
--- OUTSIDE RECORDS SUMMARY | 2024-03-07 04:30 | External Medical Summary | Summary of Care ---
Author Name Unknown Organization [facility] Address [address] [place] [address] Phone [phone] Care Team Providers Care Admissions Nurse Name Role Phone Gregory Dyer MD Primary Care Provider [phone] Reason for Visit * Reason Onset Date Comments Follow Up 6 month follow u p Medication Administration 2024 Flu an d/or Pneumo Inj Encounter Details Date Type Department Care Team (Late st Contact Info) Description 2024 3:00 PM EDT Office Visit Cardiology, [facility] [address] [place] [id number] Obed Muirllo, DO [address] [place] [address] NICM (nonischemic cardiomyopathy) ([facility])*; LBBB (left bundle branch block); HTN, goal below 130/80; Need for prophylactic vaccination and inoculation against influenza Allergies Active Allergy Reactions Criticality Noted Date [...] as of this encounter (statuses as of 2024) Medications Medication Sig Dispensed Refills Start Date End Date Status Probiotic Product (PROBIOTIC DAILY) Capsule Take by mouth 1 Capsule daily . 10/07/2016 Active Cholecalciferol (VITAMIN D) 1000 units Tablet Take 1 Tablet by mouth in the morning. 03/24/2017 Active Mometasone Furoate (NASONEX) 50 MCG/ACT nasal sprayIndications:R eflux esophagitis Administer 2 Sprays into each nostril daily. 1 Inhaler 5 06/24/2017 Active Additional Information Patient taking differently:2 [place] Each NostrilPRN, Reported on 2024 Black Cohosh 200 MG Oral Capsule Take by mouth 2 times a day. Active Clobetasol Propionate 0.05 % External Ointment (Temovate)Indicati ons:Dermatitis Apply to affected area twice daily for up to two weeks at a time 30 g 1 09/09/2021 Active Additional Information Patient not taking.Reported on 2024 Multi-Day Oral Tablet Take by mouth 1 Tablet in the morning. Active Melatonin 10 MG Oral Tablet Take 1 Tablet by mouth at bedtime. Midnight OTC supplement with melatonin Active Vitamin B-12 1000 MCG Oral Tablet Take 1 Tablet by mouth in the morning. Active Magnesium 250 MG Oral Tablet Take 1 Tablet by mouth in the morning. Active buPROPion HCl ER (XL) 150 MG Oral Tablet Extended Release 24 Hour (Wellbutrin XL) Take 1 Tablet by mouth in the morning. 90 Tablet 3 08/21/2023 Active Metoprolol Succinate ER 25 MG Oral Tablet Extended Release 24 Hour (toPROL XL)Indications:HTN , goal below 130/80 TAKE 1 TABLET BY MOUTH EVERY MORNING 90 Tablet 3 08/26/2023 Active tiZANidine HCl 4 MG Oral Tablet (Zanaflex)Indicati ons:Fibromyalgia Take 1.5 tablets at bedtime as needed for spasm and pain 135 Tablet 1 09/15/2023 Active Additional Information Patient taking differently: 4 mg, Take 1 tablets at bedtime as needed for spasm and pain, Reported on 2024 Pantoprazole Sodium 40 MG Oral Tablet Delayed Release (Protonix) Take 1 tablet by mouth twice daily 180 Tablet 3 09/16/2023 Active Apixaban 5 MG Oral Tablet (Eliquis) Take 1 Tablet by mouth in the morning and 1 Tablet before bedtime. 60 Tablet 5 09/17/2023 Active DULoxetine HCl 60 MG Oral Capsule Delayed Release Particles (Cymbalta)Indicati ons:Fibromyalgia Take 1 Capsule by mouth in the morning. 30 Capsule 5 10/01/2023 Active Diclofenac Sodium 1 % External Gel (Voltaren) Apply topically to affected area. Apply to hands Active SUMAtriptan Succinate 50 MG Oral Tablet (Imitrex)Indicatio ns:Chronic migraine without aura without status migrainosus, not intractable take 1 tablet every 2 hours as needed for migraine. Max 4 tablets per 24 hours. 9 Tablet 5 10/13/2023 Active Jardiance 10 MG Oral Tablet (Empagliflozin)Ind ications:Chronic combined systolic and diastolic heart failure (HCC) TAKE ONE TABLET BY MOUTH IN THE MORNING 90 Tablet 3 10/26/2023 Active Furosemide 20 MG Oral Tablet (Lasix) Take 1 Tablet by mouth in the morning. Active Entresto 24-26 MG Oral Tablet (sacubitril-valsar genao 24-26 mg per tab)Indications:Ch ronic combined systolic and diastolic heart failure (HCC),NICM (nonischemic cardiomyopathy) (HCC),HTN, goal below 130/80,Left ventricular systolic dysfunction Take 0.5 Tablets by mouth in the morning and 0.5 Tablets before bedtime. 90 Tablet 3 01/21/2024 Active Eszopiclone 2 MG Oral Tablet (Lunesta)Indicatio ns:Persistent insomnia Take 1 Tablet by mouth at bedtime as needed for Insomnia. for sleep 30 Tablet 02/25/2024 Active NATURAL SUPPLEMENT Take by mouth daily. Apple cider vinegar supplement Active Pregabalin 150 MG Oral Capsule (Lyrica) Take 1 Capsule by mouth in the morning and 1 Capsule before bedtime. 02/20/2024 Active HYDROcodone-Acetam inophen 5-325 MG Oral Tablet Take 1 Tablet by mouth every 6 hours as needed. 08/06/2023 Active Spironolactone 25 MG Oral Tablet (Aldactone) Take 1 Tablet by mouth in the morning. 12.5 mg. 01/18/2024 Active Pregabalin 100 MG Oral Capsule (Lyrica) TAKE ONE CAPSULE BY MOUTH IN THE MORNING AND before bedtime 60 Capsule 5 09/10/2023 Discontinu ed(Patient preference /discontin uation) Pregabalin 25 MG Oral Capsule (Lyrica)Indication s:Chronic pain syndrome,Fibromyal michaela,Fibromyalgia syndrome,Chronic radicular cervical pain,Central sensitization to pain take 2 capsules by mouth in the morning and 2 capsules in the evening. to be taken at same time as 100 mg capsule for total of 150 mg of lyrica twice daily. 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 Gastroesophageal reflux disease with esophagitis Asthma, mild persistent documented as of this encounter (statuses as of 2024) Resolved Problems Problem Noted Date Diagnosed Date Resolved Date Acute deep vein thrombosis ( DVT) of iliac vein of left lower extremity 07/29/2023 02/02/2024 Chronic combined systolic an d diastolic heart failure 09/30/2022 02/02/2024 Prediabetes 08/29/2021 05/07/2023 Advanced directives, counseling/discussion 10/11/2020 12/04/2020 Urinary retention with incom plete bladder emptying 09/11/2020 09/30/2022 Cystocele, midline 09/11/2020 Rectocele 09/11/2020 09/30/2022 Chronic constipation 09/11/2020 023 Left bundle branch block 01/12/201812/2023 Chronic allergic rhinitis 06/09/2017 Family history of [...] Pt considering repeat C/s at [facility] or at [facility] where she works. Continue to discuss Asthma [...] of inactive term Other acne 02/01/2001 01/05/2012 Tobacco abuse 02/02/2024 Overview: Stopped smoking within one week of +HPT Generalized anxiety disorder 04/19/2023 Umbilical hernia 11/28/2019 Acquired pyloric stenosis Overview: EGD [place] Psoriasis 11/28/2019 Asthma in remission 10/05/19 14 Migraine variant 09/30/2022 Overview: well-managed with Imitrex but only Vicodin/codeine since Iron deficiency anemia due t o chronic blood loss 11/28/2019 Melanocytic nevus of trunk 0 11/28/2019 Carpal tunnel syndrome 11/05 Overview: bilateral symptoms History of Jay fundoplication 11/29/2019 documented as of this encounter (statuses as of 2024) Immunizations Name Administration Dates Next Due COVID-19 mRNA, LNP-s, No Pre serve, 2-Dose Series ([email or web address]) 11/27/2020,11/06/2020 PPD 04/15/2016, 6,10/10/2014,08/23,09/09/2010,08/22/2009,08/08/2009 ,07/26/2007 Pneumococcal Polysaccharide PPV23 (Pneumovax) 04/17/2015,06/26/2009(Deferred: Patient Refused) Seasonal Influenza, PF, 6 M & above, IM , (FluLaval or Fluzone) 03/18/2023,02/21/2020,03/24/2017 Seasonal Influenza, Quadriva lent, No Preserve, IM 03/20/2016,03/21/2015 Seasonal Influenza, Trivalen t, (IIV3), PF, (Fluzone) 2024 Seasonal Influenza, Trivalen t, (IIV3), with Preserv, (Fluzone) 04/11/2014,04/27/2013,03/22/2012,03/31,04/20/2009 TDAP (age 10 and older)(Boostrix) 12/08/2017 TDAP, Age 7 and older, IM (Adacel) 07/26/2007 documented as of this encounter Social History Tobacco Use Types Packs/Day Years Used Date Smoking Tobacco: Every Day Cigarettes 0.3 28 Started: 09/21/1983; Last attempted to quit: 09/21/2011 Smokeless Tobacco: Never Comments:6-8 cigarettes a da y Alcohol Use Standard Drinks/Week Comments Yes 0 (1 standard drink = 0.6 oz pure alcohol) once every couple of months a drink PHQ-2 Answer Date Recorded PHQ Adult Total Score 20 10/22/2022 Hunger Vital Sign Answer Date Recorded Within the past 12 months, y ou worried that your food would run out before you got the money to buy more. Patient declined Within the past 12 months, t he food you bought just didn't last and you didn't have money to get more. Patient declined 08/2023 Childcare Answer Date Recorded Do you feel overwhelmed with taking care of a child, family member or friend? No 07/25/2023 Does your family need help f inding childcare? (Household - for ages 0-17 years) Not on file 07/25/2023 Clothing Answer Date Recorded Have you been unable to get clothing when it was really needed? No 07/25/2023 Is your family able to get c lothes or diapers when needed? (Household - for ages 0-17 years) Not on file 07/25/2023 Personal Safety Answer Date Recorded Do you feel unsafe or have concerns for your saf ety? No 07/25/2023 Do you have concerns for you r family's safety? (Household - for ages 0-17 years) Not on file 07/25/2023 Utilities Answer Date Recorded Do you have trouble paying y our heating, water, or electric bill? No 07/25/2023 Is your family able to pay t he heat, water, or electric bill? (Household - for ages 0-17 years) Not on file 07/25/2023 Does your family have access to good internet? (Household - for ages 0-17 years) Not on file 07/25/2023 Employment Status Answer Date Recorded Are you unemployed or without regular income? No 07/25/2023 Does the household have a re gular source of income? (Household - for ages 0-17 years) Not on file 07/25/2023 Social Connections Answer Date Recorded How often do you feel lonely or isolated from those around you? Sometimes 07/25/2023 Financial Resource Strain Answer Date R ecorded Do you have any trouble payi ng for your medications, or do you think you might in the future? No 07/25/2023 Does your family have troubl e paying for medicine? (Household - for ages 0-17 years) Not on file 07/25/2023 Transportation Needs Answer Date Record ed READ ONLY Do you have troubl e getting a ride to medical visits or work? Never True 07/25/2023 Does your family have a hard time getting a ride to doctors visits? (Household - for ages 0-17 years) Not on file 07/25/2023 Has lack of transportation k ept you from medical appointments, meetings, work, or from getting things needed for daily living? Check all that apply. (Adult - for ages 18 years and over) Not on file 07/25/2023 Do you (or your family) have trouble finding or paying for a ride (transportation)? (Household - for ages 0-17 years) Not on file 07/25/2023 Housing Stability Answer Date Recorded Do you currently live in a s helter or have no steady place to sleep at night? No 07/25/2023 READ ONLY Do you think you a re at risk of becoming homeless? No 07/25/2023 Does your family worry about paying for your home or becoming homeless? (Household - for ages 0-17 years) Not on file 0 07/25/2023 Are you homeless or worried that you might be in the future? (Adult - for ages 18 years and over) Not on file Are you (or your family) desiree eless or worried that you might be in the future? (Household - for ages 0-17 years) Not on file Food Insecurity Answer Date Recorded Do you need food for this week? No 07/25/2023 Are you able to get enough f ood for your family? (Household - for ages 0-17 years) Not on file 07/25/2023 Does your family need food t his week? (Household - for ages 0-17 years) Not on file 07/25/2023 Do you always have enough fo od for your family? (Household - for ages 0-17 years) Not on file 07/25/2023 Sex and Gender Information Value Date Recorded Sex Assigned at Female 07/25/2023 2:41 PM EST Gender Identity Female 07/25/2023 2:41 PM EST Sexual Orientation Straight 07/25/2023 2: 41 PM EST Job Start Date Occupation Industry Not on file Not on file Not on file documented as of this encounter Last Filed Vital Signs Vital Sign Reading Time Taken Comments Blood Pressure 128/84 2024 3:08 PM EDT Pulse 68 2024 3:08 PM EDT Temperature - - Respiratory Rate 16 2024 3:0 8 PM EDT Oxygen Saturation - - Inhaled Oxygen Concentration - - Weight 90.2 kg (198 lb 14.4 oz) 2024 3:08 PM EDT Height - - Body Mass Index 35.8 02/03/2024 11:52 AM EDT documented in this encounter Progress Notes * Obed Murillo, - 2024 3:26 PM EDT 2024 Cardiology Follow Up CHIEF COMPLAINT: Cardiology follow up, nonischemic cardiomyopathy, left bundle branch block SUBJECTIVE: Mily De La Cruz is a 54 year old year old female who returns in routine Cardiology follow-up. She notes that 1 to 2 months ago she felt more short of breath and was having chest discomfort.In the meantime, she has been taking apple cider vinegar for the last 2 to 3 weeks and she feels better. Today is her birthday. She had a manicure and a pedicure and she was feeling well about things. She was still has lots of pain stemming from her left DVT/May-Thurner syndrome and has not returnedto work. On 02/04/2024 her inferior vena cava filter was removed. She remains on Eliquis. Admitted to [facility] 07/18/23, presented with severe left lower extremity pain. Venous duplex with thrombus of left common iliac vein and distal branches compatible with May-Thurner Syndrome. Started on TPA and IVC filter placed. Underwent mechanical thrombectomy and angioplasty of L iliac vein. Had hypo tension during admission, furosemide, entresto, spironolactone held. Discharged 07/24/23 on apixaban,heme/onc recommended lifelong anticoagulation. Past Medical History: Left bundle branch block, diagnosed 2018 Nuclear stress test performed at [facility] revealed a fixed septal perfusion defect with partially reversible apical perfusion defect. Cardiac CT dated 12/30/2017 in [place] during admission showed a calcium score of 0 and normal coronary arteries Repeat cardiac CT, [facility] revealed calcium score of 0, no significant coronary plaque or stenosis. LV systolic dysfunction- EF 45% per echo 08/2022, NYHA class 2 Mild RADHA, on CPAP History of varicose veins status post ablation Strong family history of CAD DVT, May Thurner syndrome Extensive ROS: All systems reviewed & are unremarkable except as noted in HPI & below Cardiovascular (chest pain/palpitations/fluttering/diaphoresis/dyspnea on exertion/paroxysmally nocturnal dyspnea):Negative Review of patient's allergies indicates: Allergen Reactions Acetaminophen-Codeine Itching Other reaction(s): severe itching Oxycodone Itching Other reaction(s): severe itching Cats [Cat Dander] Allergy test positive Nasal congestion, watery eyes Dogs [Dog Dander] Allergy test positive itchy watery eyes, nasal congestion Dust Allergy test positive Itchy, watery eyes nasal congestion Molds & Smuts Allergy test positive Current Outpatient Medications Medication Sig Dispense Refill Cholecalciferol (VITAMIN D) 1000 units Tablet Take 1 Tablet by mouth in the morning. Mometasone Furoate (NASONEX) 50 MCG/ACT nasal spray Administer 2 Sprays into each nostril daily. (Patient taking differently: Administer 2 Sprays into each nostril as needed.) 1 Inhaler 5 Black Cohosh 200 MG Oral Capsule Take by mouth 2 times a day. Melatonin 10 MG Oral Tablet Take 1 Tablet by mouth at bedtime. Midnight OTC supplement with melatonin Vitamin B-12 1000 MCG Oral Tablet Take 1 Tablet by mouth in the morning. buPROPion HCl ER (XL) 150 MG Oral Tablet Extended Release 24 Hour (Wellbutrin XL) Take 1 Tablet by mouth in the morning. 90 Tablet 3 Metoprolol Succinate ER 25 MG Oral Tablet Extended Release 24 Hour (toPROL XL) TAKE 1 TABLET BY MOUTH EVERY MORNING 90 Tablet 3 tiZANidine HCl 4 MG Oral Tablet (Zanaflex) Take 1.5 tablets at bedtime as needed for spasm and pain(Patient taking differently: 1 Tablet. Take 1 tablets at bedtime as needed for spasm and pain) 135 Tablet 1 Pantoprazole Sodium 40 MG Oral Tablet Delayed Release (Protonix) Take 1 tablet by mouth twice [id number] Tablet 3 Apixaban 5 MG Oral Tablet (Eliquis) Take 1 Tablet by mouth in the morning and 1 Tablet before bedtime. 60 Tablet 5 DULoxetine HCl 60 MG Oral Capsule Delayed Release Particles (Cymbalta) Take 1 Capsule by mouth in the morning. 30 Capsule 5 Diclofenac Sodium 1 % External Gel (Voltaren) Apply topically to affected area. Apply to hands SUMAtriptan Succinate 50 MG Oral Tablet (Imitrex) take 1 tablet every 2 hours as needed for migraine. Max 4 tablets per 24 hours. 9 Tablet 5 Jardiance 10 MG Oral Tablet (Empagliflozin) TAKE ONE TABLET BY MOUTH IN THE MORNING 90 Tablet 3 Furosemide 20 MG Oral Tablet (Lasix) Take 1 Tablet by mouth in the morning. Entresto 24-26 MG Oral Tablet (sacubitril-valsartan 24-26 mg per tab) Take 0.5 Tablets by mouth in the morning and 0.5 Tablets before bedtime. 90 Tablet 3 Eszopiclone 2 MG Oral Tablet (Lunesta) Take 1 Tablet by mouth at bedtime as needed for Insomnia. for sleep 30 Tablet 0 NATURAL SUPPLEMENT Take by mouth daily. Apple cider vinegar supplement Pregabalin 150 MG Oral Capsule (Lyrica) Take 1 Capsule by mouth in the morning and 1 Capsule beforebedtime. HYDROcodone-Acetaminophen 5-325 MG Oral Tablet Take 1 Tablet by mouth every 6 hours as needed. Spironolactone 25 MG Oral Tablet (Aldactone) Take 1 Tablet by mouth in the morning. 12.5 mg. Probiotic Product (PROBIOTIC DAILY) Capsule Take by mouth 1 Capsule daily . Clobetasol Propionate 0.05 % External Ointment (Temovate) Apply to affected area twice daily for upto two weeks at a time (Patient not taking: Reported on 2024) 30 g 1 Multi-Day Oral Tablet Take by mouth 1 Tablet in the morning. (Patient not taking: Reported on 2024) Magnesium 250 MG Oral Tablet Take 1 Tablet by mouth in the morning. (Patient not taking: Reported on 2024) No current facility-administered medications for this visit. Facility-Administered Medications Ordered in Other Visits Medication Dose Route Frequency Provider Last Rate Last Admin Nitroglycerin (Nitrostat) sl tab 0.4 mg 0.4 mg Sublingual Q5 Min PRN Zari Chance CRNP OBJECTIVE/PHYSICAL EXAMINATION: BP 128/84 | Pulse 68 | Resp 16 | Wt 90.2 kg (198 lb 14.4 oz) | LMP 01/29/2021 (Exact Date) | BMI 35.80 kg/m | BSA 1.99 m General: no acute distress and stated age Eyes: conjunctiva are pink and non-injected, sclera clear Neck: normal jugular venous pulse, no hepatojugular reflux Chest: normal shape and normal respiratory effort Lungs: clear to auscultation , no rales rhonchi or wheezing Cardiac Exam: - regular heart sounds, no murmurs, rubs, or gallops Abdomen: abdomen soft, non-tender, no abnormal masses and no hepatosplenomegaly Musculoskeletal: no gait disturbance, no weakness Extremities: no edema and no cyanosis Neuro: grossly normal exam Psych: appropriate affect and insight. Data: Latest Reference Range & Units 02/03/24 12:46 Sodium 135 - 146 mmol/L 140 Potassium 3.5 - 5.1 mmol/L 4.9 Chloride 98 - 107 mmol/L 101 CO2 22 - 32 mmol/L 29 BUN 6 - 20 mg/dL 22 (H) Creatinine 0.5 - 1.0 mg/dL 0.9 Estimated Glomerular Filtration Rate >=60 mL/min 74 Anion Gap 7 - 15 mmol/L 10 Glucose 70 - 120 mg/dL 90 Calcium 8.4 - 10.2 mg/dL 9.5 Protein 6.0 - 8.3 g/dL 7.1 (H): Data is abnormally high Results for orders placed or performed in visit on 02/03/24 LIPID PANEL WITH DIRECT LDL IF TG IS HIGH Result Value Ref Range Triglycerides 329 (H) <=174 mg/dL Cholesterol 258 (H) <200 mg/dL HDL Cholesterol 61 >49 mg/dL Non-HDL Cholesterol 197 (H) <=159 mg/dL LDL Cholesterol 131 (H) <=129 mg/dL ASSESSMENT / PLAN: 54 year old year old female ICD-10-CM 1. NICM (nonischemic cardiomyopathy) (HCC) I42.8 2. LBBB (left bundle branch block) I44.7 3. HTN, goal below 130/80 I10 4. Need for prophylactic vaccination and inoculation against influenza Z23 Patient describes stable cardiac signs and symptoms. Volume status stable. Left leg is only slightly bigger than the right leg, without significant varicose veins or edema. Prescription medication management: Continue Entresto, furosemide, Jardiance, metoprolol, spironolactone at their current doses. Continue Eliquis 5 milligrams twice daily, anticipate long-term use of anticoagulation. Most recent lipid panel was not a fasting sample, given past calcium score is 0, will permit current lipid levels. DISPOSITION: Follow Up: Return in about 9 months (around 11/30/2024) for Clinic Visit. | For: Clinic Visit Obed Murillo DO Cardiology, [address] [address] This chart was completed in part utilizing [employer] Speech Voice Recognition Software. Grammatical errors, random word insertions, prounoun errors, and incomplete sentences are an occasional consequence of this system due to software limitations, ambient noise, and hardware issues. Any formal questions or concerns about the content, text, or information contained within the body of this dictation should be directly addressed to the provider for clarification. * Corrina Monroe CMA - 2024 3:13 PM EDT PRE - ADMINISTRATION DOCUMENTATION Are you experiencing any cold symptoms or fever? No Have you had Guillain-[place] Syndrome (an illness that causes paralysis) within the last 6 weeks? No Have you had the flu shot in the past? YES Have you ever had a reaction to the flu shot? No Corrina Monroe CMA, 2024 3:13 PM Immunization Administration Documentation Time Out Procedure Performed: Yes Patient Identified (Ask Name/Date of ): Yes Does the patient have a fever greater than 101 degrees today? No Patient allergic to latex? No VFC Stock: No Immunization(s) verified: Yes, Immunization Name: Flu, VIS Sheet(s) given: Yes Verified Side and Site: Yes Verified Shot(s) with Parent(s)/Patient: Yes documented in this encounter Nursing Notes * Corrina Monroe CMA - 2024 2:56 PM EDT Examination Room: 10 Name: Mily De La Cruz Date of : (1970). Reason for Visit: 6m Follow up Interim Hospitalization(s): 12/21/23 for hypoglycemia, elevated lipase Problems/Concerns: Was having intermittent chest pain and SOB but is feeling better and thinks it was stress related symptoms. [facility] Discussed: Yes [facility] is a way you can talk to [...] Care Team (Late st Contact Info) Description 05/04/2024 3:30 PM EST Imaging Radiology [address] [place] [address] 05/18/2024 1:40 PM EST Office Visit Family Practice [facility] [address] [id number] Gregory Dyer MD [address] [place] [phone] 11/10/2024 4:00 PM EDT Office Visit Cardiology, [facility] [address] [id number] Obed Murillo, [address] [phone] Scheduled Procedures Name Priority Associated Diagnoses Date/Ti me COLONOSCOPY FLEXIBLE PROXIMA L DIAGNOSTIC Recall Screening for colorectal cancer Gastroesophageal reflux disease, unspecified whether esophagitis present Health Maintenance Due Date Last Done Comments DISCUSS TOBACCO CESSATION (REFER TO SMARTSET #[id number]) 1970 Albumin/Creatinine Ratio 1989 Hepatitis C Screening 1989 Hepatitis B Vaccine (1 of 3 - 19+ 3-dose series) 1990 Cologuard 2016 Fecal Occult Blood Test 2016 Sigmoidoscopy 2016 Pneumococcal Vaccine: Pediatrics (0 to 5 Years) and At-Risk Patients (6 to 64 Years) (2 of 2 - PCV) 04/17/2016 04/17/2015 *SPIROMETRY ONCE FOR ASTHMA-ADULT 08/10/2016 Zoster Vaccines (1 of 2) 2021 Depression Monitoring 10/23/2023 10/22/2022 COVID-19 Vaccine ( season) 2024 11/27/2020, 11/06/2020 Mammogram 04/24/2024 04/24/2023, 03/23, 04/12/2021, Additional history exists GFR 02/02/2025 02/03/2024, 01/20, 01/01/2023, Additional history exists Pap Smear 11/19/2026 11/20/2023, 03/0 09/2019, 06/03/2017, Additional history exists Diabetes Screening 02/02/2027 02/03/2024, 0 02/03/2023, 12/18/2022, Additional history exists DTap/Tdap Vaccines (3 - Td or Tdap) 12/09/2027 12/08/2017, 07/26/2007 Cervical Cancer Screening 11/19/2028 HPV/Co-Test 11/19/2028 11/20/2023 Lipid Panel 02/02/2029 02/03/2024, 08/21, 08/29/2021, Additional history exists Colonoscopy 10/25/2031 10/24/2021, 10/24/2021 Colorectal Cancer Screening 10/25/2031 Influenza Vaccine (FLU shot) Completed 04/2024, 03/18/2023, 02/21/2020, Additional history exists HPV (Gardasil) Vaccine Aged Out No lo nger eligible based on patient's age to complete this topic MENINGOCOCCAL (MENACTRA/MENVEO) Aged Out No longer eligible based on patient's age to complete this topic documented as of this encounter Medical Devices 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 Shelf Expiration Date Model / Serial / Lot Ivc Filter-07/21/19 Implanted:06/24 by Daniel Marquez MD (Quantity not on file) IVC Filter [employer] 12/20/2023 [id number] / / [id number] Description:[employer] CE[employer] IVC jug filter implanted at [facility] Stent- 4 Implanted:Qty: 1 on 07/22/2023 by Daniel Marquez MD Stent Iliac [employer] 10/03/2023 [id number] / / [id number] Description:Venovo venous st ent system implanted at [facility] Stent- 4 Implanted:Qty: 1 on 07/22/2023 by Daniel Marquez MD Stent Iliac [employer] 12/11/2023 [id number] / / [id number] Description:Venovo venous st ent system implanted at [facility] documented as of this encounter Visit Diagnoses Diagnosis NICM (nonischemic cardiomyopathy) (HCC)- Primary Other primary cardiomyopathies LBBB (left bundle branch block) Other left bundle branch block HTN, goal below 130/80 Unspecified essential hypertension Need for prophylactic vaccination and inoculation against influenza documented in this encounter Advance Directives * Full Code (Latest Code Status on File) Date Activated Date Inactivated Comments 01/12/2014 8:04 AM 01/12/2014 1:19 PM This order r eflects the patients wishes and were consensually agreed upon. * Full Code Date Activated Date Inactivated Comments 04/20/2012 2:08 AM 04/27/2012 8:33 PM This order reflects the patients wishes and were consensually agreed upon. Care Teams Admissions Nurse Relationship Specialty Start Date End Date Gregory Dyer MD [address] [place] [id number] PCP - General Family Medicine 11/29/19 documented as of this encounter"
[2024-03-07 04:36] VITALS: TEMP 97.7
--- NOTE | 2024-03-07 04:41 | Emergency Department Note ---
History of Present Illness General Chief complaint: Leg Injury/Pain Stated complaint: LEG PAIN Time Seen by Provider: 03/07/24 04:35 History of Present Illness This 54-year-old female with a history of PE and DVT presents the ER complaining of left leg pain and swelling and mild chest discomfort tonight. She continues to smoke. She does have a clotting disorder. She is on Eliquis has not missed any doses. Patient denies back pain, fever, chills, abdominal pain, flulike illness. She would also would like to have her blood sugar checked. She is on Jardiance for her heart per patient Home Medications Medication Instructions Recorded Confirmed Type cholecalciferol (vitamin D3) 25 1,000 unit PO DAILY 02/26/18 02/04/24 History mcg (1,000 unit) capsule (Vitamin D3) bupropion HCl 150 mg 24 hr tablet, 150 mg PO QAM 02/10/23 02/04/24 History extended release (Wellbutrin XL) furosemide 20 mg tablet (Lasix) 20 mg PO DAILY 02/10/23 02/04/24 History memantine 10 mg tablet 10 mg PO BIDM 02/10/23 02/04/24 History metoprolol succinate 25 mg 25 mg PO DAILY 02/10/23 02/04/24 History tablet,extended release 24 hr pantoprazole 20 mg tablet,delayed 40 mg PO BID 02/10/23 02/04/24 History release (Protonix) spironolactone 25 mg tablet 12.5 mg PO DAILY 02/10/23 02/04/24 History tizanidine 4 mg capsule (Zanaflex) 6 mg PO HS PRN MUSCLE SPASMS/PAIN 02/10/23 02/04/24 History vortioxetine 20 mg tablet 20 mg PO DAILY 02/10/23 02/04/24 History (Trintellix) black cohosh 200 mg capsule 200 mg PO BID 07/18/23 02/04/24 History empagliflozin 10 mg tablet 10 mg PO DAILY 07/18/23 02/04/24 History (Jardiance) lactobacillus combination no.4 3 3,000 mmu cells PO DAILY 07/18/23 02/04/24 History billion cell capsule (Probiotic) multivitamin 1 tab PO DAILY 07/18/23 02/04/24 History pregabalin 100 mg capsule 100 mg PO AMHS 07/18/23 02/04/24 History pregabalin 25 mg capsule 50 mg PO AMHS 07/18/23 02/04/24 History sacubitril 24 mg-valsartan 26 mg 0.5 tab PO BID 07/18/23 02/04/24 History tablet (Entresto) sumatriptan succinate 50 mg tablet 50 mg PO DIRECTED PRN Headache 07/18/23 02/04/24 History zolpidem 10 mg tablet 10 mg PO HS PRN Sleep 07/18/23 02/04/24 History apixaban 5 mg tablet (Eliquis) 5 mg PO BID #74 tabs 07/23/23 02/04/24 Rx duloxetine 60 mg capsule,delayed 60 mg PO DAILY #30 caps 08/19/23 02/04/24 Rx release (Cymbalta) Medical Marijuana 1 dose inhalation DIRECTED PRN 12/21/23 02/04/24 History NEEDED aspirin 81 mg tablet,delayed 81 mg PO Q OTHER DAY 12/21/23 02/04/24 History release (Enteric Coated Aspirin) cyanocobalamin (vitamin B-12) 1,000 mcg PO DAILY 12/21/23 02/04/24 History 1,000 mcg tablet (Vitamin B-12) diclofenac sodium 1 % topical gel 2 g topical QID PRN JOINT PAIN 12/21/23 02/04/24 History duloxetine 30 mg capsule,delayed 30 mg PO DAILY 12/21/23 02/04/24 History release hydrocodone 5 mg-acetaminophen 325 1 tab PO BID PRN pain 12/21/23 02/04/24 History mg tablet magnesium 250 mg tablet 250 mg PO DAILY 12/21/23 02/04/24 History melatonin 10 mg tablet 10 mg PO HS PRN Sleep 12/21/23 02/04/24 History mometasone 50 mcg/actuation nasal 2 spray intranasal DAILY 12/21/23 02/04/24 History spray nitroglycerin 0.4 mg sublingual 0.4 mg sublingual DIRECTED PRN 12/21/23 02/04/24 History tablet (Nitrostat) Chest Pain Allergies Allergy/AdvReac Type Severity Reaction Status Date / Time codeine Allergy Severe SEVERE Verified 02/04/24 11:56 ITCHING oxycodone Allergy Severe SEVERE Verified 02/04/24 11:56 ITCHING cat dander Allergy Intermediate NASAL Verified 02/04/24 11:56 CONGESTION/WATERY EYES dog dander Allergy Intermediate ITCHY Verified 02/04/24 11:56 EYES/NASAL CONGESTION house dust Allergy Intermediate ITCHY/WATERY Verified 02/04/24 11:56 EYES/NASAL CONGESTION mold Allergy Unknown + ALLERGY Verified 02/04/24 11:56 TEST Past Med/Surg History Problem List (Updated 03/07/24 @ 06:39 by Anita Romero PA-C) Thrombosis of left femoral vein (Acute) Leg pain, left (Acute) Chest pain (Acute) Disc degeneration, lumbar Low back pain Nonischemic cardiomyopathy Fibromyalgia Chronic pain Edema of left lower extremity (Acute) Abdominal pain, left lower quadrant (Acute) Acute deep vein thrombosis (DVT) of left lower extremity (Acute) HLD (hyperlipidemia) HTN (hypertension) Chronic combined systolic and diastolic CHF (congestive heart failure) Deep venous thrombosis of left iliac vein (Acute) 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 [facility]. Surgical History [place] teeth extracted History of dilation and curettage History of herniorrhaphy UMBILICAL History of section History of esophagogastroduodenoscopy (EGD) History of Jay fundoplication Family History Denies family history of Blood clotting disorder Social History Smoking Status: Never smoker Tobacco Type: Cigarettes Age Started Using Tobacco: 11; Cigarettes Per Day: 6/day; Second Hand Exposure: No; Do You Dip or Chew Tobacco: No; Hx Alcohol Use: No Hx Substance Use: No Preferred Language: Tajik Communication Ability: Effective Distribution Driver Required: No Beliefs That Will Affect Care: None Current Living Situation: Family current occupational status: employed 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 [employer] Feels Safe at Home: Yes Assistive Devices: Glasses Review of Systems A total of 10 systems reviewed and were otherwise negative Physical Exam Vital Signs Vital Signs - 24 hr 03/07/24 04:29 03/07/24 04:38 03/07/24 04:42 Temperature 36.5 C Temperature Source Oral Pulse Rate 88 72 84 Pulse Rate [Apical] Respiratory Rate 18 16 Respiratory Effort / Characteristics Non-Labored Spontaneous Respiratory Depth Normal Respiratory Pattern Regular Blood Pressure 144/70 H Blood Pressure [Right Arm] Blood Pressure Mean 94 Blood Pressure Mean [Right Arm] Pulse Oximetry 98 97 Oxygen Delivery Method Room Air Room Air Sepsis Recent Fever Within 48 Hours No Sepsis New/Unexplained Change in Mental Status N/A Sepsis Action Taken by Nursing No Action Required 03/07/24 06:15 Temperature Temperature Source Pulse Rate Pulse Rate [Apical] 91 H Respiratory Rate 18 Respiratory Effort / Characteristics Non-Labored Spontaneous Respiratory Depth Normal Respiratory Pattern Blood Pressure Blood Pressure [Right Arm] 95/48 L Blood Pressure Mean Blood Pressure Mean [Right Arm] 63 Pulse Oximetry 99 Oxygen Delivery Method Room Air Sepsis Recent Fever Within 48 Hours Sepsis New/Unexplained Change in Mental Status Sepsis Action Taken by Nursing VITALS: Vitals are noted on the nurse's note and reviewed by myself. Vital signs stable. GENERAL: Pleasant female, in no acute distress, nondiaphoretic, well-developed well-nourished. SKIN: Capillary reflex less than 2 seconds. HEENT: Normocephalic. PERRLA. EOMI. Nares patent. Mucous membranes moist. Neck is supple without nuchal rigidity. HEART: Regular rate and rhythm LUNGS: Clear to auscultation bilaterally without wheezes, rales or rhonchi. No retractions or accessory muscle use. ABDOMEN: Positive bowel sounds x 4. Normal tympanic percussion. Soft, nontender, without masses or organomegaly. Tate sign negative. No guarding or rebound tenderness. no CVA tenderness MUSCULOSKELETAL: No gross musculoskeletal defects. No calf tenderness bilaterally. Pedal pulses present bilaterally NEURO: Patient was alert and oriented to person place and time. No focal neurological deficits. Course Administered Medications Discontinued Medications Acetaminophen (Ofirmev) 1,000 mg in 100 mls @ 400 mls/hr IV NOW STA Stop: 03/07/24 06:02 Last Admin: 03/07/24 06:20 Dose: 400 mls/hr Documented By: [facility] Ioversol (Optiray 320 125ml) 125 ml IV ONCE ONE Stop: 03/07/24 05:02 Last Admin: 03/07/24 05:06 Dose: 118 ml Documented By: ILYA Medical Decision Making Medical Records Attestation: I reviewed the patient's medical records. Home Medications Current Medication List: was personally reviewed by me Laboratory Data Attestation: I reviewed the patient's lab results. 03/07/24 04:45 03/07/24 04:45 Lab Results 03/07/24 Range/Units 04:45 WBC 6.18 (4.8-10.8) K/ul RBC 4.72 (4.20-5.40) M/uL Hgb 14.0 (12.0-16.0) g/dl Hct 42.0 (37.0-47.0) % MCV 89.0 (80.0-100.0) fL MCH 29.7 (25.0-34.0) pg MCHC 33.3 (32.0-36.0) g/dL RDW Std Deviation 45.9 (36.4-46.3) fL RDW Coeff of [place] 14.1 (11.5-14.5) % Plt Count 204 (130-400) K/uL MPV 10.7 (9.4-12.4) fL Immature Gran % (Auto) 0.2 % Neut % (Auto) 40.2 % Lymph % (Auto) 48.9 % [place] % (Auto) 7.0 % Eos % (Auto) 3.4 % Baso % (Auto) 0.3 % Neut # (Auto) 2.49 (1.40-6.50) K/uL Lymph # (Auto) 3.02 (1.20-3.40) K/uL [place] # (Auto) 0.43 (0.11-0.59) K/uL Eos # (Auto) 0.21 (0.00-0.50) K/uL Baso # (Auto) 0.02 (0.00-0.20) K/uL Immature Gran # (Auto) 0.01 (0.01-0.20) K/uL Sodium 140 (136-145) mmol/L Potassium 3.4 L (3.5-5.1) mmol/L Chloride 107 (98-107) mmol/L Carbon Dioxide 25 (21-32) mmol/L Anion Gap 8 (3-11) BUN 24 H (6-23) mg/dl Creatinine 0.99 (0.6-1.2) mg/dl Est Cr Clr Drug Dosing 69.6 ml/min Est GFR ( Amer) 75.4 ml/min Est GFR (Non-Af Amer) 65.1 ml/min BUN/Creatinine Ratio 24.2 H (10-20) Glucose 70 (70-99(Fasting)) mg/dl Calcium 9.3 (8.6-10.3) mg/dl Total Bilirubin 0.3 (0.2-1.0) mg/dl AST 33 (13-39) U/L ALT 24 (7-52) U/L Alkaline Phosphatase 59 (34-104) U/L Troponin I High Sens < 2.3 (0-14) pg/ml Total Protein 6.9 (6.0-8.3) gm/dl Albumin 4.4 (3.4-5.0) gm/dl Globulin 2.5 (2.5-4.0) gm/dl Albumin/Globulin Ratio 1.8 (0.9-2) Lipase 63 (11-82) U/L HCG, Qual Negative (Negative) Imaging Data Attestation: I personally reviewed and interpreted this imaging study as follows: Radiologist's Impression: Chest X-Ray 03/07/24 04:38 XR chest 1V portable CLINICAL HISTORY: Chest pain, nonspecific COMPARISON STUDY: Chest CT June 05, 2017. Chest radiograph January 23, 2014. FINDINGS: Lung volumes are normal. Lungs are clear. There is no pneumothorax or pleural effusion. Cardiac size is normal. Mediastinal contours are normal. There is no evidence for pulmonary edema. IMPRESSION: No acute cardiopulmonary findings. ACT 112: Negative or not required by law. Electronically signed by: Ryan Calhoun M.D. 03/07/2024 6:30 AM Venous Doppler Study 03/07/24 04:38 Exam(s): US VENOUS BILATERAL LOWER EXTREMITIES EXAM: US Duplex Bilateral Lower Extremities Veins CLINICAL HISTORY: Reason for exam: swelling, ? DVT. TECHNIQUE: Real-time duplex ultrasound scan of the bilateral lower extremity veins integrating B-mode two-dimensional vascular structure, Doppler spectral analysis, color flow Doppler imaging and compression. COMPARISON: No relevant prior studies available. FINDINGS: Right deep veins: Unremarkable. No DVT in the right common femoral, femoral, proximal deep femoral or popliteal veins. The veins demonstrate normal color flow, are normally compressible, with normal phasic flow and/or augmentation response. Right superficial veins: Unremarkable. No thrombus in the visualized right great saphenous vein. Left deep veins: Findings suspicious for nonocclusive thrombus within the proximal left common and superficial femoral vein. Findings may relate to thrombus. Left superficial veins: Unremarkable. No thrombus in the visualized left great saphenous vein. Soft tissues: No acute findings. No popliteal cyst. IMPRESSION: 1. Findings suspicious for nonocclusive thrombus within the proximal left common and superficial femoral vein. Findings may relate to thrombus. This may be chronic given appearance. 2. Otherwise, no evidence of deep venous thrombosis within the bilateral lower extremities. Electronically signed by: Monroe Nunes MD 03/07/24 06:27 AM Chest CTA 03/07/24 04:39 Exam(s): CTA CHEST IV Amt: 118 ML OPTIRAY 320 EXAM: CT Angiography Chest With Intravenous Contrast CLINICAL HISTORY: Reason for exam: Chest Pain, eval for PE. TECHNIQUE: Axial computed tomographic angiography images of the chest with intravenous contrast. CTDI is 26.56 mGy and DLP is 1988.94 mGy-cm. Automated exposure control was utilized for the study. A dose lowering technique was utilized adhering to the principles of ALARA. MIP reconstructed images were created and reviewed. COMPARISON: No relevant prior studies available. FINDINGS: Pulmonary arteries: No pulmonary embolism detected. Aorta: No acute findings. No thoracic aortic aneurysm. Lungs: Unremarkable. No mass. No consolidation. Pleural space: Unremarkable. No significant effusion. No pneumothorax. Heart: Cardiomegaly. No significant pericardial effusion. No evidence of RV dysfunction. Bones/joints: No acute fracture. No dislocation. Soft tissues: Unremarkable. Lymph nodes: Unremarkable. No enlarged lymph nodes. Other findings: Mild dependent atelectatic changes. IMPRESSION: 1. No pulmonary embolism detected. 2. No other acute findings. 3. Incidental findings as described. Electronically signed by: Monroe Nunes MD 03/07/24 06:13 AM Abdomen/Pelvis CT 03/07/24 05:03 Exam(s): CT ABDOMEN + PELVIS With Contrast IV Amt: 118 ML OPTIRAY 320 EXAM: CT Abdomen and Pelvis With Intravenous Contrast CLINICAL HISTORY: Reason for exam: upper abd pain. TECHNIQUE: Axial computed tomography images of the abdomen and pelvis with intravenous contrast. CTDI is 26.56 mGy and DLP is 1282.80 mGy-cm. Automated exposure control was utilized for the study. A dose lowering technique was utilized adhering to the principles of ALARA. CONTRAST: Patient received 118 ML OPTIRAY 320 of IV contrast COMPARISON: No relevant prior studies available. FINDINGS: Lung bases: Unremarkable. No mass. No consolidation. ABDOMEN: Liver: Unremarkable. No mass. Gallbladder and bile ducts: Unremarkable. No calcified stones. No ductal dilation. Pancreas: Unremarkable. No mass. No ductal dilation. Spleen: Unremarkable. No splenomegaly. Adrenals: Unremarkable. No mass. Kidneys and ureters: Unremarkable. No solid mass. No hydronephrosis. Stomach and bowel: No evidence of bowel obstruction. No mucosal thickening. PELVIS: Appendix: Normal appendix. Bladder: Unremarkable. No mass. Reproductive: Unremarkable as visualized. ABDOMEN and PELVIS: Intraperitoneal space: Unremarkable. No free air. No significant fluid collection. Bones/joints: Degenerative changes in the spine. No acute fracture. No dislocation. Soft tissues: Unremarkable. Vasculature: Atherosclerotic disease. Patient is status post left common/external iliac venous stent which appears to be thrombosed. No abdominal aortic aneurysm. Lymph nodes: Unremarkable. No enlarged lymph nodes. IMPRESSION: 1. Patient is status post left common/external iliac venous stent which appears to be thrombosed. 2. No other acute findings. 3. Incidental findings as described. Electronically signed by: Monroe Nunes MD 03/07/24 06:15 AM MDM Narrative Prior records/ancillary studies reviewed. Triage Nursing notes reviewed. Additional history obtained from nursing. The patient's history was concerning for leg pain and chest pain. Differential diagnosis: Etiologies such as DVT, PE, cardiac ischemia, aortic dissection, pulmonary embolism, pneumonia, pneumothorax, musculoskeletal, infections, pericarditis, myocarditis, esophageal rupture, gastrointestinal, as well as others were entertained. Physical examination: As above. ER treatment provided: An order was placed for continuous cardiac monitoring. The monitor shows a rate of 60-100 with a sinus rhythm per my interpretation. Tylenol was ordered On reassessment the patient felt better. Diagnostic interpretation by me: The electrocardiogram was negative for pathologic change. Ordered for chest pain EKG: Normal sinus, left bundle, no acute ST-T wave changes. Impression left bundle branch block independently interpreted by myself I think arrhythmia is unlikely. EKG shows normal sinus rhythm with no interval abnormalities such as QT prolongation or WPW. There are no findings to suggest Brugada syndrome. Cardiac monitoring in the emergency department reveals no tachycardic or bradycardic dysrhythmia. Hypertrophic cardiomyopathy was considered but there are no clear historical elements pointing toward this. EKG is not suggestive. The QRS voltage is not extremely large and there are no suggestive Q waves. The labs Independently Interpreted by myself revealed glucose 70. Negative hCG. Negative troponin. No worrisome leukocytosis Imaging studies: Chest x-ray with no acute consolidation, pneumothorax or free air per my independent interpretation CTs were reviewed and read by radiology as above the patient states that Dr. Marquez states she still has a thrombus in her stent. She is advised to follow- up with him for this. Ultrasound was reviewed and read by radiology as above HEART SCORE: Hx: high/mod/low suspicion: 0 ECG: ST depression/nonspecific changes/normal: 0 Age: Greater than 65/45-64/less than 45: 1 Risk factors: (Hypertension, hyperlipidemia, diabetes, coronary disease, tobacco use, cocaine use): 1 Troponin: Greater than 2 times normal limits/1-2 times normal limits/normal: 0 Total: 2 Consultation: A consultation was placed with the hospitalist. The case was discussed and diagnostics were reviewed. The patient was evaluated in the ER for further treatment. Exam and history seem consistent with chest and leg pain with thrombus in the left femoral vein. She is on Eliquis. Medicine is consulted and the case is discussed. Patient be admitted to the medical service for thrombus in the left leg while on Eliquis. Low heart score. Unchanged EKG. By the evaluation outlined above emergent etiologies such as cardiac ischemia, aortic dissection, pulmonary embolism, pneumonia, pneumothorax, infections, pericarditis, myocarditis, gastrointestinal, as well as others were deemed relatively unlikely. The pt informed about the findings as listed above. All questions were answered and pleased with the treatment The chart was completed utilizing [employer] voice recognition software. Grammatical errors, random word insertions, pronoun errors, and incomplete sentences are an occassional consequence of this system due to software limitations, ambient noise, and hardware issues. Any formal questions or concerns about the content, text, or information contained within the body of this dictation should be directly addressed to the physician cable splicer assistant for clarification. Impression & Plan Thrombosis of left femoral vein, Chest pain, Leg pain, left Discharge Plan Visit Data Chief Complaint: Leg Injury/Pain Stated Complaint: LEG PAIN ED Provider: James Biswas ED Midlevel Provider: Anita Romero Discharge Problem: Thrombosis of left femoral vein, Chest pain, Leg pain, left Patient Disposition: Admitted As Inpatient Condition: Good Discharge Instructions Activity Restrictions/Additional Instructions: Follow-up with Dr. Marquez for your thrombosed left common iliac venous stent. Acetaminophen(Tylenol) may be used for fever or pain. Use 1000mg every six hours as needed. Avoid using more than 3000mg in a 24 hour period. Rest and drink plenty of fluids as tolerated. Continue current medications. Avoid strenuous activities and anything that worsens your pain. Resume normal activities once your symptoms resolve. Return to the ER immediately for worsening or persistent leg pain, abdominal pain, vomiting, fevers, chest pains, difficulty breathing, worsening of your condition, or as needed. Follow up with your primary physician in 2-3 days for a recheck of your current condition. Forms Stand Alone Forms: Work/School Release (ED), Important Visit Information Prescriptions Prescriptions: No Action duloxetine [Cymbalta] 60 mg capsule,delayed release(DR/EC) 60 mg PO DAILY Qty: 30 2RF Rx Instructions: TOTAL DOSE 90 MG--TAKES WITH 30 MG CAP. Trintellix 20 mg tablet 20 mg PO DAILY Hold Instructions: new meds metoprolol succinate 25 mg tablet extended release 24 hr 25 mg PO DAILY furosemide [Lasix] 20 mg tablet 20 mg PO DAILY Hold Instructions: Please do not take at this time, discuss further with Cardiology as outpatient to determine if necessary/able based upon your blood pressures Rx Instructions: PER PT'S MED LIST--QAM, PER Pharmaxis MED LIST---BID spironolactone 25 mg tablet 12.5 mg PO DAILY Hold Instructions: Please do not take at this time, discuss further with Cardiology as outpatient to determine if necessary/able based upon your blood pressures bupropion HCl [Wellbutrin XL] 150 mg tablet extended release 24 hr 150 mg PO QAM memantine 10 mg tablet 10 mg PO BIDM cholecalciferol (vitamin D3) [Vitamin D3] 1,000 unit Capsule 1,000 unit PO DAILY pantoprazole [Protonix] 20 mg tablet,delayed release (DR/EC) 40 mg PO BID tizanidine [Zanaflex] 4 mg capsule 6 mg PO HS PRN (Reason: MUSCLE SPASMS/PAIN) multivitamin Tablet 1 tab PO DAILY sumatriptan succinate 50 mg tablet 50 mg PO DIRECTED MDD 4 TABS/24 HOURS PRN (Reason: Headache) Rx Instructions: 1 TAB Q2HR NEEDED zolpidem 10 mg tablet 10 mg PO HS PRN (Reason: Sleep) black cohosh 200 mg Capsule 200 mg PO BID pregabalin 25 mg capsule 50 mg PO AMHS Rx Instructions: TOTAL DOSE 150 MG--TAKES WITH 100 MG CAP. pregabalin 100 mg capsule 100 mg PO AMHS Rx Instructions: TOTAL DOSE 150 MG--TAKES WITH 2-25 MG CAPS. Probiotic 3 billion cell Capsule 3,000 mmu cells PO DAILY Rx Instructions: administer with a meal Jardiance 10 mg tablet 10 mg PO DAILY Entresto 24-26 mg Tablet 0.5 tab PO BID Hold Instructions: Please do not take at this time, discuss further with Cardiology as outpatient to determine if necessary/able based upon your blood pressures Eliquis 5 mg tablet 5 mg PO BID Qty: 74 0RF cyanocobalamin (vitamin B-12) [Vitamin B-12] 1,000 mcg Tablet 1,000 mcg PO DAILY nitroglycerin [Nitrostat] 0.4 mg Tablet, Sublingual 0.4 mg sublingual DIRECTED PRN (Reason: Chest Pain) mometasone 50 mcg/actuation [place],Non-Aerosol 2 spray INTRANASAL DAILY Rx Instructions: administer into each nostril magnesium 250 mg Tablet 250 mg PO DAILY duloxetine 30 mg capsule,delayed release(DR/EC) 30 mg PO DAILY Rx Instructions: TOTAL DOSE 90 MG--TAKES WITH 60 MG CAP. diclofenac sodium 1 % Gel 2 g TOPICAL QID PRN (Reason: JOINT PAIN) melatonin 10 mg Tablet 10 mg PO HS PRN (Reason: Sleep) Medical Marijuana 1 dose inhalation DIRECTED PRN (Reason: NEEDED) hydrocodone-acetaminophen 5-325 mg tablet 1 tab PO BID PRN (Reason: pain) Rx Instructions: ORDERED 12/17/23 PER [facility]. PER PT "WAITING FOR PREAUTHORIZATION FROM INSURANCE, DID NOT GET YET". aspirin [Enteric Coated Aspirin] 81 mg tablet,delayed release (DR/EC) 81 mg PO Q OTHER DAY Referrals Referrals: Gregory Dyer MD [Primary Care Provider] - Discharge Problem: Chest pain Qualifiers: Chest pain type: unspecified Qualified Code(s): R07.9 - Chest pain, unspecified
[2024-03-07 04:59] LABS: Basophils # (auto) 0.02 K/uL (0.00-0.20); Basophils % (auto) 0.3 %; Eosinophils # (auto) 0.21 K/uL (0.00-0.50); Eosinophils % (auto) 3.4 %; Immature Granulocytes # (auto) 0.01 K/uL (0.01-0.20); Immature Granulocytes % (auto) 0.2 %; Lymphocytes # (auto) 3.02 K/uL (1.20-3.40); Lymphocytes % (auto) 48.9 %; Mean Corpuscular Hemoglobin 29.7 pg (25.0-34.0); Mean Corpuscular Hgb Conc 33.3 g/dL (32.0-36.0); Mean Platelet Volume 10.7 fL (9.4-12.4); Monocytes # (auto) 0.43 K/uL (0.11-0.59); Neutrophils # (auto) 2.49 K/uL (1.40-6.50); Neutrophils % (auto) 40.2 %; Platelet Count 204 K/uL (130-400); RDW Coefficient of Variation 14.1 % (11.5-14.5); RDW Standard Deviation 45.9 fL (36.4-46.3); Red Blood Count 4.72 M/uL (4.20-5.40); White Blood Count 6.18 K/ul (4.8-10.8)
[2024-03-07] MEDS: OPTIRAY 320 125ml IV ONE (05:06)
[2024-03-07 05:12] LABS: Pregnancy Test, Serum Negative (Negative)
[2024-03-07 05:15] LABS: Anion Gap 8 (3-11); Blood Urea Nitrogen 24 mg/dl (6-23); Carbon Dioxide 25 mmol/L (21-32); Chloride 107 mmol/L (98-107); Est GFR (African American) 75.4 ml/min; Potassium 3.4 mmol/L (3.5-5.1); Sodium 140 mmol/L (136-145)
[2024-03-07 05:16] LABS: Alanine Aminotransferase 24 U/L (7-52); Albumin Globulin Ratio 1.8 (0.9-2); Albumin Level 4.4 gm/dl (3.4-5.0); Alkaline Phosphatase 59 U/L (34-104); Aspartate Aminotransferase 33 U/L (13-39); BUN Creatinine Ratio 24.2 (10-20); Bilirubin,Total 0.3 mg/dl (0.2-1.0); Calcium 9.3 mg/dl (8.6-10.3); Creatinine Clr Calc Pharmacy 69.6 ml/min; Est GFR (Non-African American) 65.1 ml/min; Globulin 2.5 gm/dl (2.5-4.0); Glucose 70 mg/dl (70-99(Fasting)); Lipase 63 U/L (11-82); Total Protein 6.9 gm/dl (6.0-8.3)
[2024-03-07 05:22] LABS: Troponin I High Sensitivity < 2.3 pg/ml (0-14)
--- NOTE | 2024-03-07 06:14 | CT Scan Report ---
Exam(s): CTA CHEST IV Amt: 118 ML OPTIRAY 320 EXAM: CT Angiography Chest With Intravenous Contrast CLINICAL HISTORY: Reason for exam: Chest Pain, eval for PE. TECHNIQUE: Axial computed tomographic angiography images of the chest with intravenous contrast. CTDI is 26.56 mGy and DLP is 1988.94 mGy-cm. Automated exposure control was utilized for the study. A dose lowering technique was utilized adhering to the principles of ALARA. MIP reconstructed images were created and reviewed. COMPARISON: No relevant prior studies available. FINDINGS: Pulmonary arteries: No pulmonary embolism detected. Aorta: No acute findings. No thoracic aortic aneurysm. Lungs: Unremarkable. No mass. No consolidation. Pleural space: Unremarkable. No significant effusion. No pneumothorax. Heart: Cardiomegaly. No significant pericardial effusion. No evidence of RV dysfunction. Bones/joints: No acute fracture. No dislocation. Soft tissues: Unremarkable. Lymph nodes: Unremarkable. No enlarged lymph nodes. Other findings: Mild dependent atelectatic changes. IMPRESSION: 1. No pulmonary embolism detected. 2. No other acute findings. 3. Incidental findings as described. Electronically signed by: Monroe Nunes MD 03/07/24 06:13 AM
--- NOTE | 2024-03-07 06:16 | CT Scan Report ---
Exam(s): CT ABDOMEN + PELVIS With Contrast IV Amt: 118 ML OPTIRAY 320 EXAM: CT Abdomen and Pelvis With Intravenous Contrast CLINICAL HISTORY: Reason for exam: upper abd pain. TECHNIQUE: Axial computed tomography images of the abdomen and pelvis with intravenous contrast. CTDI is 26.56 mGy and DLP is 1282.80 mGy-cm. Automated exposure control was utilized for the study. A dose lowering technique was utilized adhering to the principles of ALARA. CONTRAST: Patient received 118 ML OPTIRAY 320 of IV contrast COMPARISON: No relevant prior studies available. FINDINGS: Lung bases: Unremarkable. No mass. No consolidation. ABDOMEN: Liver: Unremarkable. No mass. Gallbladder and bile ducts: Unremarkable. No calcified stones. No ductal dilation. Pancreas: Unremarkable. No mass. No ductal dilation. Spleen: Unremarkable. No splenomegaly. Adrenals: Unremarkable. No mass. Kidneys and ureters: Unremarkable. No solid mass. No hydronephrosis. Stomach and bowel: No evidence of bowel obstruction. No mucosal thickening. PELVIS: Appendix: Normal appendix. Bladder: Unremarkable. No mass. Reproductive: Unremarkable as visualized. ABDOMEN and PELVIS: Intraperitoneal space: Unremarkable. No free air. No significant fluid collection. Bones/joints: Degenerative changes in the spine. No acute fracture. No dislocation. Soft tissues: Unremarkable. Vasculature: Atherosclerotic disease. Patient is status post left common/external iliac venous stent which appears to be thrombosed. No abdominal aortic aneurysm. Lymph nodes: Unremarkable. No enlarged lymph nodes. IMPRESSION: 1. Patient is status post left common/external iliac venous stent which appears to be thrombosed. 2. No other acute findings. 3. Incidental findings as described. Electronically signed by: Monroe Nunes MD 03/07/24 06:15 AM
[2024-03-07] MEDS: ACETAMINOPHEN 1,000 MG/100 ML VIAL IV STA (06:20)
--- NOTE | 2024-03-07 06:28 | Ultrasound Report ---
Exam(s): US VENOUS BILATERAL LOWER EXTREMITIES EXAM: US Duplex Bilateral Lower Extremities Veins CLINICAL HISTORY: Reason for exam: swelling, ? DVT. TECHNIQUE: Real-time duplex ultrasound scan of the bilateral lower extremity veins integrating B-mode two-dimensional vascular structure, Doppler spectral analysis, color flow Doppler imaging and compression. COMPARISON: No relevant prior studies available. FINDINGS: Right deep veins: Unremarkable. No DVT in the right common femoral, femoral, proximal deep femoral or popliteal veins. The veins demonstrate normal color flow, are normally compressible, with normal phasic flow and/or augmentation response. Right superficial veins: Unremarkable. No thrombus in the visualized right great saphenous vein. Left deep veins: Findings suspicious for nonocclusive thrombus within the proximal left common and superficial femoral vein. Findings may relate to thrombus. Left superficial veins: Unremarkable. No thrombus in the visualized left great saphenous vein. Soft tissues: No acute findings. No popliteal cyst. IMPRESSION: 1. Findings suspicious for nonocclusive thrombus within the proximal left common and superficial femoral vein. Findings may relate to thrombus. This may be chronic given appearance. 2. Otherwise, no evidence of deep venous thrombosis within the bilateral lower extremities. Electronically signed by: Monroe Nunes MD 03/07/24 06:27 AM
--- NOTE | 2024-03-07 06:32 | XRay Report ---
XR chest 1V portable CLINICAL HISTORY: Chest pain, nonspecific COMPARISON STUDY: Chest CT June 05, 2017. Chest radiograph January 23, 2014. FINDINGS: Lung volumes are normal. Lungs are clear. There is no pneumothorax or pleural effusion. Car diac size is normal. Mediastinal contours are normal. There is no evidence for pulmonary edema. IMPRESSION: No acute cardiopulmonary findings. ACT 112: Negative or not required by law. Electronically signed by: Ryan Calhoun M.D. 03/07/2024 6:30 AM
[2024-03-07 06:40] VITALS: RESP 18
--- NOTE | 2024-03-07 07:58 | History & Physical Report ---
Date of Service March 07, 2024 Assessment & Plan (1) Leg pain, left: (2) Edema of left lower extremity: (3) May-Thurner syndrome: Plan Ms. De La Cruz is a 53-year-old female who has significant past medical history of nonischemic cardiomyopathy, combined systolic and diastolic CHF, LBBB, HTN, HLD, history of varicose veins status post ablation, RADHA, asthma, fibromyalgia, DDD, history of migraines, tobacco abuse, medical marijuana card for fibromyalgia, depression with anxiety and insomnia who presented to ED on 03/07 due to acute LLE pain at 330 am. Patient states she has chronic pain in LLE and swelling due to May-Thurner. She takes her Eliquis as prescribed and even had her IVC filter removed 02/03. Vascular reviewed--this is chronic. Patient with pain resolved. #Extensive DVT L common iliac vein, L common femoral vein, L greater saphenous vein, proximal superficial femoral vein and thrombus in 1 of 2 paired posterior tibial veins #May Thurner Syndrome Initially started on heparin drip, remains hemodynamically stable 07/21: Now s/p insertion of Vena Cava Filter s/p removal 02/03 Continue eliquis Vascular: thrombosed stent is chronic #Nonischemic cardiomyopathy #Combined systolic and diastolic CHF, Heart failure with rec EF #Chronic LBBB Currently euvolemic, prior ECHO stable EF Continue GDMT -Metoprolol xL 25mg daily -Furosemide 20mg daily: held 2/2 hypotension -Entresto 26/24 0.5 tab BID: held 2/2 hypotension -Aldactone 12.5 mg held 2/2 hypotension -Jardiance 10mg daily Cardiology consulted to discuss optimization of GDMT iso concerns of ongoing hypotension reported prior to admission Continue Entresto, furosemide, Jardiance, metoprolol, spironolactone at their current doses. -Follow up OP cards #HTN #HLD Chronic, stable Follows [facility] On GDMT including metoprolol, Aldactone, Entresto, Jardiance, lasix Held regimen s/p IVF with improved BP #Abnormal MRI brain #Known R frontal Meningoma #Memory impairment Followed Dr. Tobias in 01/2023 Chronic ischemic microvascular changes on MRI noted Consider resumption of ASA 81mg daily upon discharge Continue nymenda 10mg BID #RADHA Cpap at HS #Fibromyalgia continue lyrica namenda uses medical marijuana prn at home continue duloxetine chronic, stable #Insomnia ambien 10mg HS, prn melatonin is her home regimen chronic, stable Persistent insomnia Plan: Eszopiclone 1 MG Oral Tablet (Lunesta) #Depression with anxiety continue bupropion #GERD Continue PPI BID DVT Eliquis Admission and Anticipated Discharge Date Admission Date: Time spent evaluating patient, direct bedside care, chart review, placing orders, interpretation of diagnostic studies, discussion with consultants, patient, and family members, as well as other required patient management activities is 75 minutes. History of Present Illness Chief Complaint: LLE pain Primary Care Provider: Gregory Dyer MD Ms. De La Cruz is a 54-year-old female who has significant past medical history of nonischemic cardiomyopathy, combined systolic and diastolic CHF, LBBB, HTN, HLD, history of varicose veins status post ablation, RADHA, asthma, fibromyalgia, DDD, history of migraines, tobacco abuse, medical marijuana card for fibromyalgia, depression with anxiety and insomnia, May-Thurner syndrome s/p L iliac stenting on chronic DOAC who presented to [facility] ED on 03/07 due to acute LLE pain at 330 a m. Patient states she has chronic pain in LLE and swelling due to May-Thurner. She takes her Eliquis as prescribed and even had her IVC filter removed 02/03. Patient otherwise states she has been in normal state of health. Patient admitted 07/18 secondary to severe left lower extremity pain.Patient underwent venogram and started on tPA infusion after a prophylactic IVC filter placed on 07/21. Patient transferred to ICU for close monitoring during ongoing anticoagulation with tPA drip via LLE. Patient follow Heme who per patient felt this was likely anatomical therefore further anticoagulation studies deferred. When asking patient about family history and personal history, she does note her mother had atleast one miscarriage and that she personally experienced 3 early term miscarriages. Patient denies chest pain, shortness of breath, or other acute concerns. On exam, patient states pain is controlled when she is not moving. In the ED, vitals were notable for BP of 80-90s, HR of 60-80s, and O2 sat of high 90s on RA Imaging revealed doppler with nonocclusive femoral DVT, possibly chronic; however, CT ABD/P revealed stent in iliac possibly thrombosed. EKG reviewed and noted TWI but with artifact, therefore will repeat ED interventions: tylenol. Consultants: Reached out to Vascular to discuss Patient to be admitted to PCU/tele for further evaluation and management of thr ombosed iliac stent. Allergies Allergy/AdvReac Type Severity Reaction Status Date / Time codeine Allergy Severe SEVERE Verified 02/04/24 11:56 ITCHING oxycodone Allergy Severe SEVERE Verified 02/04/24 11:56 ITCHING cat dander Allergy Intermediate NASAL Verified 02/04/24 11:56 CONGESTION/WATERY EYES dog dander Allergy Intermediate ITCHY Verified 02/04/24 11:56 EYES/NASAL CONGESTION house dust Allergy Intermediate ITCHY/WATERY Verified 02/04/24 11:56 EYES/NASAL CONGESTION mold Allergy Unknown + ALLERGY Verified 02/04/24 11:56 TEST Home Medications Medication Instructions Recorded Confirmed Type cholecalciferol (vitamin D3) 25 1,000 unit PO DAILY 02/26/18 03/07/24 History mcg (1,000 unit) capsule (Vitamin D3) bupropion HCl 150 mg 24 hr tablet, 150 mg PO QAM 02/10/23 03/07/24 History extended release (Wellbutrin XL) furosemide 20 mg tablet (Lasix) 20 mg PO DAILY 02/10/23 03/07/24 History memantine 10 mg tablet 10 mg PO BIDM 02/10/23 03/07/24 History metoprolol succinate 25 mg 25 mg PO DAILY 02/10/23 03/07/24 History tablet,extended release 24 hr pantoprazole 20 mg tablet,delayed 40 mg PO BID 02/10/23 03/07/24 History release (Protonix) spironolactone 25 mg tablet 12.5 mg PO DAILY 02/10/23 03/07/24 History tizanidine 4 mg capsule (Zanaflex) 4 mg PO HS PRN MUSCLE SPASMS/PAIN 02/10/23 03/07/24 History black cohosh 200 mg capsule 200 mg PO BID 07/18/23 03/07/24 History empagliflozin 10 mg tablet 10 mg PO DAILY 07/18/23 03/07/24 History (Jardiance) lactobacillus combination no.4 3 3,000 mmu cells PO DAILY 07/18/23 03/07/24 History billion cell capsule (Probiotic) multivitamin 1 tab PO DAILY 07/18/23 03/07/24 History pregabalin 100 mg capsule 100 mg PO AMHS 07/18/23 03/07/24 History pregabalin 25 mg capsule 50 mg PO AMHS 07/18/23 03/07/24 History sacubitril 24 mg-valsartan 26 mg 0.5 tab PO BID 07/18/23 03/07/24 History tablet (Entresto) sumatriptan succinate 50 mg tablet 50 mg PO DIRECTED PRN Headache 07/18/23 03/07/24 History apixaban 5 mg tablet (Eliquis) 5 mg PO BID #74 tabs 07/23/23 03/07/24 Rx cyanocobalamin (vitamin B-12) 1,000 mcg PO DAILY 12/21/23 03/07/24 History 1,000 mcg tablet (Vitamin B-12) diclofenac sodium 1 % topical gel 2 g topical QID PRN JOINT PAIN 12/21/23 03/07/24 History hydrocodone 5 mg-acetaminophen 325 1 tab PO BID PRN pain 12/21/23 03/07/24 History mg tablet melatonin 10 mg tablet 10 mg PO HS PRN Sleep 12/21/23 03/07/24 History duloxetine 60 mg capsule,delayed 60 mg PO QPM 03/07/24 03/07/24 History release (Cymbalta) eszopiclone 1 mg tablet 3 mg PO 03/07/24 History Past Med/Surg History Problem List Thrombosis of left femoral vein (Acute) Leg pain, left (Acute) Chest pain (Acute) Disc degeneration, lumbar Low back pain Nonischemic cardiomyopathy Fibromyalgia Chronic pain Edema of left lower extremity (Acute) Abdominal pain, left lower quadrant (Acute) Acute deep vein thrombosis (DVT) of left lower extremity (Acute) HLD (hyperlipidemia) HTN (hypertension) Chronic combined systolic and diastolic CHF (congestive heart failure) Deep venous thrombosis of left iliac vein (Acute) 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 [facility]. Surgical History [place] teeth extracted History of dilation and curettage History of herniorrhaphy UMBILICAL History of section History of esophagogastroduodenoscopy (EGD) History of [place] fundoplication Family History Denies family history of Blood clotting disorder Social History Smoking Status: Never smoker Tobacco Type: Cigarettes Age Started Using Tobacco: 11; Cigarettes Per Day: 6/day; Second Hand Exposure: No; Do You Dip or Chew Tobacco: No; Hx Alcohol Use: No Hx Substance Use: No Preferred Language: Belarusian Communication Ability: Effective Flagsetter Required: No Beliefs That Will Affect Care: None Current Living Situation: Family current occupational status: employed 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 Head: (-) headache, (-) dizziness. Eye: (-) blurring of vision, (-) double vision, (-) redness. Ear: (-) hearing loss, (-) discharge, (-) vertigo Nose: (-) discharge, (-) bleeding, (-) congestion, (-) post nasal drip. Throat: (-) sore throat, (-) hoarseness of voice, (-) odynophagia. Cardiovascular: (-) chest pain, (-) palpitations, (-) syncope, (-) orthopnea, (- ) PND, (-) leg swelling. Respiratory: (-) shortness of breath, (-) cough, (-) wheezing, (-) hemoptysis. Neuro: (-) weakness in extremities, (-) numbness, (-) tingling, (-) tremor. Gastrointestinal: (-) belly pain, (-) belly distension, (-) nausea, (-) vomiting, (-) diarrhea, (-) constipation, (-) na, (-) hematemesis, (-) hematochezia, (-) bowel incontinence Genitourinary: (-) hematuria, (-) dysuria, (-) polyuria, (-) hesitancy, (-) frequency, (-) urinary incontinence. Musculoskeletal: (-) myalgia, (-) arthralgia. Skin: (-) rashes. Endocrine: (-) heat/cold intolerance. Psychiatry: (-) depression, (-) hallucination. Physical Exam Physical Exam: GENERAL APPEARANCE: AxOx4, generally well-appearing F, no acute distress. HEENT: NC, AT. MMM. EOMI, clear conjunctiva, oropharynx clear. NECK: Supple without lymphadenopathy. No stiffness or restricted ROM. HEART: Normal rate and regular rhythm, normal S1/S1, no m/r/g LUNGS: CTAB, moving air well. No crackles or wheezes are heard. ABDOMEN: Soft, nontender, nondistended with good bowel sounds heard. BACK: No CVAT, no obvious deformity. EXTREMITIES: Without cyanosis, clubbing or edema. NEUROLOGICAL: Grossly nonfocal. Alert and oriented, moving all 4 extremities. CN not formally tested but appear grossly intact. Observed to ambulate with normal gait. Skin: Warm and dry without any rash. Results & Data Results & Data Vital Signs (Past 12 Hours) Vital Signs Temp Pulse Pulse Resp BP BP Pulse Ox 03/07/24 06:15 91 H 18 95/48 L 99 03/07/24 04:42 84 03/07/24 04:38 72 16 97 03/07/24 04:29 36.5 C 88 18 144/70 H 98 O2 Del Method 03/07/24 06:15 Room Air 03/07/24 04:42 03/07/24 04:38 Room Air 03/07/24 04:29 Room Air Laboratory Results Short CBC 03/07/24 Range/Units 04:45 WBC 6.18 (4.8-10.8) K/ul Hgb 14.0 (12.0-16.0) g/dl Hct 42.0 (37.0-47.0) % Plt Count 204 (130-400) K/uL BMP 03/07/24 04:45 Sodium 140 Potassium 3.4 L Chloride 107 Carbon Dioxide 25 BUN 24 H Creatinine 0.99 Glucose 70 Calcium 9.3 Liver Function 03/07/24 Range/Units 04:45 Total Bilirubin 0.3 (0.2-1.0) mg/dl AST 33 (13-39) U/L ALT 24 (7-52) U/L Alkaline Phosphatase 59 (34-104) U/L Albumin 4.4 (3.4-5.0) gm/dl Medications Administered Home Medications Medication Instructions Recorded Confirmed Last Taken cholecalciferol (vitamin D3) 25 1,000 unit PO DAILY 02/26/18 03/07/24 02/01/24 21:00 mcg (1,000 unit) capsule (Vitamin D3) bupropion HCl 150 mg 24 hr tablet, 150 mg PO QAM 02/10/23 03/07/24 02/03/24 13:00 extended release (Wellbutrin XL) furosemide 20 mg tablet (Lasix) 20 mg PO DAILY 02/10/23 03/07/24 02/03/24 13:00 memantine 10 mg tablet 10 mg PO BIDM 02/10/23 03/07/24 12/20/23 metoprolol succinate 25 mg 25 mg PO DAILY 02/10/23 03/07/24 02/04/24 10:00 tablet,extended release 24 hr pantoprazole 20 mg tablet,delayed 40 mg PO BID 02/10/23 03/07/24 02/03/24 23:55 release (Protonix) spironolactone 25 mg tablet 12.5 mg PO DAILY 02/10/23 03/07/24 02/03/24 13:00 tizanidine 4 mg capsule (Zanaflex) 4 mg PO HS PRN MUSCLE SPASMS/PAIN 02/10/23 03/07/24 02/03/24 23:55 black cohosh 200 mg capsule 200 mg PO BID 07/18/23 03/07/24 02/03/24 23:55 empagliflozin 10 mg tablet 10 mg PO DAILY 07/18/23 03/07/24 01/31/24 09:30 (Jardiance) lactobacillus combination no.4 3 3,000 mmu cells PO DAILY 07/18/23 03/07/24 Unknown billion cell capsule (Probiotic) multivitamin 1 tab PO DAILY 07/18/23 03/07/24 02/03/24 13:00 pregabalin 100 mg capsule 100 mg PO AMHS 07/18/23 03/07/24 02/03/24 23:55 pregabalin 25 mg capsule 50 mg PO AMHS 07/18/23 03/07/24 02/03/24 23:55 sacubitril 24 mg-valsartan 26 mg 0.5 tab PO BID 07/18/23 03/07/24 02/04/24 10:00 tablet (Entresto) sumatriptan succinate 50 mg tablet 50 mg PO DIRECTED PRN Headache 07/18/23 03/07/24 Unknown apixaban 5 mg tablet (Eliquis) 5 mg PO BID #74 tabs 07/23/23 03/07/24 02/02/24 23:55 cyanocobalamin (vitamin B-12) 1,000 mcg PO DAILY 12/21/23 03/07/24 02/03/24 13:30 1,000 mcg tablet (Vitamin B-12) diclofenac sodium 1 % topical gel 2 g topical QID PRN JOINT PAIN 12/21/23 03/07/24 02/04/24 10:00 hydrocodone 5 mg-acetaminophen 325 1 tab PO BID PRN pain 12/21/23 03/07/24 02/02/24 13:00 mg tablet melatonin 10 mg tablet 10 mg PO HS PRN Sleep 12/21/23 03/07/24 02/03/24 23:55 duloxetine 60 mg capsule,delayed 60 mg PO QPM 03/07/24 03/07/24 Unknown release (Cymbalta) eszopiclone 1 mg tablet 3 mg PO 03/07/24 Unknown Code Status & VTE Plan VTE Prophylaxis Plan VTE Prophylaxis will be ordered: Yes
[2024-03-07] MEDS ORDERED: HYDROCODONE/ACETAMINOPHEN 7.5/325MG TAB PO PRN (08:38)
[2024-03-07] MEDS: HEPARIN 25000 UNIT/500 ML D5W IV ONE (08:52)
--- NOTE | 2024-03-07 09:34 | Consultation ---
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 SHe is relatively well collateralized and has mild chronic edema of LLE. All thrombus appears chronic. Edema in LLE is no worse than previous. Pt remains on E liquis, which has been effective. No evidence to suggest failure of Eliquis, however, if concerns remain, could have pt eval by hematology. Please call if needed. History of Present Illness Reason for Consultation: LLE pain, hx DVT History of Present Illness 54 yo f with hx of migraines, anxiety/depression, meningioma, cardiomyopathy, HTN, hyperlipidemia, fibromyalgia, lumbar disc degeneration, and LLE DVT d/t Octoberurner syndrome, admitted for LLE pain, and seen in consultation today for LLE DVT. Pt known to Dr Marquez's vascular service for extensive proximal DVT d/t Octoberurner syndrome in 2023, at which time she underwent venogram with thrombolytics and L iliac stent placement, as well as IVC filter insertion. Subsequent reeval in office with venous US demonstrated occlusion of her L iliac V stent in October 2023. Venogram with thrombolytics and possible restenting was offered to pt at that time, but she declined. SHe underwent removal of her IVC filter in January 2024. Pt states she awoke with severe pain in LLE in middle of the night. Describes this as a sharp pain in her calf, almost like a muscle cramp, but the pain then extended up her leg to posterior thigh. No recent worsening of mild chronic edema of LLE, no other recent changes in LLE. Pt states she ambulated more than usual 3 days ago when she went along on her daughter's field trip. Pain currently under control with medication in ED. Denies RYDER, fever, chest pain, SOB, abd pain, N/V, rest pain, claudication, other complaints. Venous US demonstrates chronic non-occlusive femoral thrombus. CT abd/pelvis demonstrates occluded L iliac vein stent. Allergies Allergy/AdvReac Type Severity Reaction Status Date / Time codeine Allergy Severe SEVERE Verified 02/04/24 11:56 ITCHING oxycodone Allergy Severe SEVERE Verified 02/04/24 11:56 ITCHING cat dander Allergy Intermediate NASAL Verified 02/04/24 11:56 CONGESTION/WATERY EYES dog dander Allergy Intermediate ITCHY Verified 02/04/24 11:56 EYES/NASAL CONGESTION house dust Allergy Intermediate ITCHY/WATERY Verified 02/04/24 11:56 EYES/NASAL CONGESTION mold Allergy Unknown + ALLERGY Verified 02/04/24 11:56 TEST Home Medications Medication Instructions Recorded Confirmed Type cholecalciferol (vitamin D3) 25 1,000 unit PO DAILY 02/26/18 03/07/24 History mcg (1,000 unit) capsule (Vitamin D3) bupropion HCl 150 mg 24 hr tablet, 150 mg PO QAM 02/10/23 03/07/24 History extended release (Wellbutrin XL) furosemide 20 mg tablet (Lasix) 20 mg PO DAILY 02/10/23 03/07/24 History memantine 10 mg tablet 10 mg PO BIDM 02/10/23 03/07/24 History metoprolol succinate 25 mg 25 mg PO DAILY 02/10/23 03/07/24 History tablet,extended release 24 hr pantoprazole 20 mg tablet,delayed 40 mg PO BID 02/10/23 03/07/24 History release (Protonix) spironolactone 25 mg tablet 12.5 mg PO DAILY 02/10/23 03/07/24 History tizanidine 4 mg capsule (Zanaflex) 4 mg PO HS PRN MUSCLE SPASMS/PAIN 02/10/23 03/07/24 History black cohosh 200 mg capsule 200 mg PO BID 07/18/23 03/07/24 History empagliflozin 10 mg tablet 10 mg PO DAILY 07/18/23 03/07/24 History (Jardiance) lactobacillus combination no.4 3 3,000 mmu cells PO DAILY 07/18/23 03/07/24 History billion cell capsule (Probiotic) multivitamin 1 tab PO DAILY 07/18/23 03/07/24 History pregabalin 100 mg capsule 100 mg PO AMHS 07/18/23 03/07/24 History pregabalin 25 mg capsule 50 mg PO AMHS 07/18/23 03/07/24 History sacubitril 24 mg-valsartan 26 mg 0.5 tab PO BID 07/18/23 03/07/24 History tablet (Entresto) sumatriptan succinate 50 mg tablet 50 mg PO DIRECTED PRN Headache 07/18/23 03/07/24 History apixaban 5 mg tablet (Eliquis) 5 mg PO BID #74 tabs 07/23/23 03/07/24 Rx cyanocobalamin (vitamin B-12) 1,000 mcg PO DAILY 12/21/23 03/07/24 History 1,000 mcg tablet (Vitamin B-12) diclofenac sodium 1 % topical gel 2 g topical QID PRN JOINT PAIN 12/21/23 03/07/24 History hydrocodone 5 mg-acetaminophen 325 1 tab PO BID PRN pain 12/21/23 03/07/24 History mg tablet melatonin 10 mg tablet 10 mg PO HS PRN Sleep 12/21/23 03/07/24 History duloxetine 60 mg capsule,delayed 60 mg PO QPM 03/07/24 03/07/24 History release (Cymbalta) eszopiclone 1 mg tablet 3 mg PO 03/07/24 History Patient History Medical History Acute blood loss anemia Hx of cardiomyopathy Irritable bowel syndrome (IBS) GERD (gastroesophageal reflux disease) Asthma Incomplete left bundle branch block PT HAS HAD CARDIAC WORK UP. [facility]. Surgical History [place] teeth extracted History of dilation and curettage History of herniorrhaphy UMBILICAL History of section History of esophagogastroduodenoscopy (EGD) History of Jay fundoplication Family History Denies family history of Blood clotting disorder Social History Smoking Status: Never smoker Tobacco Type: Cigarettes Age Started Using Tobacco: 11; Cigarettes Per Day: 6/day; Second Hand Exposure: No; Do You Dip or Chew Tobacco: No; Hx Alcohol Use: No Hx Substance Use: No Preferred Language: Macedonian Communication Ability: Effective Cafeteria Associate Required: No Beliefs That Will Affect Care: None Current Living Situation: Family current occupational status: employed 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 [employer] Feels Safe at Home: Yes Assistive Devices: Glasses Review of Systems Review of Systems: All systems reviewed & are unremarkable except as noted in HPI & below Physical Exam Constitutional: WD/WN, vitals as above + obese, cooperative and comfortab le; not in distress Respiratory: normal respiratory effort, lungs clear to auscultation Auscultation: + diminished lung sounds Cardiovascular: Rate/Rhythm: regular rate and regular rhythm Vessels: femoral pulses present, posterior tibial pulses present (+2), dorsalis pedis pulses present (+2) and radial pulses present; + abnormal peripheral pulses Extremities: normal capillary refill and + edema (+1 LLE, trace RLE) Gastrointestinal (Abdomen): Inspection/Auscultation: abdomen normal to inspection and normal bowel sounds Percussion/Palpation: abdomen soft; abdomen nontender Musculoskeletal: no cyanosis or clubbing, extremities motor strength 5/5 Skin: no rashes, warm and dry Neurologic: moves all extremities and awake; no focal motor deficits and not confused Psychiatric: Orientation: alert and oriented x 3 Affect: + anxious affect Results & Data Vital Signs (Past 12 Hours) Vital Signs Temp Pulse Pulse Resp BP BP Pulse Ox 03/07/24 06:15 91 H 18 95/48 L 99 03/07/24 04:42 84 03/07/24 04:38 72 16 97 03/07/24 04:29 36.5 C 88 18 144/70 H 98 O2 Del Method 03/07/24 06:15 Room Air 03/07/24 04:42 03/07/24 04:38 Room Air 03/07/24 04:29 Room Air
[2024-03-07 09:41] LABS: INR 0.9 (0.9-1.1); Partial Thromboplastin Time 27 Seconds (21-31); Prothrombin Time 9.8 Seconds (9.0-12.0)
[2024-03-07 09:44] LABS: Magnesium 2.1 mg/dl (1.7-2.4)
[2024-03-07] MEDS: POTASSIUM CHLORIDE PWD 20 MEQ PACK PO STA (10:21)
[2024-03-07] MEDS: HYDROmorphone INJ 0.5 MG/0.5 ML SYR IV STA (10:21)
[2024-03-07] MEDS: SODIUM CHLORIDE 0.9% 1,000 ML IV SCH (10:22)
[2024-03-07] MEDS ORDERED: ACETAMINOPHEN 325 MG TAB PO PRN (10:31)
[2024-03-07] MEDS ORDERED: DICLOFENAC SOD 1% GEL 100 GM TUBE EXT PRN (10:31)
[2024-03-07] MEDS ORDERED: tiZANidine HCL 4 MG TABLET PO PRN (10:31)
[2024-03-07] MEDS ORDERED: MELATONIN 3 MG TAB PO PRN (10:39)
[2024-03-07] MEDS: Heparin IV Adult Wt-Based Standard *NO* INITIAL Bolus Protocol IV SCH (10:44)
[2024-03-07] MEDS: HEPARIN SODIUM/DEXTROSE 25,000 UNITS/500 ML BAG IV SCH (10:45)
[2024-03-07] MEDS: POTASSIUM CHLORIDE / WTR 10 MEQ/100 ML PLCT IV SCH (10:53)
[2024-03-07 10:55] VITALS: BP 114/66; PULSE 84; O2SAT 97
[2024-03-07] MEDS: PSYLLIUM or GUAR GUM FIBER 4GM PACKET PO SCH (11:36)
[2024-03-07] MEDS: LACTOBACILLUS ACIDOPHILUS 1 GM PACK PO SCH (11:36)
[2024-03-07] MEDS: PANTOprazole 40 MG TAB PO SCH (11:37)
[2024-03-07] MEDS: buPROPion XL 150 MG TABCR PO SCH (11:37)
[2024-03-07] MEDS: CYANOCOBALAMIN (B-12) 500 MCG TABLET PO SCH (11:37)
[2024-03-07] MEDS: PREGABALIN 150 MG CAP PO SCH (11:38)
[2024-03-07] MEDS: MULTIVITAMIN TAB PO SCH (11:38)
[2024-03-07] MEDS: APIXABAN 5 MG TABLET PO SCH (11:38)
[2024-03-07] MEDS: CHOLECALCIFEROL 25 MCG (1000 UNITS) TAB PO SCH (11:38)
[2024-03-07 12:11] LABS: iSTAT Hemoglobin 13.9 g/dl (12.0-16.0); iSTAT Ionized Calcium 1.21 mmol/l (1.12-1.32); iSTAT Potassium 3.1 mmol/L (3.3-5.0)
--- NOTE | 2024-03-07 16:19 | Discharge Summary ---
Discharge Summary Date of Service March 07, 2024 Principal Dx & Hospital Course #1 = Principal Diagnosis (1) Leg pain, left: (2) Edema of left lower extremity: (3) May-Thurner syndrome: Plan Ms. De La Cruz is a 53-year-old female who has significant past medical history of nonischemic cardiomyopathy, combined systolic and diastolic CHF, LBBB, HTN, HLD, history of varicose veins status post ablation, RADHA, asthma, fibromyalgia, DDD, history of migraines, tobacco abuse, medical marijuana card for fibromyalgia, depression with anxiety and insomnia who presented to ED on 03/07 due to acute LLE pain at 330 am. Patient states she has chronic pain in LLE and swelling due to May-Thurner. She takes her Eliquis as prescribed and even had her IVC filter removed 02/03. Vascular reviewed--this is chronic. Patient with pain resolved. Patient given potassium supplementation and ambulated with resolution of symptoms. BP up to 140s after IVF. Reports possible dehyrdation secondary to brief episode of diarrhea day prior. Advised to hold lasix for one day, and resume rest of home medications. #Extensive DVT L common iliac vein, L common femoral vein, L greater saphenous vein, proximal superficial femoral vein and thrombus in 1 of 2 paired posterior tibial veins #May Thurner Syndrome Initially started on heparin drip, remains hemodynamically stable 07/21: Now s/p insertion of Vena Cava Filter s/p removal 02/03 Continue eliquis Vascular: thrombosed stent is chronic #Nonischemic cardiomyopathy #Combined systolic and diastolic CHF, Heart failure with rec EF #Chronic LBBB Currently euvolemic, prior ECHO stable EF Continue GDMT -Metoprolol xL 25mg daily -Furosemide 20mg daily: held 2/2 hypotension -Entresto / 0.5 tab BID: held 2/2 hypotension -Aldactone 12.5 mg held 2/2 hypotension -Jardiance 10mg daily Cardiology consulted to discuss optimization of GDMT iso concerns of ongoing hypotension reported prior to admission Continue Entresto, furosemide, Jardiance, metoprolol, spironolactone at their current doses. -Follow up OP cards #HTN #HLD Chronic, stable Follows [facility] On GDMT including metoprolol, Aldactone, Entresto, Jardiance, lasix Held regimen s/p IVF with improved BP #Abnormal MRI brain #Known R frontal Meningoma #Memory impairment Followed Dr. Tobias in 01/2023 Chronic ischemic microvascular changes on MRI noted Consider resumption of ASA 81mg daily upon discharge Continue nymenda 10mg BID #RADHA Cpap at HS #Fibromyalgia continue lyrica, namenda uses medical marijuana prn at home continue duloxetine chronic, stable #Insomnia ambien 10mg HS, prn melatonin is her home regimen chronic, stable Persistent insomnia Plan: Eszopiclone 1 MG Oral Tablet (Lunesta) #Depression with anxiety continue bupropion #GERD Continue PPI BID DVT Eliquis Notes For Next Care Provider Medication Changes From Visit Hold Lasix x 1 day Admission HPI Per Admitting Provider Ms. De La Cruz is a 54-year-old female who has significant past medical history of nonischemic cardiomyopathy, combined systolic and diastolic CHF, LBBB, HTN, HLD, history of varicose veins status post ablation, RADHA, asthma, fibromyalgia, DDD, history of migraines, tobacco abuse, medical marijuana card for fibromyalgia, depression with anxiety and insomnia, May-Thurner syndrome s/p L iliac stenting on chronic DOAC who presented to [facility] ED on 03/07 due to acute LLE pain at 330 am. Patient states she has chronic pain in LLE and swelling due to May-Thurner. She takes her Eliquis as prescribed and even had her IVC filter removed 02/03. Patient otherwise states she has been in normal state of health. Patient admitted 07/18 secondary to severe left lower extremity pain.Patient underwent venogram and started on tPA infusion after a prophylactic IVC filter placed on 07/21. Patient transferred to ICU for close monitoring during ongoing anticoagulation with tPA drip via LLE. Patient follow Heme who per patient felt this was likely anatomical therefore further anticoagulation studies deferred. When asking patient about family history and personal history, she does note her mother had atleast one miscarriage and that she personally experienced 3 early term miscarriages. Patient denies chest pain, shortness of breath, or other acute concerns. On exam, patient states pain is controlled when she is not moving. In the ED, vitals were notable for BP of 80-90s, HR of 60-80s, and O2 sat of high 90s on RA Imaging revealed doppler with nonocclusive femoral DVT, possibly chronic; however, CT ABD/P revealed stent in iliac possibly thrombosed. EKG reviewed and noted TWI but with artifact, therefore will repeat ED interventions: tylenol. Consultants: Reached out to Vascular to discuss Patient to be admitted to PCU/tele for further evaluation and management of thrombosed iliac stent. Admission Exam Per Admitting Provider GENERAL APPEARANCE: AxOx4, generally well-appearing F, no acute distress. HEENT: NC, AT. MMM. EOMI, clear conjunctiva, oropharynx clear. NECK: Supple without lymphadenopathy. No stiffness or restricted ROM. HEART: Normal rate and regular rhythm, normal S1/S1, no m/r/g LUNGS: CTAB, moving air well. No crackles or wheezes are heard. ABDOMEN: Soft, nontender, nondistended with good bowel sounds heard. BACK: No CVAT, no obvious deformity. EXTREMITIES: Without cyanosis, clubbing or edema. NEUROLOGICAL: Grossly nonfocal. Alert and oriented, moving all 4 extremities. CN not formally tested but appear grossly intact. Observed to ambulate with normal gait. Skin: Warm and dry without any rash. Discharge Exam Constitutional WD/WN, vitals as above Respiratory normal respiratory effort, lungs clear to auscultation Cardiovascular RRR, no murmur, no edema Gastrointestinal (Abdomen) normal bowel sounds, soft, nontender, no hepatosplenomegaly Updated Medication List Medication Instructions Recorded Confirmed Type cholecalciferol (vitamin D3) 25 1,000 unit PO DAILY 02/26/18 03/07/24 History mcg (1,000 unit) capsule (Vitamin D3) bupropion HCl 150 mg 24 hr tablet, 150 mg PO QAM 02/10/23 03/07/24 History extended release (Wellbutrin XL) furosemide 20 mg tablet (Lasix) 20 mg PO DAILY 02/10/23 03/07/24 History memantine 10 mg tablet 10 mg PO BIDM 02/10/23 03/07/24 History metoprolol succinate 25 mg 25 mg PO DAILY 02/10/23 03/07/24 History tablet,extended release 24 hr pantoprazole 20 mg tablet,delayed 40 mg PO BID 02/10/23 03/07/24 History release (Protonix) spironolactone 25 mg tablet 12.5 mg PO DAILY 02/10/23 03/07/24 History tizanidine 4 mg capsule (Zanaflex) 4 mg PO HS PRN MUSCLE SPASMS/PAIN 02/10/23 03/07/24 History black cohosh 200 mg capsule 200 mg PO BID 07/18/23 03/07/24 History empagliflozin 10 mg tablet 10 mg PO DAILY 07/18/23 03/07/24 History (Jardiance) lactobacillus combination no.4 3 3,000 mmu cells PO DAILY 07/18/23 03/07/24 History billion cell capsule (Probiotic) multivitamin 1 tab PO DAILY 07/18/23 03/07/24 History pregabalin 100 mg capsule 100 mg PO AMHS 07/18/23 03/07/24 History pregabalin 25 mg capsule 50 mg PO AMHS 07/18/23 03/07/24 History sacubitril 24 mg-valsartan 26 mg 0.5 tab PO BID 07/18/23 03/07/24 History tablet (Entresto) sumatriptan succinate 50 mg tablet 50 mg PO DIRECTED PRN Headache 07/18/23 03/07/24 History apixaban 5 mg tablet (Eliquis) 5 mg PO BID #74 tabs 07/23/23 03/07/24 Rx cyanocobalamin (vitamin B-12) 1,000 mcg PO DAILY 12/21/23 03/07/24 History 1,000 mcg tablet (Vitamin B-12) diclofenac sodium 1 % topical gel 2 g topical QID PRN JOINT PAIN 12/21/23 03/07/24 History hydrocodone 5 mg-acetaminophen 325 1 tab PO BID PRN pain 12/21/23 03/07/24 History mg tablet melatonin 10 mg tablet 10 mg PO HS PRN Sleep 12/21/23 03/07/24 History duloxetine 60 mg capsule,delayed 60 mg PO QPM 03/07/24 03/07/24 History release (Cymbalta) eszopiclone 1 mg tablet 3 mg PO 03/07/24 History Hospital Stay Data Consultations 03/07/24 06:36 ED Decision to Admit Stat 03/07/24 07:48 Consult Vascular Surgery Routine Diagnostic Imagining Performed 03/07/24 04:38 US venous doppler LE BI Stat 03/07/24 04:39 CT angio chest PE protocol Stat 03/07/24 05:03 CT abd pelvis IV con only Stat Pending Results Patient Have Any Pending Studies at Discharge: No Discharge Instructions Given to Patient (Per Discharging Provider) You were admitted for left leg pain. Your imaging revealed chronic thrombosis. No other acute findings outside of hypokalemia. Hold your furosemide for 24 hours. Resume all other home medications. Follow up with your PCP in next 1-2 weeks for labs (BMP, CBC, Mag, Phos) Total Time Total Time Spent Total Time Spent (In Minutes): 35
[2024-03-07] MEDS ORDERED: MEMANTINE HCL 10 MG TAB PO SCH (17:00)
[2024-03-07] MEDS ORDERED: DULoxetine HCL 60 MG CAP PO SCH (21:00)
--- NOTE | 2024-03-08 06:48 | Electrocardiogram Report ---
Test Reason : Blood Pressure : */* mmHG Vent. Rate : 78 BPM Atrial Rate : 78 BPM P-R Int : 130 ms QRS Dur : 120 ms QT Int : 416 ms P-R-T Axes : 49 37 164 degrees QTcB Int : 474 ms Normal sinus rhythm Left ventricular hypertrophy with QRS widening and repolarization abnormality ( Stuart product ) Abnormal ECG When compared with ECG of 21-Dec-2023 01:45, No significant change Confirmed by Abner Connor ([id number]) on 03/08/2024 6:48:31 AM Referred By: REFERRED SELF Confirmed By: Abner Connor
[2024-03-14 22:07] LABS: Factor 5 Mutation NEGATIVE
== END 2024-03-07 17:00 | disposition home or self-care (01) | DRG 300 ==
LOC: ED 04:24 → EDINP 07:51 → INTOOBSV 07:51 → EDINP 10:31